=== PATIENT | male | born 1935 | race Caucasian/White ===

== ENCOUNTER 2017-09-21 12:59 | Emergency (ER) | payer MEDICARE, SELFPAY ==
[2017-09-21 12:59] VITALS: BP 142/64; PULSE 63; RESP 20; TEMP 36.6; O2SAT 97; BMI 30.2
--- NOTE | 2017-09-21 13:12 | XR_ITS ---
XR chest portable HISTORY: ITS.REASON: dizziness, weakness ORDERING PHYSICIAN: Jim Araujo MD PATIENT AGE: 81 years COMPARISON: 6 11/27/2016. FINDINGS: Borderline cardiomegaly without failure. The lungs are clear. There is a loop recorder device present. Bilateral humeral prostheses are present. IMPRESSION: No acute finding. Borderline cardiomegaly.
--- NOTE | 2017-09-21 13:16 | CT_ITS ---
CT head/brain wo con HISTORY: ITS.REASON: dizziness ORDERING PHYSICIAN: Jim Araujo MD PATIENT AGE: 81 years TECHNIQUE: Axial images obtained without contrast. Brain and bone windows reviewed. All CT scans at the facility use one or more dose reduction, viz: automated exposure control; ma/kV adjustment per patient size (including targeted exams where dose is matched to indication; i.e. head); or iterative reconstruction technique. FINDINGS: There is generalized atrophy. No midline shift, mass effect, intracranial hemorrhage, or hydrocephalus. No intra or extra-axial hemorrhage. No acute calvarial abnormality, mastoid effusion, or hydrocephalus level. IMPRESSION: Mild utilized atrophy, no change with no acute finding compared to 03/15/2016
--- NOTE | 2017-09-21 13:19 | HMH.EDDIZZ ---
ED Disposition Clinical Impression: Labyrinthitis, Hyperglycemia Disposition: Home, Self-Care Condition on Discharge: Good Instructions: DI for Labyrinthitis, DI for Hyperglycemia -- Adult Additional Instructions: Please take the meclizine as directed, for your labyrinthitis. Please follow-up with Dr. Paulo Alexander within the next 2 days for additional, outpatient, evaluation and management. Prescriptions: Meclizine HCl [Meclizine 25mg Tab] 25 mg PO TID #45 tab Referrals: Jonathan Nichols [Primary Care Provider] - Paulo Alexander MD [Staff Physician] - Time of Disposition: 13:50 - Critical Care Critical Care Time: No Attestation: On , the high probability of a clinically significant, sudden or life threatening deterioration of the following system(s) required my full and direct attention, intervention and personal management. The time I documented below is in addition to time spent performing reported procedures but includes the following listed in this critical care notation. Medical Decision Making - Medical Records Medical records reviewed: Yes: I reviewed the patient's medical records. - Adi Inquiry Pt receiving controlled substance: No Vital Signs: 09/21/17 12:59 09/21/17 14:05 Temperature 97.9 F 97.9 F Temperature Source Oral Oral Pulse Rate 63 Pulse Rate [Right Brachial] 63 Respiratory Rate 20 18 Blood Pressure 124/74 Blood Pressure [Right Arm] 142/64 Blood Pressure Mean [Right Arm] 90 Blood Pressure Source Automatic Cuff Blood Pressure Source [Right Arm] Automatic Cuff Blood Pressure Position Sitting Blood Pressure Position [Right Arm] Sitting 02 Sat by Pulse Oximetry 97 Oxygen Delivery Method Room Air - Lab Data Lab results reviewed: Yes: I reviewed the patient's lab results. Lab Results 09/21/17 13:00: WBC 6.0, RBC 4.48 L, Hgb 12.8 L, Hct 39.6 L, MCV 88.5, MCH 28.5, MCHC 32.2, RDW 13.2, Plt Count 184, MPV 7.7, Neut % (Auto) 70.6, Lymph % (Auto) 17.5, [place] % (Auto) 8.4, Eos % (Auto) 3.1, Baso % (Auto) 0.3, Neut # (Auto) 4.2, Lymph # (Auto) 1.0, [place] # (Auto) 0.5, Eos # (Auto) 0.2, Baso # (Auto) 0.0 09/21/17 13:00: Sodium 136, Potassium 4.8, Chloride 103, Carbon Dioxide 28, Anion Gap 9.8, BUN 18, Creatinine 0.98, Estimated Creat Clear 79, Estimated GFR 74, Est GFR ( Amer) 89, Glucose 312 H, Calcium 9.0, Total Bilirubin 0.3, AST 22, ALT 31, Alkaline Phosphatase 122 H, Total Creatine Kinase 60, CK-MB (CK-2) 1.1, CK-MB (CK-2) Rel Index 1.8, Troponin I < 0.02, Total Protein 6.1 L, Albumin 3.2 L, Globulin 2.9, Albumin/Globulin Ratio 1.1 09/21/17 13:16: POC Glucose 253 Result diagrams: 09/21/17 13:00 09/21/17 13:00 Orders (Tests/Meds): ED MEDICATIONS Discontinued Medications Generic Name Dose Route Start Last Admin Trade Name Freq PRN Reason Stop Dose Admin Meclizine HCl 50 mg 09/21/17 13:44 Antivert 25mg Tablet PO 09/21/17 13:45 ONCE ONE - Radiology Data #1 Image(s): Chest Image Reviewed: Yes I reviewed the patient's radiology results, Yes I reviewed the patient's radiology image, Yes I have reviewed radiologist's interpretation Preliminary Findings: Normal/NAD - CT Data CT Scan: Head (wthout) Time Received: 15:[address] Reviewed: Yes: I have reviewed the patient's CT results, I have viewed the radiologist's interpretation Findings Narrative: [address] [place] [address] [place] Scan Report Signed Patient: Oli Chambers MR#: [id number] : 1935 Acct:[id number] Age/Sex: 81 / M ADM Date: 09/21/17 Loc: ER Attending Dr: Ordering Physician: Jim Araujo MD Date of Service: 09/21/17 Procedure(s): CT head/brain wo con Accession Number(s): [id number] cc: Jimenez Villafana MD; Jonathan Nichols ~ CT head/brain wo con HISTORY: ITS.REASON: dizziness ORDERING PHYSICIAN: Jim Araujo MD PATIENT AGE: 81 years TE
[2017-09-21 13:24] LABS: POC Glucose,Bedside 253 mg/dL (70-110)
[2017-09-21 13:25] LABS: Basophils % 0.3 % (0.1-2.0); Eosinophils # 0.2 K/mm3 (0.0-0.4); Eosinophils % 3.1 % (0.1-12.0); Hematocrit 39.6 % (42.0-52.0); Hemoglobin 12.8 g/dL (14.1-18.0); Lymphocytes % 17.5 K/mm3 (10-50); Mean Corpuscular HGB Conc 32.2 g/dL (31.8-35.4); Mean Corpuscular Hemoglobin 28.5 pg (27.0-31.2); Mean Corpuscular Volume 88.5 fl (80-94); Mean Platelet Volume 7.7 fl (7.4-10.4); Monocytes # 0.5 K/mm3 (0.1-1.0); Monocytes % 8.4 % (1.7-9.3); Neutrophils # 4.2 K/mm3 (1.8-7.8); Neutrophils % 70.6 % (37.0-80.0); Platelet Count 184 K/mm3 (142-424); Red Blood Count 4.48 M/mm3 (4.60-6.20); Red Cell Distribution Width 13.2 % (11.5-17.5)
[2017-09-21 13:46] LABS: Alanine Aminotransferase 31 U/L (12-78); Albumin Level 3.2 gm/dL (3.4-5.0); Albumin/Globulin Ratio 1.1 (1.1-1.8); Alkaline Phosphatase 122 U/L (46-116); Anion Gap 9.8 mEq/L (5-15); Aspartate Amino Transferase 22 U/L (15-37); Bilirubin,Total 0.3 mg/dL (0.2-1.0); Blood Urea Nitrogen 18 mg/dL (7-18); CKMB Relative Index 1.8 U/L (0-4.0); Carbon Dioxide 28 mmol/L (21.0-32.0); Chloride 103 mmol/L (98-107); Creatine Kinase 60 U/L (39-308); Creatine Kinase MB 1.1 ng/ml (0.0-3.6); Creatinine Clearance Estimated 79 mL/min (0-300); Creatinine,Serum 0.98 mg/dL (0.70-1.30); Estimated Glomerular Filt Rate 74 ml/min (>60); GFR (African American) 89 ML/MIN (>60); Globulin 2.9 gm/dl (1.3-3.2); Glucose 312 mg/dL (74-106); Potassium 4.8 mmoL/L (3.5-5.1); Sodium 136 mmol/L (136-145); Total Protein,Serum 6.1 gm/dL (6.4-8.2); Troponin I < 0.02 ng/ml (0.00-0.06)
[2017-09-21 14:05] VITALS: BP 124/74; PULSE 63; RESP 18; TEMP 36.6
== END 2017-09-21 14:06 | disposition home or self-care (01) ==
PROVIDERS: Emergency Provider Emergency Medicine; PCP Pediatrics
DX: H83.09 Labyrinthitis, unspecified ear (principal); E11.65 Type 2 diabetes mellitus with hyperglycemia
CPT/HCPCS: 70450; 71045; 80053; 82550; 82553; 82962; 84484; 85025; 93005; 99283

== ENCOUNTER → 2017-10-11 06:22 | Outpatient (CLI) | payer MEDICARE, SELFPAY ==
--- NOTE | 2017-10-11 06:25 | CA_ITS ---
PROCEDURE: 2-D M-mode and color Doppler study INDICATIONS FOR THE TEST: Chest pain COPD Heart Murmur Tobacco Smoking Palpitations Fatigue Syncope+ Edema Hypertension Diabetes Mellitus Rheumatic Fever SOB ELLISON Obesity Hyperlipidemia Family History HD Additional History AFIB, DIZZINESS,CAD PATIENT INFORMATION HEIGHT: 69 WEIGHT:204 GENDER: Male B/P:144/88 2-D/M-MODE INTERPRETATION: 2-D MEASUREMENTS OBSERVED VALUES IN CMS Right Ventricular Dimension (RVDd) 2.2 Interventricular Septum (Thickness)(IVsd) 2.1 Left Ventricular Internal Dimensions(LVIDd) 3.7 Left Ventricular Posterior Wall (Thickness)(LVPWd) 1.3 Aortic Root 4.0 Aortic Cusp Separation 2.4 Left Atrial Dimensions (LAD) 3.9 2D 1. Technically very difficult study because of the patient's factor and poor acoustic windows, repeat study with Definity contrast is recommended. 2. The left atrium is mildly enlarged, left ventricle is normal size, there is mild concentric left ventricular hypertrophy, visually estimated ejection fraction approximately 40%, there appears to be hypokinesis involving the inferolateral and lateral wall, a repeat study with Definity contrast is recommended. 3. The aortic valve is minimally thickened and fibrosed. 4. The mitral and tricuspid valve leaflets are minimally thickened. 5. The pulmonic valve is poorly was. 6. There is no significant pericardial effusion noted. DOPPLER INTERROGATION: Doppler interrogation of the aortic, mitral and tricuspid valvular presence of mild mitral and tricuspid regurgitation, tricuspid and jet velocity insufficient for calculation of the right ventricular systolic pressure, Doppler evidence of impaired LV relaxation seen. Tissue Doppler is inconclusive CONCLUSION: 1. Limited difficult study because of the patient's factor and poor acoustic windows, repeat study with Definity contrast is recommended. 2. Mildly enlarged left atrium, normal left ventricular size, mild concentric left ventricular hypertrophy, visually estimated ejection fraction approximately 40% with segmental wall motion abnormality described above. Doppler evidence of impaired LV relaxation seen. 3. Mild mitral and tricuspid regurgitation 4. No significant pericardial effusion noted.
--- NOTE | 2017-10-11 06:25 | NM_ITS ---
SPECT MYOCARDIAL PERFUSION SCAN, REST AND STRESS: EXERCISE STRESS: [facility] REVIEW QGS EF AND WALL MOTION EVALUATION: QPS - PERFUSION EVALUATION: HISTORY: SOB, Syncope, HTN, DM, CAD PROCEDURE: Rest imaging performed after administration of10.39 millicuries Tc MIBI. Dose administered at6:40 a.m., with imaging thereafter. Stress imaging was then performed following5 minutes 31 seconds of exercise stress. The patient achieved a heart [id number] with projected heart rate of119 . Resting BP155/94 with stress 154/80. At maximum exercise stress,31.5 millicuries Tc MIBI administered at8:15 a.m. with [id number] minutes thereafter. FINDINGS: Perfusion Evaluation: The single slice spect images as well as the [facility] bull's-eye data summary were reviewed. Wall Motion and Ejection Fraction Evaluation: Gated SPECT review and analysis used to evaluate these features. There is a 41 % left ventricular ejection fraction. With diffuse anterior and inferior severe hypokinesis Stress images reveal decreased activity in a portion of the anterior wall and a large portion of the inferior wall. Rest images reveal significant improvement in the anterior wall with persistent defect in the anterior wall. IMPRESSION: High risk abnormal stress test with anterior ischemia and suggestion of previous inferior ischemia without reversibility. The anterior wall is hypokinetic the inferior wall severely hypokinetic.
--- NOTE | 2017-10-11 07:30 | HMH.ITSHM ---
XARELTO LISINOPRIL PANTOPRAZOLE ATORVASTATIN COD LIVER VITAMIN D3 BUPROPION ISOSORBIDE AMLODIPINE METFORMIN PROGLITAZONE VITAMIN C IRON
== END ==
PROVIDERS: PCP Pediatrics; Visit Provider Internal Medicine
DX: R94.31 Abnormal electrocardiogram [ECG] [EKG] (principal); Z95.5 Presence of coronary angioplasty implant and graft; Z79.01 Long term (current) use of anticoagulants; R42 Dizziness and giddiness; I11.9 Hypertensive heart disease without heart failure; R55 Syncope and collapse; R53.1 Weakness; I48.0 Paroxysmal atrial fibrillation; I25.10 Atherosclerotic heart disease of native coronary artery without angina pectoris; R53.83 Other fatigue; E78.4 Other hyperlipidemia; E11.9 Type 2 diabetes mellitus without complications; Z79.4 Long term (current) use of insulin
CPT/HCPCS: 78452; 93017; 93306; A9502

== ENCOUNTER → 2017-11-30 13:28 | Outpatient (CLI) | payer MEDICARE, SELFPAY | PROVIDERS: PCP Pediatrics; Visit Provider Internal Medicine | DX: G47.33 Obstructive sleep apnea (adult) (pediatric) (principal) | CPT/HCPCS: G0399 ==

== ENCOUNTER → 2017-12-22 14:28 | Outpatient (POV) | payer MEDICARE, SELFPAY | PROVIDERS: PCP Pediatrics | DX: Z00.00 Encounter for general adult medical examination without abnormal findings (principal) ==

== ENCOUNTER → 2017-12-31 09:50 | Outpatient (CLI) | payer MEDICARE, SELFPAY ==
[2017-12-31 11:11] LABS: Prostate Specific Ag Screen < 0.1 ng/mL (0.0-4.0)
== END ==
PROVIDERS: Visit Provider Urology
DX: Z12.5 Encounter for screening for malignant neoplasm of prostate (principal); N40.0 Benign prostatic hyperplasia without lower urinary tract symptoms
CPT/HCPCS: 36415; G0103

== ENCOUNTER → 2018-01-10 08:10 | Outpatient (POV) | payer MEDICARE, SELFPAY | PROVIDERS: Visit Provider Physician Assistant | DX: Z00.00 Encounter for general adult medical examination without abnormal findings (principal) ==

== ENCOUNTER 2018-02-02 14:25 | Outpatient (RCR) | payer MEDICARE, SELFPAY | END 2018-02-02 14:26 | disposition home or self-care (01) | LOC: PT 14:25 | PROVIDERS: PCP Pediatrics; Visit Provider Specialist | DX: R42 Dizziness and giddiness (principal) | CPT/HCPCS: 97110; 97163 ==

== ENCOUNTER → 2018-06-06 13:10 | Outpatient (CLI) | payer MEDICARE, SELFPAY ==
--- NOTE | 2018-06-06 13:28 | XR_ITS ---
XR chest 2V HISTORY: Heart failure, coronary artery disease, atrial fibrillation ITS.REASON: on amidoarone therapy ORDERING PHYSICIAN: MARJORIE Jensen PATIENT AGE: 82 years COMPARISON: 09/21/2018 FINDINGS: Borderline cardiomegaly without failure. Loop recorder device noted. Lungs are clear. There are degenerative changes in the thoracic spine and there are bilateral humeral prosthesis present. Coronary artery calcifications are noted on the lateral view. IMPRESSION: As above, no acute finding with no significant change. No convincing evidence of amiodarone toxicity
[2018-06-06 14:54] LABS: Alanine Aminotransferase 33 U/L (12-78); Albumin Level 3.4 gm/dL (3.4-5.0); Alkaline Phosphatase 141 U/L (46-116); Aspartate Amino Transferase 16 U/L (15-37); Bilirubin,Direct 0.2 mg/dL (0.0-0.2); Bilirubin,Indirect 0.2 mg/dL (0.0-0.9); Bilirubin,Total 0.4 mg/dL (0.2-1.0); T4 (Thyroxine) 10.2 ug/dl (4.7-13.3); Thyroid Stimulating Hormone 1.01 uIU/ml (0.358-3.740); Total Protein,Serum 6.2 gm/dL (6.4-8.2); Triiodothryronine (T3) Uptake 39 % (31-39)
== END ==
PROVIDERS: Visit Provider Physician Assistant
DX: E11.9 Type 2 diabetes mellitus without complications (principal); I11.9 Hypertensive heart disease without heart failure; I25.10 Atherosclerotic heart disease of native coronary artery without angina pectoris; I48.0 Paroxysmal atrial fibrillation; R06.09 Other forms of dyspnea; R42 Dizziness and giddiness; R53.83 Other fatigue; R94.31 Abnormal electrocardiogram [ECG] [EKG]; Z79.01 Long term (current) use of anticoagulants; Z95.5 Presence of coronary angioplasty implant and graft; E78.49 Other hyperlipidemia
CPT/HCPCS: 36415; 71046; 80076; 84436; 84443; 84479

== ENCOUNTER → 2018-07-19 08:24 | Outpatient (POV) | payer MEDICARE, SELFPAY | PROVIDERS: Visit Provider Dermatology | DX: Z00.00 Encounter for general adult medical examination without abnormal findings (principal) ==

== ENCOUNTER 2018-10-17 13:04 | Inpatient (IN) ==
[2018-10-17 13:24] LABS: Basophils % 0.4 % (0.1-2.0); Eosinophils # 0.3 K/mm3 (0.0-0.4); Eosinophils % 3.4 % (0.1-12.0); Hematocrit 24.1 % (42.0-52.0); Lymphocytes % 25.6 % (10-50); Mean Corpuscular HGB Conc 31.3 g/dL (31.8-35.4); Mean Corpuscular Hemoglobin 27.7 pg (27.0-31.2); Mean Corpuscular Volume 88.5 fl (80-94); Mean Platelet Volume 6.9 fl (7.4-10.4); Monocytes # 0.6 K/mm3 (0.1-1.0); Monocytes % 7.4 % (1.7-9.3); Neutrophils # 4.9 K/mm3 (1.8-7.8); Neutrophils % 63.2 % (37.0-80.0); Platelet Count 352 K/mm3 (142-424); Red Blood Count 2.73 M/mm3 (4.60-6.20); Red Cell Distribution Width 16.8 % (11.5-17.5); White Blood Count 7.7 K/mm3 (4.8-10.8)
[2018-10-17 13:28] LABS: Hemoglobin 7.6 g/dL (14.1-18.0)
--- NOTE | 2018-10-17 13:43 | Emergency Department Note ---
ED Disposition Clinical Impression: GI bleed, Anemia Disposition: Admitted as Observation Condition on Discharge: Fair Referrals: Jonathan Nichols [Primary Care Provider] - Time of Disposition: 14:04 - Critical Care Critical Care Time: No Attestation: On 10/17/18, the high probability of a clinically significant, sudden or life threatening deterioration of the following system(s) required my full and direct attention, intervention and personal management. The time I documented below is in addition to time spent performing reported procedures but includes the following listed in this critical care notation. Medical Decision Making - Medical Records Medical records reviewed: Yes: I reviewed the patient's medical records. - Adi Inquiry Pt receiving controlled substance: No Adi was queried for this patient: No Vital Signs: 10/17/18 13:05 Pulse Rate [Right Brachial] 81 Respiratory Rate 18 Blood Pressure [Right Arm] 136/74 Blood Pressure Mean [Right Arm] 94 Blood Pressure Source [Right Arm] Automatic Cuff Blood Pressure Position [Right Arm] Sitting 02 Sat by Pulse Oximetry 100 Oxygen Delivery Method Room Air - Lab Data Lab results reviewed: Yes: I reviewed the patient's lab results. Lab Results 10/17/18 13:10: WBC 7.7, RBC 2.73 L, Hgb 7.6 L*, Hct 24.1 L, MCV 88.5, MCH 27.7, MCHC 31.3 L, RDW 16.8, Plt Count 352, MPV 6.9 L, Neut % (Auto) 63.2, Lymph % (Auto) 25.6, [place] % (Auto) 7.4, Eos % (Auto) 3.4, Baso % (Auto) 0.4, Neut # (Auto) 4.9, Lymph # (Auto) 2.0, [place] # (Auto) 0.6, Eos # (Auto) 0.3, Baso # (Auto) 0.0 10/17/18 13:10: Sodium 141, Potassium 4.3, Chloride 107, Carbon Dioxide 26, Anion Gap 12.3, BUN 34 H, Creatinine 1.12, Estimated Creat Clear 70, Estimated GFR 63, Est GFR ( Amer) 76, Glucose 78, Calcium 8.8, Troponin I < 0.02 Result diagrams: 10/17/18 13:10 10/17/18 13:10 Orders (Tests/Meds): ED MEDICATIONS Generic Name Dose Route Start Last Admin Trade Name Hope PRN Reason Stop Dose Admin Sodium Chloride 250 mls @ 25 mls/hr 10/17/18 13:45 Sod Chlor 0.9% 250ml Bag IV 10/18/18 13:44 .Q10H LIOR Discontinued Medications Generic Name Dose Route Start Last Admin Trade Name Hope PRN Reason Stop Dose Admin Aspirin 324 mg 10/17/18 13:09 10/17/18 13:11 Aspirin 81mg Chewable Tablet PO 10/17/18 13:10 324 mg ONCE ONE Administration ORDERS Category Date Time Status PRBC [Red Blood Cells] Stat BBK 10/17/18 13:41 Ordered Type and Screen Stat BBK 10/17/18 13:[address] abdomen pelvis w con Stat Cat Scan 10/17/18 13:44 Ordered XR chest 2V Stat Exams 10/17/18 13:09 Taken Occult Blood,Stool Stat Lab 10/17/18 14:01 Ordered - Physician Consults Physician Consulted: alonzo Time: 13:46 Reason -: Admission Additional Consult: rashi Reason -: Pt condition, Gastroenterolgy Eval/Care General Adult HPI - General Chief complaint: Chest Pain Stated complaint: chest pain,soa Time Seen by Provider: 10/17/18 13:38 Mode of Arrival: Ambulatory Source of Information: Patient Limitations: No Limitations Description of Symptoms (Recalled from ER Triage Doc. by RN): nausea, weakness, shortness of air and chest pain that came on while riding a lawnmower trying to mow the yard this date - History of Present Illness HPI narrative: admits to black stools x 3-4 days - Related Data Home Medications Medication Instructions Recorded Confirmed aspirin 81 mg tablet,delayed 81 mg PO DAILY tab 09/27/17 09/05/18 release atorvastatin 80 mg tablet 80 mg PO DAILY tab 09/27/17 09/05/18 insulin detemir (U- 100) 100 40 unit SUB-Q QAM ml 09/27/17 09/05/18 unit/mL subcutaneous solution metformin 500 mg tablet 500 mg PO BID 09/27/17 09/05/18 nitroglycerin 0.4 mg sublingual 0.4 mg SUBLINGUAL Q5M PRN 09/27/17 09/05/18 tablet rivaroxaban 20 mg tablet 20 mg PO QPM 09/27/17 09/05/18 pioglitazone 30 mg tablet 30 mg PO ONCE 12/30/17 09/05/18 bupropion HCl SR 100 mg tablet,12 100 mg PO DAILY each 06/06/18 09/05/18 hr sustained-release amiodarone 200 mg tablet 200 mg PO DAILY 09/05/18 09/05/18 Previous Rx's Medication Instructions Recorded isosorbide mononitrate ER 30 mg 30 mg PO QAM #30 tab 08/30/18 tablet,extended release 24 hr pantoprazole 40 mg tablet,delayed 40 mg PO DAILY #30 tab 09/05/18 release lisinopril 20 mg tablet 10 mg PO DAILY #30 tab 10/12/18 Allergies Allergy/AdvReac Type Severity Reaction Status Date / Time No Known Allergies Allergy Verified 09/05/18 10:54 [facility] History - Hepatitis A Screen Drug use history?: No High risk sexual behaviors?: No History of sexually transmitted infection?: No Currently employed?: No Childcare worker?: No Do you have indoor plumbing?: Yes Do you have electricity?: Yes Attestation statement:: This patient has been screened for Hepatitis A risk factors. I have reviewed the patient's past medical history: Yes Medical History: Reports:: Atherosclerotic Heart Disease, Atrial Fibrillation, Coronary Artery Disease, Diabetes Mellitus Type 2, Hyperlipidemia, Hypertension, Myocardial Infarction Denies:: Cancer, Diabetes Mellitus Type 1, Internal Pacemaker, MRSA, Seizures Other Medical History: Reports: Arthritis Comment: TOÑO Laterality Cases: Bilateral: Arthroscopy Knee, Arthroscopy Shoulder, Other Other Surgeries: Yes: Angiogram (10/11/17), Angioplasty, Cardiac Catheterization, Cardiac Surgery, Colonoscopy, Coronary Stent. No: Pacemaker Amputation: No Fractures: No Comment: Ankle, Knees, Shoulders - Social History Smoking Status: Never smoker Alcohol Intake: never Alcohol Intake Frequency:: other Substance Use Type: denies use Occupational Status: retired Housing: house Household Members: none Family Hx:: Hyperlipidemia, Cancer, Hypertension, Diabetes ROS Obtained: Yes All systems reviewed & no additional complaints - Constitutional Constitutional: Denies fever(s), Reports lethargy, Reports weakness - Cardiovascular Cardiovascular: Reports system reviewed and no additional complaints, except as docu, Denies chest pain, Denies chest pain at rest, Reports dyspnea - Respiratory Respiratory: No dyspnea, No dyspnea on exertion - Gastrointestinal Gastrointestingal: Reports: abdominal pain, black, tarry stools - Musculoskeletal Musculoskeletal: Denies joint stiffness, Denies joint swelling - Integumentary/Breasts Skin/Breast: Denies rash - Neurologic Neurologic: Denies sensory deficit - Hematologic/Lymphatic Henatologic/Lymphatic: Denies easy bleeding, Denies easy bruising Physical Exam - General General appearance: alert, in no apparent distress - Eye Eye exam: Present: normal appearance, PERRL, EOMI - ENT ENT exam: Present: normal exam, normal oropharynx, mucous membranes moist, TM's normal bilaterally, normal external ear exam - Neck Neck exam: Present: normal inspection, full ROM, trachea midline. Absent: meningismus, lymphadenopathy - Respiratory Respiratory exam: Present: normal lung sounds bilaterally - Cardiovascular Cardiovascular exam: Present: regular rate, normal rhythm. Absent: JVD - Abdominal Exam Abdominal exam: Present: soft, tenderness, normal bowel sounds, other (guiaic postive black stool). Absent: distention, guarding - Back Exam Back exam: Present: normal inspection. Absent: tenderness - Neurological Exam Neurological exam: Present: alert, oriented X3 - Psychiatric Psychiatric exam: Present: normal affect, normal mood - Skin Skin exam: Present: warm, dry, intact, normal color
[2018-10-17 13:56] LABS: Anion Gap 12.3 mEq/L (5-15); Blood Urea Nitrogen 34 mg/dL (7-18); Calcium 8.8 mg/dL (8.5-10.1); Carbon Dioxide 26 mmol/L (21.0-32.0); Chloride 107 mmol/L (98-107); Glucose 78 mg/dL (74-106); Potassium 4.3 mmoL/L (3.5-5.1); Sodium 141 mmol/L (136-145)
--- NOTE | 2018-10-17 15:00 | Consult Report ---
History of Present Illness Consult date: 10/17/18 Requesting physician: Jin Garvey Consult reason: pre-op evaluation Chief complaint: Preop evaluation, GI bleed Additional Medical History:: 1. CAD A. Aborted STEMI, 02/2015 B. RANJIT to LAD,03/25/2015, on DAPT C. Ischemic Cardiomyopathy, improved with last echo showing, 06/2015, EF 35- 45%. D. Cardiac catheterization, 09/2017, left main normal, LAD with very proximal 20% stenosis followed by a proximal stent which is widely patent and free of in-stent restenosis. Mid LAD is a 40% eccentric stenosis. Area distally there are 80 and 90% stenoses of the small caliber LAD as it wraps the apex. Circumflex artery is nondominant with mild long 20-30% [id number] stenoses. RCA is a large dominant vessel and has proximal and mid vessels 10% stenoses with no significant distal stenosis greater than 10%. LVEF 50%, LVEDP 15 mmHg 2. Diabetes, on insulin 3. HTN A. Echocardiogram, 09/2017, technically difficult with left atrium mildly enlarged, LV size normal with mild concentric LVH. EF estimated 40% with hypokinesis in the inferolateral and lateral wall. Mild mitral regurgitation and tricuspid regurgitation. . 4. Hyperlipidemia, on statin 5. Paroxysmal atrial fibrillation A. Amiodarone and Xarelto therapy B. Loop recorder in place with recent download showing no episodes of atrial fibrillation, 08/2018 6. History of bilateral shoulder replacement and bilateral knee surgeries History of present illness: 83-year-old white male with known history of coronary artery disease, paroxysmal atrial fibrillation for which she is on amiodarone and Xarelto therapy presented to the hospital ER for evaluation of multiple complaints including progressive weakness and aches over the last several weeks. Patient has noticed the last couple of days some dark, tarry stools which coincides with some lower abdominal discomfort. Patient denies any nausea or vomiting. He denies any chest pain, pressure or tightness. 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 In the ER patient was found to have a hemoglobin of 7.6 and was admitted for further evaluation. Cardiology consulted due to history of atrial fibrillation, amiodarone therapy and Xarelto use. Patient's EKG at this time shows unusual P axis but a regular rhythm with no acute EKG changes. Patient has a implantable loop recorder and was downloaded in August with no episodes of atrial fibrillation noted. Patient has been seen by Dr. Can with plans for upper endoscopy tomorrow morning. [facility] History Medical History: Reports:: Atherosclerotic Heart Disease, Atrial Fibrillation, Coronary Artery Disease, Diabetes Mellitus Type 2, Hyperlipidemia, Hypertension, Myocardial Infarction Denies:: Cancer, Diabetes Mellitus Type 1, Internal Pacemaker, MRSA, Seizures *Have you ever received a pneumonia vaccine?: Yes *Have you received a flu vaccine this season?: No Other Medical History: Reports: Arthritis Laterality Cases: Bilateral: Arthroscopy Knee, Arthroscopy Shoulder, Other Other Surgeries: Yes: Angiogram (10/11/17), Angioplasty, Cardiac Catheterization, Cardiac Surgery, Colonoscopy, Coronary Stent. No: Pacemaker Amputation: No Fractures: No - *Social History Smoking Status: Never smoker Alcohol Intake: never Alcohol Intake Frequency:: other Substance Use Type: denies use *Occupational Status:: retired Housing: house Household Members: none Family Hx:: Hyperlipidemia, Cancer, Hypertension, Diabetes Meds Home Medications Medication Instructions Recorded Confirmed Type aspirin 81 mg tablet,delayed 81 mg PO DAILY tab 09/27/17 10/17/18 History release atorvastatin 80 mg tablet 80 mg PO DAILY tab 09/27/17 10/17/18 History insulin detemir (U- 100) 100 40 unit SUB-Q QAM ml 09/27/17 10/17/18 History unit/mL subcutaneous solution metformin 500 mg tablet 500 mg PO BID 09/27/17 10/17/18 History nitroglycerin 0.4 mg sublingual 0.4 mg SUBLINGUAL Q5MINP PRN 09/27/17 10/17/18 History tablet rivaroxaban 20 mg tablet 20 mg PO 1700 09/27/17 10/17/18 History pioglitazone 30 mg tablet 30 mg PO DAILY 12/30/17 10/17/18 History bupropion HCl SR 100 mg tablet,12 100 mg PO BID each 06/06/18 10/17/18 History hr sustained-release isosorbide mononitrate ER 30 mg 30 mg PO QAM #30 tab 08/30/18 10/17/18 Rx tablet,extended release 24 hr amiodarone 200 mg tablet 200 mg PO DAILY 09/05/18 10/17/18 History pantoprazole 40 mg tablet,delayed 40 mg PO DAILY #30 tab 09/05/18 10/17/18 Rx release lisinopril 20 mg tablet 10 mg PO DAILY #30 tab 10/12/18 10/17/18 Rx Allergies Allergy/AdvReac Type Severity Reaction Status Date / Time No Known Allergies Allergy Verified 09/05/18 10:54 Review of Systems - *Cardiovascular Reports shortness of breath with activity, Denies chest pain - *Respiratory Reports shortness of breath with activity, Denies cough - *Gastrointestinal Reports abdominal pain, Reports black, tarry stools, Denies nausea, Denies vomiting - *Genitourinary Denies blood in urine, Denies urinary urgency - *Musculoskeletal Reports joint pain, Denies back pain - *Neurologic Reports weakness, Denies sensory deficit Exam Vital signs and Labs for Last 24 Hours: Temp Pulse Resp BP Pulse Ox 97.8 F 65 17 142/75 H 100 10/17/18 14:41 10/17/18 14:41 10/17/18 14:41 10/17/18 14:41 10/17/18 13:05 Laboratory Results - last 24 hr 10/17/18 13:10: WBC 7.7, RBC 2.73 L, Hgb 7.6 L*, Hct 24.1 L, MCV 88.5, MCH 27.7, MCHC 31.3 L, RDW 16.8, Plt Count 352, MPV 6.9 L, Neut % (Auto) 63.2, Lymph % (Auto) 25.6, [place] % (Auto) 7.4, Eos % (Auto) 3.4, Baso % (Auto) 0.4, Neut # (Auto) 4.9, Lymph # (Auto) 2.0, [place] # (Auto) 0.6, Eos # (Auto) 0.3, Baso # (Auto) 0.0 10/17/18 13:10: Sodium 141, Potassium 4.3, Chloride 107, Carbon Dioxide 26, Anion Gap 12.3, BUN 34 H, Creatinine 1.12, Estimated Creat Clear 70, Estimated GFR 63, Est GFR ( Amer) 76, Glucose 78, Calcium 8.8, Troponin I < 0.02 10/17/18 14:08: Blood Type O Positive, Crossmatch (AHG) See Detail I & O for Last 24 hours: Intake & Output 10/15/18 10/16/18 10/17/18 10/18/18 11:59 11:59 11:59 11:59 Weight 210 lb - *Routine HEENT Exam Head: Present: normocephalic Eye: Present: EOMI, PERRL ENT: Present: mucous membranes moist - *Routine Neck Exam Present: supple. Absent: JVD, carotid bruit - *Routine Respiratory Exam Present: CTA bilaterally. Absent: accessory muscle use, rales, rhonchi, wheezes - *Routine Cardiovascular Exam Present: RRR. Absent: murmur, gallop, rubs - *Routine Abdominal Exam Present: soft. Absent: tenderness, distended, guarding - *Routine Extremities Exam Absent: edema, calf tenderness - *Routine Neurological Exam Present: alert, oriented X3, moving all extremities Assessment and Plan (1) Anemia Current visit: Yes Status: Acute Category: Medical Code(s): D64.9 - Anemia, unspecified (2) GI bleed Current visit: Yes Status: Acute Category: Medical Code(s): K92.2 - Gastrointestinal hemorrhage, unspecified (3) Coronary arteriosclerosis Current visit: No Status: Acute Category: Medical Code(s): I25.10 - Atherosclerotic heart disease of [place] coronary artery without angina pectoris (4) Diabetes mellitus Current visit: No Status: Acute Qualifiers: Diabetes mellitus type: type 2 Diabetes mellitus senior care insulin use: with oil heaterman 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 Diabetes mellitus complication status: without complication Qualified Code(s): E11.9 - Type 2 diabetes mellitus without complications; Z79.4 - half-way (current) use of insulin Category: Medical Code(s): E11.9 - Type 2 diabetes mellitus without complications (5) Hypertensive heart disease without heart failure Current visit: No Status: Acute Category: Medical Code(s): I11.9 - Hypertensive heart disease without heart failure (6) On anticoagulant therapy Current visit: No Status: Acute Category: Medical Code(s): 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 Patient was admitted for anemia with GI bleed with plans for upper endoscopy tomorrow. Patient is a low and acceptable risk from a cardiac standpoint to proceed with endoscopy. 2. Regarding history of paroxysmal atrial fibrillation and Xarelto use, will discontinue Xarelto at this time and continue amiodarone therapy to maintain sinus rhythm. Will check thyroid and liver functions along with chest x-ray due to amiodarone therapy. 3. Regarding the anemia, patient is to be transfused 2 units of blood later today. We would like to see his hemoglobin greater than 9 due to his coronary history.
--- NOTE | 2018-10-17 15:02 | Pharmacy Consult Notes ---
[facility] Pharmacy VTE Monitoring - Patient Demographics Admission date: 10/17/18 Report Date: 10/17/18 Time: 15:02 Allergies/Adverse Reactions: Patient Allergies No Known Allergies Allergy (Verified 09/05/18 10:54) Height: 1.75 m Weight: 95.254 kg Patient Problems: Current Active Problems (Updated 10/17/18 @ 14:04 by Jin Hill MD) GI bleed (Acute) Anemia (Acute) - VTE Risk Labs: VTE Related Lab Results Hgb 7.6 g/dL (14.1-18.0) L* 10/17/18 13:10 Hct 24.1 % (42.0-52.0) L 10/17/18 13:10 Plt Count 352 K/mm3 (142-424) 10/17/18 13:10 BUN 34 mg/dL (7-18) H 10/17/18 13:10 Creatinine 1.12 mg/dL (0.70-1.30) 10/17/18 13:10 Estimated Creat Clear 70 mL/min (50-200) 10/17/18 13:10 Clinical Trial Participant: No - Prophylaxis VTE Prophylaxis Ordered?: Yes Types of VTE Prophylaxis: TEDS Knee High
--- NOTE | 2018-10-17 15:33 | Consult Report ---
*Admission Date: 10/17/18 *Chief complaint: Weakness, dark stool *History of present illness: Patient is a very pleasant 83-year-old white male with a history of coronary artery disease and ischemic cardiomyopathy with prior myocardial infarction with placement of drug-eluting stents in 2014. He also has a history of previous atrial fibrillation and has been on Xarelto. He states that he has had several weeks of weakness. However, today he had presented to the emergency department with more significant nausea, weakness, shortness of air, and chest pain while mowing. Upon evaluation in the emergency department he was found to have a hemoglobin of 7.6 with hematocrit of 24%. BUN is 34 with creatinine of 1.12. Patient gives a history of about 3 days of black melanic stool. He denies any prior history of ulcer disease. He denies abdominal pain but does have some lower pelvic discomfort. Review of Systems - Review of Systems Review of systems:: pertinent systems reviewed and negative unless documented below - *Neurologic Reports weakness, Denies sensory deficit [facility] History Medical History: Reports:: Atherosclerotic Heart Disease, Atrial Fibrillation, Coronary Artery Disease, Diabetes Mellitus Type 2, Hyperlipidemia, Hypertension, Myocardial Infarction Denies:: Cancer, Diabetes Mellitus Type 1, Internal Pacemaker, MRSA, Seizures *Have you ever received a pneumonia vaccine?: Yes *Have you received a flu vaccine this season?: No Other Medical History: Reports: Arthritis Laterality Cases: Bilateral: Arthroscopy Knee, Arthroscopy Shoulder, Other Other Surgeries: Yes: Angiogram (10/11/17), Angioplasty, Cardiac Catheterization, Cardiac Surgery, Colonoscopy, Coronary Stent. No: Pacemaker Amputation: No Fractures: No - *Social History Smoking Status: Never smoker Alcohol Intake: never Alcohol Intake Frequency:: other Substance Use Type: denies use *Occupational Status:: retired Housing: house Household Members: none Family Hx:: Hyperlipidemia, Cancer, Hypertension, Diabetes Meds Home Medications Medication Instructions Recorded Confirmed Type aspirin 81 mg tablet,delayed 81 mg PO DAILY tab 09/27/17 10/17/18 History release atorvastatin 80 mg tablet 80 mg PO DAILY tab 09/27/17 10/17/18 History insulin detemir (U- 100) 100 40 unit SUB-Q QAM ml 09/27/17 10/17/18 History unit/mL subcutaneous solution metformin 500 mg tablet 500 mg PO BID 09/27/17 10/17/18 History nitroglycerin 0.4 mg sublingual 0.4 mg SUBLINGUAL Q5MINP PRN 09/27/17 10/17/18 History tablet rivaroxaban 20 mg tablet 20 mg PO 1700 09/27/17 10/17/18 History pioglitazone 30 mg tablet 30 mg PO DAILY 12/30/17 10/17/18 History bupropion HCl SR 100 mg tablet,12 100 mg PO BID each 06/06/18 10/17/18 History hr sustained-release isosorbide mononitrate ER 30 mg 30 mg PO QAM #30 tab 08/30/18 10/17/18 Rx tablet,extended release 24 hr amiodarone 200 mg tablet 200 mg PO DAILY 09/05/18 10/17/18 History pantoprazole 40 mg tablet,delayed 40 mg PO DAILY #30 tab 09/05/18 10/17/18 Rx release lisinopril 20 mg tablet 10 mg PO DAILY #30 tab 10/12/18 10/17/18 Rx Allergies Allergy/AdvReac Type Severity Reaction Status Date / Time No Known Allergies Allergy Verified 09/05/18 10:54 Exam Vital signs and Labs for Last 24 Hours: Temp Pulse Resp BP Pulse Ox 97.6 F 72 18 128/62 98 10/17/18 15:03 10/17/18 15:03 10/17/18 15:03 10/17/18 15:03 10/17/18 15:03 Laboratory Results - last 24 hr 10/17/18 13:10: WBC 7.7, RBC 2.73 L, Hgb 7.6 L*, Hct 24.1 L, MCV 88.5, MCH 27.7, MCHC 31.3 L, RDW 16.8, Plt Count 352, MPV 6.9 L, Neut % (Auto) 63.2, Lymph % (Auto) 25.6, [place] % (Auto) 7.4, Eos % (Auto) 3.4, Baso % (Auto) 0.4, Neut # (Auto) 4.9, Lymph # (Auto) 2.0, [place] # (Auto) 0.6, Eos # (Auto) 0.3, Baso # (Auto) 0.0 10/17/18 13:10: Sodium 141, Potassium 4.3, Chloride 107, Carbon Dioxide 26, Anion Gap 12.3, BUN 34 H, Creatinine 1.12, Estimated Creat Clear 70, Estimated GFR 63, Est GFR ( Amer) 76, Glucose 78, Calcium 8.8, Troponin I < 0.02 10/17/18 14:08: Blood Type O Positive, Crossmatch (G) See Detail 10/17/18 15:12: Blood Type Confirm O Positive I & O for Last 24 hours: Intake & Output 10/15/18 10/16/18 10/17/18 10/18/18 11:59 11:59 11:59 11:59 Weight 212 lb 4 oz - Constitutional no acute distress - *Routine Respiratory Exam Present: CTA bilaterally - *Routine Cardiovascular Exam Present: RRR Results - Labs 10/17/18 13:10 10/17/18 13:10 Laboratory Results - last 24 hr 10/17/18 13:10: WBC 7.7, RBC 2.73 L, Hgb 7.6 L*, Hct 24.1 L, MCV 88.5, MCH 27.7, MCHC 31.3 L, RDW 16.8, Plt Count 352, MPV 6.9 L, Neut % (Auto) 63.2, Lymph % (Auto) 25.6, [place] % (Auto) 7.4, Eos % (Auto) 3.4, Baso % (Auto) 0.4, Neut # (Auto) 4.9, Lymph # (Auto) 2.0, [place] # (Auto) 0.6, Eos # (Auto) 0.3, Baso # (Auto) 0.0 10/17/18 13:10: Sodium 141, Potassium 4.3, Chloride 107, Carbon Dioxide 26, Anion Gap 12.3, BUN 34 H, Creatinine 1.12, Estimated Creat Clear 70, Estimated GFR 63, Est GFR ( Amer) 76, Glucose 78, Calcium 8.8, Troponin I < 0.02 10/17/18 14:08: Blood Type O Positive, Crossmatch (G) See Detail 10/17/18 15:12: Blood Type Confirm O Positive Assessment and Plan - Assessment and plan all Dx Assessment and Plan for all problems:: Patient clinically has findings consistent with indolent upper GI blood loss with symptomatic anemia. Plan for initiation of intravenous proton pump inhibitors. Plan for tentative transfusion today and upper endoscopy tomorrow for diagnostic purposes.
[2018-10-17 16:21] LABS: Albumin Level 3.1 gm/dL (3.4-5.0); Bilirubin,Direct 0.1 mg/dL (0.0-0.2); Bilirubin,Indirect 0.1 mg/dL (0.0-0.9); Bilirubin,Total 0.2 mg/dL (0.2-1.0); Free Thyroxine Index 2.8 ug/dL (5.93-13.13); Thyroid Stimulating Hormone 1.19 uIU/ml (0.358-3.740); Total Protein,Serum 5.6 gm/dL (6.4-8.2)
[2018-10-17 22:59] LABS: Hematocrit 24.6 % (42.0-52.0)
[2018-10-17 23:22] LABS: Hemoglobin 7.9 g/dL (14.1-18.0)
[2018-10-18 06:27] LABS: Basophils % 0.3 % (0.1-2.0); Eosinophils # 0.2 K/mm3 (0.0-0.4); Eosinophils % 5.1 % (0.1-12.0); Hematocrit 24.5 % (42.0-52.0); Lymphocytes # 1.1 K/mm3 (0.7-4.5); Lymphocytes % 22.4 % (10-50); Mean Corpuscular HGB Conc 31.9 g/dL (31.8-35.4); Mean Corpuscular Hemoglobin 28.7 pg (27.0-31.2); Mean Platelet Volume 7.3 fl (7.4-10.4); Monocytes # 0.4 K/mm3 (0.1-1.0); Monocytes % 7.7 % (1.7-9.3); Neutrophils # 3.1 K/mm3 (1.8-7.8); Neutrophils % 64.6 % (37.0-80.0); Platelet Count 246 K/mm3 (142-424); Red Blood Count 2.72 M/mm3 (4.60-6.20); Red Cell Distribution Width 16.5 % (11.5-17.5); White Blood Count 4.8 K/mm3 (4.8-10.8)
[2018-10-18 06:45] LABS: Hemoglobin 7.8 g/dL (14.1-18.0)
[2018-10-18 06:47] LABS: Anion Gap 10.1 mEq/L (5-15); Potassium 4.1 mmoL/L (3.5-5.1)
[2018-10-18 07:11] LABS: Calcium 7.8 mg/dL (8.5-10.1)
--- NOTE | 2018-10-18 07:52 | Progress Note ---
Subjective Date: 10/18/18 Time: 07:48 Principal diagnosis: Anemia, GI bleed Interval history: 83-year-old white male in bed in no acute distress. Restless night due to blood transfusion. Denies any chest pain but does relate some shortness of breath with no rash, whelps or pruritus. Blood pressure noted to be elevated overnight during the transfusion treated with p.o. clonidine. Exam Vital signs and Labs for Last 24 Hours: Temp Pulse Resp BP Pulse Ox 97.6 F 70 17 102/63 L 100 10/18/18 04:40 10/18/18 04:40 10/18/18 04:40 10/18/18 04:40 10/18/18 04:40 Laboratory Results - last 24 hr 10/17/18 13:10: WBC 7.7, RBC 2.73 L, Hgb 7.6 L*, Hct 24.1 L, MCV 88.5, MCH 27.7, MCHC 31.3 L, RDW 16.8, Plt Count 352, MPV 6.9 L, Neut % (Auto) 63.2, Lymph % (Auto) 25.6, [place] % (Auto) 7.4, Eos % (Auto) 3.4, Baso % (Auto) 0.4, Neut # (Auto) 4.9, Lymph # (Auto) 2.0, [place] # (Auto) 0.6, Eos # (Auto) 0.3, Baso # (Auto) 0.0 10/17/18 13:10: Sodium 141, Potassium 4.3, Chloride 107, Carbon Dioxide 26, Anion Gap 12.3, BUN 34 H, Creatinine 1.12, Estimated Creat Clear 70, Estimated GFR 63, Est GFR ( Amer) 76, Glucose 78, Calcium 8.8, Troponin I < 0.02 10/17/18 13:10: Total Bilirubin 0.2, Direct Bilirubin 0.1, Indirect Bilirubin 0.1, AST 14 L, ALT 25, Alkaline Phosphatase 94, Total Protein 5.6 L, Albumin 3.1 L, TSH 1.19, Free T4 Index 2.8 L, Thyroxine (T4) 7.6, T3 Uptake 37 10/17/18 13:37: Stool Occult Blood Positive A 10/17/18 14:08: Blood Type O Positive, Antibody Screen Negative, Crossmatch (AHG) See Detail 10/17/18 15:12: Blood Type Confirm O Positive 10/17/18 16:18: POC Glucose 192 H 10/17/18 20:49: POC Glucose 282 H 10/17/18 22:52: Hgb 7.9 L*, Hct 24.6 L 10/18/18 05:02: POC Glucose 195 H 10/18/18 05:32: WBC 4.8 D, RBC 2.72 L, Hgb 7.8 L*, Hct 24.5 L, MCV 90.0, MCH 28.7, MCHC 31.9, RDW 16.5, Plt Count 246 D, MPV 7.3 L, Neut % (Auto) 64.6, L ymph % (Auto) 22.4, [place] % (Auto) 7.7, Eos % (Auto) 5.1, Baso % (Auto) 0.3, Neut # (Auto) 3.1, Lymph # (Auto) 1.1, [place] # (Auto) 0.4, Eos # (Auto) 0.2, Baso # (Auto) 0.0 10/18/18 05:32: Sodium 139, Potassium 4.1, Chloride 108 H, Carbon Dioxide 25, Anion Gap 10.1, BUN 31 H, Creatinine 1.06, Estimated Creat Clear 77, Estimated GFR 67, Est GFR ( Amer) 81, Glucose 186 H D, Calcium 7.8 L D I & O for Last 24 hours: Intake & Output 10/15/18 10/16/18 10/17/18 10/18/18 11:59 11:59 11:59 11:59 Intake Total 3152 / 3152 Balance 3152 / 3152 Weight 221 lb - *Routine HEENT Exam Head: Present: normocephalic Eye: Present: EOMI, PERRL ENT: Present: mucous membranes moist - *Routine Respiratory Exam Present: CTA bilaterally. Absent: accessory muscle use, rales, rhonchi, wheezes - *Routine Cardiovascular Exam Present: RRR. Absent: murmur, gallop, rubs - *Routine Neurological Exam Present: alert, oriented X3, moving all extremities Progress Note: A&P (1) Anemia Status: Acute Current Visit: Yes (2) GI bleed Status: Acute Current Visit: Yes (3) Coronary arteriosclerosis Status: Acute Current Visit: No (4) Diabetes mellitus Status: Acute Current Visit: No (5) Hypertensive heart disease without heart failure Status: Acute Current Visit: No (6) On anticoagulant therapy Status: Acute Current Visit: No (7) Paroxysmal atrial fibrillation Status: Acute Current Visit: No (8) Stented coronary artery Status: Acute Current Visit: No (9) Weakness Status: Acute Current Visit: No Assessment and Plan for All Diagnoses:: 1. We will give 1 dose of Lasix today. 2. Despite 2 units of blood transfusion patient's hemoglobin did not change significantly. Recommend proceeding with 2 additional units today. 3. Patient is stable to proceed with upper endoscopy today.
--- NOTE | 2018-10-18 07:53 | Progress Note ---
Subjective Patient reports: no new complaints Narrative: Patient states he did not sleep well. No clinical bleeding. Exam Vital signs and Labs for Last 24 Hours: Temp Pulse Resp BP Pulse Ox 97.6 F 70 17 102/63 L 100 10/18/18 04:40 10/18/18 04:40 10/18/18 04:40 10/18/18 04:40 10/18/18 04:40 Laboratory Results - last 24 hr 10/17/18 13:10: WBC 7.7, RBC 2.73 L, Hgb 7.6 L*, Hct 24.1 L, MCV 88.5, MCH 27.7, MCHC 31.3 L, RDW 16.8, Plt Count 352, MPV 6.9 L, Neut % (Auto) 63.2, Lymph % (Auto) 25.6, [place] % (Auto) 7.4, Eos % (Auto) 3.4, Baso % (Auto) 0.4, Neut # (Auto) 4.9, Lymph # (Auto) 2.0, [place] # (Auto) 0.6, Eos # (Auto) 0.3, Baso # (Auto) 0.0 10/17/18 13:10: Sodium 141, Potassium 4.3, Chloride 107, Carbon Dioxide 26, Anion Gap 12.3, BUN 34 H, Creatinine 1.12, Estimated Creat Clear 70, Estimated GFR 63, Est GFR ( Amer) 76, Glucose 78, Calcium 8.8, Troponin I < 0.02 10/17/18 13:10: Total Bilirubin 0.2, Direct Bilirubin 0.1, Indirect Bilirubin 0.1, AST 14 L, ALT 25, Alkaline Phosphatase 94, Total Protein 5.6 L, Albumin 3.1 L, TSH 1.19, Free T4 Index 2.8 L, Thyroxine (T4) 7.6, T3 Uptake 37 10/17/18 13:37: Stool Occult Blood Positive A 10/17/18 14:08: Blood Type O Positive, Antibody Screen Negative, Crossmatch (AHG) See Detail 10/17/18 15:12: Blood Type Confirm O Positive 10/17/18 16:18: POC Glucose 192 H 10/17/18 20:49: POC Glucose 282 H 10/17/18 22:52: Hgb 7.9 L*, Hct 24.6 L 10/18/18 05:02: POC Glucose 195 H 10/18/18 05:32: WBC 4.8 D, RBC 2.72 L, Hgb 7.8 L*, Hct 24.5 L, MCV 90.0, MCH 28.7, MCHC 31.9, RDW 16.5, Plt Count 246 D, MPV 7.3 L, Neut % (Auto) 64.6, Lymph % (Auto) 22.4, [place] % (Auto) 7.7, Eos % (Auto) 5.1, Baso % (Auto) 0.3, Neut # (Auto) 3.1, Lymph # (Auto) 1.1, [place] # (Auto) 0.4, Eos # (Auto) 0.2, Baso # (Auto) 0.0 10/18/18 05:32: Sodium 139, Potassium 4.1, Chloride 108 H, Carbon Dioxide 25, Anion Gap 10.1, BUN 31 H, Creatinine 1.06, Estimated Creat Clear 77, Estimated GFR 67, Est GFR ( Amer) 81, Glucose 186 H D, Calcium 7.8 L D I & O for Last 24 hours: Intake & Output 10/15/18 10/16/18 10/17/18 10/18/18 11:59 11:59 11:59 11:59 Intake Total 3152 / 3152 Balance 3152 / 3152 Weight 221 lb - *Routine Abdominal Exam Present: soft. Absent: tenderness Progress Note: A&P (1) Anemia Status: Acute Current Visit: Yes (2) GI bleed Status: Acute Current Visit: Yes (3) Coronary arteriosclerosis Status: Acute Current Visit: No (4) Diabetes mellitus Status: Acute Current Visit: No (5) Hypertensive heart disease without heart failure Status: Acute Current Visit: No (6) On anticoagulant therapy Status: Acute Current Visit: No (7) Paroxysmal atrial fibrillation Status: Acute Current Visit: No (8) Stented coronary artery Status: Acute Current Visit: No (9) Weakness Status: Acute Current Visit: No Assessment and Plan for All Diagnoses:: Essentially no response to transfusion. Give two additional units PRBCs today. EGD today.
--- NOTE | 2018-10-18 08:52 | History & Physical Report ---
*Admission Date: 10/17/18 *Chief complaint: GIB *History of present illness: Pt to ED C/O nausea, weakness, SOA, and CP while mowing yard. Also reports black tarry stools X 3-4 days. Pt sitting up in bed, no apparent distress. Reports LLQ pain. [facility] History I have reviewed the patient's past medical history: Yes Medical History: Reports:: Atherosclerotic Heart Disease, Atrial Fibrillation, Coronary Artery Disease, Diabetes Mellitus Type 2, Hyperlipidemia, Hypertension, Myocardial Infarction Denies:: Cancer, Diabetes Mellitus Type 1, Internal Pacemaker, MRSA, Seizures *Have you ever received a pneumonia vaccine?: No *Have you received a flu vaccine this season?: No Other Medical History: Reports: Arthritis Laterality Cases: Bilateral: Arthroscopy Knee, Arthroscopy Shoulder, Other Other Surgeries: Yes: Angiogram (10/11/17), Angioplasty, Cardiac Catheterization, Cardiac Surgery, Colonoscopy, Coronary Stent. No: Pacemaker Amputation: No Fractures: No - *Social History Educational Level: Completed High School Smoking Status: Never smoker Alcohol Intake: never Alcohol Intake Frequency:: other Substance Use Type: denies use *Occupational Status:: retired Housing: house Household Members: none *Travel in the last 8 weeks: None - Psychiatric History Expresses thoughts of harming self/others: None Suicide Plan Description: No Plan Family Hx:: Hyperlipidemia, Cancer, Hypertension, Diabetes Review of Systems - Review of Systems Review of systems:: pertinent systems reviewed and negative unless documented below - Constitutional Reports weakness - Eyes Denies change in vision - *Cardiovascular Reports chest pain, Reports chest pain with activity - *Respiratory Reports shortness of breath - *Gastrointestinal Reports abdominal pain, Reports black, tarry stools - *Genitourinary Denies difficulty urinating - *Musculoskeletal Reports muscle weakness - *Neurologic Reports weakness, Denies sensory deficit Meds Home Medications Medication Instructions Recorded Confirmed Type aspirin 81 mg tablet,delayed 81 mg PO DAILY tab 09/27/17 10/17/18 History release atorvastatin 80 mg tablet 80 mg PO HS tab 09/27/17 10/17/18 History insulin detemir (U- 100) 100 40 unit SUB-Q QAM ml 09/27/17 10/17/18 History unit/mL subcutaneous solution metformin 500 mg tablet 500 mg PO BID 09/27/17 10/17/18 History nitroglycerin 0.4 mg sublingual 0.4 mg SUBLINGUAL Q5MINP PRN 09/27/17 10/17/18 History tablet rivaroxaban 20 mg tablet 20 mg PO 1700 09/27/17 10/17/18 History pioglitazone 30 mg tablet 30 mg PO DAILY 12/30/17 10/17/18 History isosorbide mononitrate ER 30 mg 30 mg PO QAM #30 tab 08/30/18 10/17/18 Rx tablet,extended release 24 hr amiodarone 200 mg tablet 200 mg PO DAILY 09/05/18 10/17/18 History pantoprazole 40 mg tablet,delayed 40 mg PO DAILY #30 tab 09/05/18 10/17/18 Rx release lisinopril 20 mg tablet 10 mg PO DAILY #30 tab 10/12/18 10/17/18 Rx buPROPion HCl [Wellbutrin 100mg 100 mg PO BID 10/17/18 10/17/18 History Tablet] Allergies Allergy/AdvReac Type Severity Reaction Status Date / Time No Known Allergies Allergy Verified 09/05/18 10:54 Exam Vital signs and Labs for Last 24 Hours: Temp Pulse Resp BP Pulse Ox 97.5 F L 69 18 129/70 93 L 10/18/18 08:00 10/18/18 08:00 10/18/18 08:00 10/18/18 08:00 10/18/18 08:00 Laboratory Results - last 24 hr 10/17/18 13:10: WBC 7.7, RBC 2.73 L, Hgb 7.6 L*, Hct 24.1 L, MCV 88.5, MCH 27.7, MCHC 31.3 L, RDW 16.8, Plt Count 352, MPV 6.9 L, Neut % (Auto) 63.2, Lymph % (Auto) 25.6, [place] % (Auto) 7.4, Eos % (Auto) 3.4, Baso % (Auto) 0.4, Neut # (Aut o) 4.9, Lymph # (Auto) 2.0, [place] # (Auto) 0.6, Eos # (Auto) 0.3, Baso # (Auto) 0.0 10/17/18 13:10: Sodium 141, Potassium 4.3, Chloride 107, Carbon Dioxide 26, Anion Gap 12.3, BUN 34 H, Creatinine 1.12, Estimated Creat Clear 70, Estimated GFR 63, Est GFR ( Amer) 76, Glucose 78, Calcium 8.8, Troponin I < 0.02 10/17/18 13:10: Total Bilirubin 0.2, Direct Bilirubin 0.1, Indirect Bilirubin 0.1, AST 14 L, ALT 25, Alkaline Phosphatase 94, Total Protein 5.6 L, Albumin 3.1 L, TSH 1.19, Free T4 Index 2.8 L, Thyroxine (T4) 7.6, T3 Uptake 37 10/17/18 13:37: Stool Occult Blood Positive A 10/17/18 14:08: Blood Type O Positive, Antibody Screen Negative, Crossmatch (AHG) See Detail 10/17/18 15:12: Blood Type Confirm O Positive 10/17/18 16:18: POC Glucose 192 H 10/17/18 20:49: POC Glucose 282 H 10/17/18 22:52: Hgb 7.9 L*, Hct 24.6 L 10/18/18 05:02: POC Glucose 195 H 10/18/18 05:32: WBC 4.8 D, RBC 2.72 L, Hgb 7.8 L*, Hct 24.5 L, MCV 90.0, MCH 28.7, MCHC 31.9, RDW 16.5, Plt Count 246 D, MPV 7.3 L, Neut % (Auto) 64.6, Lymph % (Auto) 22.4, [place] % (Auto) 7.7, Eos % (Auto) 5.1, Baso % (Auto) 0.3, Neut # (Auto) 3.1, Lymph # (Auto) 1.1, [place] # (Auto) 0.4, Eos # (Auto) 0.2, Baso # (Auto) 0.0 10/18/18 05:32: Sodium 139, Potassium 4.1, Chloride 108 H, Carbon Dioxide 25, Anion Gap 10.1, BUN 31 H, Creatinine 1.06, Estimated Creat Clear 77, Estimated GFR 67, Est GFR ( Amer) 81, Glucose 186 H D, Calcium 7.8 L D I & O for Last 24 hours: Intake & Output 10/15/18 10/16/18 10/17/18 10/18/18 23:59 23:59 23:59 23:59 Intake Total 1516 / 1516 1636 / 1636 Balance 151 / 1516 1636 / 1636 Weight 212 lb 4 oz 221 lb - Constitutional no acute distress - *Routine HEENT Exam Head: Present: normocephalic Eye: Present: EOMI, PERRL ENT: Present: mucous membranes moist - *Routine Neck Exam Present: supple. Absent: lymphadenopathy - *Routine Respiratory Exam Present: CTA bilaterally - *Routine Cardiovascular Exam Present: RRR - *Routine Abdominal Exam Present: soft, normoactive bowel sounds, tenderness - *Routine Extremities Exam Absent: cyanosis, clubbing, edema - *Routine Skin Exam Present: warm. Absent: rash - *Routine Neurological Exam Present: alert, oriented X3 - Routine Psychiatric Exam Present: normal affect Assessment and Plan (1) Anemia Current visit: Yes Status: Acute Category: Medical Code(s): D64.9 - Anemia, unspecified (2) GI bleed Current visit: Yes Status: Acute Category: Medical Code(s): K92.2 - Gastrointestinal hemorrhage, unspecified (3) Coronary arteriosclerosis Current visit: No Status: Acute Category: Medical Code(s): I25.10 - Atherosclerotic heart disease of [place] coronary artery without angina pectoris (4) Diabetes mellitus Current visit: No Status: Acute Qualifiers: Diabetes mellitus type: type 2 Diabetes mellitus terminal system operator insulin use: with snf use Diabetes mellitus complication status: without complication Qualified Code(s): E11.9 - Type 2 diabetes mellitus without complications; Z79.4 - technician terminal and repeater (current) use of insulin Category: Medical Code(s): E11.9 - Type 2 diabetes mellitus without complications (5) Hypertensive heart disease without heart failure Current visit: No Status: Acute Category: Medical Code(s): I11.9 - Hypertensive heart disease without heart failure (6) On anticoagulant therapy Current visit: No Status: Acute Category: Medical Code(s): Z79.01 - technician terminal and repeater (current) use of anticoagulants (7) Paroxysmal atrial fibrillation Current visit: No Status: Acute Category: Medical Code(s): I48.0 - Paroxysmal atrial fibrillation (8) Stented coronary artery Current visit: No Status: Acute Category: Surgical Code(s): Z95.5 - Presence of coronary angioplasty implant and graft (9) Weakness Current visit: No Status: Acute Category: Medical Code(s): R53.1 - Weakness - Assessment and plan all Dx Assessment and Plan for all problems:: Rounds w/ DR. Garvey All orders per DR. Garvey To have EGD today DR. Goodman consult Cards consult
--- NOTE | 2018-10-18 09:47 | Procedure Note ---
- Procedure: Date: 10/18/18 Procedure Performed:: Esophagogastroduodenoscopy Indications:: Patient is a very pleasant 83-year-old white male with a history of coronary artery disease and ischemic cardiomyopathy with prior myocardial infarction with placement of drug-eluting stents in 2014. He also has a history of previous atrial fibrillation and has been on Xarelto. He states that he has had several weeks of weakness. However, today he had presented to the emergency department with more significant nausea, weakness, shortness of air, and chest pain while mowing. Upon evaluation in the emergency department he was found to have a hemoglobin of 7.6 with hematocrit of 24%. BUN is 34 with creatinine of 1.12. Patient gives a history of about 3 days of black melanic stool. He denies any prior history of ulcer disease. He denies abdominal pain but does have some lower pelvic discomfort. Performing Provider:: Wesley Can MD Referring Provider:: Branden Garvey MD Sedation:: Propofol Procedure:: Consent was obtained and patient was taken to endoscopy procedure room. He was positioned in a lateral decubitus position and adequate intravenous sedation was achieved with titration of propofol. Olympus endoscope was inserted via the oropharynx. It was advanced through the esophagus which overall appeared grossly normal. There is some minor inflammation, which was quite subtle, at the gastroesophageal junction consistent with mild reflux. Stomach was cannulated and insufflated and retroflexion revealed a very tiny hiatal hernia. Gastric lumen was otherwise unremarkable. Endoscope was advanced through the pylorus and a generous distance down the duodenum into the distal duodenum. Careful surveillance was carried out upon withdrawal of the endoscope and there was no evidence of any etiologic source for bleeding. Stomach was desufflated and the endoscope was withdrawn. Findings:: Tiny hiatal hernia No identifiable etiologic source for blood loss on upper endoscopy Recommendations:: Patient may require colonoscopy for completeness to evaluate for any upper and lower source of GI blood loss. Complications:: None immediately apparent Estimated blood obtained (mL): 0
--- NOTE | 2018-10-18 10:32 | Progress Note ---
[facility] Anesthesia Checklist - Patient Identification Patient Identification: Arm Band - Structural Data Admitted From: Inpatient Planned Operative Procedure/s: egd Consent for Planned Operative Procedure(s) Verified: Yes Verified Documents: Surgical Consent, History and Physical - NPO Status Verified Time NPO: 00:00 - Additional verifications Anesthesia Reactions: No - Airway Assessment C-Spine Mobility Assessed: Yes (mp2) TMJ Mobility Assessed: Yes Dentition: Good Dentition - Neurological Assessment Level of Consciousness: Awake, Alert - Anesthesia Plan Anesthesia Risk discussed: Yes Anesthesia Plan: Verified ASA Class: III Anesthesia Type: MAC [facility] History I have reviewed the patient's past medical history: Yes Medical History: Reports:: Atherosclerotic Heart Disease, Atrial Fibrillation, Coronary Artery Disease, Diabetes Mellitus Type 2, Hyperlipidemia, Hypertension, Myocardial Infarction Denies:: Cancer, Diabetes Mellitus Type 1, Internal Pacemaker, MRSA, Seizures *Have you ever received a pneumonia vaccine?: No *Have you received a flu vaccine this season?: No Other Medical History: Reports: Arthritis Laterality Cases: Bilateral: Arthroscopy Knee, Arthroscopy Shoulder, Other Other Surgeries: Yes: Angiogram (10/11/17), Angioplasty, Cardiac Catheterization, Cardiac Surgery, Colonoscopy, Coronary Stent. No: Pacemaker Amputation: No Fractures: No - *Social History Educational Level: Completed High School Smoking Status: Never smoker Alcohol Intake: never Alcohol Intake Frequency:: other Substance Use Type: denies use *Occupational Status:: retired Housing: house Household Members: none *Travel in the last 8 weeks: None - Psychiatric History Expresses thoughts of harming self/others: None Suicide Plan Description: No Plan Family Hx:: Hyperlipidemia, Cancer, Hypertension, Diabetes
[2018-10-18 16:58] LABS: Hematocrit 29.1 % (42.0-52.0)
[2018-10-18 17:08] LABS: Hemoglobin 9.7 g/dL (14.1-18.0)
[2018-10-19 07:03] LABS: Basophils % 0.3 % (0.1-2.0); Eosinophils # 0.1 K/mm3 (0.0-0.4); Eosinophils % 3.8 % (0.1-12.0); Hematocrit 28.5 % (42.0-52.0); Hemoglobin 9.4 g/dL (14.1-18.0); Lymphocytes # 0.7 K/mm3 (0.7-4.5); Lymphocytes % 19.8 % (10-50); Mean Corpuscular HGB Conc 32.9 g/dL (31.8-35.4); Mean Corpuscular Hemoglobin 29.1 pg (27.0-31.2); Mean Corpuscular Volume 88.6 fl (80-94); Mean Platelet Volume 6.7 fl (7.4-10.4); Monocytes # 0.3 K/mm3 (0.1-1.0); Monocytes % 7.9 % (1.7-9.3); Neutrophils # 2.6 K/mm3 (1.8-7.8); Neutrophils % 68.3 % (37.0-80.0); Platelet Count 220 K/mm3 (142-424); Red Blood Count 3.21 M/mm3 (4.60-6.20); Red Cell Distribution Width 16.2 % (11.5-17.5); White Blood Count 3.7 K/mm3 (4.8-10.8)
[2018-10-19 07:17] LABS: Albumin Level 2.6 gm/dL (3.4-5.0); Albumin/Globulin Ratio 1.1 (1.1-1.8); Anion Gap 10.9 mEq/L (5-15); Bilirubin,Total 0.5 mg/dL (0.2-1.0); Calcium 8.1 mg/dL (8.5-10.1); Globulin 2.3 gm/dl (1.3-3.2); Potassium 3.9 mmoL/L (3.5-5.1); Total Protein,Serum 4.9 gm/dL (6.4-8.2)
--- NOTE | 2018-10-19 11:27 | Progress Note ---
Subjective Date: 10/19/18 Time: 11:15 Principal diagnosis: Anemia, GI bleed Interval history: This is an 83-year-old gentleman who was admitted to the hospital with a GI bleed. He has underwent EGD and this showed a small hiatal hernia with no obvious signs of bleeding. His Xarelto has been stopped. He has been transfused with packed red blood cells. His hemoglobin is 9.4 today which is up from 7.8. He is scheduled to undergo colonoscopy today to see if a source of bleeding can be identified. He denies any chest pain, pressure, shortness of breath or edema. He denies any fever, chills, vomiting, diarrhea, PND or orthopnea. He does complain of some abdominal discomfort but states this is better than it was. Exam Vital signs and Labs for Last 24 Hours: Temp Pulse Resp BP Pulse Ox 98.3 F 73 16 135/83 96 10/19/18 08:00 10/19/18 08:00 10/19/18 08:00 10/19/18 08:00 10/19/18 08:00 Laboratory Results - last 24 hr 10/17/18 14:08: Blood Type O Positive, Antibody Screen Negative, Crossmatch (AHG) See Detail 10/18/18 11:47: POC Glucose 258 H 10/18/18 16:24: POC Glucose 188 H 10/18/18 16:40: Hgb 9.7 L D, Hct 29.1 L 10/18/18 20:12: POC Glucose 170 H 10/19/18 05:58: WBC 3.7 L, RBC 3.21 L, Hgb 9.4 L, Hct 28.5 L, MCV 88.6, MCH 29.1, MCHC 32.9, RDW 16.2, Plt Count 220, MPV 6.7 L, Neut % (Auto) 68.3, Lymph % (Auto) 19.8, [place] % (Auto) 7.9, Eos % (Auto) 3.8, Baso % (Auto) 0.3, Neut # (Auto) 2.6, Lymph # (Auto) 0.7, [place] # (Auto) 0.3, Eos # (Auto) 0.1, Baso # (Auto) 0.0 10/19/18 05:58: Sodium 141, Potassium 3.9, Chloride 109 H, Carbon Dioxide 25, Anion Gap 10.9, BUN 19 H D, Creatinine 0.98, Estimated Creat Clear 81, Estimated GFR 73, Est GFR ( Amer) 89, Glucose 126 H, Calcium 8.1 L, Total Bilirubin 0.5, AST 16, ALT 24, Alkaline Phosphatase 65, Total Protein 4.9 L, Albumin 2.6 L , Globulin 2.3, Albumin/Globulin Ratio 1.1 10/19/18 06:04: POC Glucose 143 H I & O for Last 24 hours: Intake & Output 10/16/18 10/17/18 10/18/18 10/19/18 23:59 23:59 23:59 23:59 Intake Total 1516 / 1516 4588 / 4588 1610 / 1610 Output Total 200 / 200 650 / 650 Balance 1516 / 1516 4388 / 4388 960 / 960 Weight 212 lb 4 oz 221 lb 219 lb 0.003 oz - *Routine HEENT Exam Head: Present: normocephalic, atraumatic Eye: Present: EOMI, PERRL ENT: Present: mucous membranes moist - *Routine Neck Exam Present: supple, full ROM, normal carotid upstroke. Absent: JVD, carotid bruit, lymphadenopathy - *Routine Respiratory Exam Present: CTA bilaterally - *Routine Cardiovascular Exam Present: RRR, Normal S1, Normal S2. Absent: murmur, gallop - *Routine Abdominal Exam Present: soft, normoactive bowel sounds. Absent: tenderness, distended - *Routine Extremities Exam Present: full ROM, pulses intact, normal capillary refill. Absent: cyanosis, clubbing, edema - *Routine Skin Exam Present: intact, warm. Absent: erythema, rash - *Routine Neurological Exam Present: alert, oriented X3, CN II-XII intact. Absent: sensory deficit, motor deficit - Detailed Eye Exam Eyelids: Left normal inspection Progress Note: A&P (1) Anemia Status: Acute Current Visit: Yes (2) GI bleed Status: Acute Current Visit: Yes (3) Coronary arteriosclerosis Status: Acute Current Visit: No (4) Diabetes mellitus Status: Acute Current Visit: No (5) Hypertensive heart disease without heart failure Status: Acute Current Visit: No (6) Paroxysmal atrial fibrillation Status: Acute Current Visit: No (7) Stented coronary artery Status: Acute Current Visit: No (8) Weakness Status: Acute Current Visit: No Assessment and Plan for All Diagnoses:: Plan: 1. The patient was admitted to the hospital with a GI bleed. His Xarelto was stopped. The patient did undergo EGD which showed a small hiatal hernia and no obvious source of bleeding. The patient is scheduled to undergo colonoscopy today to see if the source of bleeding can be identified. 2. The patient does have paroxysmal atrial fibrillation. He remains in sinus rhythm today. We will continue to hold his Xarelto at this time until the source of his GI bleeding has been found. 3. I have discussed with the patient that pending what his source of his GI bleed is and/or if he is unable to tolerate blood thinners in the future, we may consider sending him for left atrial appendage clip/ligation. However at this time we will hold off on this for now. The patient verbalizes understanding. 4. His coronary artery disease is stable. 5. His blood pressure is well controlled. 6. His LDL goal is less than 60. 7. Further recommendations will be made pending the patient's response to treatment and the results of his colonoscopy. Thank you for the opportunity to help participate in the care of this patient.
--- NOTE | 2018-10-19 14:41 | Procedure Note ---
- Procedure: Date: 10/19/18 Procedure Performed:: Total colonoscopy Indications:: Patient is a very pleasant 83-year-old white male with a history of coronary artery disease and ischemic cardiomyopathy with prior myocardial infarction with placement of drug-eluting stents in 2014. He also has a history of previous atrial fibrillation and has been on Xarelto. He states that he has had several weeks of weakness. However, today he had presented to the emergency department with more significant nausea, weakness, shortness of air, and chest pain while mowing. Upon evaluation in the emergency department he was found to have a hemoglobin of 7.6 with hematocrit of 24%. BUN is 34 with creatinine of 1.12. Patient gives a history of about 3 days of black melanic stool. He denies any prior history of ulcer disease. He denies abdominal pain but does have some lower pelvic discomfort. He had clinical scenario consistent with probable upper GI bleeding. Yesterday he underwent upper endoscopy. This was unremarkable revealing no evidence of any recent bleeding and no etiologic source for bleeding. Plan was made for colonoscopy. Patient was given a full bowel prep with 4 L of GoLYTELY and plan is for colonoscopy today. Performing Provider:: Wesley Can MD Referring Provider:: Branden Garvey MD Sedation:: Propofol Procedure:: Consent was obtained patient was taken to endoscopy procedure room. He was positioned in a lateral decubitus position. Adequate intravenous sedation was achieved with anesthesia titration of propofol. Variable stiffness Olympus colonoscope was inserted via the anus. With difficulty it was ultimately advanced to the cecum. However, he had a very floppy atonic colon which required various positioning and multiple providers providing abdominal pressure. He had a very poor preparation with liquid stool throughout the colon. Ultimately the ileocecal valve was clearly identified. Colonoscope was withdrawn to the colon with thorough irrigation and suctioning performed. There was fair visualization. He had some [place] diverticuli in sigmoid colon but nothing suggestive of acute diverticulitis. Retroflexion within the rectum revealed prominent but nonbleeding internal hemorrhoids. Colonoscope was withdrawn. Findings:: Very poor colonic preparation Floppy atonic colon Sigmoid diverticuli Internal hemorrhoids No evidence of bleeding Recommendations:: I would advocate a follow-up colonoscopy ultimately as an outpatient due to the very poor preparation as small polyps or mucosal lesions would be unable to be identified with this preparation. There was no evidence of any bleeding at this time. I would recommend continuing monitoring. Likely will need capsule e ndoscopy. If his hemoglobin remains stable over the next 24 to 48 hours this may be scheduled as an outpatient as it is not available at this institution. Complications:: None Estimated blood obtained (mL): 0
--- NOTE | 2018-10-19 17:25 | Progress Note ---
Internal Medicine - PN: Subj *Date: 10/19/18 *Time: 08:00 Interval history: doing better this am awaiting lower gi procedure Exam Vital signs and Labs for Last 24 Hours: Temp Pulse Resp BP Pulse Ox 97.4 F L 53 L 16 137/67 93 L 10/19/18 15:00 10/19/18 16:00 10/19/18 16:00 10/19/18 16:00 10/19/18 16:00 Laboratory Results - last 24 hr 10/18/18 20:12: POC Glucose 170 H 10/19/18 05:58: WBC 3.7 L, RBC 3.21 L, Hgb 9.4 L, Hct 28.5 L, MCV 88.6, MCH 29.1, MCHC 32.9, RDW 16.2, Plt Count 220, MPV 6.7 L, Neut % (Auto) 68.3, Lymph % (Auto) 19.8, [place] % (Auto) 7.9, Eos % (Auto) 3.8, Baso % (Auto) 0.3, Neut # (Auto) 2.6, Lymph # (Auto) 0.7, [place] # (Auto) 0.3, Eos # (Auto) 0.1, Baso # (Auto) 0.0 10/19/18 05:58: Sodium 141, Potassium 3.9, Chloride 109 H, Carbon Dioxide 25, Anion Gap 10.9, BUN 19 H D, Creatinine 0.98, Estimated Creat Clear 81, Estimated GFR 73, Est GFR ( Amer) 89, Glucose 126 H, Calcium 8.1 L, Total Bilirubin 0.5, AST 16, ALT 24, Alkaline Phosphatase 65, Total Protein 4.9 L, Albumin 2.6 L , Globulin 2.3, Albumin/Globulin Ratio 1.1 10/19/18 06:04: POC Glucose 143 H 10/19/18 16:34: POC Glucose 130 H I & O for Last 24 hours: Intake & Output 10/17/18 10/18/18 10/19/18 10/20/18 11:59 11:59 11:59 11:59 Intake Total 3837 / 3837 3877 / 3877 73 / 73 Output Total 200 / 200 650 / 650 Balance 3637 / 3637 3227 / 3227 73 / 73 Weight 221 lb 219 lb 0.003 oz 219 lb 0.009 oz - Constitutional no acute distress - *Routine HEENT Exam Head: Present: normocephalic Eye: Present: EOMI, PERRL ENT: Present: mucous membranes dry - *Routine Neck Exam Absent: JVD - *Routine Respiratory Exam Present: decreased breath sounds - *Routine Cardiovascular Exam Present: RRR, murmur - *Routine Abdominal Exam Present: soft - *Routine Skin Exam Present: intact - *Routine Neurological Exam Present: alert, oriented X3, CN II-XII intact - Routine Psychiatric Exam Present: normal affect Assessment and Plan (1) Anemia Current visit: Yes Status: Acute Category: Medical Code(s): D64.9 - Anemia, unspecified (2) GI bleed Current visit: Yes Status: Acute Category: Medical Code(s): K92.2 - Gastrointestinal hemorrhage, unspecified (3) Coronary arteriosclerosis Current visit: No Status: Acute Category: Medical Code(s): I25.10 - Atherosclerotic heart disease of [place] coronary artery without angina pectoris (4) Diabetes mellitus Current visit: No Status: Acute Qualifiers: Diabetes mellitus type: type 2 Diabetes mellitus fci insulin use: with fci use Diabetes mellitus complication status: without complication Qualified Code(s): E11.9 - Type 2 diabetes mellitus without complications; Z79.4 - detention (current) use of insulin Category: Medical Code(s): E11.9 - Type 2 diabetes mellitus without complicati ons (5) Hypertensive heart disease without heart failure Current visit: No Status: Acute Category: Medical Code(s): I11.9 - Hypertensive heart disease without heart failure (6) Paroxysmal atrial fibrillation Current visit: No Status: Acute Category: Medical Code(s): I48.0 - Paroxysmal atrial fibrillation (7) Stented coronary artery Current visit: No Status: Acute Category: Surgical Code(s): Z95.5 - Presence of coronary angioplasty implant and graft (8) Weakness Current visit: No Status: Acute Category: Medical Code(s): R53.1 - Weakness
--- NOTE | 2018-10-20 06:36 | Progress Note ---
Subjective Patient reports: no new complaints (feels "fine") Exam Vital signs and Labs for Last 24 Hours: Temp Pulse Resp BP Pulse Ox 97.6 F 72 16 136/66 96 10/20/18 04:00 10/20/18 04:00 10/20/18 04:00 10/20/18 04:00 10/20/18 04:00 Laboratory Results - last 24 hr 10/19/18 05:58: WBC 3.7 L, RBC 3.21 L, Hgb 9.4 L, Hct 28.5 L, MCV 88.6, MCH 29.1, MCHC 32.9, RDW 16.2, Plt Count 220, MPV 6.7 L, Neut % (Auto) 68.3, Lymph % (Auto) 19.8, [place] % (Auto) 7.9, Eos % (Auto) 3.8, Baso % (Auto) 0.3, Neut # (Auto) 2.6, Lymph # (Auto) 0.7, [place] # (Auto) 0.3, Eos # (Auto) 0.1, Baso # (Auto) 0.0 10/19/18 05:58: Sodium 141, Potassium 3.9, Chloride 109 H, Carbon Dioxide 25, Anion Gap 10.9, BUN 19 H D, Creatinine 0.98, Estimated Creat Clear 81, Estimated GFR 73, Est GFR ( Amer) 89, Glucose 126 H, Calcium 8.1 L, Total Bilirubin 0.5, AST 16, ALT 24, Alkaline Phosphatase 65, Total Protein 4.9 L, Albumin 2.6 L , Globulin 2.3, Albumin/Globulin Ratio 1.1 10/19/18 16:34: POC Glucose 130 H 10/19/18 20:35: POC Glucose 203 H 10/20/18 05:53: POC Glucose 151 H I & O for Last 24 hours: Intake & Output 10/17/18 10/18/18 10/19/18 10/20/18 11:59 11:59 11:59 11:59 Intake Total 3837 / 3837 3877 / 3877 3774 / 3774 Output Total 200 / 200 650 / 650 925 / 925 Balance 3637 / 3637 3227 / 3227 2849 / 2849 Weight 221 lb 219 lb 0.003 oz 219 lb 7 oz - Constitutional no acute distress - *Routine Respiratory Exam Absent: respiratory distress - *Routine Abdominal Exam Present: soft Progress Note: A&P (1) Anemia Status: Acute Assessment and plan: Most likely secondary to gastrointestinal bleed; however, no definitive source localized endoscopically. Follow-up morning hemoglobin/hematocrit Likely discharge home soon with close outpatient follow-up if he remains clinically stable over the next 24 hours Likely capsule endoscopy as outpatient Current Visit: Yes (2) GI bleed Status: Acute Current Visit: Yes (3) Coronary arteriosclerosis Status: Acute Current Visit: No (4) Diabetes mellitus Status: Acute Current Visit: No (5) Hypertensive heart disease without heart failure Status: Acute Current Visit: No (6) Paroxysmal atrial fibrillation Status: Acute Current Visit: No (7) Stented coronary artery Status: Acute Current Visit: No (8) Weakness Status: Acute Current Visit: No
[2018-10-20 07:42] LABS: Hematocrit 29.1 % (42.0-52.0); Hemoglobin 9.4 g/dL (14.1-18.0)
--- NOTE | 2018-10-20 09:33 | Progress Note ---
Subjective Date: 10/20/18 Time: 09:32 Principal diagnosis: Anemia, GI bleed Interval history: 83-year-old white male in bedside chair no acute distress. Denies any chest pain, pressure or tightness. Results of upper and lower endoscopy have not been able to identify a source for the GI bleeding. Patient's anemia is stable in the 9-10 range after 4 units of blood transfused. He feels better and is ready to go home. Exam Vital signs and Labs for Last 24 Hours: Temp Pulse Resp BP Pulse Ox 98.4 F 66 18 143/64 H 95 10/20/18 08:00 10/20/18 08:00 10/20/18 08:00 10/20/18 08:00 10/20/18 08:28 Laboratory Results - last 24 hr 10/19/18 16:34: POC Glucose 130 H 10/19/18 20:35: POC Glucose 203 H 10/20/18 05:53: POC Glucose 151 H 10/20/18 07:09: Hgb 9.4 L, Hct 29.1 L I & O for Last 24 hours: Intake & Output 10/17/18 10/18/18 10/19/18 10/20/18 11:59 11:59 11:59 11:59 Intake Total 3837 / 3837 3877 / 3877 4014 / 4014 Output Total 200 / 200 650 / 650 925 / 925 Balance 3637 / 3637 3227 / 3227 3089 / 3089 Weight 221 lb 219 lb 0.003 oz 219 lb 7 oz - *Routine HEENT Exam Head: Present: normocephalic Eye: Present: EOMI, PERRL ENT: Present: mucous membranes moist - *Routine Respiratory Exam Present: CTA bilaterally. Absent: accessory muscle use, rales, rhonchi, wheezes - *Routine Cardiovascular Exam Present: RRR. Absent: murmur, gallop, rubs - *Routine Extremities Exam Absent: edema, calf tenderness - *Routine Neurological Exam Present: alert, oriented X3, moving all extremities Progress Note: A&P (1) Anemia Status: Acute Current Visit: Yes (2) GI bleed Status: Acute Current Visit: Yes (3) Coronary arteriosclerosis Status: Acute Current Visit: No (4) Diabetes mellitus Status: Acute Current Visit: No (5) Hypertensive heart disease without heart failure Status: Acute Current Visit: No (6) Paroxysmal atrial fibrillation Status: Acute Current Visit: No (7) Stented coronary artery Status: Acute Current Visit: No (8) Weakness Status: Acute Current Visit: No Assessment and Plan for All Diagnoses:: Okay for discharge home from cardiology standpoint. Continue home medications of isosorbide 30 mg daily, amiodarone 200 mg daily, atorvastatin 80 mg daily, lisinopril 20 mg daily. ASA and Xarelto have been discontinued due to GI bleed. We will not restart this at this time but consider restarting at follow up. Discussion regarding left atrial appendage clipping has been undertaken and patient will consider this option. We would like to see him back in the office in 1 week. At that time we will check his loop recorder for any episodes of atrial fibrillation.
--- NOTE | 2018-10-20 10:00 | Discharge Summary ---
General - General Admission date:: 10/17/18 Discharge date: 10/20/18 HPI HPI: Pt to ED C/O nausea, weakness, SOA, and CP while mowing yard. Also reports black tarry stools X 3-4 days. Pt sitting up in bed, no apparent distress. Reports LLQ pain. Hospital Course Hospital Course: pt has did well in hospital with no more active bleeding and stabilized h/h after transfusion - pt was seen by surg with egd and colonoscopy- dougie is a very pleasant 83-year-old white male with a history of coronary artery disease and ischemic cardiomyopathy with prior myocardial infarction with placement of drug-eluting stents in 2014. He also has a history of previous atrial fibrillation and has been on Xarelto. He states that he has had several weeks of weakness. However, today he had presented to the emergency department with more significant nausea, weakness, shortness of air, and chest pain while mowing. Upon evaluation in the emergency department he was found to have a hemoglobin of 7.6 with hematocrit of 24%. BUN is 34 with creatinine of 1.12. Patient gives a history of about 3 days of black melanic stool. He denies any prior history of ulcer disease. He denies abdominal pain but does have some low er pelvic discomfort. ent was obtained and patient was taken to endoscopy procedure room. He was positioned in a lateral decubitus position and adequate intravenous sedation was achieved with titration of propofol. Olympus endoscope was inserted via the oropharynx. It was advanced through the esophagus which overall appeared grossly normal. There is some minor inflammation, which was quite subtle, at the gastroesophageal junction consistent with mild reflux. Stomach was cannulated and insufflated and retroflexion revealed a very tiny hiatal hernia. Gastric lumen was otherwise unremarkable. Endoscope was advanced through the pylorus and a generous distance down the duodenum into the distal duodenum. Careful surveillance was carried out upon withdrawal of the endoscope and there was no evidence of any etiologic source for bleeding. Stomach was desufflated and the endoscope was withdrawn. Findings:: Tiny hiatal hernia No identifiable etiologic source for blood loss on upper endoscopy Recommendations:: Patient may require colonoscopy for completeness to evaluate for any upper and lower source of GI blood loss. Complications:: onsent was obtained patient was taken to endoscopy procedure room. He was positioned in a lateral decubitus position. Adequate intravenous sedation was achieved with anesthesia titration of propofol. Variable stiffness Olympus colonoscope was inserted via the anus. With difficulty it was ultimately advanced to the cecum. However, he had a very floppy atonic colon which required various positioning and multiple providers providing abdominal pressure. He had a very poor preparation with liquid stool throughout the colon. Ultimately the ileocecal valve was clearly identified. Colonoscope was withdrawn to the colon with thorough irrigation and suctioning performed. There was fair visualization. He had some [place] diverticuli in sigmoid colon but nothing suggestive of acute diverticulitis. Retroflexion within the rectum revealed prominent but nonbleeding internal hemorrhoids. Colonoscope was withdrawn. Findings:: Very poor colonic preparation Floppy atonic colon Sigmoid diverticuli Internal hemorrhoids No evidence of bleeding Recommendations:: I would advocate a follow-up colonoscopy ultimately as an outpatient due to the very poor preparation as small polyps or mucosal lesions would be unable to be identified with this preparation. There was no evidence of any bleeding at this time. I would recommend continuing monitoring. Likely will need capsule endoscopy. If his hemoglobin remains stable over the next 24 to 48 hours this may be scheduled as an outpatient as it is not available at this institution. Complications:: pt was seen by jemima swenson for discharge home from cardiology standpoint. Continue home medications of isosorbide 30 mg daily, amiodarone 200 mg daily, atorvastatin 80 mg daily, lisinopril 20 mg daily. ASA and Xarelto have been discontinued due to GI bleed. We will not restart this at this time but consider restarting at follow up. Discussion regarding left atrial appendage clipping has been undertaken and patient will consider this option. We would like to see him back in the office in 1 week. At that time we will check his loop recorder for any episodes of atrial fibrillation. Objective Vital signs: Temp Pulse Resp BP Pulse Ox 98.4 F 66 18 143/64 H 95 10/20/18 08:00 10/20/18 08:00 10/20/18 08:00 10/20/18 08:00 10/20/18 08:28 no acute distress, obese - *Routine HEENT Exam Head: Present: normocephalic Eye: Present: EOMI, PERRL ENT: Present: mucous membranes dry - *Routine Neck Exam Present: supple - *Routine Respiratory Exam Present: CTA bilaterally - *Routine Cardiovascular Exam Present: RRR, murmur - *Routine Abdominal Exam Present: soft - *Routine Extremities Exam Present: full ROM - *Routine Skin Exam Present: intact - *Routine Neurological Exam Present: alert, oriented X3, CN II-XII intact - Routine Psychiatric Exam Present: normal affect Results Labs on day of discharge: Labs from last 24 hours 10/20/18 10/20/18 10/19/18 07:09 05:53 20:35 Hgb 9.4 L Hct 29.1 L POC Glucose 151 H 203 H 10/19/18 16:34 Hgb Hct POC Glucose 130 H DS: Diagnosis - Discharge Diagnosis (1) Anemia Status: Acute (2) GI bleed Status: Acute (3) Coronary arteriosclerosis Status: Acute (4) Diabetes mellitus Status: Acute (5) Hypertensive heart disease without heart failure Status: Acute (6) Paroxysmal atrial fibrillation Status: Acute (7) Stented coronary artery Status: Acute (8) Weakness Status: Acute (9) Obesity (BMI 30.0-34.9) Status: Acute (10) Diverticulosis Status: Acute (11) Cholelithiasis Status: Acute Discharge Plan - Patient Discharge Instructions ACTIVITY: Continue current activity DIET: continue same diet Patient Instructions: Anemia, Gastrointestinal Bleeding - Follow up Plan Follow up with: Wesley Can MD [Staff Physician] - 1 week Disposition: Home, Self-Skilled Nursing Medications: Home Medications Medication Instructions Recorded Confirmed Type aspirin 81 mg tablet,delayed 81 mg PO DAILY tab 09/27/17 10/17/18 History release atorvastatin 80 mg tablet 80 mg PO HS tab 09/27/17 10/17/18 History insulin detemir (U- 100) 100 40 unit SUB-Q QAM ml 09/27/17 10/17/18 History unit/mL subcutaneous solution metformin 500 mg tablet 500 mg PO BID 09/27/17 10/17/18 History nitroglycerin 0.4 mg sublingual 0.4 mg SUBLINGUAL Q5MINP PRN 09/27/17 10/17/18 History tablet rivaroxaban 20 mg tablet 20 mg PO 1700 09/27/17 10/17/18 History pioglitazone 30 mg tablet 30 mg PO DAILY 12/30/17 10/17/18 History isosorbide mononitrate ER 30 mg 30 mg PO QAM #30 tab 08/30/18 10/17/18 Rx tablet,extended release 24 hr amiodarone 200 mg tablet 200 mg PO DAILY 09/05/18 10/17/18 History pantoprazole 40 mg tablet,delayed 40 mg PO DAILY #30 tab 09/05/18 10/17/18 Rx release lisinopril 20 mg tablet 10 mg PO DAILY #30 tab 10/12/18 10/17/18 Rx buPROPion HCl [Wellbutrin 100mg 100 mg PO BID 10/17/18 10/17/18 History Tablet] Prescriptions/Medication Reconciliation: New buPROPion HCl [Wellbutrin 100mg Tablet] 100 mg PO BID tablet Pantoprazole Sodium [Protonix 40mg tablet] 40 mg PO BID tablet. Continued insulin detemir (U- 100) 100 unit/mL subcutaneous solution 40 unit SUB-Q QAM ml metformin 500 mg tablet 500 mg PO BID nitroglycerin 0.4 mg sublingual tablet 0.4 mg SUBLINGUAL Q5MINP PRN PRN Reason: Chest Pain pioglitazone 30 mg tablet 30 mg PO DAILY isosorbide mononitrate ER 30 mg tablet,extended release 24 hr 30 mg PO QAM #30 tab amiodarone 200 mg tablet 200 mg PO DAILY lisinopril 20 mg tablet 10 mg PO DAILY #30 tab atorvastatin 80 mg tablet 80 mg PO HS tab pantoprazole 40 mg tablet,delayed release 40 mg PO DAILY #30 tab buPROPion HCl [Wellbutrin 100mg Tablet] 100 mg PO BID Discontinued rivaroxaban 20 mg tablet 20 mg PO 1700 aspirin 81 mg tablet,delayed release 81 mg PO DAILY tab
== END 2018-10-20 11:15 | disposition home or self-care (01) | DRG 379 ==
LOC: ER 13:04 → 2ND 14:18
PROVIDERS: ADMIT Emergency Medicine; ATTEND Emergency Medicine
CPT/HCPCS: 36415; 71020; 71046; 74177; 80048; 80053; 80076; 82272; 82962; 84436; 84443; 84479; 84484; 85014; 85018; 85025; 86850; 93005; 96374; 99284; G0328; J2704; P9016; Q9967

== ENCOUNTER → 2018-10-28 13:07 | Outpatient (CLI) | payer MEDICARE, SELFPAY ==
[2018-10-28 13:39] LABS: Basophils % 0.4 % (0.1-2.0); Eosinophils # 0.2 K/mm3 (0.0-0.4); Eosinophils % 4.2 % (0.1-12.0); Hematocrit 32.8 % (42.0-52.0); Hemoglobin 10.6 g/dL (14.1-18.0); Lymphocytes # 1.1 K/mm3 (0.7-4.5); Mean Corpuscular HGB Conc 32.1 g/dL (31.8-35.4); Mean Corpuscular Hemoglobin 28.3 pg (27.0-31.2); Mean Corpuscular Volume 87.9 fl (80-94); Monocytes # 0.4 K/mm3 (0.1-1.0); Monocytes % 6.5 % (1.7-9.3); Neutrophils # 3.9 K/mm3 (1.8-7.8); Platelet Count 308 K/mm3 (142-424); Red Blood Count 3.73 M/mm3 (4.60-6.20); Red Cell Distribution Width 14.6 % (11.5-17.5); White Blood Count 5.6 K/mm3 (4.8-10.8)
== END ==
PROVIDERS: Visit Provider Surgery
DX: D64.9 Anemia, unspecified (principal)
CPT/HCPCS: 36415; 85025

== ENCOUNTER → 2018-11-08 10:57 | Outpatient (CLI) | payer MEDICARE, SELFPAY ==
[2018-11-08 10:59] LABS: MANUAL DIFFERENTIAL MANUAL DIFFERENTIAL (MANUAL DIFF)
[2018-11-08 11:20] LABS: Basophils % 0.4 % (0.1-2.0); Eosinophils # 0.3 K/mm3 (0.0-0.4); Hematocrit 36.6 % (42.0-52.0); Hemoglobin 11.2 g/dL (14.1-18.0); Lymphocytes % 19.1 % (10-50); Mean Corpuscular HGB Conc 30.6 g/dL (31.8-35.4); Mean Corpuscular Hemoglobin 27.3 pg (27.0-31.2); Mean Corpuscular Volume 89.2 fl (80-94); Monocytes # 0.5 K/mm3 (0.1-1.0); Monocytes % 9.3 % (1.7-9.3); Neutrophils # 3.3 K/mm3 (1.8-7.8); Neutrophils % 66.2 % (37.0-80.0); Platelet Count 243 K/mm3 (142-424); Red Blood Count 4.11 M/mm3 (4.60-6.20); Red Cell Distribution Width 15.3 % (11.5-17.5)
[2018-11-08 12:37] LABS: Alanine Aminotransferase 28 U/L (12-78); Albumin Level 3.5 gm/dL (3.4-5.0); Alkaline Phosphatase 121 U/L (46-116); Anion Gap 12.9 mEq/L (5-15); Aspartate Amino Transferase 15 U/L (15-37); Bilirubin,Direct 0.1 mg/dL (0.0-0.2); Bilirubin,Indirect 0.3 mg/dL (0.0-0.9); Bilirubin,Total 0.4 mg/dL (0.2-1.0); Blood Urea Nitrogen 22 mg/dL (7-18); Calcium 8.5 mg/dL (8.5-10.1); Carbon Dioxide 28 mmol/L (21.0-32.0); Chloride 105 mmol/L (98-107); Creatinine,Serum 1.05 mg/dL (0.70-1.30); Estimated Glomerular Filt Rate 68 ml/min (>60); GFR (African American) 82 ML/MIN (>60); Glucose 273 mg/dL (74-106); Potassium 4.9 mmoL/L (3.5-5.1); Sodium 141 mmol/L (136-145); T4 (Thyroxine) 8.8 ug/dl (4.7-13.3); Thyroid Stimulating Hormone 1.07 uIU/ml (0.358-3.740); Total Protein,Serum 6.2 gm/dL (6.4-8.2); Triiodothryronine (T3) Uptake 34 % (31-39)
[2018-11-08 12:47] LABS: Eosinophils % 7 % (0-3); Lymphocytes % 18 % (10-50); Monocytes % 10 % (2-9); Neutrophils % 61 % (42-76); Platelet Estimate Normal; Total Cells Counted 100
[2018-11-08 12:48] LABS: Hypochromasia 1+
== END ==
PROVIDERS: Visit Provider Physician Assistant
DX: R53.1 Weakness (principal); R53.83 Other fatigue; Z79.899 Other long term (current) drug therapy; I48.0 Paroxysmal atrial fibrillation; R42 Dizziness and giddiness
CPT/HCPCS: 36415; 80048; 80076; 84436; 84443; 84479; 85007; 85014; 85018; 85048; 85049

== ENCOUNTER → 2018-12-09 07:16 | Outpatient (CLI) | payer MEDICARE, SELFPAY ==
[2018-12-09 07:36] LABS: Hematocrit 38.9 % (42.0-52.0); Hemoglobin 11.6 g/dL (14.1-18.0)
== END ==
PROVIDERS: Visit Provider Physician Assistant
DX: Z87.19 Personal history of other diseases of the digestive system (principal)
CPT/HCPCS: 36415; 85014; 85018

== ENCOUNTER → 2018-12-16 07:15 | Outpatient (CLI) | payer MEDICARE, SELFPAY ==
[2018-12-16 07:39] LABS: Basophils % 0.4 % (0.1-2.0); Eosinophils # 0.3 K/mm3 (0.0-0.4); Eosinophils % 5.8 % (0.1-12.0); Hematocrit 36.5 % (42.0-52.0); Hemoglobin 10.8 g/dL (14.1-18.0); Lymphocytes # 1.4 K/mm3 (0.7-4.5); Lymphocytes % 23.2 % (10-50); Mean Corpuscular HGB Conc 29.6 g/dL (31.8-35.4); Mean Corpuscular Hemoglobin 24.9 pg (27.0-31.2); Mean Corpuscular Volume 84.2 fl (80-94); Mean Platelet Volume 7.5 fl (7.4-10.4); Monocytes # 0.6 K/mm3 (0.1-1.0); Neutrophils # 3.6 K/mm3 (1.8-7.8); Neutrophils % 60.6 % (37.0-80.0); Platelet Count 222 K/mm3 (142-424); Red Blood Count 4.33 M/mm3 (4.60-6.20); Red Cell Distribution Width 15.8 % (11.5-17.5); White Blood Count 5.9 K/mm3 (4.8-10.8)
[2018-12-18 21:39] LABS: Folate 13.3 ng/mL (>3.0); Vitamin B12 296 pg/mL (232-1245)
== END ==
PROVIDERS: Visit Provider Physician Assistant
DX: R06.09 Other forms of dyspnea (principal); D50.9 Iron deficiency anemia, unspecified
CPT/HCPCS: 36415; 82607; 82746; 85025

== ENCOUNTER → 2018-12-30 07:28 | Outpatient (CLI) | payer MEDICARE, SELFPAY ==
[2018-12-30 07:45] LABS: Hematocrit 37.3 % (42.0-52.0); Hemoglobin 11.4 g/dL (14.1-18.0)
== END ==
PROVIDERS: Visit Provider Physician Assistant
DX: Z79.01 Long term (current) use of anticoagulants (principal); Z51.81 Encounter for therapeutic drug level monitoring
CPT/HCPCS: 36415; 85014; 85018

== ENCOUNTER → 2019-01-17 08:18 | Outpatient (POV) | payer MEDICARE, SELFPAY | PROVIDERS: Visit Provider Dermatology | DX: Z00.00 Encounter for general adult medical examination without abnormal findings (principal) ==

== ENCOUNTER → 2019-01-23 10:08 | Outpatient (CLI) | payer MEDICARE, SELFPAY ==
[2019-01-23 10:32] LABS: Hematocrit 38.1 % (42.0-52.0); Hemoglobin 11.7 g/dL (14.1-18.0)
== END ==
PROVIDERS: Visit Provider Physician Assistant
DX: D64.9 Anemia, unspecified (principal)
CPT/HCPCS: 36415; 85014; 85018

== ENCOUNTER → 2019-03-03 09:56 | Outpatient (CLI) | payer MEDICARE, SELFPAY ==
[2019-03-03 11:37] LABS: Alanine Aminotransferase 25 U/L (12-78); Albumin Level 3.3 gm/dL (3.4-5.0); Alkaline Phosphatase 121 U/L (46-116); Aspartate Amino Transferase 17 U/L (15-37); Bilirubin,Direct 0.1 mg/dL (0.0-0.2); Bilirubin,Indirect 0.3 mg/dL (0.0-0.9); Bilirubin,Total 0.4 mg/dL (0.2-1.0); Blood Urea Nitrogen 18 mg/dL (7-18); Calcium 8.7 mg/dL (8.5-10.1); Carbon Dioxide 25 mmol/L (21.0-32.0); Chol/HDL Ratio 2.9 (1-3.5); Cholesterol 106 mg/dL (140-200); Creatinine,Serum 1.06 mg/dL (0.70-1.30); Estimated Glomerular Filt Rate 67 ml/min (>60); Free T4 (Free Thyroxine) 1.16 ng/dl (0.76-1.46); GFR (African American) 81 ML/MIN (>60); Glucose 246 mg/dL (74-106); HDL Cholesterol 37 mg/dL (27-67); LDL Cholesterol 48 mg/dL (0-130); Thyroid Stimulating Hormone 1.53 uIU/ml (0.358-3.740); Total Protein,Serum 6.4 gm/dL (6.4-8.2); Triglycerides 103 mg/dL (30-200); VLDL Cholesterol 21 mg/dL (0-40)
[2019-03-03 12:18] LABS: Anion Gap 14.6 mEq/L (5-15); Chloride 105 mmol/L (98-107); Potassium 4.6 mmoL/L (3.5-5.1); Sodium 140 mmol/L (136-145)
== END ==
PROVIDERS: Visit Provider Physician Assistant
DX: I11.9 Hypertensive heart disease without heart failure; I25.10 Atherosclerotic heart disease of native coronary artery without angina pectoris; R06.09 Other forms of dyspnea; Z79.01 Long term (current) use of anticoagulants; I48.0 Paroxysmal atrial fibrillation; E78.49 Other hyperlipidemia
CPT/HCPCS: 36415; 80048; 80061; 80076; 84439; 84443

== ENCOUNTER → 2019-03-06 11:43 | Outpatient (CLI) | payer MEDICARE, SELFPAY ==
--- NOTE | 2019-03-06 11:46 | CA_ITS ---
APPROVED REPORT EXAM: Comprehensive 2D, Doppler, and color-flow Echocardiogram [place] Bailiff: Omaira Brown RDCS Ht: 5 ft 9 in Wt: 200lbs BSA: 2.07 BP: 178/95 mmHg Indications: SOA 2D Dimensions LVOT 2.40 cm (M/F) 1.5-2.5 M-Mode Dimensions RVDd 1.90 cm (0.9-2.6) LA Diam 4.20 cm (1.9-4.0) LVDd 5.80 cm (3.5-5.7) Ao Diam 3.80 cm (2.0-3.7) LVDs 4.60 cm (3.5-5.7) AV Cusp 2.10 cm (1.5-2.6) IVSd 1.10 cm (0.6-1.1) PWd 1.00 cm (0.6-1.1) EF (Teich) 41.70% FS 20.70% EDV (Teich) 167.00 mL ESV (Teich) 97.30 mL LV Diastology MED E' 3.61 (< 7 cm/sec) LAT E' 3.51 (<10 cm/sec) Mitral Valve MV PHT 120.00 ms MVA PHT 1.8 cm2 Left Ventricle Left atrium is mildly enlarged, left ventricle is normal size, mild concentric left ventricular hypertrophy, visually estimated ejection fraction of 50%, there appears to be mild hypokinesis involving the inferior wall. Grade 1 diastolic dysfunction seen with tissue Doppler evidence of raise left atrial pressure. Right Ventricle Right atrium and right ventricular normal size and contractility. Aortic Valve Aortic valve is minimally thickened and calcified leaflet continue to display good mobility. Mitral Valve Mitral valve has mitral calcification, leaflets are minimally thickened. There is mild mitral regurgitation noted. Tricuspid Valve Tricuspid valve is grossly normal, there is mild tricuspid regurgitation. Tricuspid regurgitation jet velocity is inadequate for calculation of the right ventricular systolic pressure Pulmonic Valve Pulmonic valve is poorly visualized. Great Vessels Aortic root is normal size. Pericardium No significant pericardial effusion noted. Conclusion 1. Mildly enlarged left atrium, normal left ventricular size, mild concentric left ventricular hypertrophy, visually estimated ejection fraction 50% with segmental wall motion abnormality described above, grade 1 diastolic dysfunction seen with tissue Doppler evidence of raise left atrial pressure. Endocardial surfaces are poorly visualized. 2. Mild mitral and tricuspid regurgitation 3. No significant pericardial effusion noted. Electronically signed by : Elieser Babcock, 03/07/2019 06:29:33
== END ==
PROVIDERS: PCP Pediatrics; Visit Provider Nurse Practitioner Family
DX: E78.5 Hyperlipidemia, unspecified (principal); I25.10 Atherosclerotic heart disease of native coronary artery without angina pectoris; I48.0 Paroxysmal atrial fibrillation; R06.00 Dyspnea, unspecified; Z95.5 Presence of coronary angioplasty implant and graft
CPT/HCPCS: 93306

== ENCOUNTER 2019-03-10 16:17 | Observation (INO) ==
--- NOTE | 2019-03-10 16:23 | Emergency Department Note ---
ED Disposition Clinical Impression: Chest pain Disposition: Admitted as Observation Condition on Discharge: Good Referrals: Jonathan Nichols [Primary Care Provider] - - Critical Care Critical Care Time: No Attestation: On 03/10/19, the high probability of a clinically significant, sudden or life threatening deterioration of the following system(s) required my full and direct attention, intervention and personal management. The time I documented below is in addition to time spent performing reported procedures but includes the following listed in this critical care notation. Medical Decision Making - Adi Inquiry Pt receiving controlled substance: No Adi was queried for this patient: No Comment: Call his [facility] funds development director he agreed to admit the patient for observation Vital Signs: 03/10/19 16:08 Temperature 98.1 F Temperature Source Oral Pulse Rate [Right Radial] 83 Respiratory Rate 20 Blood Pressure [Right Arm] 127/74 Blood Pressure Mean [Right Arm] 91 Blood Pressure Source [Right Arm] Automatic Cuff Blood Pressure Position [Right Arm] Sitting 02 Sat by Pulse Oximetry 93 L Oxygen Delivery Method Room Air - Lab Data Lab Results 03/10/19 16:38: WBC 6.2, RBC 4.00 L, Hgb 10.2 L, Hct 33.1 L, MCV 82.7, MCH 25.6 L, MCHC 31.0 L, RDW 16.1, Plt Count 273, MPV 8.4, Neut % (Auto) 70.9, Lymph % (Auto) 17.9, [place] % (Auto) 7.5, Eos % (Auto) 3.4, Baso % (Auto) 0.3, Neut # (Auto) 4.4, Lymph # (Auto) 1.1, [place] # (Auto) 0.5, Eos # (Auto) 0.2, Baso # (Auto) 0.0 03/10/19 16:38: Sodium 139, Potassium 4.5, Chloride 105, Carbon Dioxide 23, Anion Gap 15.5 H, BUN 21 H, Creatinine 1.23, Estimated Creat Clear 60, Estimated GFR 56 L, Est GFR ( Amer) 68, Glucose 305 H, Calcium 8.6, Troponin I < 0.02 03/10/19 16:38: PT 14.8 H, INR 1.45 H Result diagrams: 03/10/19 16:38 03/10/19 16:38 Chest Pain HPI - General Chief Complaint: Chest Pain Stated Complaint: CP Time Seen by Provider: 03/10/19 16:20 Mode of Arrival: EMS Limitations: No Limitations Description of Symptoms (Recalled from ER Triage Doc. by RN): PT C/O CP THAT BEGAN WHILE IN THE [facility] TODAY. PT REPORTS A CARDIAC HX OF [place] AND CARDIAC STENTS. EMS STATES THAT THEY ADMINISTERED 3 SL NITRO TABS WHICH PT ADVISES DECREASED HIS PAIN FROM A 7/10 TO A 3/10. PT STATES PAIN HAS BECOME BETTER AT THIS TIME. 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 He complained of chest pain with dyspnea and sweating with no radiation. The chest pain was 7 on scale of 10 after using 3 nitroglycerin he went to. He said he for the past 2 years he did not have such chest pain like this. He had a stent placed about 2 years ago. He has hypertension and insulin-dependent diabetes. He is on Xarelto currently. He sees Dr. Lane as his funds development director. he is comfortable in the emergency room. MD complaint: chest pain Onset (ago): hour(s) Duration: intermittent Activity at onset: during exertion Pain location: substernal Severity: moderate Severity scale (1-10): 7 Quality: heaviness Pain radiation: none Relieving factors: nitroglycerin Exacerbating factors: exertion - Related Data Home Medications Medication Instructions Recorded Confirmed insulin detemir (U-100) 100 40 unit SUB-Q QAM ml 09/27/17 03/06/19 unit/mL subcutaneous solution metformin 500 mg tablet 500 mg PO BID 09/27/17 03/06/19 nitroglycerin 0.4 mg sublingual 0.4 mg SUBLINGUAL Q5MINP PRN 09/27/17 03/06/19 tablet pioglitazone 30 mg tablet 30 mg PO DAILY 12/30/17 03/06/19 Isosorbide Mononitrate [Imdur 30mg 30 mg PO QAM 02/22/19 03/06/19 ER tablet] Pantoprazole Sodium [Protonix 40mg 40 mg PO BID 02/22/19 03/06/19 tablet] bupropion HCl 100 mg tablet 100 mg PO ONCE tab 03/06/19 03/06/19 Previous Rx's Medication Instructions Recorded atorvastatin 80 mg tablet 80 mg PO HS #30 tab 10/25/18 amiodarone 200 mg tablet 200 mg PO DAILY #30 tab 12/07/18 lisinopril 20 mg tablet 20 mg PO DAILY #30 tab 03/06/19 rivaroxaban 20 mg tablet See Rx Instructions .ROUTE 03/07/19 .COMPLEX #90 tablet Allergies Allergy/AdvReac Type Severity Reaction Status Date / Time No Known Allergies Allergy Verified 03/06/19 11:21 [facility] History - Hepatitis A Screen Drug use history?: No High risk sexual behaviors?: No History of sexually transmitted infection?: No Currently employed?: No Childcare worker?: No Do you have indoor plumbing?: Yes Do you have electricity?: Yes Attestation statement:: This patient has been screened for Hepatitis A risk factors. Medical History: Reports:: Atherosclerotic Heart Disease, Atrial Fibrillation, Coronary Artery Disease, Diabetes Mellitus Type 2, Hyperlipidemia, Hypertension, Internal Pacemaker, Myocardial Infarction Denies:: Cancer, Diabetes Mellitus Type 1, MRSA, Seizures Other Medical History: Reports: Arthritis Comment: TOÑO Laterality Cases: Bilateral: Arthroscopy Knee, Arthroscopy Shoulder, Other Other Surgeries: Yes: No Previous Surgery, Angiogram (10/11/17), Angioplasty, Cardiac Catheterization, Cardiac Surgery, Colonoscopy, Coronary Stent, EGD, Pacemaker Amputation: No Fractures: No Comment: Ankle, Knees, Shoulders - Social History Smoking Status: Never smoker Alcohol Intake: never Alcohol Intake Frequency:: other Substance Use Type: denies use Occupational Status: retired Housing: house Household Members: none Family Hx:: Hyperlipidemia, Cancer, Hypertension, Diabetes ROS Obtained: Yes All systems reviewed & no additional complaints - Cardiovascular Cardiovascular: Reports chest pain, Reports dyspnea Physical Exam - General General appearance: alert, in no apparent distress - Head Head exam: atraumatic, normocephalic, normal inspection - Eye Eye exam: Present: normal appearance, PERRL, EOMI - ENT ENT exam: Present: normal exam, normal oropharynx, mucous membranes moist, TM's normal bilaterally, normal external ear exam - Neck Neck exam: Present: normal inspection, full ROM, trachea midline. Absent: meningismus, lymphadenopathy - Chest Chest inspection: Present: normal inspection, symmetric chest wall rise. Absent: tenderness - Respiratory Respiratory exam: Present: normal lung sounds bilaterally. Absent: respiratory distress - Cardiovascular Cardiovascular exam: Present: regular rate, normal rhythm. Absent: JVD - Abdominal Exam Abdominal exam: Present: soft, normal bowel sounds. Absent: distention, tenderness, guarding - Extremities Exam Extremities exam: Present: normal inspection, full ROM, normal capillary refill. Absent: calf tenderness - Back Exam Back exam: Present: normal inspection. Absent: tenderness - Neurological Exam Neurological exam: Present: alert, oriented X3 - Psychiatric Psychiatric exam: Present: normal affect, normal mood - Skin Skin exam: Present: warm, dry, intact, normal color - Lymphatic Lymphatic Findings: no adenopathy
[2019-03-10 16:47] LABS: Basophils % 0.3 % (0.1-2.0); Eosinophils # 0.2 K/mm3 (0.0-0.4); Eosinophils % 3.4 % (0.1-12.0); Hematocrit 33.1 % (42.0-52.0); Hemoglobin 10.2 g/dL (14.1-18.0); Lymphocytes # 1.1 K/mm3 (0.7-4.5); Lymphocytes % 17.9 % (10-50); Mean Corpuscular Volume 82.7 fl (80-94); Mean Platelet Volume 8.4 fl (7.4-10.4); Monocytes # 0.5 K/mm3 (0.1-1.0); Monocytes % 7.5 % (1.7-9.3); Neutrophils # 4.4 K/mm3 (1.8-7.8); Neutrophils % 70.9 % (37.0-80.0); Platelet Count 273 K/mm3 (142-424); Red Cell Distribution Width 16.1 % (11.5-17.5); White Blood Count 6.2 K/mm3 (4.8-10.8)
[2019-03-10 17:01] LABS: Anion Gap 15.5 mEq/L (5-15); Blood Urea Nitrogen 21 mg/dL (7-18); Calcium 8.6 mg/dL (8.5-10.1); Carbon Dioxide 23 mmol/L (21.0-32.0); Chloride 105 mmol/L (98-107); Glucose 305 mg/dL (74-106); Sodium 139 mmol/L (136-145)
[2019-03-10 17:05] LABS: INR 1.45 (0.9-1.1); Prothrombin Time 14.8 seconds (9.4-11.8)
[2019-03-11 07:08] LABS: Basophils % 0.3 % (0.1-2.0); Eosinophils # 0.3 K/mm3 (0.0-0.4); Eosinophils % 6.1 % (0.1-12.0); Lymphocytes % 19.7 % (10-50); Mean Corpuscular HGB Conc 31.1 g/dL (31.8-35.4); Mean Corpuscular Volume 82.8 fl (80-94); Mean Platelet Volume 6.9 fl (7.4-10.4); Monocytes # 0.6 K/mm3 (0.1-1.0); Monocytes % 10.9 % (1.7-9.3); Neutrophils # 3.2 K/mm3 (1.8-7.8); Platelet Count 244 K/mm3 (142-424); Red Blood Count 3.86 M/mm3 (4.60-6.20); Red Cell Distribution Width 15.8 % (11.5-17.5); White Blood Count 5.1 K/mm3 (4.8-10.8)
[2019-03-11 07:16] LABS: Anion Gap 13.4 mEq/L (5-15); Calcium 8.6 mg/dL (8.5-10.1)
--- NOTE | 2019-03-11 08:48 | H&P/Discharge Summary ---
General - General Admission date:: 03/10/19 Discharge date: 03/11/19 *Chief complaint: Chest pain *History of present illness: Mr. Chambers is an 83-year-old white male with a history of coronary artery disease, type 2 diabetes mellitus, hypertension, and paroxysmal atrial fibrillation. He follows with Dr. Anderson for his heart disease. His primary care physician is Dr. Jonathan Nichols. 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 An employee called 911 and he was transported to the ER. In route he was given 3 sublingual nitroglycerin and by the time he arrived to the ER his pain had mostly resolved. He was evaluated in the emergency room. His EKG showed no acute changes. Initial cardiac enzymes were negative. He was subsequent admitted for serial enzymes to rule out acute KS. He has noticed some increased dyspnea with exertion over the past 2 to 3 weeks. No swelling. 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 [facility] History Medical History: Reports:: Atherosclerotic Heart Disease, Atrial Fibrillation, Coronary Artery Disease, Diabetes Mellitus Type 2, Hyperlipidemia, Hypertension, Internal Pacemaker, Myocardial Infarction Denies:: Cancer, Diabetes Mellitus Type 1, MRSA, Seizures *Have you ever received a pneumonia vaccine?: Yes *Have you received a flu vaccine this season?: No Other Medical History: Reports: Arthritis Laterality Cases: Bilateral: Arthroscopy Knee, Arthroscopy Shoulder, Other Other Surgeries: Yes: No Previous Surgery, Angiogram (10/11/17), Angioplasty, Cardiac Catheterization, Cardiac Surgery, Colonoscopy, Coronary Stent, EGD, Pacemaker Amputation: No Fractures: No - *Social History Educational Level: Completed High School Smoking Status: Never smoker Alcohol Intake: never Alcohol Intake Frequency:: other Substance Use Type: denies use *Occupational Status:: retired Housing: house Household Members: none *Travel in the last 8 weeks: None Family Hx:: Hyperlipidemia, Cancer, Hypertension, Diabetes Review of Systems - Constitutional Denies anorexia, Denies fatigue, Denies weakness - Eyes Denies blurry vision, Denies change in vision - ENT Denies abnormal hearing, Denies dizziness - *Cardiovascular Reports chest pain (SEE HPI) - *Respiratory Reports shortness of breath with activity, Denies chest congestion, Denies cough - *Gastrointestinal Denies abdominal pain, Denies change in bowel habits, Denies change in stools, Denies nausea - *Genitourinary Denies difficulty urinating - *Musculoskeletal Denies back pain, Denies joint swelling - Integumentary/Breasts Reports change in skin color, Denies rash, Denies unusual bruising - *Neurologic Denies confusion, Denies dizziness, Denies memory loss - Psychiatric Denies behavioral changes - Endocrine Denies cold intolerance, Denies excessive sweating, Denies rapid, pounding, or irregular heartbeat - Hematologic/Lymphatic Denies easy bleeding, Denies easy bruising - Allergic/Immunologic Denies lip swelling, Denies throat swelling Exam Vital signs and Labs for Last 24 Hours: Temp Pulse Resp BP Pulse Ox 98.7 F 63 18 147/84 H 98 03/11/19 04:00 03/11/19 04:00 03/11/19 04:00 03/11/19 04:00 03/11/19 04:00 Laboratory Results - last 24 hr 03/10/19 16:38: WBC 6.2, RBC 4.00 L, Hgb 10.2 L, Hct 33.1 L, MCV 82.7, MCH 25.6 L, MCHC 31.0 L, RDW 16.1, Plt Count 273, MPV 8.4, Neut % (Auto) 70.9, Lymph % (Auto) 17.9, [place] % (Auto) 7.5, Eos % (Auto) 3.4, Baso % (Auto) 0.3, Neut # (Auto) 4.4, Lymph # (Auto) 1.1, [place] # (Auto) 0.5, Eos # (Auto) 0.2, Baso # (Auto) 0.0 03/10/19 16:38: Sodium 139, Potassium 4.5, Chloride 105, Carbon Dioxide 23, Anion Gap 15.5 H, BUN 21 H, Creatinine 1.23, Estimated Creat Clear 60, Estimated GFR 56 L, Est GFR ( Amer) 68, Glucose 305 H, Calcium 8.6, Troponin I < 0.02 03/10/19 16:38: PT 14.8 H, INR 1.45 H 03/10/19 19:38: Troponin I < 0.02 03/10/19 22:25: Troponin I < 0.02 03/11/19 02:00: Troponin I < 0.02 03/11/19 06:15: WBC 5.1, RBC 3.86 L, Hgb 10.0 L, Hct 32.0 L, MCV 82.8, MCH 25.8 L, MCHC 31.1 L, RDW 15.8, Plt Count 244, MPV 6.9 L, Neut % (Auto) 63.0, Lymph % (Auto) 19.7, [place] % (Auto) 10.9 H, Eos % (Auto) 6.1, Baso % (Auto) 0.3, Neut # (Auto) 3.2, Lymph # (Auto) 1.0, [place] # (Auto) 0.6, Eos # (Auto) 0.3, Baso # (Auto) 0.0 03/11/19 06:15: Sodium 140, Potassium 4.4, Chloride 105, Carbon Dioxide 26, Anion Gap 13.4, BUN 19 H, Creatinine 1.08, Estimated Creat Clear 71, Estimated GFR 66, Est GFR ( Amer) 79, Glucose 261 H, Calcium 8.6 I & O for Last 24 hours: Intake & Output 03/08/19 03/09/19 03/10/19 03/11/19 11:59 11:59 11:59 11:59 Weight 206 lb 7 oz Narrative: At the time of my exam on the morning of 03/11/2019, the patient is sitting up in the chair. He is very alert and oriented. He appears in no distress. He is eager to go home. HEENT shows a cream to be atraumatic and normocephalic. Sclera conjunctive are clear. Nares patent. Oropharynx shows moist mucous membranes. Neck is supple with no thyromegaly, bruits, adenopathy. Lungs are clear to auscultation. Heart is regular with no ectopy. Abdomen is soft and no ndistended with no unusual masses or tenderness. Extremities show no edema. Hospital Course Hospital Course: Because of his history of heart disease, he was admitted to rule out an acute KS. His initial EKG showed no acute changes. Serial enzymes overnight have all been negative. He has had no further chest pain since admission. He has been ambulating in the room without difficulty. He is eager to go home. He has nitroglycerin tablets at home and he is encouraged to keep these with him. If he experiences further chest pain and relieved after 2 nitroglycerin, he is to return to the emergency room. Otherwise he is scheduled for follow-up appointment with Dr. Anderson on 03/14/2019. Results Labs on day of discharge: Labs from last 24 hours 03/11/19 03/11/19 03/11/19 06:15 06:15 02:00 WBC 5.1 RBC 3.86 L Hgb 10.0 L Hct 32.0 L MCV 82.8 MCH 25.8 L MCHC 31.1 L RDW 15.8 Plt Count 244 MPV 6.9 L Neut % (Auto) 63.0 Lymph % (Auto) 19.7 [place] % (Auto) 10.9 H Eos % (Auto) 6.1 Baso % (Auto) 0.3 Neut # (Auto) 3.2 Lymph # (Auto) 1.0 [place] # (Auto) 0.6 Eos # (Auto) 0.3 Baso # (Auto) 0.0 PT INR Sodium 140 Potassium 4.4 Chloride 105 Carbon Dioxide 26 Anion Gap 13.4 BUN 19 H Creatinine 1.08 Estimated Creat Clear 71 Estimated GFR 66 Est GFR ( Amer) 79 Glucose 261 H Calcium 8.6 Troponin I < 0.02 03/10/19 03/10/19 03/10/19 22:25 19:38 16:38 WBC RBC Hgb Hct MCV MCH MCHC RDW Plt Count MPV Neut % (Auto) Lymph % (Auto) [place] % (Auto) Eos % (Auto) Baso % (Auto) Neut # (Auto) Lymph # (Auto) [place] # (Auto) Eos # (Auto) Baso # (Auto) PT 14.8 H INR 1.45 H Sodium Potassium Chloride Carbon Dioxide Anion Gap BUN Creatinine Estimated Creat Clear Estimated GFR Est GFR ( Amer) Glucose Calcium Troponin I < 0.02 < 0.02 03/10/19 03/10/19 16:38 16:38 WBC 6.2 RBC 4.00 L Hgb 10.2 L Hct 33.1 L MCV 82.7 MCH 25.6 L MCHC 31.0 L RDW 16.1 Plt Count 273 MPV 8.4 Neut % (Auto) 70.9 Lymph % (Auto) 17.9 [place] % (Auto) 7.5 Eos % (Auto) 3.4 Baso % (Auto) 0.3 Neut # (Auto) 4.4 Lymph # (Auto) 1.1 [place] # (Auto) 0.5 Eos # (Auto) 0.2 Baso # (Auto) 0.0 PT INR Sodium 139 Potassium 4.5 Chloride 105 Carbon Dioxide 23 Anion Gap 15.5 H BUN 21 H Creatinine 1.23 Estimated Creat Clear 60 Estimated GFR 56 L Est GFR ( Amer) 68 Glucose 305 H Calcium 8.6 Troponin I < 0.02 DS: Diagnosis - Discharge Diagnosis (1) Chest pain Status: Acute (2) Coronary arteriosclerosis Status: Chronic (3) Stented coronary artery Status: Acute (4) Diabetes mellitus Status: Acute (5) Paroxysmal atrial fibrillation Status: Chronic (6) On amiodarone therapy Status: Chronic (7) HBP (high blood pressure) Status: Acute Discharge Plan - Patient Discharge Instructions ACTIVITY: Limited activity DIET: continue same diet Patient Instructions: DI for Chest Pain - Follow up Plan Follow up with: Patricio Anderson MD [Staff Physician] - 03/14/19 Disposition: Home, Self-Custodial Medications: Home Medications Medication Instructions Recorded Confirmed Type insulin detemir (U-100) 100 40 unit SUB-Q QAM ml 09/27/17 03/10/19 History unit/mL subcutaneous solution metformin 500 mg tablet 500 mg PO BID 09/27/17 03/10/19 History nitroglycerin 0.4 mg sublingual 0.4 mg SUBLINGUAL Q5MINP PRN 09/27/17 03/10/19 History tablet pioglitazone 30 mg tablet 30 mg PO DAILY 12/30/17 03/10/19 History atorvastatin 80 mg tablet 80 mg PO HS #30 tab 10/25/18 03/10/19 Rx amiodarone 200 mg tablet 200 mg PO DAILY #30 tab 12/07/18 03/10/19 Rx Isosorbide Mononitrate [Imdur 30mg 30 mg PO QAM 02/22/19 03/10/19 History ER tablet] bupropion HCl 100 mg tablet 100 mg PO ONCE tab 03/06/19 03/10/19 History lisinopril 20 mg tablet 20 mg PO DAILY #30 tab 03/06/19 03/10/19 Rx Prescriptions/Medication Reconciliation: Continued insulin detemir (U-100) 100 unit/mL subcutaneous solution 40 unit SUB-Q QAM ml metformin 500 mg tablet 500 mg PO BID nitroglycerin 0.4 mg sublingual tablet 0.4 mg SUBLINGUAL Q5MINP PRN PRN Reason: Chest Pain pioglitazone 30 mg tablet 30 mg PO DAILY atorvastatin 80 mg tablet 80 mg PO HS #30 tab amiodarone 200 mg tablet 200 mg PO DAILY #30 tab bupropion HCl 100 mg tablet 100 mg PO ONCE tab lisinopril 20 mg tablet 20 mg PO DAILY #30 tab Isosorbide Mononitrate [Imdur 30mg ER tablet] 30 mg PO QAM - Problem Reconciliation Problems Reviewed?: Yes
--- NOTE | 2019-03-12 21:24 | Electrocardiograph Report ---
APPROVED REPORT Exam: Resting ECG HR:81 bpm ECG Measurements Heart Rate 81 AXES NE 192 P 79 QRSd 114 QRS -40 QT 440 T52 QTc 511 <Conclusion> Normal sinus rhythm Left axis deviation,LAHB Prolonged QT Abnormal ECG Electronically signed by : Tapan Kingsley, 03/12/2019 21:23:11
== END 2019-03-11 09:21 | disposition home or self-care (01) ==
LOC: 2ND 16:17 → ER 16:17 → 2ND 19:40
PROVIDERS: ADMIT Family Medicine; ATTEND Family Medicine
CPT/HCPCS: 36415; 71020; 71046; 80048; 84484; 85025; 85610; 93005; 99284; G0378

== ENCOUNTER → 2019-03-22 14:21 | Outpatient (CLI) | payer MEDICARE, SELFPAY ==
[2019-03-22 15:16] LABS: Hematocrit 35.7 % (42.0-52.0); Hemoglobin 10.6 g/dL (14.1-18.0)
== END ==
PROVIDERS: Visit Provider Physician Assistant
DX: D64.9 Anemia, unspecified (principal); Z51.81 Encounter for therapeutic drug level monitoring; Z79.01 Long term (current) use of anticoagulants; Z87.19 Personal history of other diseases of the digestive system
CPT/HCPCS: 36415; 85014; 85018

== ENCOUNTER → 2019-04-27 11:21 | Outpatient (CLI) | payer MEDICARE, SELFPAY ==
[2019-04-27 11:47] LABS: Hematocrit 32.4 % (42.0-52.0); Hemoglobin 9.8 g/dL (14.1-18.0)
== END ==
PROVIDERS: Visit Provider Physician Assistant
DX: D64.9 Anemia, unspecified (principal); Z51.81 Encounter for therapeutic drug level monitoring; Z79.01 Long term (current) use of anticoagulants
CPT/HCPCS: 36415; 85014; 85018

== ENCOUNTER 2019-05-30 16:56 | Inpatient (IN) ==
[2019-05-30 17:34] LABS: Basophils % 0.1 % (0.1-2.0); Eosinophils % 0.1 % (0.1-12.0); Hematocrit 33.7 % (42.0-52.0); Hemoglobin 9.9 g/dL (14.1-18.0); Lymphocytes # 0.7 K/mm3 (0.7-4.5); Lymphocytes % 4.3 % (10-50); Mean Corpuscular HGB Conc 29.4 g/dL (31.8-35.4); Mean Corpuscular Volume 78.7 fl (80-94); Mean Platelet Volume 8.3 fl (7.4-10.4); Monocytes # 1.1 K/mm3 (0.1-1.0); Neutrophils # 13.5 K/mm3 (1.8-7.8); Neutrophils % 88.5 % (37.0-80.0); Platelet Count 396 K/mm3 (142-424); Red Blood Count 4.28 M/mm3 (4.60-6.20); White Blood Count 15.3 K/mm3 (4.8-10.8)
--- NOTE | 2019-05-30 17:39 | Emergency Department Note ---
ED Disposition Clinical Impression: SIRS (systemic inflammatory response syndrome) Left lower lobe pneumonia Qualifiers: Pneumonia type: due to unspecified organism Qualified Code(s): J18.9 - Pneumonia, unspecified organism Fever Qualifiers: Fever type: unspecified Qualified Code(s): R50.9 - Fever, unspecified Disposition: Admitted as Observation Condition on Discharge: [facility] Critical Care Critical Care Time: No Attestation: On 05/30/19, the high probability of a clinically significant, sudden or life threatening deterioration of the following system(s) required my full and direct attention, intervention and personal management. The time I documented below is in addition to time spent performing reported procedures but includes the following listed in this critical care notation. Medical Decision Making - Adi Inquiry Pt receiving controlled substance: No Adi was queried for this patient: No Vital Signs: 05/30/19 17:12 05/30/19 17:59 05/30/19 20:01 Temperature 100.2 F H 98.8 F Temperature Source Oral Oral Pulse Rate [Right] 76 83 73 Respiratory Rate 20 18 Blood Pressure [Right Arm] 162/83 H 152/69 H 133/74 Blood Pressure Mean [Right Arm] 109 96 93 Blood Pressure Source [Right Arm] Automatic Cuff Automatic Cuff Blood Pressure Position [Right Arm] Sitting Right Lateral 02 Sat by Pulse Oximetry 93 L 92 L 94 L Oxygen Delivery Method Room Air Room Air Room Air - Lab Data Lab Results 05/30/19 17:19: WBC 15.3 H, RBC 4.28 L, Hgb 9.9 L, Hct 33.7 L, MCV 78.7 L, MCH 23.1 L, MCHC 29.4 L, RDW 15.0, Plt Count 396, MPV 8.3, Neut % (Auto) 88.5 H, Lymph % (Auto) 4.3 L, [place] % (Auto) 7.0, Eos % (Auto) 0.1, Baso % (Auto) 0.1, Neut # (Auto) 13.5 H, Lymph # (Auto) 0.7, [place] # (Auto) 1.1 H, Eos # (Auto) 0.0, Baso # (Auto) 0.0, Total Counted 100, Neutrophils % (Manual) 83 H, Band Neutrophils % 2.0, Lymphocytes % (Manual) 9 L, Monocytes % (Manual) 6, Platelet Estimate Normal, Hypochromasia 2+, Anisocytosis 1+, Microcytosis 1+ 05/30/19 17:19: Sodium 136, Potassium 3.9, Chloride 100, Carbon Dioxide 24, Anion Gap 15.9 H, BUN 17, Creatinine 1.17, Estimated Creat Clear 64, Estimated GFR 60, Est GFR ( Amer) 72, Glucose 216 H, Calcium 8.5, Total Bilirubin 0.6, AST 14 L, ALT 16, Alkaline Phosphatase 113, Troponin I < 0.02, Total Protein 6.9, Albumin 3.1 L, Globulin 3.8 H, Albumin/Globulin Ratio 0.8 L, Amylase 20 L, Lipase 75 05/30/19 17:19: Lactate 2.1 H 05/30/19 17:19: Influenza Type A Ag Negative, Influenza Type B Ag Negative 05/30/19 18:58: Urine Color Yellow, Urine Appearance Clear, Urine pH 5.5, Ur Specific [place] >= 1.030, Urine Protein Negative, Urine Glucose (UA) 3+, Urine Ketones 1+, Urine Blood Negative, Urine Nitrate Negative, Urine Bilirubin Negative, Urine Urobilinogen 0.2, Ur Leukocyte Esterase Negative, Urine WBC Occasional, Ur Squamous Epith Cells Occasional, Urine Bacteria Trace, Hyaline Casts Occasional Result diagrams: 05/30/19 17:19 05/30/19 17:19 Orders (Tests/Meds): ED MEDICATIONS Generic Name Dose Route Start Last Admin Trade Name Freq PRN Reason Stop Dose Admin Sodium Chloride 1,000 mls @ 999 mls/hr 05/30/19 17:30 05/30/19 17:22 Sod Chlor 0.9% 1000ml Bag IV 05/30/19 18:30 999 mls/hr .Q1H1M LIOR Administration Discontinued Medications Generic Name Dose Route Start Last Admin Trade Name Freq PRN Reason Stop Dose Admin Acetaminophen 1,000 mg 05/30/19 17:22 05/30/19 17:24 Tylenol 500mg Tablet PO 05/30/19 17:23 1,000 mg ONCE ONE Administration Ioversol 75 ml 05/30/19 19:06 05/30/19 19:07 Rad-Optiray 350 100ml Vial IV 05/30/19 19:07 75 ml ONCE ONE Administration Protocol Sodium Chloride 10 ml 05/30/19 19:06 12/03/19 19:07 Rad-Saline Flush 10ml Syringe IV 05/30/19 19:07 10 ml ONCE ONE Administration ORDERS Category Date Time Status CT abdomen pelvis w con Stat Cat Scan 05/30/19 17:18 Taken XR chest 2V Stat Exams 05/30/19 17:18 Taken Troponin I Q3H Lab 05/30/19 20:30 Ordered Troponin I Q3H Lab 05/30/19 23:30 Ordered Blood Culture Stat Micro 05/30/19 17:21 Received ECG Request by /Eduardo Stat Y 05/30/19 17:18 Ordered - Radiology Data #1 Image(s): Abdomen Image Reviewed: Yes I have reviewed radiologist's interpretation X-ray of the abdomen shows large amount of stool in the colon. - CT Data CT Scan: Abdomen Time Received: 19:[address] Reviewed: Yes: I have reviewed the patient's CT results Findings Narrative: No acute intra-abdominal abnormality. Mild tree-in-bud nodularity in the bilateral lung bases likely infectious or inflammatory in etiology. There is small hiatal hernia. Cholelithiasis. There are small nonobstructing renal stones bilaterally. - ECG Data Tracing #1 EKG shows normal sinus rhythm with a heart rate of 83 bpm, Normal P waves, normal NC interval, left axis deviation, normal QRS pattern, normal T waves, nonspecific ST-T changes - Physician Consults Physician Consulted: Dr. Calderon Time: 19:45 Reason -: Admission General Adult HPI - General Chief complaint: Shortness of Breath/Dyspnea Stated complaint: Weakness,CROOKS,Sob Time Seen by Provider: 05/30/19 17:32 Mode of Arrival: Wheelchair Source of Information: Patient Limitations: No Limitations Description of Symptoms (Recalled from ER Triage Doc. by RN): Pt c/o soa, cough, congestion, chills and fever x2 days. Pt states earlier he had a coloscopy and all went well. Pt states he also vomited yesterday and also c/o abd pain. - History of Present Illness HPI narrative: Pt presents with complaint of having fever chills cough congestion. He states he was having some degree of cough and congestion for the last 4 weeks. He started having fever this afternoon. Had a colonoscopy done today. Has been chilling with fever. His temperature was 102 degrees in the emergency department. Is having any nausea or vomiting. Denies having any change in mental status. - Related Data Home Medications Medication Instructions Recorded Confirmed insulin detemir (U-100) 100 40 unit SUB-Q QAM ml 09/27/17 05/30/19 unit/mL subcutaneous solution metformin 500 mg tablet 500 mg PO BID 09/27/17 05/30/19 nitroglycerin 0.4 mg sublingual 0.4 mg SUBLINGUAL Q5MINP PRN 09/27/17 05/30/19 tablet bupropion HCl 100 mg tablet 100 mg PO ONCE tab 03/06/19 05/30/19 rivaroxaban 20 mg tablet 20 mg PO DAILY #30 tab 03/14/19 05/30/19 Amlodipine Besylate [Amlodipine 5 mg PO DAILY 05/29/19 05/30/19 5mg tab] Atorvastatin Calcium [Lipitor 80mg 80 mg PO DAILY 05/29/19 05/30/19 Tablet] Oxybutynin Chloride [Oxybutynin 10 mg PO DAILY 05/29/19 05/30/19 Chloride ER] Pantoprazole Sodium [Protonix 40mg 40 mg PO DAILY 05/29/19 05/30/19 tablet] Previous Rx's Medication Instructions Recorded amiodarone 200 mg tablet 200 mg PO DAILY #30 tab 12/07/18 lisinopril 20 mg tablet 20 mg PO DAILY #30 tab 03/06/19 isosorbide mononitrate ER 30 mg 30 mg PO QAM #90 tab 04/27/19 tablet,extended release 24 hr Allergies Allergy/AdvReac Type Severity Reaction Status Date / Time No Known Allergies Allergy Verified 05/29/19 13:23 [facility] History - Hepatitis A Screen Drug use history?: No High risk sexual behaviors?: No History of sexually transmitted infection?: No Currently employed?: No Childcare worker?: No Do you have indoor plumbing?: Yes Do you have electricity?: Yes Attestation statement:: This patient has been screened for Hepatitis A risk factors. Medical History: Reports:: Atherosclerotic Heart Disease, Atrial Fibrillation, Coronary Artery Disease, Diabetes Mellitus Type 2, Hyperlipidemia, Hypertension, Myocardial Infarction Denies:: Cancer, Diabetes Mellitus Type 1, Internal Pacemaker, MRSA, Seizures Other Medical History: Reports: Arthritis. Denies: Blood Transfusion Reaction Comment: TOÑO Laterality Cases: Bilateral: Arthroscopy Knee, Arthroscopy Shoulder, Other Other Surgeries: Yes: No Previous Surgery, Angiogram (10/11/17), Angioplasty, Cardiac Catheterization, Cardiac Surgery, Colonoscopy, Coronary Stent, EGD. No: Pacemaker Amputation: No Fractures: No Comment: Ankle, Knees, Shoulders - Social History Smoking Status: Never smoker Alcohol Intake: never Alcohol Intake Frequency:: other Substance Use Type: denies use Occupational Status: retired Housing: house Household Members: none Family Hx:: Hyperlipidemia, Cancer, Hypertension, Diabetes ROS Obtained: Yes All systems reviewed & no additional complaints Physical Exam - General General appearance: alert, in no apparent distress, other (Patient is shaking and chills with fever.) - Head Head exam: atraumatic, normocephalic, normal inspection - Eye Eye exam: Present: normal appearance, PERRL, EOMI - ENT ENT exam: Present: normal exam, normal oropharynx, mucous membranes moist, TM's normal bilaterally, normal external ear exam - Neck Neck exam: Present: normal inspection, full ROM, trachea midline. Absent: meningismus, lymphadenopathy - Chest Chest inspection: Present: normal inspection, symmetric chest wall rise. Absent: tenderness, rash - Respiratory Respiratory exam: Present: other (Bilateral coarse breath sounds. No bronchospasm. No wheezing.) - Cardiovascular Cardiovascular exam: Present: regular rate, normal rhythm. Absent: JVD - Abdominal Exam Abdominal exam: Present: soft, tenderness, normal bowel sounds. Absent: distention, guarding, rebound, rigidity Abdominal tenderness: Present: RUQ, epigastrium (Tenderness on the right upper quadrant and epigastric area.) - Back Exam Back exam: Present: normal inspection. Absent: tenderness - Neurological Exam Neurological exam: Present: alert, oriented X3, CN II-XII intact, normal gait - Psychiatric Psychiatric exam: Present: normal affect, normal mood - Skin Skin exam: Present: warm, dry, intact, normal color - Lymphatic Lymphatic Findings: no adenopathy
[2019-05-30 17:47] LABS: Alanine Aminotransferase 16 U/L (12-78); Albumin Level 3.1 gm/dL (3.4-5.0); Albumin/Globulin Ratio 0.8 (1.1-1.8); Alkaline Phosphatase 113 U/L (46-116); Amylase 20 U/L (25-115); Anion Gap 15.9 mEq/L (5-15); Aspartate Amino Transferase 14 U/L (15-37); Bilirubin,Total 0.6 mg/dL (0.2-1.0); Blood Urea Nitrogen 17 mg/dL (7-18); Calcium 8.5 mg/dL (8.5-10.1); Carbon Dioxide 24 mmol/L (21.0-32.0); Chloride 100 mmol/L (98-107); Globulin 3.8 gm/dl (1.3-3.2); Glucose 216 mg/dL (74-106); Sodium 136 mmol/L (136-145); Total Protein,Serum 6.9 gm/dL (6.4-8.2)
[2019-05-30 17:53] LABS: Hypochromasia 2+; Lymphocytes % 9 % (10-50); Monocytes % 6 % (2-9); Neutrophils % 83 % (42-76); Total Cells Counted 100
[2019-05-30 17:54] LABS: Anisocytosis 1+
[2019-05-30 19:06] LABS: Microscopic, Urine URINE MICROSCOPIC (MICROSCOPIC)
[2019-05-30 19:12] LABS: Appearance,Urine CLEAR (Clear); Bilirubin,Urine Negative (Negative); Blood, Urine Negative (Negative); Color,Urine YELLOW (Yellow); Glucose,Urine (UA) 3+ (Negative); Ketones,Urine 1+ (Negative); Leukocyte Esterase,Urine Negative (Negative); PH,Urine 5.5 (5.0-8.5); Protein,Urine Negative (Negative); Specific Gravity, Urine >= 1.030 (1.005-1.030); Urobilinogen,Urine 0.2 EU/dl (0.2)
[2019-05-30 19:38] LABS: Bacteria,Urine Trace /lpf; Hyaline Casts,Urine Occasional #/lpf (0); Squamous Epithelial Cell,Urine Occasional #/hpf (0-5); WBC,Urine Occasional #/hpf (0-3)
--- NOTE | 2019-05-31 07:16 | Pharmacy Consult Notes ---
[facility] Pharmacy VTE Monitoring - Patient Demographics Admission date: 05/30/19 Report Date: 05/31/19 Time: 07:15 Allergies/Adverse Reactions: Patient Allergies No Known Allergies Allergy (Verified 05/29/19 13:23) Height: 1.75 m Weight: 88.592 kg Patient Problems: Current Active Problems Left lower lobe pneumonia (Acute) Fever (Acute) SIRS (systemic inflammatory response syndrome) (Acute) - VTE Risk Labs: VTE Related Lab Results Hgb 9.9 g/dL (14.1-18.0) L 05/30/19 17:19 Hct 33.7 % (42.0-52.0) L 05/30/19 17:19 Plt Count 396 K/mm3 (142-424) 05/30/19 17:19 BUN 17 mg/dL (7-18) 05/30/19 17:19 Creatinine 1.17 mg/dL (0.70-1.30) 05/30/19 17:19 Estimated Creat Clear 64 mL/min (50-200) 05/30/19 17:19 Was VTE Risk Assessment Performed: Yes VTE Score: 4 VTE Risk Level: Low Risk Clinical Trial Participant: No - Prophylaxis VTE Prophylaxis Ordered?: Yes Types of VTE Prophylaxis: TEDS Knee High
--- NOTE | 2019-05-31 08:10 | History & Physical Report ---
*Admission Date: 05/30/19 *Chief complaint: Cough/congestion/fever *History of present illness: 83-year-old white male with history of cardiac disease, status post stenting with ongoing atrial fibrillation currently on blood thinners, who underwent colonoscopy yesterday because of history of anemia with rectal bleeding 6 months ago which was normal except for some benign-appearing polyps which were biopsied. Patient tolerated the procedure well, but after the procedure noted to have cough and fever-on further questioning this turns out he has had a cough and a fever for about the past 2 weeks. Transition to the emergency department where work-up revealed a left lower lobe pneumonia, leukocytosis and he was admitted to hospital for community-acquired pneumonia. [facility] History I have reviewed the patient's past medical history: Yes Medical History: Reports:: Arrhythmia, Atherosclerotic Heart Disease, Atrial Fibrillation, Coronary Artery Disease, Diabetes Mellitus Type 2, Hyperlipidemia, Hypertension, Myocardial Infarction Denies:: Cancer, Diabetes Mellitus Type 1, Internal Pacemaker, MRSA, Seizures *Have you ever received a pneumonia vaccine?: No *Have you received a flu vaccine this season?: No Other Medical History: Reports: Arthritis. Denies: Blood Transfusion Reaction Laterality Cases: Bilateral: Arthroscopy Knee, Arthroscopy Shoulder, Other Other Surgeries: Yes: No Previous Surgery, Angiogram (10/11/17), Angioplasty, Cardiac Catheterization, Cardiac Surgery, Colonoscopy, Coronary Stent, EGD. No: Pacemaker Amputation: No Fractures: No - *Social History Smoking Status: Never smoker Alcohol Intake: never Alcohol Intake Frequency:: other Substance Use Type: denies use *Occupational Status:: retired Housing: house Household Members: none *Travel in the last 8 weeks: None Family Hx:: Hyperlipidemia, Cancer, Hypertension, Diabetes Review of Systems - Review of Systems Review of systems:: pertinent systems reviewed and negative unless documented below - Constitutional Reports fatigue, Reports fever(s), Denies anorexia - Eyes Denies blind spots, Denies blurry vision - ENT Denies abnormal hearing, Denies poor balance - *Cardiovascular Reports shortness of breath, Reports shortness of breath with activity - *Respiratory Reports change in phlegm color, Reports shortness of breath with activity - *Gastrointestinal Denies abdominal pain - *Genitourinary Denies difficulty urinating Meds Home Medications Medication Instructions Recorded Confirmed Type insulin detemir (U-100) 100 40 unit SUB-Q QAM ml 09/27/17 05/30/19 History unit/mL subcutaneous solution metformin 500 mg tablet 500 mg PO BID 09/27/17 05/30/19 History nitroglycerin 0.4 mg sublingual 0.4 mg SUBLINGUAL Q5MINP PRN 09/27/17 05/30/19 History tablet amiodarone 200 mg tablet 200 mg PO DAILY #30 tab 12/07/18 05/30/19 Rx bupropion HCl 100 mg tablet 100 mg PO BID tab 03/06/19 05/31/19 History lisinopril 20 mg tablet 20 mg PO DAILY #30 tab 03/06/19 05/30/19 Rx rivaroxaban 20 mg tablet 20 mg PO DAILY #30 tab 03/14/19 05/30/19 History isosorbide mononitrate ER 30 mg 30 mg PO QAM #90 tab 04/27/19 05/30/19 Rx tablet,extended release 24 hr Amlodipine Besylate [Amlodipine 5 mg PO DAILY 05/29/19 05/30/19 History 5mg tab] Atorvastatin Calcium [Lipitor 80mg 80 mg PO DAILY 05/29/19 05/30/19 History Tablet] Oxybutynin Chloride [Oxybutynin 10 mg PO DAILY 05/29/19 05/30/19 History Chloride ER] Pantoprazole Sodium [Protonix 40mg 40 mg PO DAILY 05/29/19 05/30/19 History tablet] Allergies Allergy/AdvReac Type Severity Reaction Status Date / Time No Known Allergies Allergy Verified 05/29/19 13:23 Exam Vital signs and Labs for Last 24 Hours: Temp Pulse Resp BP Pulse Ox 97.9 F 65 18 99/57 L 95 05/31/19 04:00 05/31/19 04:00 05/31/19 04:00 05/31/19 04:00 05/31/19 04:00 Laboratory Results - last 24 hr 05/30/19 17:19: WBC 15.3 H, RBC 4.28 L, Hgb 9.9 L, Hct 33.7 L, MCV 78.7 L, MCH 23.1 L, MCHC 29.4 L, RDW 15.0, Plt Count 396, MPV 8.3, Neut % (Auto) 88.5 H, Lymph % (Auto) 4.3 L, [place] % (Auto) 7.0, Eos % (Auto) 0.1, Baso % (Auto) 0.1, Neut # (Auto) 13.5 H, Lymph # (Auto) 0.7, [place] # (Auto) 1.1 H, Eos # (Auto) 0.0, Baso # (Auto) 0.0, Total Counted 100, Neutrophils % (Manual) 83 H, Band Neutrophils % 2.0, Lymphocytes % (Manual) 9 L, Monocytes % (Manual) 6, Platelet Estimate Normal, Hypochromasia 2+, Anisocytosis 1+, Microcytosis 1+ 05/30/19 17:19: Sodium 136, Potassium 3.9, Chloride 100, Carbon Dioxide 24, Anion Gap 15.9 H, BUN 17, Creatinine 1.17, Estimated Creat Clear 64, Estimated GFR 60, Est GFR ( Amer) 72, Glucose 216 H, Calcium 8.5, Total Bilirubin 0.6, AST 14 L, ALT 16, Alkaline Phosphatase 113, Troponin I < 0.02, Total Protein 6.9, Albumin 3.1 L, Globulin 3.8 H, Albumin/Globulin Ratio 0.8 L, Amylase 20 L, Lipase 75 05/30/19 17:19: Lactate 2.1 H 05/30/19 17:19: Influenza Type A Ag Negative, Influenza Type B Ag Negative 05/30/19 18:58: Urine Color Yellow, Urine Appearance Clear, Urine pH 5.5, Ur Specific [place] >= 1.030, Urine Protein Negative, Urine Glucose (UA) 3+, Urine Ketones 1+, Urine Blood Negative, Urine Nitrate Negative, Urine Bilirubin Negative, Urine Urobilinogen 0.2, Ur Leukocyte Esterase Negative, Urine WBC Occasional, Ur Squamous Epith Cells Occasional, Urine Bacteria Trace, Hyaline Casts Occasional 05/30/19 20:29: Troponin I < 0.02 05/30/19 21:36: Lactate 2.7 H 05/30/19 23:34: Lactate 2.5 H 05/31/19 06:33: POC Glucose 225 H I & O for Last 24 hours: Intake & Output 05/28/19 05/29/19 05/30/19 05/31/19 11:59 11:59 11:59 11:59 Intake Total 1480 / 1480 Balance 1480 / 1480 Weight 195 lb 5 oz Narrative: Patient is pleasant, talkative, up on the side of the bed. In good spirits. Alert, oriented x3. Lungs have rhonchi in both bases, worse on the left. Right side is clear. Heart rate regular. Abdomen soft and nontender. No edema or clubbing. Neurologically intact. Oropharynx clear. Assessment and Plan (1) Left lower lobe pneumonia Current visit: Yes Status: Acute Qualifiers: Pneumonia type: due to unspecified organism Qualified Code(s): J18.9 - Pneumonia, unspecified organism Category: Medical Code(s): J18.9 - Pneumonia, unspecified organism Agree with admission to hospital for IV antibiotics. Sputum culture if possible follow white counts tomorrow (2) Anemia Current visit: No Status: Acute Qualifiers: Category: Medical Code(s): D64.9 - Anemia, unspecified Secondary to previous blood loss/chronic disease. No evidence of active bleeding. Follow hemoglobin tomorrow (3) Cholelithiasis Current visit: No Status: Acute Category: Medical Code(s): K80.20 - Calculus of gallbladder without cholecystitis without obstruction Visible on CT scan. Does not seem to be clinically significant (4) Diabetes mellitus Current visit: No Status: Acute Qualifiers: Category: Medical Code(s): E11.9 - Type 2 diabetes mellitus without complications We will follow in hospital with sliding scale insulin and fingersticks.
[2019-06-01 07:44] LABS: Basophils % 0.3 % (0.1-2.0); Eosinophils # 0.3 K/mm3 (0.0-0.4); Eosinophils % 3.5 % (0.1-12.0); Lymphocytes # 0.9 K/mm3 (0.7-4.5); Lymphocytes % 11.8 % (10-50); Mean Corpuscular HGB Conc 28.7 g/dL (31.8-35.4); Mean Corpuscular Volume 80.3 fl (80-94); Mean Platelet Volume 7.4 fl (7.4-10.4); Monocytes # 0.6 K/mm3 (0.1-1.0); Monocytes % 8.9 % (1.7-9.3); Neutrophils # 5.5 K/mm3 (1.8-7.8); Neutrophils % 75.7 % (37.0-80.0); Platelet Count 262 K/mm3 (142-424); Red Blood Count 3.24 M/mm3 (4.60-6.20); Red Cell Distribution Width 15.3 % (11.5-17.5); White Blood Count 7.2 K/mm3 (4.8-10.8)
[2019-06-01 08:30] LABS: Anion Gap 11.7 mEq/L (5-15)
[2019-06-01 08:32] LABS: Hemoglobin 7.6 g/dL (14.1-18.0)
[2019-06-01 08:36] LABS: Hematocrit 26.7 % (42.0-52.0)
[2019-06-01 08:37] LABS: Calcium 7.7 mg/dL (8.5-10.1)
[2019-06-01 08:47] LABS: Hemoglobin 7.6 g/dL (14.1-18.0)
--- NOTE | 2019-06-01 11:16 | Consult Report ---
History of Present Illness Consult date: 06/01/19 Requesting physician: Liam Calderon Consult reason: shortness of breath Chief complaint: SOA Additional Medical History:: 1. Coronary artery disease 2. Hypertension 3. Hyperlipidemia 4. Paroxysmal atrial fibrillation 5. Long-term anticoagulation with Xarelto 6. Loop recorder placement 7. Anemia History of present illness: This is an 83-year-old white gentleman who was admitted to the hospital following a colonoscopy secondary to shortness of breath, cough and fever. The patient underwent colonoscopy yesterday due to recurrent anemia and rectal bleeding. He states that some polyps were removed and sent off to pathology. He states he has an appointment in a couple of weeks with the surgeon to go over the results. He did tolerate this procedure well. Following the procedure the patient was short of breath and coughing. He did have an associated fever as well. The patient states that he has had the cough for about 4 weeks and his shortness of breath worsened about 2 weeks ago. He states that he did not know he had a fever until they checked his temperature yesterday. The patient then went to the emergency department for evaluation. He was found to have a right lower lobe pneumonia and the patient was admitted to the hospital for community- acquired pneumonia and treatment. This morning he still has a cough present. This is nonproductive. He states he is a little short of breath from time to time and sometimes if he coughs a whole lot he does get some chest pressure but other than that he has not had any chest pain. He denies any chills, nausea, vomiting, diarrhea, PND or orthopnea. The patient's biggest concern today is his anemia and rectal bleeding that continues to persist. He was evaluated by Dr. Espinoza at for left atrial appendage clip back in October 2018. At that time the patient was not a candidate for the left atrial appendage clip because he was not having episodes of atrial fibrillation often enough or long enough. [facility] History I have reviewed the patient's past medical history: Yes Medical History: Reports:: Arrhythmia, Atherosclerotic Heart Disease, Atrial Fibrillation, Coronary Artery Disease, Diabetes Mellitus Type 2, Hyperlipidemia, Hypertension, Myocardial Infarction Denies:: Cancer, Diabetes Mellitus Type 1, Internal Pacemaker, MRSA, Seizures *Have you ever received a pneumonia vaccine?: No *Have you received a flu vaccine this season?: No Other Medical History: Reports: Arthritis. Denies: Blood Transfusion Reaction Laterality Cases: Bilateral: Arthroscopy Knee, Arthroscopy Shoulder, Other Other Surgeries: Yes: No Previous Surgery, Angiogram (10/11/17), Angioplasty, Cardiac Catheterization, Cardiac Surgery, Colonoscopy, Coronary Stent, EGD. No: Pacemaker Amputation: No Fractures: No - *Social History Smoking Status: Never smoker Alcohol Intake: never Alcohol Intake Frequency:: other Substance Use Type: denies use *Occupational Status:: retired Housing: house Household Members: none *Travel in the last 8 weeks: None Family Hx:: Hyperlipidemia, Cancer, Hypertension, Diabetes Meds Home Medications Medication Instructions Recorded Confirmed Type insulin detemir (U-100) 100 40 unit SQ DAILY ml 09/27/17 05/31/19 History unit/mL subcutaneous solution metformin 500 mg tablet 500 mg PO BID 09/27/17 05/30/19 History nitroglycerin 0.4 mg sublingual 0.4 mg SUBLINGUAL Q5MINP PRN 09/27/17 05/30/19 History tablet amiodarone 200 mg tablet 200 mg PO DAILY #30 tab 12/07/18 05/30/19 Rx bupropion HCl 100 mg tablet 100 mg PO BID tab 03/06/19 05/31/19 History rivaroxaban 20 mg tablet 20 mg PO DAILY #30 tab 03/14/19 05/30/19 History Amlodipine Besylate [Amlodipine 5 mg PO DAILY 05/29/19 05/30/19 History 5mg tab] Atorvastatin Calcium [Lipitor 80mg 80 mg PO DAILY 05/29/19 05/30/19 History Tablet] Oxybutynin Chloride [Oxybutynin 10 mg PO DAILY 05/29/19 05/30/19 History Chloride ER] Pantoprazole Sodium [Protonix 40mg 40 mg PO DAILY 05/29/19 05/30/19 History tablet] Isosorbide Mononitrate [Imdur 30mg 30 mg PO DAILY 05/31/19 05/31/19 History ER tablet] lisinopriL [Lisinopril 20mg Tab] 20 mg PO DAILY 05/31/19 05/31/19 History Allergies Allergy/AdvReac Type Severity Reaction Status Date / Time No Known Allergies Allergy Verified 05/29/19 13:23 Review of Systems - Review of Systems Review of systems:: pertinent systems reviewed and negative unless documented below - Constitutional Reports fatigue, Reports fever(s), Reports lack of energy - *Respiratory Reports cough, Reports shortness of breath, Reports shortness of breath with activity, Reports pain with cough, Denies excessive phlegm production, Denies coughing up blood - *Gastrointestinal Reports black, tarry stools - *Neurologic Denies abnormal hearing, Denies unsteadiness Exam Vital signs and Labs for Last 24 Hours: Temp Pulse Resp BP Pulse Ox 98.5 F 60 19 128/65 95 06/01/19 08:00 06/01/19 08:42 06/01/19 08:00 06/01/19 08:00 06/01/19 08:42 Laboratory Results - last 24 hr 05/31/19 16:37: POC Glucose 155 H 05/31/19 20:20: POC Glucose 218 H 06/01/19 06:10: POC Glucose 186 H 06/01/19 07:09: WBC 7.2 D, RBC 3.24 L, Hgb 7.6 L*, Hct 26.0 L, MCV 80.3, MCH 23.0 L, MCHC 28.7 L, RDW 15.3, Plt Count 262 D, MPV 7.4, Neut % (Auto) 75.7, Lymph % (Auto) 11.8, [place] % (Auto) 8.9, Eos % (Auto) 3.5, Baso % (Auto) 0.3, Neut # (Auto) 5.5, Lymph # (Auto) 0.9, [place] # (Auto) 0.6, Eos # (Auto) 0.3, Baso # (Auto) 0.0 06/01/19 07:09: Sodium 139, Potassium 3.7, Chloride 108 H, Carbon Dioxide 23, Anion Gap 11.7, BUN 14, Creatinine 0.78 D, Estimated Creat Clear 75, Estimated GFR 96, Est GFR ( Amer) 116 D, Glucose 158 H, Calcium 7.7 L 06/01/19 07:09: Magnesium 1.6 06/01/19 08:28: Hgb 7.6 L*, Hct 26.7 L I & O for Last 24 hours: Intake & Output 05/29/19 05/30/19 05/31/19 06/01/19 23:59 23:59 23:59 23:59 Intake Total 1480 / 1480 4725 / 4725 1603 / 1603 Output Total 300 / 300 600 / 600 Balance 1480 / 1480 4425 / 4425 1003 / 1003 Weight 199 lb 195 lb 4.991 oz 202 lb 4.8 oz Microbiology Reports for the Last 24 Hours: Microbiology 05/31/19 11:00 Sputum - Expectorated Sputum Gram Stain - Final 05/31/19 11:00 Sputum - Expectorated Sputum Sputum Culture - Preliminary Narrative: EKG is sinus rhythm with old anterior CO pattern and a rate of 83. - Constitutional no acute distress, obese - *Routine HEENT Exam Head: Present: normocephalic, atraumatic Eye: Present: EOMI, PERRL ENT: Present: mucous membranes moist - *Routine Neck Exam Present: supple, full ROM, normal carotid upstroke. Absent: JVD, carotid bruit, lymphadenopathy - *Routine Respiratory Exam Present: decreased breath sounds, rhonchi (Right lower lobe) - *Routine Cardiovascular Exam Present: RRR, Normal S1, Normal S2. Absent: murmur, gallop - *Routine Abdominal Exam Present: soft, normoactive bowel sounds. Absent: tenderness, distended - *Routine Extremities Exam Present: full ROM, pulses intact, normal capillary refill. Absent: cyanosis, clubbing, edema - *Routine Skin Exam Present: intact, warm. Absent: erythema, rash - *Routine Neurological Exam Present: alert, oriented X3, CN II-XII intact. Absent: sensory deficit, motor deficit - Routine Psychiatric Exam Present: normal affect, normal thought process - Detailed Eye Exam Eyelids: Left normal inspection Assessment and Plan (1) Dyspnea Current visit: No Status: Chronic Qualifiers: Dyspnea type: dyspnea on exertion Qualified Code(s): R06.09 - Other forms of dyspnea Category: Medical Code(s): R06.00 - Dyspnea, unspecified (2) Cough Current visit: Yes Status: Acute Category: Medical Code(s): R05 - Cough (3) Anemia Current visit: No Status: Acute Qualifiers: Category: Medical Code(s): D64.9 - Anemia, unspecified (4) Cholelithiasis Current visit: No Status: Acute Category: Medical Code(s): K80.20 - Calculus of gallbladder without cholecystitis without obstruction (5) Diabetes mellitus Current visit: No Status: Acute Qualifiers: Category: Medical Code(s): E11.9 - Type 2 diabetes mellitus without complications (6) Right lower lobe pneumonia Current visit: Yes Status: Acute Category: Medical Code(s): J18.9 - Pneumonia, unspecified organism (7) Fever Current visit: Yes Status: Acute Qualifiers: Fever type: unspecified Qualified Code(s): R50.9 - Fever, unspecified Category: Medical Code(s): R50.9 - Fever, unspecified (8) Coronary arteriosclerosis Current visit: No Status: Chronic Category: Medical Code(s): I25.10 - Atherosclerotic heart disease of [place] coronary artery without angina pectoris (9) Hyperlipidemia Current visit: No Status: Chronic Qualifiers: Hyperlipidemia type: mixed hyperlipidemia Qualified Code(s): E78.2 - Mixed hyperlipidemia Category: Medical Code(s): E78.5 - Hyperlipidemia, unspecified (10) Hypertensive heart disease without heart failure Current visit: No Status: Chronic Category: Medical Code(s): I11.9 - Hypertensive heart disease without heart failure (11) On amiodarone therapy Current visit: No Status: Chronic Category: Medical Code(s): Z79.899 - Other [facility] (current) drug therapy (12) On anticoagulant therapy Current visit: No Status: Chronic Category: Medical Code(s): 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 The patient was admitted to the hospital with cough, fever and shortness of breath. The patient was found to have a right lower lobe pneumonia. He is being treated with antibiotics per his primary care provider will defer. 2. The patient is on amiodarone. Want to be sure he does not have any underlying pulmonary fibrosis. We will get a high-resolution CT of the chest today to rule this out. We will also get a TSH and free T4 on his next blood draw as well as a liver panel. 3. The patient does have paroxysmal atrial fibrillation. He is in sinus rhythm. 4. The patient is on long-term anticoagulation with Xarelto. He has been having episodes of anemia and rectal bleeding. As mentioned above, the patient is in sinus rhythm. I have went back and looked at the patient's loop recorder downloads and he has not had any episodes of atrial fibrillation since September 2017 and at that time his episodes of atrial fibrillation were less than an hour. Will stop his Xarelto at this time given his anemia and rectal bleeding. 5. On an outpatient basis, we will set the patient up with Dr. Mon at [facility] for consideration of a watchman's device. He was not a candidate for left atrial appendage clip because he was not having atrial fibrillation frequently enough or long enough. 6. The patient has known coronary artery disease. He underwent recent left cardiac catheterization and has patent coronary artery disease. No plans for invasive cardiac testing at this time. 7 his blood pressure is well controlled. 8. His LDL goal is less than 55. LDL is 48. 9. Further recommendations were made pending the patient's response to treatment. Thank you for the opportunity to help to spent in the care of this patient.
--- NOTE | 2019-06-01 13:53 | Progress Note ---
Internal Medicine - PN: Subj *Date: 06/01/19 *Time: 08:30 Interval history: Patient did well overnight but still states he is short of breath. Not requiring any oxygen. Labs this morning however concerning for worsening anemia. Denies chest pain, nausea, vomiting, diarrhea. Of note, had LHC 3 months ago. Exam Vital signs and Labs for Last 24 Hours: Temp Pulse Resp BP Pulse Ox 98.3 F 62 19 146/59 H 93 L 06/01/19 12:00 06/01/19 13:41 06/01/19 12:00 06/01/19 12:00 06/01/19 12:00 Laboratory Results - last 24 hr 05/31/19 16:37: POC Glucose 155 H 05/31/19 20:20: POC Glucose 218 H 06/01/19 06:10: POC Glucose 186 H 06/01/19 07:09: WBC 7.2 D, RBC 3.24 L, Hgb 7.6 L*, Hct 26.0 L, MCV 80.3, MCH 23.0 L, MCHC 28.7 L, RDW 15.3, Plt Count 262 D, MPV 7.4, Neut % (Auto) 75.7, Lymph % (Auto) 11.8, [place] % (Auto) 8.9, Eos % (Auto) 3.5, Baso % (Auto) 0.3, Neut # (Auto) 5.5, Lymph # (Auto) 0.9, [place] # (Auto) 0.6, Eos # (Auto) 0.3, Baso # (Auto) 0.0 06/01/19 07:09: Sodium 139, Potassium 3.7, Chloride 108 H, Carbon Dioxide 23, Anion Gap 11.7, BUN 14, Creatinine 0.78 D, Estimated Creat Clear 75, Estimated GFR 96, Est GFR ( Amer) 116 D, Glucose 158 H, Calcium 7.7 L 06/01/19 07:09: Magnesium 1.6 06/01/19 08:28: Hgb 7.6 L*, Hct 26.7 L I & O for Last 24 hours: Intake & Output 05/29/19 05/30/19 05/31/19 06/01/19 23:59 23:59 23:59 23:59 Intake Total 1480 / 1480 4725 / 4725 1603 / 1603 Output Total 300 / 300 600 / 600 Balance 1480 / 1480 4425 / 4425 1003 / 1003 Weight 90.265 kg 88.592 kg 91.762 kg Microbiology Reports for the Last 24 Hours: Microbiology 05/31/19 11:00 Sputum - Expectorated Sputum Gram Stain - Final 05/31/19 11:00 Sputum - Expectorated Sputum Sputum Culture - Preliminary Narrative: Patient is pleasant, talkative, Sitting up in bed on exam. Alert, oriented x3. Lungs have rhonchi in both bases. diffuse wheeze throughout lung [place], fair air movement Heart rate regular, no murmur Abdomen soft and nontender. No edema or clubbing. Neurologically intact. Oropharynx clear. Assessment and Plan (1) Dyspnea Current visit: No Status: Chronic Qualifiers: Dyspnea type: dyspnea on exertion Qualified Code(s): R06.09 - Other forms of dyspnea Category: Medical Code(s): R06.00 - Dyspnea, unspecified (2) Cough Current visit: Yes Status: Acute Category: Medical Code(s): R05 - Cough (3) Anemia Current visit: No Status: Acute Qualifiers: Category: Medical Code(s): D64.9 - Anemia, unspecified Plan transfuse today for goal hemoglobin of 9 given history of coronary artery disease. Monitor for response with posttransfusion H&H. No clear source as he has a colonscopy recently, though denies any blood in stool. Had decrease in all cell lines. Hemodilution is a differential diagnosis as there is no clinical sign of occult bleeding. (4) Cholelithiasis Current visit: No Status: Acute Category: Medical Code(s): K80.20 - Calculus of gallbladder without cholecystitis without obstruction (5) Diabetes mellitus Current visit: No Status: Acute Qualifiers: Category: Medical Code(s): E11.9 - Type 2 diabetes mellitus without complications (6) Right lower lobe pneumonia Current visit: Yes Status: Acute Category: Medical Code(s): J18.9 - Pneumonia, unspecified organism (7) Fever Current visit: Yes Status: Acute Qualifiers: Fever type: unspecified Qualified Code(s): R50.9 - Fever, unspecified Category: Medical Code(s): R50.9 - Fever, unspecified (8) Coronary arteriosclerosis Current visit: No Status: Chronic Category: Medical Code(s): I25.10 - Atherosclerotic heart disease of [place] coronary artery without angina pectoris (9) Hyperlipidemia Current visit: No Status: Chronic Qualifiers: Hyperlipidemia type: mixed hyperlipidemia Qualified Code(s): E78.2 - Mixed hyperlipidemia Category: Medical Code(s): E78.5 - Hyperlipidemia, unspecified (10) Hypertensive heart disease without heart failure Current visit: No Status: Chronic Category: Medical Code(s): I11.9 - Hypertensive heart disease without heart failure (11) On amiodarone therapy Current visit: No Status: Chronic Category: Medical Code(s): 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 Cardiology consulted given significant cardiac history. Patient on amiodarone currently, will pursue CT to rule out pulmonary fibrosis. Additionally patient has diffuse wheezing, initiate breathing treatments today. Unclear etiology of his acute worsening of anemia. Transfuse 2 units today with post transfusion H&H. Continue to monitor clinically overnight for improvement and respiratory status. Additionally will monitor for any overt signs of bleeding. Continues to require inpatient management. Cardiology consulted, appreciate recommendations.
[2019-06-01 22:28] LABS: Hematocrit 29.4 % (42.0-52.0)
[2019-06-01 22:42] LABS: Hemoglobin 8.9 g/dL (14.1-18.0)
--- NOTE | 2019-06-02 00:25 | Discharge Summary ---
General - General Admission date:: 06/01/19 Discharge date: 06/02/19 HPI HPI: 83-year-old white male with history of cardiac disease, status post stenting with ongoing atrial fibrillation currently on blood thinners, who underwent colonoscopy yesterday because of history of anemia with rectal bleeding 6 months ago which was normal except for some benign-appearing polyps which were biopsied. Patient tolerated the procedure well, but after the procedure noted to have cough and fever-on further questioning this turns out he has had a cough and a fever for about the past 2 weeks. Transition to the emergency department where work-up revealed a left lower lobe pneumonia, leukocytosis and he was admitted to hospital for community-acquired pneumonia. Hospital Course Hospital Course: Patient was admitted for pneumonia and initiated on antibiotics. Tolerated treatment well. CT chest performed to scan for pulmonary fibrosis given history of amiodarone. Patient responded well to antibiotics with improvement in respiratory status. Of note, while admitted developed some worsening anemia. Given cardiac history and recent stenting was transfused 2 units. Clinically improving by day of discharge. Medically stable for discharge home. States he is not 100% however doing significantly better. Plan to complete course of antibiotics for pneumonia and follow-up with his primary care in [facility] next week. Held patient's blood thinners for the time being given anemia. Chest pain, nausea, vomiting. Mild shortness of breath but not requiring any oxygen Objective Vital signs: Temp Pulse Resp BP Pulse Ox 98.0 F 69 18 138/54 L 93 L 06/01/19 22:10 06/01/19 22:10 06/01/19 22:10 06/01/19 22:10 06/01/19 22:10 Narrative: Patient is pleasant, talkative, Sitting up in bed on exam. Alert, oriented x3. Lungs have rhonchi in both bases. diffuse wheeze throughout lung [place], fair air movement Heart rate regular, no murmur Abdomen soft and nontender. No edema or clubbing. Neurologically intact. Oropharynx clear. Results Labs on day of discharge: Labs from last 24 hours 06/01/19 06/01/19 06/01/19 22:21 16:54 14:10 WBC RBC Hgb 8.9 L D Hct 29.4 L MCV MCH MCHC RDW Plt Count MPV Neut % (Auto) Lymph % (Auto) [place] % (Auto) Eos % (Auto) Baso % (Auto) Neut # (Auto) Lymph # (Auto) [place] # (Auto) Eos # (Auto) Baso # (Auto) Sodium Potassium Chloride Carbon Dioxide Anion Gap BUN Creatinine Estimated Creat Clear Estimated GFR Est GFR ( Amer) Glucose POC Glucose 189 H Calcium Magnesium Blood Type O Positive Antibody Screen Negative Crossmatch ([facility]) See Detail 06/01/19 06/01/19 06/01/19 11:33 08:28 07:09 WBC RBC Hgb 7.6 L* Hct 26.7 L MCV MCH MCHC RDW Plt Count MPV Neut % (Auto) Lymph % (Auto) [place] % (Auto) Eos % (Auto) Baso % (Auto) Neut # (Auto) Lymph # (Auto) [place] # (Auto) Eos # (Auto) Baso # (Auto) Sodium Potassium Chloride Carbon Dioxide Anion Gap BUN Creatinine Estimated Creat Clear Estimated GFR Est GFR ( Amer) Glucose POC Glucose 194 H Calcium Magnesium 1.6 Blood Type Antibody Screen Crossmatch ([facility]) 06/01/19 06/01/19 06/01/19 07:09 07:09 06:10 WBC 7.2 D RBC 3.24 L Hgb 7.6 L* Hct 26.0 L MCV 80.3 MCH 23.0 L MCHC 28.7 L RDW 15.3 Plt Count 262 D MPV 7.4 Neut % (Auto) 75.7 Lymph % (Auto) 11.8 [place] % (Auto) 8.9 Eos % (Auto) 3.5 Baso % (Auto) 0.3 Neut # (Auto) 5.5 Lymph # (Auto) 0.9 [place] # (Auto) 0.6 Eos # (Auto) 0.3 Baso # (Auto) 0.0 Sodium 139 Potassium 3.7 Chloride 108 H Carbon Dioxide 23 Anion Gap 11.7 BUN 14 Creatinine 0.78 D Estimated Creat Clear 75 Estimated GFR 96 Est GFR ( Amer) 116 D Glucose 158 H POC Glucose 186 H Calcium 7.7 L Magnesium Blood Type Antibody Screen Crossmatch ([facility]) Preliminary micro results at discharge 05/30/19 17:21 Blood Culture - Preliminary Blood NO GROWTH AFTER 48 HOURS 05/30/19 17:21 Blood Culture - Preliminary Blood NO GROWTH AFTER 48 HOURS 05/31/19 11:00 Sputum Culture - Preliminary Sputum - Expectorated Sputum DS: Diagnosis - Discharge Diagnosis (1) Dyspnea Status: Chronic (2) Cough Status: Acute (3) Anemia Status: Acute (4) Cholelithiasis Status: Acute (5) Diabetes mellitus Status: Acute (6) Right lower lobe pneumonia Status: Acute (7) Fever Status: Acute (8) Coronary arteriosclerosis Status: Chronic (9) Hyperlipidemia Status: Chronic (10) Hypertensive heart disease without heart failure Status: Chronic (11) On amiodarone therapy Status: Chronic (12) On anticoagulant therapy Status: Chronic (13) Paroxysmal atrial fibrillation Status: Chronic Discharge Plan - Patient Discharge Instructions ACTIVITY: Continue current activity DIET: continue same diet Patient Instructions: Fever of Unknown Origin, DI for Pneumonia -- Adult, DI for Labyrinthitis - Follow up Plan Follow up with: Patricio Anderson MD [Staff Physician] - Unknown provider or service follow up:: 06/02/19 08:07 PCP Disposition: Home, Self-Detention Medications: Home Medications Medication Instructions Recorded Confirmed Type insulin detemir (U-100) 100 40 unit SQ DAILY ml 09/27/17 05/31/19 History unit/mL subcutaneous solution metformin 500 mg tablet 500 mg PO BID 09/27/17 05/30/19 History nitroglycerin 0.4 mg sublingual 0.4 mg SUBLINGUAL Q5MINP PRN 09/27/17 05/30/19 History tablet amiodarone 200 mg tablet 200 mg PO DAILY #30 tab 12/07/18 05/30/19 Rx bupropion HCl 100 mg tablet 100 mg PO BID tab 03/06/19 05/31/19 History Amlodipine Besylate [Amlodipine 5 mg PO DAILY 05/29/19 05/30/19 History 5mg tab] Atorvastatin Calcium [Lipitor 80mg 80 mg PO DAILY 05/29/19 05/30/19 History Tablet] Oxybutynin Chloride [Oxybutynin 10 mg PO DAILY 05/29/19 05/30/19 History Chloride ER] Pantoprazole Sodium [Protonix 40mg 40 mg PO DAILY 05/29/19 05/30/19 History tablet] Isosorbide Mononitrate [Imdur 30mg 30 mg PO DAILY 05/31/19 05/31/19 History ER tablet] lisinopriL [Lisinopril 20mg Tab] 20 mg PO DAILY 05/31/19 05/31/19 History Cefdinir [Omnicef 300mg Capsule] 300 mg PO BID 5 Days #10 cap 06/02/19 Rx Fluticasone/Vilanterol [Breo 1 inh IH DAILY 14 Days #1 device 06/02/19 Rx Ellipta 200-25 Mcg INH] Prescriptions/Medication Reconciliation: New Cefdinir [Omnicef 300mg Capsule] 300 mg PO BID 5 Days #10 cap Fluticasone/Vilanterol [Breo Ellipta 200-25 Mcg INH] 1 inh IH DAILY 14 Days #1 device Continued insulin detemir (U-100) 100 unit/mL subcutaneous solution 40 unit SQ DAILY ml metformin 500 mg tablet 500 mg PO BID nitroglycerin 0.4 mg sublingual tablet 0.4 mg SUBLINGUAL Q5MINP PRN PRN Reason: Chest Pain amiodarone 200 mg tablet 200 mg PO DAILY #30 tab bupropion HCl 100 mg tablet 100 mg PO BID tab Pantoprazole Sodium [Protonix 40mg tablet] 40 mg PO DAILY Atorvastatin Calcium [Lipitor 80mg Tablet] 80 mg PO DAILY Amlodipine Besylate [Amlodipine 5mg tab] 5 mg PO DAILY lisinopriL [Lisinopril 20mg Tab] 20 mg PO DAILY Isosorbide Mononitrate [Imdur 30mg ER tablet] 30 mg PO DAILY Oxybutynin Chloride [Oxybutynin Chloride ER] 10 mg PO DAILY Discontinued rivaroxaban 20 mg tablet 20 mg PO DAILY #30 tab - Problem Reconciliation Problems Reviewed?: Yes
[2019-06-02 07:22] LABS: Basophils % 0.2 % (0.1-2.0); Eosinophils # 0.1 K/mm3 (0.0-0.4); Eosinophils % 1.6 % (0.1-12.0); Hematocrit 30.7 % (42.0-52.0); Hemoglobin 9.3 g/dL (14.1-18.0); Lymphocytes # 1.3 K/mm3 (0.7-4.5); Lymphocytes % 17.2 % (10-50); Mean Corpuscular HGB Conc 30.4 g/dL (31.8-35.4); Mean Corpuscular Volume 78.9 fl (80-94); Monocytes # 0.6 K/mm3 (0.1-1.0); Monocytes % 7.4 % (1.7-9.3); Neutrophils # 5.7 K/mm3 (1.8-7.8); Neutrophils % 73.6 % (37.0-80.0); Platelet Count 296 K/mm3 (142-424); Red Blood Count 3.89 M/mm3 (4.60-6.20); Red Cell Distribution Width 15.1 % (11.5-17.5); White Blood Count 7.8 K/mm3 (4.8-10.8)
--- NOTE | 2019-06-02 08:17 | Progress Note ---
Subjective Date: 06/02/19 Time: 08:13 Principal diagnosis: Anemia, A. fib Interval history: 83-year-old white male in bed in no acute distress. Denies any chest pain, pressure or tightness. Hemoglobin is now 9.2 after transfusion. Xarelto has been discontinued due to recurrent anemia requiring transfusion. CT of the chest showed no evidence of pulmonary fibrosis. Pneumonia is present. Exam Vital signs and Labs for Last 24 Hours: Temp Pulse Resp BP Pulse Ox 98.5 F 63 18 138/69 92 L 06/02/19 03:42 06/02/19 06:40 06/02/19 03:42 06/02/19 03:42 06/02/19 07:58 Laboratory Results - last 24 hr 06/01/19 07:09: Hgb 7.6 L* 06/01/19 07:09: Sodium 139, Potassium 3.7, Chloride 108 H, Carbon Dioxide 23, Anion Gap 11.7, BUN 14, Creatinine 0.78 D, Estimated Creat Clear 75, Estimated GFR 96, Est GFR ( Amer) 116 D, Glucose 158 H, Calcium 7.7 L 06/01/19 07:09: Magnesium 1.6 06/01/19 08:28: Hgb 7.6 L*, Hct 26.7 L 06/01/19 11:33: POC Glucose 194 H 06/01/19 14:10: Blood Type O Positive, Antibody Screen Negative, Crossmatch ([facility]) See Detail 06/01/19 16:54: POC Glucose 189 H 06/01/19 20:09: POC Glucose 242 H 06/01/19 22:21: Hgb 8.9 L D, Hct 29.4 L 06/02/19 06:47: POC Glucose 172 H 06/02/19 07:04: WBC 7.8, RBC 3.89 L, Hgb 9.3 L, Hct 30.7 L, MCV 78.9 L, MCH 24.0 L, MCHC 30.4 L, RDW 15.1, Plt Count 296, MPV 8.0, Neut % (Auto) 73.6, Lymph % (Auto) 17.2, [place] % (Auto) 7.4, Eos % (Auto) 1.6, Baso % (Auto) 0.2, Neut # (Auto) 5.7, Lymph # (Auto) 1.3, [place] # (Auto) 0.6, Eos # (Auto) 0.1, Baso # (Auto) 0.0 I & O for Last 24 hours: Intake & Output 05/30/19 05/31/19 06/01/19 06/02/19 11:59 11:59 11:59 11:59 Intake Total 4330 / 4330 3478 / 3478 460 / 460 Output Total 900 / 900 300 / 300 Balance 4330 / 4330 2578 / 2578 160 / 160 Weight 195 lb 5 oz 202 lb 4.8 oz 203 lb 1 oz Microbiology Reports for the Last 24 Hours: Microbiology 05/31/19 11:00 Sputum - Expectorated Sputum Gram Stain - Final 05/31/19 11:00 Sputum - Expectorated Sputum Sputum Culture - Preliminary 05/30/19 17:21 Blood Blood Culture - Preliminary NO GROWTH AFTER 48 HOURS 05/30/19 17:21 Blood Blood Culture - Preliminary NO GROWTH AFTER 48 HOURS - *Routine HEENT Exam Head: Present: normocephalic Eye: Present: EOMI, PERRL ENT: Present: mucous membranes moist - *Routine Respiratory Exam Present: CTA bilaterally. Absent: accessory muscle use, rales, rhonchi, wheezes - *Routine Cardiovascular Exam Present: RRR. Absent: murmur, gallop, rubs - *Routine Extremities Exam Absent: edema, calf tenderness - *Routine Neurological Exam Present: alert, oriented X3, moving all extremities Progress Note: A&P (1) Dyspnea Status: Chronic Current Visit: No (2) Cough Status: Acute Current Visit: Yes (3) Anemia Status: Acute Current Visit: No (4) Cholelithiasis Status: Acute Current Visit: No (5) Diabetes mellitus Status: Acute Current Visit: No (6) Right lower lobe pneumonia Status: Acute Current Visit: Yes (7) Fever Status: Acute Current Visit: Yes (8) Coronary arteriosclerosis Status: Chronic Current Visit: No (9) Hyperlipidemia Status: Chronic Current Visit: No (10) Hypertensive heart disease without heart failure Status: Chronic Current Visit: No (11) On amiodarone therapy Status: Chronic Current Visit: No (12) On anticoagulant therapy Status: Chronic Current Visit: No (13) Paroxysmal atrial fibrillation Status: Chronic Current Visit: No Assessment and Plan for All Diagnoses:: 1. Paroxysmal atrial fibrillation with loop recorder showing no recent episodes of atrial fibrillation on amiodarone therapy. We will see the patient in the of fice in 1 to 2 weeks with consideration for referral for watchman device with Dr. Mon 2. Anemia with history of recurrent need for blood transfusion. Patient transfused to hemoglobin greater than 9 during this admission. Will discontinue Xarelto at this time due to maintaining sinus rhythm on amiodarone therapy. 3. Pneumonia with no evidence of pulmonary fibrosis by CT of the chest 4. Coronary artery disease, clinically stable on amlodipine, isosorbide and lisinopril. 5. Hypertension, controlled 6. Hyperlipidemia, on statin therapy 7. Patient okay for discharge from cardiology standpoint. Follow-up in our office in 7 to 10 days.
[2019-06-02 09:06] LABS: Free Thyroxine Index 4.6 ug/dL (5.93-13.13); Thyroid Stimulating Hormone 1.06 uIU/ml (0.358-3.740)
[2019-06-02 14:25] LABS: Albumin Level 2.5 gm/dL (3.4-5.0); Albumin/Globulin Ratio 0.9 (1.1-1.8); Anion Gap 15.7 mEq/L (5-15); Bilirubin,Total 0.4 mg/dL (0.2-1.0); Calcium 7.8 mg/dL (8.5-10.1); Free T4 (Free Thyroxine) 1.49 ng/dl (0.76-1.46); Globulin 2.8 gm/dl (1.3-3.2); Thyroid Stimulating Hormone 0.96 uIU/ml (0.358-3.740); Total Protein,Serum 5.3 gm/dL (6.4-8.2)
--- NOTE | 2019-06-02 16:42 | Electrocardiograph Report ---
APPROVED REPORT Exam: Resting ECG HR:83 bpm ECG Measurements Heart Rate 83 AXES MO 194 P 19 QRSd 100 QRS -51 QT 410 T39 QTc 481 <Conclusion> Sinus rhythm Left axis deviation Late R. wave progression, unchanged from prior Abnormal ECG Electronically signed by : Liam Calderon, 06/02/2019 16:41:21
== END 2019-06-02 10:55 | disposition home or self-care (01) | DRG 195 ==
LOC: 2ND 16:56 → ER 16:56 → 2ND 21:07
PROVIDERS: ADMIT Internal Medicine Adolescent Medicine; ATTEND Internal Medicine Adolescent Medicine
CPT/HCPCS: 36415; 71020; 71046; 71250; 74177; 80048; 80053; 81001; 82150; 82962; 83605; 83690; 83735; 84436; 84439; 84443; 84479; 84484; 85007; 85014; 85018; 85025; 86850; 87040; 87070; 87205; 87275; 87276; 88305; 93005; 94640; 94761; 96365; 96367; 96375; 99285; G0378; J0456; P9016; Q9967

== ENCOUNTER → 2019-06-13 14:56 | Outpatient (CLI) | payer MEDICARE, SELFPAY ==
--- NOTE | 2019-06-13 15:39 | ECG_ITS ---
APPROVED REPORT Exam: Resting ECG HR:63 bpm ECG Measurements Heart Rate 63 AXES ME 208 P 28 QRSd 100 QRS -32 QT 454 T -6 QTc 464 <Conclusion> Normal sinus rhythm Left axis deviation Minimal voltage criteria for LVH Old r wave progression delay Abnormal ECG Electronically signed by : Liam Calderon, 06/15/2019 09:19:15
[2019-06-13 19:37] LABS: Alanine Aminotransferase 31 U/L (12-78); Alkaline Phosphatase 145 U/L (46-116); Aspartate Amino Transferase 22 U/L (15-37); Bilirubin,Direct 0.1 mg/dL (0.0-0.2); Bilirubin,Indirect 0.1 mg/dL (0.0-0.9); Bilirubin,Total 0.2 mg/dL (0.2-1.0); Free T4 (Free Thyroxine) 1.11 ng/dl (0.76-1.46); Thyroid Stimulating Hormone 0.79 uIU/ml (0.358-3.740); Total Protein,Serum 6.2 gm/dL (6.4-8.2)
== END ==
PROVIDERS: Visit Provider Urology
DX: E78.5 Hyperlipidemia, unspecified (principal); I11.9 Hypertensive heart disease without heart failure; I25.10 Atherosclerotic heart disease of native coronary artery without angina pectoris; I48.0 Paroxysmal atrial fibrillation; R06.00 Dyspnea, unspecified; Z79.01 Long term (current) use of anticoagulants; Z79.899 Other long term (current) drug therapy
CPT/HCPCS: 36415; 80076; 84439; 84443; 93005

== ENCOUNTER → 2019-06-30 13:19 | Outpatient (CLI) | payer MEDICARE, SELFPAY ==
[2019-06-30 13:46] LABS: Hematocrit 35.1 % (42.0-52.0); Hemoglobin 10.5 g/dL (14.1-18.0)
== END ==
PROVIDERS: Visit Provider Physician Assistant
DX: D64.9 Anemia, unspecified (principal); Z51.81 Encounter for therapeutic drug level monitoring; Z79.01 Long term (current) use of anticoagulants; Z87.19 Personal history of other diseases of the digestive system
CPT/HCPCS: 36415; 85014; 85018

== ENCOUNTER → 2019-07-06 15:12 | Outpatient (CLI) | payer MEDICARE, SELFPAY ==
[2019-07-06 16:46] LABS: Prostate Specific Ag, Diagnost 1.64 ng/mL (0.0-4.0)
== END ==
PROVIDERS: Visit Provider Urology
DX: N40.2 Nodular prostate without lower urinary tract symptoms (principal); N40.1 Benign prostatic hyperplasia with lower urinary tract symptoms; N39.41 Urge incontinence
CPT/HCPCS: 36415; 84153

== ENCOUNTER → 2019-07-20 13:48 | Outpatient (CLI) | payer MEDICARE, SELFPAY ==
[2019-07-20 14:49] LABS: Basophils % 0.2 % (0.1-2.0); Eosinophils # 0.3 K/mm3 (0.0-0.4); Eosinophils % 5.5 % (0.1-12.0); Hemoglobin 10.6 g/dL (14.1-18.0); Lymphocytes # 1.1 K/mm3 (0.7-4.5); Lymphocytes % 20.6 % (10-50); Mean Corpuscular HGB Conc 29.4 g/dL (31.8-35.4); Mean Corpuscular Volume 78.3 fl (80-94); Mean Platelet Volume 7.8 fl (7.4-10.4); Monocytes # 0.4 K/mm3 (0.1-1.0); Monocytes % 7.6 % (1.7-9.3); Neutrophils # 3.4 K/mm3 (1.8-7.8); Platelet Count 261 K/mm3 (142-424); Red Cell Distribution Width 17.1 % (11.5-17.5); White Blood Count 5.1 K/mm3 (4.8-10.8)
[2019-07-20 15:50] LABS: Alanine Aminotransferase 24 U/L (12-78); Albumin Level 3.4 gm/dL (3.4-5.0); Albumin/Globulin Ratio 1.4 (1.1-1.8); Alkaline Phosphatase 124 U/L (46-116); Anion Gap 11.6 mEq/L (5-15); Aspartate Amino Transferase 22 U/L (15-37); Bilirubin,Total 0.5 mg/dL (0.2-1.0); Blood Urea Nitrogen 17 mg/dL (7-18); Calcium 8.5 mg/dL (8.5-10.1); Carbon Dioxide 28 mmol/L (21.0-32.0); Chloride 104 mmol/L (98-107); Creatinine,Serum 0.97 mg/dL (0.70-1.30); Estimated Glomerular Filt Rate 74 ml/min (>60); Ferritin 24 ng/mL (8-388); GFR (African American) 90 ML/MIN (>60); Globulin 2.5 gm/dl (1.3-3.2); Glucose 274 mg/dL (74-106); Potassium 4.6 mmoL/L (3.5-5.1); Sodium 139 mmol/L (136-145); Total Protein,Serum 5.9 gm/dL (6.4-8.2)
[2019-07-22 08:12] LABS: Iron 33 ug/dL (38-169); Iron Saturation 9 % (15-55); UIBC 327 ug/dL (111-343)
[2019-07-22 09:34] LABS: Haptoglobin 140 mg/dL (38-329); Vitamin B12 358 pg/mL (232-1245)
[2019-07-24 13:27] LABS: Albumin 3.4 g/dL (2.9-4.4); Alpha-1-Globulin 0.2 g/dL (0.0-0.4); Alpha-2-Globulin 0.8 g/dL (0.4-1.0); Gamma Globulin 0.6 g/dL (0.4-1.8); Immunoglobulin A, Qn 359 mg/dL (61-437); Immunoglobulin G, Qn 682 mg/dL (700-1600)
[2019-07-26 10:44] LABS: Immunoglobulin M, Qn 46 mg/dL (15-143)
== END ==
PROVIDERS: Visit Provider Internal Medicine Medical Oncology
DX: D64.9 Anemia, unspecified (principal)
CPT/HCPCS: 36415; 80053; 82607; 82728; 82784; 83010; 83540; 83550; 84155; 84165; 85025; 86334

== ENCOUNTER → 2019-08-28 12:21 | Outpatient (CLI) | payer MEDICARE, SELFPAY ==
[2019-08-28 12:37] LABS: Basophils % 0.2 % (0.1-2.0); Eosinophils # 0.3 K/mm3 (0.0-0.4); Hematocrit 40.3 % (42.0-52.0); Hemoglobin 12.5 g/dL (14.1-18.0); Lymphocytes # 1.2 K/mm3 (0.7-4.5); Mean Corpuscular HGB Conc 30.9 g/dL (31.8-35.4); Mean Corpuscular Hemoglobin 25.2 pg (27.0-31.2); Mean Corpuscular Volume 81.5 fl (80-94); Monocytes # 0.4 K/mm3 (0.1-1.0); Neutrophils # 4.4 K/mm3 (1.8-7.8); Neutrophils % 69.7 % (37.0-80.0); Platelet Count 225 K/mm3 (142-424); Red Blood Count 4.94 M/mm3 (4.60-6.20); Red Cell Distribution Width 19.7 % (11.5-17.5); White Blood Count 6.3 K/mm3 (4.8-10.8)
[2019-08-28 19:32] LABS: Ferritin 39.9 ng/ml (17.9-464)
[2019-08-29 09:03] LABS: Iron 175 ug/dL (38-169); UIBC 175 ug/dL (111-343)
[2019-08-29 13:08] LABS: Iron Saturation 50 % (15-55)
== END ==
PROVIDERS: Visit Provider Internal Medicine Medical Oncology
DX: D64.9 Anemia, unspecified (principal); Z51.81 Encounter for therapeutic drug level monitoring; Z79.01 Long term (current) use of anticoagulants
CPT/HCPCS: 36415; 82728; 83540; 83550; 85014; 85018; 85025

== ENCOUNTER 2019-10-19 08:42 | Day surgery (SDC) | payer MEDICARE, SELFPAY ==
[2019-10-19 08:48] VITALS: BMI 31.9
[2019-10-19 09:05] VITALS: BP 170/83; PULSE 60; RESP 18; TEMP 37.2; O2SAT 91
[2019-10-19 09:15] VITALS: PULSE 59
[2019-10-19 09:51] VITALS: BP 167/69; PULSE 60; RESP 16; TEMP 36.6; O2SAT 95
[2019-10-19 10:02] VITALS: BP 171/78; PULSE 56; RESP 16; O2SAT 96
--- NOTE | 2019-10-19 11:18 | P.PCN_ITS ---
[facility] Loop Recorder Date: 10/19/19 Time: 09:45 Procedure Performed:: Removal of existing loop recorder due to end-of-life parameters and replacement of implantable loop recorder with new [employer]tronic device. Indication:: Paroxysmal atrial fibrillation Amiodarone therapy Technique:: Patient was brought to the cardiac Linux Devops Engineer. After informed consent obtained, 1% lidocaine with epinephrine was used to anesthetize the site along the left anterior aspect of the chest near the sternal border at the site of the previous loop recorder insertion. A #10 scalpel was used to dissect down to the existing loop recorder and forceps were used to secure and remove the existing loop recorder. Using the supplied preloaded apparatus, the new loop recorder was placed subcutaneously without difficulty. Following the deployment of the loop recorder interrogation of the device was performed to ensure appropriate voltage was being detected (0.7 mV). Once this was verified, Steri-Strips were placed over the incision and the patient was prepped to discharge home. Patient tolerated the procedure well with minimal discomfort. Impression:: Successful removal of existing loop recorder due to end-of-life Successful implantation of new loop recorder Serial Number:: [id number] Plan:: Routine postop care
== END 2019-10-19 10:15 | disposition home or self-care (01) ==
LOC: CATHLAB 08:44
PROVIDERS: PCP Pediatrics; Visit Provider Internal Medicine
DX: I48.0 Paroxysmal atrial fibrillation (principal); Z45.09 Encounter for adjustment and management of other cardiac device
CPT/HCPCS: 33285

== ENCOUNTER → 2019-11-29 09:02 | Outpatient (CLI) | payer MEDICARE, SELFPAY ==
--- NOTE | 2019-11-29 09:13 | XR_ITS ---
PROCEDURE: XR CHEST 2V CLINICAL HISTORY: On amiodarone therapy Heart disease COMPARISON: XR CHEST 2V from 03/11/2019 XR CHEST 2V from 05/30/2019 CT CHEST WO CON from 06/01/2019 XR CHEST 2V from 06/13/2019 FINDINGS: Borderline cardiomegaly without failure. Loop recorder device is present. There are chronic changes in the left lung base. No lobar consolidation or collapse. No evidence of pulmonary fibrosis. Coronary artery stent is present. Degenerative changes thoracic spine. Bilateral shoulder replacement noted. IMPRESSION: No change with no acute finding. No convincing evidence of amiodarone lung toxicity Dictated by: Jimenez Villafana MD 11/29/2019 12:35 Electronically signed by Jimenez Villafana MD in [place] 11/29/2019 12:35
[2019-11-29 10:25] LABS: Alanine Aminotransferase 28 U/L (12-78); Albumin Level 3.9 g/dl (3.5-5.0); Alkaline Phosphatase 136 U/L (38-126); Aspartate Amino Transferase 31 U/L (17-59); Bilirubin,Direct 0.1 mg/dl (0.0-0.4); Bilirubin,Indirect 0.5 mg/dL (0.0-0.9); Bilirubin,Total 0.6 mg/dl (0.2-1.3); Bilirubin,Unconjugated 0.5 mg/dL (0.0-1.1); Total Protein,Serum 6.3 g/dl (6.3-8.2)
[2019-11-29 10:42] LABS: Free Thyroxine Index 3.3 ug/dL (5.93-13.13); T4 (Thyroxine) 8.5 ug/dl (5.53-11.0); Triiodothryronine (T3) Uptake 39 % (23.5-40.5)
[2019-11-29 10:56] LABS: Thyroid Stimulating Hormone 1.39 uIU/mL (0.465-4.68)
== END ==
PROVIDERS: Visit Provider Urology
DX: Z79.899 Other long term (current) drug therapy (principal); E66.9 Obesity, unspecified; I11.9 Hypertensive heart disease without heart failure; I25.10 Atherosclerotic heart disease of native coronary artery without angina pectoris; I48.0 Paroxysmal atrial fibrillation; R06.09 Other forms of dyspnea; Z79.01 Long term (current) use of anticoagulants
CPT/HCPCS: 36415; 71046; 80076; 84436; 84443; 84479

== ENCOUNTER → 2020-01-26 11:42 | Outpatient (CLI) | payer MEDICARE, SELFPAY ==
[2020-01-26 12:06] LABS: Basophils % 0.3 % (0.1-2.0); Eosinophils # 0.2 K/mm3 (0.0-0.4); Eosinophils % 2.5 % (0.1-12.0); Hematocrit 42.6 % (42.0-52.0); Hemoglobin 14.2 g/dL (14.1-18.0); Lymphocytes # 1.1 K/mm3 (0.7-4.5); Lymphocytes % 13.4 % (10-50); Mean Corpuscular HGB Conc 33.4 g/dL (31.8-35.4); Mean Corpuscular Hemoglobin 30.2 pg (27.0-31.2); Mean Corpuscular Volume 90.4 fl (80-94); Monocytes # 0.6 K/mm3 (0.1-1.0); Monocytes % 7.1 % (1.7-9.3); Neutrophils # 6.2 K/mm3 (1.8-7.8); Neutrophils % 76.8 % (37.0-80.0); Platelet Count 221 K/mm3 (142-424); Red Blood Count 4.71 M/mm3 (4.60-6.20); Red Cell Distribution Width 14.4 % (11.5-17.5); White Blood Count 8.1 K/mm3 (4.8-10.8)
[2020-01-26 13:38] LABS: Iron 71 ug/dL (49-181)
[2020-01-26 14:47] LABS: Total Iron Binding Capacity 373 ug/dL (261-462)
[2020-01-26 15:15] LABS: Ferritin 29.6 ng/ml (17.9-464)
== END ==
PROVIDERS: Visit Provider Internal Medicine Medical Oncology
DX: C44.90 Unspecified malignant neoplasm of skin, unspecified (principal)
CPT/HCPCS: 36415; 82728; 83540; 83550; 85025

== ENCOUNTER → 2020-03-05 09:36 | Outpatient (POV) | payer MEDICARE, SELFPAY | PROVIDERS: Visit Provider Dermatology | DX: Z00.00 Encounter for general adult medical examination without abnormal findings (principal) ==

== ENCOUNTER 2020-03-13 01:29 | Emergency (ER) | payer MEDICARE, SELFPAY ==
[2020-03-13 01:35] VITALS: BP 134/85; PULSE 69; RESP 16; TEMP 37; O2SAT 97; BMI 28.7
--- NOTE | 2020-03-13 01:41 | XR_ITS ---
PROCEDURE: XR KNEE LT 3V CLINICAL INDICATION: PAIN COMPARISON: CR [id number] KNEE-LIMITED 2 VIEWS-LT from 10/11/2015 FINDINGS: Status post total knee replacement. Good alignment. No hardware malfunction. No acute fracture or dislocation. There is generalized vascular calcification. Other findings:None. IMPRESSION: Status post total knee replacement with good alignment. No acute finding Dictated by: Jimenez Villafana MD 03/13/2020 06:17 Jimenez Villafana MD in [place] 03/13/2020 06:17
--- NOTE | 2020-03-13 02:04 | PC.NURSE ---
BLOOD DRAWN USING STRAIGHT STICK. SENT TO LAB
[2020-03-13 02:09] LABS: Basophils % 0.7 % (0.1-2.0); Eosinophils # 0.3 K/mm3 (0.0-0.4); Eosinophils % 4.8 % (0.1-12.0); Hematocrit 42.9 % (42.0-52.0); Hemoglobin 14.8 g/dL (14.1-18.0); Lymphocytes # 1.1 K/mm3 (0.7-4.5); Lymphocytes % 17.8 % (10-50); Mean Corpuscular HGB Conc 34.5 g/dL (31.8-35.4); Mean Corpuscular Hemoglobin 30.6 pg (27.0-31.2); Mean Corpuscular Volume 88.9 fl (80-94); Mean Platelet Volume 7.7 fl (7.4-10.4); Monocytes # 0.7 K/mm3 (0.1-1.0); Monocytes % 10.8 % (1.7-9.3); Neutrophils % 65.9 % (37.0-80.0); Platelet Count 209 K/mm3 (142-424); Red Blood Count 4.82 M/mm3 (4.60-6.20); Red Cell Distribution Width 13.9 % (11.5-17.5)
[2020-03-13 02:16] LABS: Alanine Aminotransferase 28 U/L (12-78); Albumin Level 3.8 g/dl (3.5-5.0); Albumin/Globulin Ratio 1.4 (1.1-1.8); Alkaline Phosphatase 194 U/L (38-126); Anion Gap 13.2 mEq/L (5-15); Aspartate Amino Transferase 36 U/L (17-59); Bilirubin,Total 0.9 mg/dl (0.2-1.3); Blood Urea Nitrogen 14 mg/dl (9-20); Calcium 9.1 mg/dl (8.4-10.2); Carbon Dioxide 28 mmol/L (22.0-30.0); Chloride 98 mmol/L (98-107); Creatinine Clearance Estimated 73 mL/min (50-200); Estimated Glomerular Filt Rate 108 ml/min (>60); GFR (African American) 131 ML/MIN (>60); Globulin 2.7 g/dL (1.3-3.2); Glucose 335 mg/dl (74-100); Potassium 4.2 mmoL/L (3.5-5.1); Sodium 135 mmol/L (136-145); Total Protein,Serum 6.5 g/dl (6.3-8.2)
[2020-03-13 02:21] LABS: C-Reactive Protein 1.3 mg/L (0-4)
--- NOTE | 2020-03-13 02:45 | HMH.EDGENADL ---
ED Disposition Clinical Impression: Knee pain, left Qualifiers: Chronicity: acute Qualified Code(s): M25.562 - Pain in left knee Disposition: Home, Self-Care Condition on Discharge: Good Instructions: DI for Knee Pain Additional Instructions: see pcp for follow up Referrals: Jonathan Nichols [Primary Care Provider] - - Critical Care Critical Care Time: No Attestation: On 03/13/20, the high probability of a clinically significant, sudden or life threatening deterioration of the following system(s) required my full and direct attention, intervention and personal management. The time I documented below is in addition to time spent performing reported procedures but includes the following listed in this critical care notation. Medical Decision Making - Medical Records Medical records reviewed: Yes: I reviewed the patient's medical records. - Adi Inquiry Pt receiving controlled substance: No Vital Signs: 03/13/20 01:35 Temperature 98.6 F Temperature Source Oral Pulse Rate [Left] 69 Respiratory Rate 16 Blood Pressure [Right Arm] 134/85 Blood Pressure Mean [Right Arm] 101 Blood Pressure Source [Right Arm] Automatic Cuff Blood Pressure Position [Right Arm] Sitting 02 Sat by Pulse Oximetry 97 Oxygen Delivery Method Room Air - Lab Data Lab results reviewed: Yes: I reviewed the patient's lab results. Lab Results 03/13/20 02:02: WBC 6.0, RBC 4.82, Hgb 14.8, Hct 42.9, MCV 88.9, MCH 30.6, MCHC 34.5, RDW 13.9, Plt Count 209, MPV 7.7, Neut % (Auto) 65.9, Lymph % (Auto) 17.8, [place] % (Auto) 10.8 H, Eos % (Auto) 4.8, Baso % (Auto) 0.7, Neut # (Auto) 4.0, Lymph # (Auto) 1.1, [place] # (Auto) 0.7, Eos # (Auto) 0.3, Baso # (Auto) 0.0, ESR 14 03/13/20 02:02: Sodium 135 L, Potassium 4.2, Chloride 98, Carbon Dioxide 28, Anion Gap 13.2, BUN 14, Creatinine 0.70, Estimated Creat Clear 73, Estimated GFR 108, Est GFR ( Amer) 131, Glucose 335 H, Calcium 9.1, Total Bilirubin 0.9, AST 36, ALT 28, Alkaline Phosphatase 194 H, C-Reactive Protein 1.3, Total Protein 6.5, Albumin 3.8, Globulin 2.7, Albumin/Globulin Ratio 1.4 Result diagrams: 03/13/20 02:02 03/13/20 02:02 Orders (Tests/Meds): ORDERS Category Date Time Status XR knee LT 3V Stat Exams 03/13/20 01:41 Taken Procalcitonin Routine Lab 03/13/20 02:02 Received - Radiology Data #1 Image(s): Knee Image Reviewed: Yes I reviewed the patient's radiology image Preliminary Findings: No Fracture Seen General Adult HPI - General Chief complaint: PAIN Stated complaint: possible bleeding in L knee Time Seen by Provider: 03/13/20 02:00 Mode of Arrival: Ambulatory Source of Information: Patient, Medical Record Limitations: No Limitations Description of Symptoms (Recalled from ER Triage Doc. by RN): PATIENT REPORTS LEFT KNEE PAIN X2 WEEKS. REPORTS HAVING BILATERAL KNEE REPLACEMENTS 4 YEARS AGO WITH NO COMPLICATIONS. SINCE 2 WEEKS AGO HE NOTES THE PAIN, AND NOTICED AN ABRASION ON TOP OF THE KNEE CAP. DENIES NOT BEING ABLE TO BARE WEIGHT, DECREASED ROM OR SENSATION. NAD - History of Present Illness HPI narrative: atraumatic lt knee pain with hx of replacement Onset (ago): day(s) Location: lower extremity Severity: moderate Associated symptoms: denies other symptoms Treatments prior to arrival: none - Related Data Home Medications Medication Instructions Recorded Confirmed insulin detemir U-100 100 unit/mL 40 unit SQ DAILY ml 09/27/17 02/21/20 subcutaneous solution Oxybutynin Chloride [Oxybutynin 10 mg PO DAILY 05/29/19 02/21/20 Chloride ER] Pantoprazole Sodium [Protonix 40mg 40 mg PO DAILY 05/29/19 02/21/20 tablet] metformin 500 mg tablet 500 mg PO DAILY tab 10/18/19 02/21/20 Previous Rx's Medication Instructions Recorded Fluticasone/Vilanterol [Breo 1 inh IH DAILY 14 Days #1 device 06/02/19 Ellipta 200-25 Mcg INH] amiodarone 200 mg tablet 200 mg PO DAILY #90 tab 12/05/19 amlodipine 5 mg tablet 5 mg PO DAILY #90 tab
[2020-03-13 02:47] LABS: Erythrocyte Sedimentation Rate 14 mm/hr (0-20)
[2020-03-13 02:55] VITALS: BP 129/79; PULSE 71; RESP 18; TEMP 37; O2SAT 95
[2020-03-16 18:14] LABS: Procalcitonin 0.05 ng/mL (0.00-0.08)
== END 2020-03-13 02:55 | disposition home or self-care (01) ==
PROVIDERS: Emergency Provider Emergency Medicine; PCP Pediatrics
DX: M25.562 Pain in left knee (principal); Z96.651 Presence of right artificial knee joint; Z96.652 Presence of left artificial knee joint; E11.9 Type 2 diabetes mellitus without complications; I10 Essential (primary) hypertension; I48.0 Paroxysmal atrial fibrillation; Z95.0 Presence of cardiac pacemaker; I25.2 Old myocardial infarction; E78.5 Hyperlipidemia, unspecified; Z79.899 Other long term (current) drug therapy
CPT/HCPCS: 73562; 80053; 84145; 85025; 85651; 86140; 99282

== ENCOUNTER 2020-04-14 14:03 | Emergency (ER) | payer MEDICARE, SELFPAY ==
[2020-04-14 14:03] VITALS: BP 155/78; PULSE 74; RESP 17; TEMP 36.5; O2SAT 95; BMI 29.5
--- NOTE | 2020-04-14 14:07 | ECG_ITS ---
APPROVED REPORT Exam: Resting ECG HR:76 bpm ECG Measurements Heart Rate 76 AXES OR 176 P 16 QRSd 102 QRS -33 QT 426 T 17 QTc 479 Conclusion Sinus rhythm with occasional premature ventricular complexes Left axis deviation Voltage criteria for left ventricular hypertrophy Nonspecific ST abnormality Abnormal ECG Electronically signed by : Liam Calderon, 04/15/2020 15:10:36
--- NOTE | 2020-04-14 14:07 | XR_ITS ---
PROCEDURE: XR RIBS LT MIN 3V W CXR1V CLINICAL INDICATION: PAIN Left-sided rib pain, coughing COMPARISON: CR XR CHEST 2V from 05/30/[address] CHEST WO CON from 06/01/2019 CR XR CHEST 2V from 06/13/2019 CR XR CHEST 2V from 11/29/2019 FINDINGS: There is mild cardiomegaly without failure. Loop recorder device is present. Atelectatic changes are present in the right midlung and right lower lobe. There are bilateral shoulder prosthesis. There appears to be old fractures of the left 7th, 8th, and 9th ribs. CT may confirm this finding. No definite acute fracture identified. IMPRESSION: No definite acute fracture. Old left 7th 8th and 9th rib fractures. CT may provide further evaluation if pain persists. Dictated by: Jimenez Villafana MD 04/15/2020 06:02 Jimenez Villafana MD in [place] 04/15/2020 06:02
--- NOTE | 2020-04-14 14:20 | HMH.EDGENADL ---
ED Disposition Clinical Impression: Rib pain on left side Disposition: Home, Self-Care Condition on Discharge: Fair Instructions: DI for Acute Pain -- Adult Additional Instructions: Use of Tylenol 3's for breakthrough pain only. Do not operate heavy machinery or drink alcohol while taking this medicine. Use ice on affected area as well. Use incentive spirometer several times throughout the day to try to prevent any complications associated with rib injuries, such as pneumonia. Immediate return if any fever/chills, productive cough, worsening pain, shortness of breath, chest pain, nausea/vomiting, generalized malaise, or other new concerning symptoms. Referrals: PCP,No [Primary Care Provider] - - Critical Care Critical Care Time: No Attestation: On 04/14/20, the high probability of a clinically significant, sudden or life threatening deterioration of the following system(s) required my full and direct attention, intervention and personal management. The time I documented below is in addition to time spent performing reported procedures but includes the following listed in this critical care notation. Medical Decision Making - Medical Records Medical records reviewed: Yes: I reviewed the patient's medical records. - Adi Inquiry Pt receiving controlled substance: No Adi was queried for this patient: Yes Reference #:: Unable to acquire Reason not queried -: Adi login issues Vital Signs: 04/14/20 14:03 04/14/20 15:03 04/14/20 16:00 Temperature 97.7 F Temperature Source Temporal Artery Scan Pulse Rate [Right] 74 72 81 Respiratory Rate 17 18 17 Blood Pressure [Right Arm] 155/78 H 154/87 H 153/85 H Blood Pressure Mean [Right Arm] 103 109 107 Blood Pressure Source [Right Arm] Blood Pressure Position [Right Arm] 02 Sat by Pulse Oximetry 95 95 95 Oxygen Delivery Method 04/14/20 16:30 04/14/20 17:33 Temperature Temperature Source Pulse Rate [Right] 72 68 Respiratory Rate 17 Blood Pressure [Right Arm] 142/87 H 152/81 H Blood Pressure Mean [Right Arm] 105 104 Blood Pressure Source [Right Arm] Automatic Cuff Blood Pressure Position [Right Arm] Sitting 02 Sat by Pulse Oximetry 94 L Oxygen Delivery Method Room Air - Lab Data Lab Results 04/14/20 14:15: WBC 6.6, RBC 4.97, Hgb 15.1, Hct 43.7, MCV 87.9, MCH 30.3, MCHC 34.5, RDW 14.2, Plt Count 257, MPV 7.6, Neut % (Auto) 70.4, Lymph % (Auto) 17.4, [place] % (Auto) 8.9, Eos % (Auto) 3.0, Baso % (Auto) 0.4, Neut # (Auto) 4.6, Lymph # (Auto) 1.1, [place] # (Auto) 0.6, Eos # (Auto) 0.2, Baso # (Auto) 0.0 04/14/20 14:15: Sodium 136, Potassium 4.5, Chloride 102, Carbon Dioxide 24, Anion Gap 14.5, BUN 17, Creatinine 0.90, Estimated Creat Clear 73, Estimated GFR 81, Est GFR ( Amer) 98, Glucose 291 H, Calcium 9.7, Total Bilirubin 0.9, AST 30, ALT 31, Alkaline Phosphatase 121, Troponin I < 0.01, Total Protein 6.5, Albumin 3.7, Globulin 2.8, Albumin/Globulin Ratio 1.3 Result diagrams: 04/14/20 14:15 04/14/20 14:15 Orders (Tests/Meds): ORDERS Category Date Time Status XR ribs LT min 3V w CXR1V Stat Exams 04/14/20 14:07 Taken Troponin I Q3H Lab 04/14/20 17:20 Received Troponin I Q3H Lab 04/14/20 20:15 Ordered - ECG Data Tracing #1 I reviewed this ECG and interpreted as documented below: EKG demonstrates sinus rhythm at a rate of 75 bpm; no acute ST elevation/depression; QRS 114 ms; PVC noted Medical Decision Narrative: Patient presents with left sided rib pain. This began right after he went to a session with his chiropractor last week. EKG obtained immediately upon arrival demonstrates no acute ST elevation/depression. Although my suspicion is rather low. Patient does have risk factors so troponin will be obtained to ensure no subendocardial ischemia. Other basic lab will be obtained to ensure no anemia. Suspicion for pulmonary embolus below clinical threshold for testing. Patient is exquisitely tender on palp
[2020-04-14 14:26] LABS: Basophils % 0.4 % (0.1-2.0); Eosinophils # 0.2 K/mm3 (0.0-0.4); Hematocrit 43.7 % (42.0-52.0); Hemoglobin 15.1 g/dL (14.1-18.0); Lymphocytes # 1.1 K/mm3 (0.7-4.5); Lymphocytes % 17.4 % (10-50); Mean Corpuscular HGB Conc 34.5 g/dL (31.8-35.4); Mean Corpuscular Hemoglobin 30.3 pg (27.0-31.2); Mean Corpuscular Volume 87.9 fl (80-94); Mean Platelet Volume 7.6 fl (7.4-10.4); Monocytes # 0.6 K/mm3 (0.1-1.0); Monocytes % 8.9 % (1.7-9.3); Neutrophils # 4.6 K/mm3 (1.8-7.8); Neutrophils % 70.4 % (37.0-80.0); Platelet Count 257 K/mm3 (142-424); Red Blood Count 4.97 M/mm3 (4.60-6.20); Red Cell Distribution Width 14.2 % (11.5-17.5); White Blood Count 6.6 K/mm3 (4.8-10.8)
[2020-04-14 14:36] LABS: Chloride 102 mmol/L (98-107); Sodium 136 mmol/L (136-145)
[2020-04-14 14:37] LABS: Potassium 4.5 mmoL/L (3.5-5.1)
[2020-04-14 14:39] LABS: Alanine Aminotransferase 31 U/L (12-78); Albumin Level 3.7 g/dl (3.5-5.0); Albumin/Globulin Ratio 1.3 (1.1-1.8); Alkaline Phosphatase 121 U/L (38-126); Anion Gap 14.5 mEq/L (5-15); Aspartate Amino Transferase 30 U/L (17-59); Bilirubin,Total 0.9 mg/dl (0.2-1.3); Blood Urea Nitrogen 17 mg/dl (9-20); Carbon Dioxide 24 mmol/L (22.0-30.0); Creatinine Clearance Estimated 73 mL/min (50-200); Estimated Glomerular Filt Rate 81 ml/min (>60); GFR (African American) 98 ML/MIN (>60); Globulin 2.8 g/dL (1.3-3.2); Total Protein,Serum 6.5 g/dl (6.3-8.2)
[2020-04-14 14:40] LABS: Calcium 9.7 mg/dl (8.4-10.2); Glucose 291 mg/dl (74-100)
[2020-04-14 14:51] LABS: Troponin I < 0.01 ng/ml (0.00-0.034)
[2020-04-14 15:03] VITALS: BP 154/87; PULSE 72; RESP 18; O2SAT 95
[2020-04-14 16:00] VITALS: BP 153/85; PULSE 81; RESP 17; O2SAT 95
[2020-04-14 16:30] VITALS: BP 142/87; PULSE 72; RESP 17
--- NOTE | 2020-04-14 16:37 | PC.NURSE ---
Updated pt on POC
[2020-04-14 17:33] VITALS: BP 152/81; PULSE 68; O2SAT 94
[2020-04-14 17:58] LABS: Troponin I < 0.01 ng/ml (0.00-0.034)
[2020-04-14 18:19] VITALS: BP 152/81; PULSE 68; RESP 17; TEMP 36.5; O2SAT 95
== END 2020-04-14 18:21 | disposition home or self-care (01) ==
PROVIDERS: Emergency Provider Emergency Medicine
DX: R07.81 Pleurodynia (principal); I25.10 Atherosclerotic heart disease of native coronary artery without angina pectoris; I10 Essential (primary) hypertension; E11.65 Type 2 diabetes mellitus with hyperglycemia; I48.20 Chronic atrial fibrillation, unspecified; I25.2 Old myocardial infarction; E78.5 Hyperlipidemia, unspecified; Z79.899 Other long term (current) drug therapy
CPT/HCPCS: 71101; 80053; 84484; 85025; 93005; 99283

== ENCOUNTER → 2020-05-07 15:17 | Outpatient (CLI) | payer MEDICARE, SELFPAY ==
[2020-05-07 16:35] LABS: Prostate Specific Ag Screen 1.2 ng/ml (0.0-4.0)
== END ==
PROVIDERS: Visit Provider Urology
DX: Z12.5 Encounter for screening for malignant neoplasm of prostate (principal)
CPT/HCPCS: 36415; G0103

== ENCOUNTER → 2020-05-22 09:54 | Outpatient (CLI) | payer MEDICARE, SELFPAY ==
--- NOTE | 2020-05-22 10:18 | XR_ITS ---
PROCEDURE: XR CHEST 2V CLINICAL HISTORY: amiodarone therapy Heart disease COMPARISON: CT CT CHEST WO CON from 06/01/2019 CR XR CHEST 2V from 06/13/2019 CR XR CHEST 2V from 11/29/2019 CR XR RIBS LT MIN 3V W CXR1V from 04/14/2020 FINDINGS: Mild cardiomegaly without failure. Loop recorder device is present in the precordial region. Coronary artery calcifications and/or stents are noted. The right hemidiaphragm is elevated with minimal atelectatic change in the right lung base. No interstitial changes evident that would indicate amiodarone lung toxicity. Bilateral shoulder prosthesis. Degenerative changes thoracic spine IMPRESSION: No acute findings. Dictated by: Jimenez Villafana MD 05/22/2020 10:42 Jimenez Villafana MD in [place] 05/22/2020 10:42
[2020-05-22 11:13] LABS: Alanine Aminotransferase 26 U/L (12-78); Albumin Level 3.5 g/dl (3.5-5.0); Alkaline Phosphatase 129 U/L (38-126); Aspartate Amino Transferase 31 U/L (17-59); Bilirubin,Direct 0.2 mg/dl (0.0-0.4); Bilirubin,Indirect 0.4 mg/dL (0.0-0.9); Bilirubin,Total 0.6 mg/dl (0.2-1.3); Bilirubin,Unconjugated 0.4 mg/dL (0.0-1.1)
[2020-05-22 11:39] LABS: Thyroid Stimulating Hormone 1.49 uIU/mL (0.465-4.68)
[2020-05-22 21:15] LABS: Free T4 (Free Thyroxine) 1.57 ng/dl (0.78-2.19)
== END ==
PROVIDERS: Visit Provider Urology
DX: E11.9 Type 2 diabetes mellitus without complications (principal); E66.9 Obesity, unspecified; E78.5 Hyperlipidemia, unspecified; I11.9 Hypertensive heart disease without heart failure; I25.10 Atherosclerotic heart disease of native coronary artery without angina pectoris; I48.0 Paroxysmal atrial fibrillation; N52.9 Male erectile dysfunction, unspecified; R06.00 Dyspnea, unspecified; Z95.5 Presence of coronary angioplasty implant and graft; Z79.4 Long term (current) use of insulin
CPT/HCPCS: 36415; 71046; 80076; 84439; 84443

== ENCOUNTER → 2020-05-30 06:14 | Outpatient (CLI) | payer MEDICARE, SELFPAY ==
--- NOTE | 2020-05-30 06:15 | NM_ITS ---
APPROVED REPORT Exam: Nuclear Stress Test Indication: short of breath..fatigue Patient Location: Outpatient Stress Tech: Sherrell Mejiankson NM Tech:EUNICE Cruz RT(R)(N) Ht: 5 ft 9 in Wt: 200 lbs HR: 59 bpm BP: 154/77 mmHg BSA: 2.07 m2 BMI: 29.5 History: short of breath..fatigue Procedure: Patient received a 0.4 mg of intravenous Lexiscan, resting heart rate 59 bpm, resting blood pressure 154/77 mmHg, with Lexiscan maximum heart rate achived was 67 bpm which is Less than 85 % of the maximum predicted heart rate and blood pressure was 129/68 mmHg. With Lexiscan, patient denied any complaint of chest pain. Electrocardiogram Resting electrocardiogram showed sinus rhythm, with Lexiscan there is less than 1.[address] segment depression noted from the baseline EKG. The EKG portion of the Lexiscan is nondiagnostic. Cardiac Stress and Resting SPECT Images: Cardiac Stress and Resting SPECT images were obtained using technetium 99m Myoview 31.5 mCi stress and 10.10 mCi at rest. Gated SPECT for analysis of segmental wall motion and calculation of the ejection fraction also done. Cardiac stress and resting SPECT images show moderate size area of decreased tracer activity in the anterior and anterior apical wall which partially improves on the resting images suggestive of mixed ischemia and scar in that area. Computer derived ejection fraction 42% with moderate anterior and anterior apical wall hypokinesis. Right ventricle is mildly enlarged with normal contractility. Conclusion: 1. The EKG portion of the Lexiscan is nondiagnostic. 2. Scintigraphic evidence of mixed ischemia and scar involving the anterior and anterior apical wall, computer ejection fraction is 42% with segmental wall motion abnormality described above, right ventricle is mildly enlarged with normal contractility. 3. Abnormal Lexiscan Myoview study. Electronically signed by : Elieser Babcock, 05/30/2020 12:41:21
--- NOTE | 2020-05-30 06:15 | CA_ITS ---
APPROVED REPORT Exam: Pharmacologic Technologist: Amber Orlando, Ht: 5 ft 7 in Wt: 200 lbs BSA: 2.02 m2 HR: 59 bpm BP: 154/77 mmHg Medical History Medications: Amlodipine,,,,, Lisinopril,,,,, Amiodarone,,,,, Metformin,,,,, Pantoprazole,,,,, TAdalafil,,,,, INSULIN Detemir,,,,, Oxybutynin Chloride ER,,,,, Isosorbide Monoitrate ER,,,,, Stress Test Details Test: LEXISCAN HR Resting HR: 60 bpm Max Heart Rate (APMHR): 138 bpm Max HR Achieved: 69 bpm Target HR (85% APMHR): 117 bpm % of APMHR: 50 Recovery HR: 62 bpm BP Resting BP: 154/77 mmHg Max BP: 157/70 mmHg Recovery BP: 146.0/73.0 mmHg ECG Resting ECG: Sinus chikis, Slow R wave progression, 1*AVB Recovery ST Deviation: 0.5 mm Clinical Exercise duration: 04:00 min Highest Stage Achieved: Exercise capacity: 1.0 METs Stress ECG Conclusion Symptoms: Mild SOA, mild malaise, headache, No CP Arrhythmias/Ectopy: One ventricular couplet ST-T Changes: No significant changes Conclusion: Unremarkable Lexiscan stress, Myoview images reported separately Test Summary REST . . . . . . . Resting REST 08:07 . . 60 . 154/ 77 . . Stage 1 . . . . . . . Cardiolite injected Myoview Injected Stage 1 01:00 . . 62 . . . . Stage 2 01:00 . . 67 . 129/ 68 . . Stage 3 01:00 . . 67 . 142/ 70 . . Stage 4 01:00 . . 64 . 142/ 70 . Stop exercise at 04:00 RECOVERY 01:00 . . 64 . 157/ 70 . . RECOVERY 02:00 . . 64 . 157/ 70 . . RECOVERY 03:00 . . 64 . 146/ 73 . . RECOVERY 03:34 . . 63 . 146/ 73 . . Electronically signed by : Elieser Babcock, 05/30/2020 12:36:37
--- NOTE | 2020-05-30 06:15 | CA_ITS ---
APPROVED REPORT EXAM: Comprehensive 2D, Doppler, and color-flow Echocardiogram Wind Turbine Machinist: Sujey Martinez RVT Ht: 5 ft 7 in Wt: 200lbs BSA: 2.02 BP: 130/76 mmHg Indications: SOA,A-FIB,FATIGUE,HTN,HLD 2D Dimensions LVOT 2.48 cm (M/F) 1.5-2.5 M-Mode Dimensions RVDd 1.98 cm (0.9-2.6) LA Diam 5.20 cm (1.9-4.0) LVDd 6.19 cm (3.5-5.7) Ao Diam 3.72 cm (2.0-3.7) LVDs 4.12 cm (3.5-5.7) IVSd 0.98 cm (0.6-1.1) PWd 0.98 cm (0.6-1.1) EF (Teich) 61.10% FS 33.40% EDV (Teich) 193.30 mL ESV (Teich) 75.10 mL LV Diastology E Decel Time 240.00 (160-240 msec) E/A Ratio 0.4 MED E' 2.70 (< 7 cm/sec) E'/MED E' Ratio 16.15 (>14) LAT E' 4.50 (<10 cm/sec) E/LAT E' Ratio 9.69 (>14) Aortic Valve AI PHT 312.00 ms Mitral Valve MV E Max Isra. 44.00 (40-130 cm/s) MV A Velocity 98.00 (40-130 cm/s) E/A Ratio 0.44 MV Decel. Time 240.00 (160-240 ms) MV PHT 70.00 ms Pulmonary Valve PV Peak Velocity 85.00 (50-150 cm/s) Tricuspid Valve TR P. Velocity 192.00 cm/s Left Ventricle Left atrium is mildly enlarged, left ventricle is normal size, mild concentric left ventricular hypertrophy, visually estimated ejection fraction 45% with no regional wall motion abnormality, grade 1 diastolic dysfunction seen with tissue Doppler evidence of raise left atrial pressure. Right Ventricle Right atrium and right ventricle are mildly enlarged with normal contractility. Aortic Valve Aortic valve is thickened and calcified without aortic stenosis, there is mild aortic insufficiency. Mitral Valve Mitral valve leaflets are minimally thickened, there is mild mitral regurgitation. Tricuspid Valve Tricuspid valve is grossly normal, there is mild tricuspid regurgitation, tricuspid regurgitation jet velocity is inadequate for calculation of the right ventricular systolic pressure. Pulmonic Valve Pulmonic valve is poorly visualized. Great Vessels Aortic root is normal size. Pericardium No significant pericardial effusion noted. Conclusion 1. Mild biatrial enlargement, normal left ventricular size, mild concentric left ventricular hypertrophy, visually estimated ejection fraction 45% with no regional wall motion abnormality, grade 1 diastolic dysfunction seen with tissue Doppler evidence of raise left atrial pressure. 2. Mildly enlarged right ventricle with normal contractility. 3. Mild mitral and tricuspid regurgitation. 4. No significant pericardial effusion noted. Electronically signed by : Elieser Babcock, 05/30/2020 14:27:17
--- NOTE | 2020-05-30 08:41 | HMH.ITSHM ---
Current Home Medications as stated by this patient Oli Chambers or denial management representative. [] lisinopril pantoprazole atorvastatin [place] isosorbide amlodipine metformin
== END ==
PROVIDERS: PCP Pediatrics; Visit Provider Urology
DX: E11.9 Type 2 diabetes mellitus without complications (principal); E66.9 Obesity, unspecified; E78.5 Hyperlipidemia, unspecified; I10 Essential (primary) hypertension; I11.9 Hypertensive heart disease without heart failure; I25.10 Atherosclerotic heart disease of native coronary artery without angina pectoris; I48.0 Paroxysmal atrial fibrillation; N52.9 Male erectile dysfunction, unspecified; R06.00 Dyspnea, unspecified; Z79.899 Other long term (current) drug therapy; Z95.5 Presence of coronary angioplasty implant and graft; Z79.4 Long term (current) use of insulin
CPT/HCPCS: 78452; 93017; 93306; A9502; J2785

== ENCOUNTER 2020-06-04 08:41 | Day surgery (SDC) | payer MEDICARE, SELFPAY ==
[2020-06-04] VITALS (12 sets, daily range): BP systolic 126–180; BP diastolic 70–97; PULSE 50–69; RESP 16–22; TEMP 36.6; O2SAT 90–99; BMI 31.3
--- NOTE | 2020-06-04 07:04 | IR_ITS ---
APPROVED REPORT Patient Location: Outpatient PROCEDURES Left heart catheterization Left ventriculogram Selective coronary angiogram INDICATION Known coronary artery disease, High risk abnormal Myoview, Recurrent angina pectoris Informed consent was obtained prior to the procedure. COMPLICATIONS NONE Estimated Blood Loss: LESS THAN 10 ML TECHNIQUE One percent lidocaine used to anesthetize the right anterior aspect of the wrist. The right radial artery was accessed via the Seldinger technique. A 6 Iranian sheath was placed in the right radial artery. 2.5 mg of verapamil, 800 mcg of nitroglycerin, 1mg Lidocaine and 5000 U Heparin were given through the arterial sheath. The trap catheter was also used to perform left heart catheterization, left ventriculogram and selective coronary angiogram. At the end of the procedure the sheath was removed good hemostasis was achieved using Traclet band, patient was transferred to the postop holding area in stable condition. ANGIOGRAPHIC RESULTS The left main artery Normal The left anterior descending artery Has a stent in the proximal segment which has 30% concentric in-stent restenosis. Distally the stent transitions nicely. There are no jailed diagonal arteries the remaining LAD has mild mid vessel 30% stenosis The circumflex artery Is nondominant gives rise to a large first obtuse marginal artery which has a proximal 20% stenosis The right coronary artery Is a large dominant vessel and has mild luminal irregularities The CONWAY ventriculogram reveals Dilated ventricle with ejection fraction of 40 to 45% The left ventricular end-diastolic pressure 10 mmHg IMPRESSION Coronary disease as described above Reduced ejection fraction as described above Normal left ventricular end-diastolic pressure PLAN 1. Medical management 2. Consideration should be given to treat patient for his severe insomnia which is likely exacerbating his situational and now endogenous depression 3. Treat underlying depression Electronically signed by : Patricio Anderson, 06/04/2020 13:09:38
[2020-06-04 09:22] LABS: Chloride 103 mmol/L (98-107); Potassium 4.3 mmoL/L (3.5-5.1); Sodium 136 mmol/L (136-145)
[2020-06-04 09:25] LABS: Anion Gap 9.3 mEq/L (5-15); Blood Urea Nitrogen 18 mg/dl (9-20); Carbon Dioxide 28 mmol/L (22.0-30.0); Creatinine Clearance Estimated 73 mL/min (50-200); Estimated Glomerular Filt Rate 93 ml/min (>60); GFR (African American) 112 ML/MIN (>60); Glucose 270 mg/dl (74-100)
[2020-06-04 09:28] LABS: Basophils % 0.5 % (0.1-2.0); Eosinophils # 0.4 K/mm3 (0.0-0.4); Eosinophils % 5.7 % (0.1-12.0); Hematocrit 44.4 % (42.0-52.0); Hemoglobin 14.5 g/dL (14.1-18.0); Lymphocytes # 1.3 K/mm3 (0.7-4.5); Lymphocytes % 19.9 % (10-50); Mean Corpuscular HGB Conc 32.7 g/dL (31.8-35.4); Mean Corpuscular Hemoglobin 29.5 pg (27.0-31.2); Mean Corpuscular Volume 90.3 fl (80-94); Mean Platelet Volume 7.6 fl (7.4-10.4); Monocytes # 0.6 K/mm3 (0.1-1.0); Monocytes % 9.3 % (1.7-9.3); Neutrophils # 4.1 K/mm3 (1.8-7.8); Neutrophils % 64.6 % (37.0-80.0); Platelet Count 250 K/mm3 (142-424); Red Blood Count 4.91 M/mm3 (4.60-6.20); Red Cell Distribution Width 14.4 % (11.5-17.5); White Blood Count 6.4 K/mm3 (4.8-10.8)
[2020-06-04 10:23] LABS: Coronavirus 19 IgG Antibody Negative (Negative); Coronavirus 19 IgM Antibody Negative (Negative)
== END 2020-06-04 15:21 | disposition home or self-care (01) ==
LOC: CATHLAB 08:42
PROVIDERS: PCP Pediatrics; Visit Provider Internal Medicine
DX: E78.5 Hyperlipidemia, unspecified (principal); I11.9 Hypertensive heart disease without heart failure; I25.10 Atherosclerotic heart disease of native coronary artery without angina pectoris; I48.0 Paroxysmal atrial fibrillation; Z79.899 Other long term (current) drug therapy; E11.9 Type 2 diabetes mellitus without complications; Z79.4 Long term (current) use of insulin
CPT/HCPCS: 80048; 85025; 86328; 93458; 99152; C1725; C1769; J1644; Q9967

== ENCOUNTER 2020-06-23 13:13 | Emergency (ER) | payer MEDICARE, SELFPAY ==
[2020-06-23] VITALS (8 sets, daily range): BP systolic 118–220; BP diastolic 69–102; PULSE 51–75; RESP 18–20; TEMP 36.7; O2SAT 95–99; BMI 29.5
--- NOTE | 2020-06-23 13:14 | HMH.EDGENADL ---
ED Disposition Clinical Impression: Chest wall pain Extravasation accident Qualifiers: Encounter type: initial encounter Qualified Code(s): T80.818A - Extravasation of other vesicant agent, initial encounter Accident due to mechanical fall without injury Qualifiers: Encounter type: initial encounter Qualified Code(s): W19.XXXA - Unspecified fall, initial encounter Lower back pain Qualifiers: Chronicity: acute Back pain laterality: midline Sciatica presence: unspecified whether sciatica present Qualified Code(s): M54.5 - Low back pain Disposition: Home, Self-Care Condition on Discharge: Good Instructions: How to Prevent Falls Additional Instructions: Please monitor extravasation site in Left arm to ensure no increased pain on passive stretch flexion/extension, skin blistering, altered tissue perfusion, change in sensation distal to site of extravasation. If any of these changes do occur please immediately report back to our emergency department. Please otherwise follow-up within 48 to 72 hours with your primary care doctor for recheck of your left arm. If any other concerns please report back to our emergency department as well. Referrals: Jonathan Nichols [Primary Care Provider] - - Critical Care Critical Care Time: No Attestation: On , the high probability of a clinically significant, sudden or life threatening deterioration of the following system(s) required my full and direct attention, intervention and personal management. The time I documented below is in addition to time spent performing reported procedures but includes the following listed in this critical care notation. Medical Decision Making - Medical Records Medical records reviewed: Yes: I reviewed the patient's medical records. - Adi Inquiry Pt receiving controlled substance: Yes Adi was queried for this patient: No Reason not queried -: Emergent pt cond-no time Risks and benefits of using a controlled substance: were discussed with pt by me Vital Signs: 06/23/20 13:13 06/23/20 13:40 06/23/20 14:50 Temperature 98.0 F Temperature Source Oral Pulse Rate [Right Radial] 51 L 53 L 57 L Respiratory Rate 20 18 Blood Pressure [Right Arm] 202/102 H 187/97 H 220/78 H Blood Pressure Mean [Right Arm] 135 127 125 Blood Pressure Source [Right Arm] Automatic Cuff Manual Cuff/ Palpation Blood Pressure Position [Right Arm] Supine Sitting 02 Sat by Pulse Oximetry 97 98 97 Oxygen Delivery Method Room Air Room Air Room Air 06/23/20 14:59 06/23/20 15:49 06/23/20 16:33 Temperature Temperature Source Pulse Rate [Right Radial] 58 L 69 67 Respiratory Rate Blood Pressure [Right Arm] 173/79 H 156/69 H 166/79 H Blood Pressure Mean [Right Arm] 110 98 108 Blood Pressure Source [Right Arm] Automatic Cuff Automatic Cuff Automatic Cuff Blood Pressure Position [Right Arm] Sitting Sitting Sitting 02 Sat by Pulse Oximetry 97 95 95 Oxygen Delivery Method Room Air Room Air Room Air 06/23/20 17:16 Temperature Temperature Source Pulse Rate [Right Radial] 74 Respiratory Rate Blood Pressure [Right Arm] 132/72 Blood Pressure Mean [Right Arm] 92 Blood Pressure Source [Right Arm] Automatic Cuff Blood Pressure Position [Right Arm] Sitting 02 Sat by Pulse Oximetry 96 Oxygen Delivery Method Room Air - Lab Data Lab Results 06/23/20 13:20: WBC 8.4, RBC 5.10, Hgb 15.0, Hct 46.2, MCV 90.6, MCH 29.5, MCHC 32.6, RDW 14.3, Plt Count 258, MPV 7.4, Neut % (Auto) 80.7 H, Lymph % (Auto) 9.9 L, Pitt % (Auto) 8.0, Eos % (Auto) 1.1, Baso % (Auto) 0.3, Neut # (Auto) 6.8, Lymph # (Auto) 0.8, Pitt # (Auto) 0.7, Eos # (Auto) 0.1, Baso # (Auto) 0.0 06/23/20 13:20: Sodium 134 L, Potassium 4.7, Chloride 101, Carbon Dioxide 26, Anion Gap 11.7, BUN 20, Creatinine 0.80, Estimated Creat Clear 73, Estimated GFR 93, Est GFR ( Amer) 112, Glucose 213 H, Calcium 9.6, Total Bilirubin 0.6, AST 57, ALT 55, Alkaline Phosphatase 144 H, Troponin I < 0.01, Total Protein 7.1,
--- NOTE | 2020-06-23 13:16 | CT_ITS ---
Procedure: CT ABDOMEN PELVIS W CON Referring Doctor: Randy Simmons Patient Age:84Y CLINICAL INDICATION: Fall from 4 ft +LOC, Lumbar pain, L rib cage pain COMPARISON: CT CT ABDOMEN PELVIS W CON from 05/30/2019 TECHNIQUE: 75 cc Isovue [address] of the chest followed by the imaging abdomen Axial images obtained with sagittal and coronal reformats. Common duct appears mean all CT scans at the facility use one or more dose reduction, viz: automated exposure control, ma/kV adjustment per patient size (including targeted exams where dose is matched to indication, i.e. head), or iterative reconstruction technique. FINDINGS: Lower thorax: Again see the basilar atelectasis and mild chronic changes in bra bronchitic changes towards the lower lobe but these appear to reflect mainly chronic features some borderline pleural thickening posteriorly. Heart, mildly enlarged with a diffuse coronary artery calcification multivessel but Small sliding hiatal hernia noted. . There is streak artifact in the upper abdomen and lower chest from the patient's arms down by his side. ABDOMEN:.. Liver: No masses or biliary dilatation. Gallbladder: Nondistended but layering radial plate sludge and stones/gravel again seen similar to previous studies but but no wall thickening of no acute inflammatory changes at gallbladder. The common duct is normal caliber but no stones evident along its course. Pancreas: Unremarkable no masses or peripancreatic fluid collections. Spleen: unremarkable Adrenals: unremarkable tract Kidneys/ureters: The scattered small punctate calculi both right and left kidney are partially obscured by the enhancing calices but there is noted to be at least 2 small nonobstructive calculi at the lower pole of left kidney each measuring 3 mm size but. Tiny less than 1 cm cyst at the anterior right kidney is similar to previous studies.. No dilatation or calculi along the course of either ureter. . Urinary bladder, moderately distended. Question some minimal low-density debris possibly at the posterior aspect the urinary bladder which would benefit from urinalysis a correlation. May merely be inhomogeneous area of urine.., axial image one hundred five, sagittal 43) Moderate enlarged prostate: 5.5 cm transverse . No free fluid pelvis. Slight laxity of inguinal ring bilaterally with generous fat along inguinal canal bilaterally. Stable Also likely postsurgical changes towards right groin-stable . GI tract Sliding hiatal hernia. Minimal air-fluid level distal esophagus likely reflect GE reflux Stomach unremarkable. Small bowel. Unremarkable but large bowel. Moderate stool throughout the right colon with [id number] stool throughout the remainder of the colon. No acute findings involving bowel there are is of scattered diverticuli throughout the sigmoid colon but no evidence of diverticulitis thickening. Appendix is not discretely visualized but I see no evidence of appendicitis. If should this is a concern clinically and patient develops RLQ pain would suggest follow-up study with oral and a repeat IV contrast Peritoneum: No abnormal fluid collections. No obvious inflammatory changes. No free air. Lymph nodes: No enlarged lymph nodes apparent. Vasculature: Atherosclerotic calcification aorta and iliacs but no aneurysmal dilatation. Calcification origin of the renal arteries and SMA. No retroperitoneal findings otherwise. Bones: Moderately pronounced multilevel degenerative disc changes and spondylosis throughout lumbar spine-. No acute fracture or findings. IMPRESSION: 1. No acute traumatic findings at the abdomen. . Although streak o
--- NOTE | 2020-06-23 13:16 | CT_ITS ---
PROCEDURE: CT CERVICAL SPINE WO CON Referring Doctor: Randy Simmons Patient Age:84Y CLINICAL INDICATION: Fall from 4 ft +LOC, Lumbar pain, L rib cage pain Hit head with LOC. Neck pain. Headache COMPARISON: CT CTAN CTA-NECK from 04/13/2016 TECHNIQUE: No IV contrast Helical axial images obtained with sagittal and coronal reformats. All CT scans at the facility use one or more dose reduction, viz: automated exposure control, ma/kV adjustment per patient size (including targeted exams where dose is matched to indication, i.e. head), or iterative reconstruction technique. FINDINGS: Cervical spine with degenerative changes similar to 2016 but with no acute fracture nor subluxation evident.. C1-C2 Normal C1/C2 relationships but with degenerative changes here, most evident involving the lateral masses to the left. C3/4. Mild central disc bulge with bilateral uncovertebral joint hypertrophy most evident to the left. Minimal recess and foraminal encroachment bilateral C4/5. Minor a less than 2 mm the degenerative anterior listhesis of C4 on 5 is similar to previous 2016 the study Bilateral facet hypertrophy of most evident on the left at this level contributes to the mild listhesis C5/6 most pronounced degenerative disc space narrowing and cervical spondylosis at this level. posterior osteophytic ridging and uncovertebral joint hypertrophy period, right more so than left and appears similar to previous 2016 exam C6/7 the: Disc space narrowing cervical spondylosis posterior osteophytic ridging but there is a near 3 mm anterior listhesis of C6 on 7 here to the right but this is slightly more evident than on previous studies but appears to be a chronic feature and related to degenerative disc and facet changes but no fracture evident. C7/T1. Mild disc space narrowing. A streak artifact from shoulders begins to limit the images through this level thyroid gland appears enlarged right right lobe more so than left. The right lobe is slightly larger than 2016 measuring up to 3.8 cm AP x 5 cm height with possible 1 cm nodule its anterior aspect-consider thyroid ultrasound follow-up and clinical correlation required. A scattered small nodes otherwise throughout the neck. Streak artifact from dental work A moderately pronounced multilevel degenerative facet changes again evident of perhaps very slight progression since 2016 at some levels. Particularly noting the degenerative facet changes to the right at C6/7 level to the right . Prevertebral soft tissues appear satisfactory.. The the the the apices of lungs are clear with no acute findings. IMPRESSION: 1..No acute findings of the cervical spine. No fracture.. No acute subluxation. 2..Again see multilevel degenerative changes C-spine: -. Cervical spondylosis, degenerative disc and facet changes. These are similar to 2016 with only slight progression at in the interval. 3... Thyroid is enlarged with. Right lobe is larger than left. Probable 1 cm nodule anterior right lobe. . Consider thyroid ultrasound follow-up Dictated by: Bg Boone MD 06/23/2020 15:08 Bg Boone MD in [facility] 06/23/2020 15:08
--- NOTE | 2020-06-23 13:16 | CT_ITS ---
PROCEDURE: CT HEAD/BRAIN WO CON Referring Doctor: Randy Simmons Patient Age:84Y CLINICAL INDICATION: Fall from 4 ft +LOC, Lumbar pain, L rib cage pain low back pain. Head injury. Headache COMPARISON: CT HEADWO CT head/brain wo con from 09/21/2017 TECHNIQUE: No IV contrast. Standard axial images were obtained. All CT scans at the facility use one or more dose reduction, viz: automated exposure control, ma/kV adjustment per patient size (including targeted exams where dose is matched to indication, i.e. head), or iterative reconstruction technique. . FINDINGS: No acute intracranial findings.-no significant change compared to August 2017 CT head No intracranial hemorrhage. No hydrocephalus.The ventricles and basal cisterns appear clear and satisfactory. No mass or midline shift nor mass effect. No subdural or extra-axial fluid collection is evident.. Trace physiologic calcification basal ganglia bilaterally-stable and unremarkable. . Mild cerebral atrophy corresponds with this mild prominence of the lateral ventricles but posterior fossa unremarkable. Minimal density along tentorium is again noted and unchanged since 2018 . Skull intact- calvarium unremarkable appearance. Nomastoid effusions. Mastoid air cells are well developed and clear. Middle ear clear. IAC's symmetric. Nosinus air-fluid level. Visualized portions of the paranasal sinuses and orbits unremarkable. IMPRESSION: No acute intracranial findings . Stable CT brain-the no change since August 2017 Dictated by: Bg Boone MD 06/23/2020 14:47 Bg Boone MD in [facility] 06/23/2020 14:47
--- NOTE | 2020-06-23 13:16 | CT_ITS ---
PROCEDURE: CT ANGIO CHEST Referring Doctor: Randy Simmons the Patient Age:84Y CLINCIAL INDICATION: Fall from 4 ft +LOC, Lumbar pain, L rib cage pain Fell out of truck hit head LOC chest and left rib pain. Abdominal pain. COMPARISON: CT CT ABDOMEN PELVIS W CON from 05/30/[address] CHEST WO CON from 06/01/2019 CR XR RIBS LT MIN 3V W CXR1V from 04/14/[address] ABDOMEN PELVIS W CON from 06/23/[address] CERVICAL SPINE WO CON from 06/23/2020 TECHNIQUE: IV Contrast: 70ML Isovue 370 Axial images obtained with sagittal and coronal reformats. All CT scans at the facility use one or more dose reduction, viz: automated exposure control, ma/kV adjustment per patient size (including targeted exams where dose is matched to indication, i.e. head), or iter the ative reconstruction technique. FINDINGS: Bilateral shoulder prosthetic metal components yield streak artifact throughout the upper chest which degrades images through this region, but they are overall diagnostic. PULMONARY ARTERIES: No pulmonary embolus evident. AORTA: No acute finding. No thoracic aortic aneurysm or dissection evident . Tortuous mildly ectatic innominate artery LUNGS: Dependent atelectasis and scarring towards lung bases. Emphysematous changes of and mild bronchiectatic changes suggested towards lung bases. PLEURAL SPACES: No significant effusion. No evidence of pneumothorax. HEART: Prominent fairly diffuse multivessel coronary artery calcification. Mild cardiomegaly... No significant pericardial effusion.. Loop recorder in Sigma tendinous tissues overlying chest to the left of midline MEDIASTINAL AND HILAR STRUCTURES: No mediastinal or hilar mass evident. No dominant adenopathy Calcified nodes right hilar reflect old granulomatous disease Right lobe of thyroid appears enlarged measuring 5 cm in length and 4 cm AP BONY STRUCTURES: There is a healing left anterior 6th rib fracture.. Very subtle undulation of cortex anterior lateral 4th, 5th, 6 and 7th ribs noted today and not seen on previous 2019 chest film. However I see there have been interval rib studies and I favor these are subtle old fractures as I do not do not see a and acute fracture line/definitive acute acute break in these left ribs currently.. If there is a area point tenderness please relate such to me and I will review the the area of pain specifically T-spine with no acute findings: No compression fractures but marginal osteophytes throughout similar to previous studies but mild disc space narrowing at some levels towards the lower T-spine similar to previous studies-stable. LYMPH NODES: No enlarged lymph nodes evident. UPPER ABDOMEN:. Small hiatal herniaB.. A renal calculi on right IMPRESSION: 1..No evidence of pulmonary embolism. Aorta appears intact with no dissection but 2..No acute findings lungs or mediastinum. Lungs, chronic changes with basilar atelectasis and scarring. No pneumothorax or pleural effusion. 3.. T-spine stable with degenerative changes . What appear to be most likely old healed or healing fracture left ribs with no definitive acute left rib fracture identified at this point the. Note comments in text. (The if there is a specific area pain please indicates such and I will review that area greater detail) Dictated by: Bg Boone MD 06/23/2020 15:33 Bg Boone MD in [place] 06/23/2020 15:33
--- NOTE | 2020-06-23 13:22 | ECG_ITS ---
APPROVED REPORT Exam: Resting ECG HR:52 bpm ECG Measurements Heart Rate 52 AXES QRSd 106 QRS -44 QT 506 T 34 QTc 470 Conclusion Junctional rhythm with occasional premature ventricular complexes Left axis deviation Minimal voltage criteria for LVH, may be normal variant Nonspecific ST and T wave abnormality Prolonged QT Abnormal ECG Electronically signed by : Liam Calderon, 06/25/2020 19:58:05
--- NOTE | 2020-06-23 13:29 | PC.NURSE ---
rad notified of CT orders
[2020-06-23 13:30] LABS: Basophils % 0.3 % (0.1-2.0); Eosinophils # 0.1 K/mm3 (0.0-0.4); Eosinophils % 1.1 % (0.1-12.0); Hematocrit 46.2 % (42.0-52.0); Lymphocytes # 0.8 K/mm3 (0.7-4.5); Lymphocytes % 9.9 % (10-50); Mean Corpuscular HGB Conc 32.6 g/dL (31.8-35.4); Mean Corpuscular Hemoglobin 29.5 pg (27.0-31.2); Mean Corpuscular Volume 90.6 fl (80-94); Mean Platelet Volume 7.4 fl (7.4-10.4); Monocytes # 0.7 K/mm3 (0.1-1.0); Neutrophils # 6.8 K/mm3 (1.8-7.8); Neutrophils % 80.7 % (37.0-80.0); Platelet Count 258 K/mm3 (142-424); Red Cell Distribution Width 14.3 % (11.5-17.5); White Blood Count 8.4 K/mm3 (4.8-10.8)
--- NOTE | 2020-06-23 13:30 | PC.NURSE ---
at bedside doing US
[2020-06-23 13:37] LABS: Chloride 101 mmol/L (98-107); Potassium 4.7 mmoL/L (3.5-5.1); Sodium 134 mmol/L (136-145)
[2020-06-23 13:39] LABS: Blood Urea Nitrogen 20 mg/dl (9-20); Creatinine Clearance Estimated 73 mL/min (50-200); Estimated Glomerular Filt Rate 93 ml/min (>60); GFR (African American) 112 ML/MIN (>60)
[2020-06-23 13:40] LABS: Alanine Aminotransferase 55 U/L (12-78); Albumin Level 4.2 g/dl (3.5-5.0); Albumin/Globulin Ratio 1.4 (1.1-1.8); Alkaline Phosphatase 144 U/L (38-126); Anion Gap 11.7 mEq/L (5-15); Aspartate Amino Transferase 57 U/L (17-59); Bilirubin,Total 0.6 mg/dl (0.2-1.3); Calcium 9.6 mg/dl (8.4-10.2); Carbon Dioxide 26 mmol/L (22.0-30.0); Globulin 2.9 g/dL (1.3-3.2); Glucose 213 mg/dl (74-100); Total Protein,Serum 7.1 g/dl (6.3-8.2)
--- NOTE | 2020-06-23 13:46 | PC.NURSE ---
pt to ct
--- NOTE | 2020-06-23 13:47 | PC.NURSE ---
Pt to rad
[2020-06-23 13:58] LABS: Troponin I < 0.01 ng/ml (0.00-0.034)
--- NOTE | 2020-06-23 14:16 | PC.NURSE ---
IV INFILTRATED DURING CT , ANOTHER IV STARTED 20G R AC
--- NOTE | 2020-06-23 16:31 | PC.NURSE ---
soft ball size area noted to area just above L AC from previous IV infiltration during CT contrast administration. Area has gotten larger than when it first happened. Pt denies presence of pain, area is cool to the touch, pt denies numbness, tingling or decreased sensation. Pt able to move LUE fully including bending elbow and all fingers. pharmacy paged at this time per ER MD request r/t extravasation of IV contrast during CT
--- NOTE | 2020-06-23 16:35 | PC.NURSE ---
ER MD spoke with Edgardo who is pharmacist installation superintendent ER MD gave verbal order for pressure dressing of L bicep to below elbow and to elevated area. Will continue to monitor area
--- NOTE | 2020-06-23 16:44 | PC.NURSE ---
Dennis wrap placed around left upper arm for pressure dressing from IV contrast infiltration. L arm elevated with ice pack placed on area. Pt tolerated well. Will continue to monitor
== END 2020-06-23 18:12 | disposition home or self-care (01) ==
PROVIDERS: Emergency Provider Emergency Medicine; PCP Pediatrics
DX: R07.89 Other chest pain (principal); T80.818A Extravasation of other vesicant agent, initial encounter; V58.4XXA Person boarding or alighting a pick-up truck or van injured in noncollision transport accident, initial encounter; Y92.9 Unspecified place or not applicable; I48.91 Unspecified atrial fibrillation; I25.10 Atherosclerotic heart disease of native coronary artery without angina pectoris; I10 Essential (primary) hypertension; E11.9 Type 2 diabetes mellitus without complications; E78.5 Hyperlipidemia, unspecified
CPT/HCPCS: 70450; 71275; 72125; 74177; 80053; 84484; 85025; 93005; 96365; 96375; 99283; J2405; Q9967

== ENCOUNTER → 2020-07-04 08:20 | Outpatient (CLI) | payer MEDICARE, SELFPAY ==
[2020-07-04 09:04] LABS: Basophils % 0.4 % (0.1-2.0); Eosinophils # 0.3 K/mm3 (0.0-0.4); Eosinophils % 4.2 % (0.1-12.0); Hematocrit 41.8 % (42.0-52.0); Hemoglobin 13.1 g/dL (14.1-18.0); Lymphocytes % 16.6 % (10-50); Mean Corpuscular HGB Conc 31.3 g/dL (31.8-35.4); Mean Corpuscular Hemoglobin 28.5 pg (27.0-31.2); Mean Corpuscular Volume 91.1 fl (80-94); Mean Platelet Volume 6.9 fl (7.4-10.4); Monocytes # 0.5 K/mm3 (0.1-1.0); Monocytes % 7.7 % (1.7-9.3); Neutrophils # 4.4 K/mm3 (1.8-7.8); Neutrophils % 71.1 % (37.0-80.0); Platelet Count 237 K/mm3 (142-424); Red Blood Count 4.59 M/mm3 (4.60-6.20); Red Cell Distribution Width 13.7 % (11.5-17.5); White Blood Count 6.2 K/mm3 (4.8-10.8)
[2020-07-04 10:03] LABS: Iron 69 ug/dL (49-181)
[2020-07-04 10:14] LABS: Total Iron Binding Capacity 334 ug/dL (261-462)
[2020-07-04 10:40] LABS: Ferritin 48.3 ng/ml (17.9-464)
== END ==
PROVIDERS: Visit Provider Internal Medicine Medical Oncology
DX: D50.9 Iron deficiency anemia, unspecified (principal)
CPT/HCPCS: 36415; 82728; 83540; 83550; 85025

== ENCOUNTER 2020-08-18 10:31 | Emergency (ER) | payer MEDICARE, SELFPAY ==
[2020-08-18 10:33] VITALS: BP 153/80; PULSE 70; RESP 18; TEMP 36.6; O2SAT 97; BMI 29.5
--- NOTE | 2020-08-18 10:38 | ECG_ITS ---
APPROVED REPORT Exam: Resting ECG HR:66 bpm ECG Measurements Heart Rate 66 AXES [place] 204 P 25 QRSd 116 QRS -41 QT 482 T 50 QTc 505 Conclusion Normal sinus rhythm Left axis deviation Left ventricular hypertrophy with QRS widening Prolonged QT Abnormal ECG Electronically signed by : Liam Calderon, 08/18/2020 14:02:42
--- NOTE | 2020-08-18 10:43 | HMH.EDGENADL ---
ED Disposition Clinical Impression: Vertigo Left shoulder strain Qualifiers: Encounter type: initial encounter Qualified Code(s): S46.912A - Strain of unspecified muscle, fascia and tendon at shoulder and upper arm level, left arm, initial encounter Rib fractures Qualifiers: Encounter type: initial encounter Fracture type: closed Laterality: left Qualified Code(s): S22.42XA - Multiple fractures of ribs, left side, initial encounter for closed fracture Disposition: Home, Self-Care Condition on Discharge: Good Instructions: DI for Vertigo, DI for Shoulder Sprain Additional Instructions: Meclizine as prescribed for dizziness. Follow-up with your primary care provider or Dr. Alexander for dizziness. Follow-up with your primary care provider for shoulder pain. Take Tylenol for shoulder pain. Referrals: Jonathan Nichols [Primary Care Provider] - - Critical Care Critical Care Time: No Attestation: On 08/18/20, the high probability of a clinically significant, sudden or life threatening deterioration of the following system(s) required my full and direct attention, intervention and personal management. The time I documented below is in addition to time spent performing reported procedures but includes the following listed in this critical care notation. Medical Decision Making - Medical Records Medical records reviewed: Yes: I reviewed the patient's medical records. MR Comment: Reviewed the patient's recent prescription shows that he was prescribed 45 meclizine on 07/01/2020. It appears that he has been having problems with vertigo longer than he recalls at this time. He was prescribed amoxicillin on 07/16/2020, again this is over a month ago and patient had told me that symptoms started 10 days ago and he was started on amoxicillin since symptoms started. - Adi Inquiry Pt receiving controlled substance: No Vital Signs: 08/18/20 10:33 08/18/20 11:33 Temperature 97.8 F Temperature Source Oral Pulse Rate [Right Radial] 70 63 Respiratory Rate 18 18 Blood Pressure [Right Arm] 153/80 H 155/76 H Blood Pressure Mean [Right Arm] 104 102 Blood Pressure Source [Right Arm] Automatic Cuff Automatic Cuff Blood Pressure Position [Right Arm] Sitting Sitting 02 Sat by Pulse Oximetry 97 99 Oxygen Delivery Method Room Air Room Air - Lab Data Lab Results 08/18/20 10:50: WBC 6.9, RBC 4.83, Hgb 13.7 L, Hct 42.8, MCV 88.7, MCH 28.4, MCHC 32.0, RDW 13.9, Plt Count 225, MPV 7.3 L, Neut % (Auto) 76.4, Lymph % (Auto) 13.4, Sebastian % (Auto) 6.6, Eos % (Auto) 3.2, Baso % (Auto) 0.3, Neut # (Auto) 5.3, Lymph # (Auto) 0.9, Sebastian # (Auto) 0.5, Eos # (Auto) 0.2, Baso # (Auto) 0.0 08/18/20 10:50: Sodium 135 L, Potassium 4.5, Chloride 102, Carbon Dioxide 27, Anion Gap 10.5, BUN 19, Creatinine 0.80, Estimated Creat Clear 73, Estimated GFR 93, Est GFR ( Amer) 112, Glucose 352 H, Calcium 9.2, Total Bilirubin 0.6, AST 36, ALT 36, Alkaline Phosphatase 187 H, Total Protein 6.7, Albumin 3.9, Globulin 2.8, Albumin/Globulin Ratio 1.4 Result diagrams: 08/18/20 10:50 08/18/20 10:50 - Radiology Data #1 Image(s): Shoulder Image Reviewed: Yes I reviewed the patient's radiology image, Yes I have reviewed radiologist's interpretation PROCEDURE: XR SHOULDER LT MIN 2V CLINICAL INDICATION: fall, pain COMPARISON: CR XR CHEST 2V from 05/22/2020 FINDINGS: The left clavicle is intact, there is mild degenerate change of the AC joint with spurring superiorly. The shoulder prosthesis appears intact with no evidence of loosening. No soft tissue calcifications. There is a nondisplaced fracture of the left 7th rib posteriorly and a slightly displaced fracture of the 8th rib same posterior location. There is no pneumothorax. IMPRESSION: Stable shoulder prosthesis, acute fractures of the left 7th and 8th ribs Dictated by: Dr. Jim Modi MD 08/18/2020 11:45 Dr. Jim Modi MD in [place] 08/18/2020 11:45 - CT Data C
[2020-08-18 10:44] VITALS: BMI 29.5
--- NOTE | 2020-08-18 10:45 | CT_ITS ---
PROCEDURE: CT HEAD/BRAIN WO CON CLINICAL INDICATION: blurry vision COMPARISON: CT CT HEAD/BRAIN WO CON from 06/23/2020 TECHNIQUE: Axial images obtained. All CT scans at the facility use one or more dose reduction, viz: automated exposure control, ma/kV adjustment per patient size (including targeted exams where dose is matched to indication, i.e. head), or iterative reconstruction technique. FINDINGS: No midline shift, mass effect, intracranial hemorrhage, hydrocephalus, or extra-axial fluid collection is evident. The basilar cisterns and sylvian fissures are somewhat prominent. There is mild diffuse ventriculomegaly. The cortical sulci are prominent. The convolutions of the cerebellar hemispheres are mildly prominent. There are mild periventricular hypodensities consistent with chronic ischemic white matter changes. Both orbits in both optic nerves appear normal. The calvarium has an unremarkable appearance. No mastoid effusion, both internal auditory canals appear normal.. No sinus air-fluid level. IMPRESSION: Stable findings of moderate cortical and cerebellar atrophy centrally unchanged from the previous exam, no acute intracranial pathology noted Dictated by: Dr. Jim Modi MD 08/18/2020 11:31 Dr. Jim Modi MD in [facility] 08/18/2020 11:31
--- NOTE | 2020-08-18 10:45 | CT_ITS ---
PROCEDURE: CT CERVICAL SPINE WO CON CLINICAL INDICATION: fall, pain COMPARISON: CT CT CERVICAL SPINE WO CON from 06/23/2020 TECHNIQUE: Axial images obtained with sagittal and coronal reformats. All CT scans at the facility use one or more dose reduction, viz: automated exposure control, ma/kV adjustment per patient size (including targeted exams where dose is matched to indication, i.e. head), or iterative reconstruction technique. Axial spiral CT scanning performed of the cervical spine beginning at the base of the skull and continuing to the upper T-spine. 3-D multiplanar reconstruction with 3-D manipulation of volumetric data set in image rendering was completed by the radiologist and/or technologist with the supervision of the radiologist on independent workstation. FINDINGS: No fracture nor subluxation is evident. Normal prevertebral soft tissues. There is mild generalized osteopenia. There is prominent disc space narrowing and anterior and posterior osteophytic spurring at the C5-6 and C6-7 levels. There is bilateral facet hypertrophy at the C5-6 and C6-7 levels. There is mild neural foraminal narrowing on the right at the C5-6 level secondary to facet hypertrophy. There is no abnormal disc protrusion. There is mild arthritic change of the atlanto axial joint. IMPRESSION: Generalized osteopenia and stable moderate degenerate changes C5-6 and C6-7, no acute osseous pathology noted. Dictated by: Dr. Jim Modi MD 08/18/2020 11:38 Dr. Jim Modi MD in [facility] 08/18/2020 11:38
--- NOTE | 2020-08-18 10:55 | PC.NURSE ---
notified rad of orders on pt.
[2020-08-18 10:58] LABS: Basophils % 0.3 % (0.1-2.0); Eosinophils # 0.2 K/mm3 (0.0-0.4); Eosinophils % 3.2 % (0.1-12.0); Hematocrit 42.8 % (42.0-52.0); Hemoglobin 13.7 g/dL (14.1-18.0); Lymphocytes # 0.9 K/mm3 (0.7-4.5); Lymphocytes % 13.4 % (10-50); Mean Corpuscular Hemoglobin 28.4 pg (27.0-31.2); Mean Corpuscular Volume 88.7 fl (80-94); Mean Platelet Volume 7.3 fl (7.4-10.4); Monocytes # 0.5 K/mm3 (0.1-1.0); Monocytes % 6.6 % (1.7-9.3); Neutrophils # 5.3 K/mm3 (1.8-7.8); Neutrophils % 76.4 % (37.0-80.0); Platelet Count 225 K/mm3 (142-424); Red Blood Count 4.83 M/mm3 (4.60-6.20); Red Cell Distribution Width 13.9 % (11.5-17.5); White Blood Count 6.9 K/mm3 (4.8-10.8)
[2020-08-18 10:59] LABS: Chloride 102 mmol/L (98-107); Sodium 135 mmol/L (136-145)
[2020-08-18 11:00] LABS: Potassium 4.5 mmoL/L (3.5-5.1)
[2020-08-18 11:02] LABS: Alanine Aminotransferase 36 U/L (12-78); Albumin Level 3.9 g/dl (3.5-5.0); Albumin/Globulin Ratio 1.4 (1.1-1.8); Alkaline Phosphatase 187 U/L (38-126); Anion Gap 10.5 mEq/L (5-15); Aspartate Amino Transferase 36 U/L (17-59); Bilirubin,Total 0.6 mg/dl (0.2-1.3); Blood Urea Nitrogen 19 mg/dl (9-20); Carbon Dioxide 27 mmol/L (22.0-30.0); Creatinine Clearance Estimated 73 mL/min (50-200); Estimated Glomerular Filt Rate 93 ml/min (>60); GFR (African American) 112 ML/MIN (>60); Globulin 2.8 g/dL (1.3-3.2); Total Protein,Serum 6.7 g/dl (6.3-8.2)
--- NOTE | 2020-08-18 11:02 | PC.NURSE ---
Pt to rad
[2020-08-18 11:03] LABS: Calcium 9.2 mg/dl (8.4-10.2); Glucose 352 mg/dl (74-100)
--- NOTE | 2020-08-18 11:29 | PC.NURSE ---
Pt returned from rad.
[2020-08-18 11:33] VITALS: BP 155/76; PULSE 63; RESP 18; O2SAT 99
[2020-08-18 12:00] VITALS: BP 142/78; PULSE 80; RESP 18; O2SAT 98
[2020-08-18 12:17] VITALS: BP 128/76; PULSE 81; RESP 18; TEMP 36.7; O2SAT 97
== END 2020-08-18 12:19 | disposition home or self-care (01) ==
PROVIDERS: Emergency Provider Emergency Medicine; PCP Pediatrics
DX: S46.912A Strain of unspecified muscle, fascia and tendon at shoulder and upper arm level, left arm, initial encounter (principal); S22.42XA Multiple fractures of ribs, left side, initial encounter for closed fracture; W01.0XXA Fall on same level from slipping, tripping and stumbling without subsequent striking against object, initial encounter; Y92.019 Unspecified place in single-family (private) house as the place of occurrence of the external cause; I25.10 Atherosclerotic heart disease of native coronary artery without angina pectoris; E78.5 Hyperlipidemia, unspecified; I25.2 Old myocardial infarction; I10 Essential (primary) hypertension; I48.91 Unspecified atrial fibrillation; Z95.0 Presence of cardiac pacemaker
CPT/HCPCS: 70450; 72125; 73030; 80053; 85025; 93005; 99283

== ENCOUNTER → 2020-09-16 14:30 | Outpatient (CLI) | payer MEDICARE, SELFPAY ==
--- NOTE | 2020-09-16 14:31 | MR_ITS ---
PROCEDURE: MR HEAD/BRAIN WO CON CLINICAL INDICATION: eval for [employer]ANCE abnormality Dizzy and lightheadedness with near syncope x2yrs, but is getting worse. Falls [id number] a week. Constant headache. Blurred vision. COMPARISON: CT CT HEAD/BRAIN WO CON from 08/18/2020 TECHNIQUE: Routine multiplanar multi echo sequences are performed without gadolinium enhancement. FINDINGS: No midline shift, mass effect, intracranial hemorrhage, or hydrocephalus is evident. The cerebellopontine angles have an unremarkable appearance. There is generalized atrophy with nonspecific periventricular T2 white matter hyperintensities. No acute infarction. There is mild prominence of the ventricles however, this is felt to be due to ex vacuo dilatation from brain volume loss. No mastoid effusion or sinus air-fluid level. The pituitary, optic chiasm, corpus callosum, and craniocervical junction have an unremarkable appearance. IMPRESSION: 1. No acute intracranial findings. 2. Atrophy with mild periventricular ischemic gliotic change. Dictated by: Jimenez Villafana MD 09/17/2020 12:10 Jimenez Villafana MD in [facility] 09/17/2020 12:10
--- NOTE | 2020-09-16 14:31 | MR_ITS ---
PROCEDURE: MR ANGIO HEAD WO CON CLINICAL INDICATION: eval posterior circulation Dizzy and lightheadedness with near syncope x2yrs, but is getting worse. Falls [id number] a week. Constant headache. Blurred vision. COMPARISON: No exams were available for comparison TECHNIQUE: 3D [id number] images are performed without contrast. FINDINGS: No aneurysm, AVM, or major branch occlusive change evident. IMPRESSION: Negative MRA of the brain Dictated by: Jimenez Villafana MD 09/17/2020 11:53 Jimenez Villafana MD in [facility] 09/17/2020 11:53
== END ==
PROVIDERS: PCP Pediatrics; Visit Provider Specialist
DX: R26.89 Other abnormalities of gait and mobility (principal); R42 Dizziness and giddiness; R51.9 Headache, unspecified
CPT/HCPCS: 70544; 70551

== ENCOUNTER 2020-10-07 20:36 | Emergency (ER) | payer MEDICARE, SELFPAY ==
[2020-10-07 20:36] VITALS: BP 178/97; PULSE 58; RESP 14; TEMP 36.6; O2SAT 97; BMI 29.5
--- NOTE | 2020-10-07 20:42 | XR_ITS ---
PROCEDURE: XR KNEE LT 3V CLINICAL INDICATION: fall Pain COMPARISON: CR [id number] KNEE-LIMITED 2 VIEWS-LT from 10/11/2015 CR XR KNEE LT 3V from 03/13/2020 FINDINGS: Status post total knee replacement. There is good alignment. No fracture or dislocation. There are vascular calcifications. Nonspecific soft tissue calcification noted in the suprapatellar region. IMPRESSION: Status post total knee replacement as described above. No acute finding Dictated by: Jimenez Villafana MD 10/08/2020 05:17 Jimenez Villafana MD in [facility] 10/08/2020 05:17
--- NOTE | 2020-10-07 20:42 | CT_ITS ---
PROCEDURE: CT CERVICAL SPINE WO CON CLINICAL INDICATION: fall Neck injury with pain, contusion/abrasion or hematoma, cervical sprain/strain the COMPARISON: CT CT CERVICAL SPINE WO CON from 08/18/2020 TECHNIQUE: Axial images obtained with sagittal and coronal reformats. All CT scans at the facility use one or more dose reduction, viz: automated exposure control, ma/kV adjustment per patient size (including targeted exams where dose is matched to indication, i.e. head), or iterative reconstruction technique. Axial spiral CT scanning performed of the cervical spine beginning at the base of the skull and continuing to the upper T-spine. 3-D multiplanar reconstruction with 3-D manipulation of volumetric data set in image rendering was completed by the radiologist and/or technologist with the supervision of the radiologist on independent workstation. FINDINGS: Normal alignment. No acute fracture or dislocation. C2-C3: Mild degenerative disc disease. C3-C4: Uncovertebral hypertrophy with mild bilateral lateral recess and foraminal narrowing greater on the left. C4-C5: Mild anterolisthesis of C4 4 mm with degenerative disc disease and left-sided foraminal narrowing from uncovertebral and facet hypertrophy. C5-C6: Degenerative disc disease with endplate osteophytes and uncovertebral hypertrophy with canal stenosis, bilateral lateral recess narrowing and bilateral foraminal narrowing. C6-C7: Degenerative disc disease with 3 mm anterolisthesis of C6. C7-T1: Unremarkable. Lung apices are clear. Scattered small nodes are present in the neck. Thyroid gland is somewhat enlarged at the isthmus and on the right. IMPRESSION: 1. No acute fracture. 2. Cervical spondylosis 3. Thyromegaly Dictated by: Jimenez Villafana MD 10/08/2020 05:58 Jimenez Villafana MD in [place] 10/08/2020 05:58
--- NOTE | 2020-10-07 20:43 | HMH.EDGENADL ---
ED Disposition Clinical Impression: Head injury Qualifiers: Encounter type: initial encounter Qualified Code(s): S09.90XA - Unspecified injury of head, initial encounter Knee contusion Qualifiers: Encounter type: initial encounter Laterality: left Qualified Code(s): S80.02XA - Contusion of left knee, initial encounter Neck strain Qualifiers: Encounter type: initial encounter Qualified Code(s): S16.1XXA - Strain of muscle, fascia and tendon at neck level, initial encounter Disposition: Home, Self-Care Condition on Discharge: Good Instructions: How to Prevent Falls Additional Instructions: Take Tylenol for mild pain at home. Use walker frequently to avoid falls. Return immediately if any new or worsening symptoms prior to following up with your primary care doctor. Referrals: Jonathan Nichols [Primary Care Provider] - - Critical Care Critical Care Time: No Attestation: On , the high probability of a clinically significant, sudden or life threatening deterioration of the following system(s) required my full and direct attention, intervention and personal management. The time I documented below is in addition to time spent performing reported procedures but includes the following listed in this critical care notation. Medical Decision Making - Medical Records Medical records reviewed: Yes: I reviewed the patient's medical records. - Adi Inquiry Pt receiving controlled substance: No Vital Signs: 10/07/20 20:36 10/07/20 21:24 10/07/20 21:31 Temperature 97.8 F Temperature Source Oral Pulse Rate 58 L 52 L Pulse Rate [Right] 58 L Respiratory Rate 14 Blood Pressure 177/84 H 167/90 H Blood Pressure [Right Arm] 178/97 H Blood Pressure Mean [Right Arm] 124 02 Sat by Pulse Oximetry 97 99 98 10/07/20 22:15 Temperature Temperature Source Pulse Rate 59 L Pulse Rate [Right] Respiratory Rate Blood Pressure 171/93 H Blood Pressure [Right Arm] Blood Pressure Mean [Right Arm] 02 Sat by Pulse Oximetry 98 Orders (Tests/Meds): ORDERS Category Date Time Status CT cervical spine wo con Stat Cat Scan 10/07/20 20:[address] head/brain wo con Stat Cat Scan 10/07/20 20:53 Taken XR knee LT 3V Stat Exams 10/07/20 20:42 Taken Medical Decision Narrative: Patient presents the emergency department after mechanical fall. Patient assessed in typical ATLS fashion. Airway intact. Bilateral breath sounds appreciated. No circulatory compromise. He moves all extremities and follows commands with a GCS of 15. On secondary survey he does have some mild tenderness to palpation in the paraspinal muscle distribution in his cervical spine. C-collar applied. Mild tenderness to palpation of the patella without obvious joint effusion or any neurovascular compromise distal to injury. Knee x-ray will be obtained. Also due to patient's head injury with unknown loss of consciousness CT head scan will be obtained with CT C-spine. CT C-spine and CT head demonstrate no acute intracranial abnormality or cervical spine fracture or subluxation. X-ray demonstrates no malaligned hardware or any other acute abnormalities. At this time, c-collar removed and patient able to range his neck without difficulty or pain. C-spine cleared. At this time, concussion cannot be ruled out so I went over concussion guidelines with patient and family at bedside. All parties are in agreement. Patient discharged in stable condition with instructions to use his walker more frequently to avoid falls. He agrees. Patient will be brought back if any recurrent falls, increased pain, altered mental status, other new concerning symptoms. Assessment: Mechanical fall Neck pain Head injury without loss of consciousness left sided knee contusion Disposition: Home with follow-up General Adult HPI - General Chief complaint: Fall Stated complaint: fall Time Seen by Provider: 10/07/20 20:43 Mode of Arrival: EMS Limitations: No Ferro
--- NOTE | 2020-10-07 20:43 | PC.NURSE ---
Pt's daughter has called to check on him and would like an update as it becomes available. [facility] [place] [phone]
--- NOTE | 2020-10-07 20:53 | CT_ITS ---
PROCEDURE: CT HEAD/BRAIN WO CON CLINICAL INDICATION: fall Head injury with headache/pain, contusion, abrasion or hematoma COMPARISON: CT CT HEAD/BRAIN WO CON from 08/18/2020 TECHNIQUE: Axial images obtained. All CT scans at the facility use one or more dose reduction, viz: automated exposure control, ma/kV adjustment per patient size (including targeted exams where dose is matched to indication, i.e. head), or iterative reconstruction technique. FINDINGS: No midline shift, mass effect, intracranial hemorrhage, hydrocephalus, or extra-axial fluid collection is evident. There is generalized atrophy with hypoattenuation of the periventricular white matter consistent with microangiopathic changes. The calvarium has an unremarkable appearance. No mastoid effusion. No sinus air-fluid level. IMPRESSION: No acute intracranial finding Dictated by: Jimenez Villafana MD 10/08/2020 05:54 Jimenez Villafana MD in [place] 10/08/2020 05:54
[2020-10-07 21:24] VITALS: BP 177/84; PULSE 58; O2SAT 99
[2020-10-07 21:31] VITALS: BP 167/90; PULSE 52; O2SAT 98
--- NOTE | 2020-10-07 21:40 | PC.NURSE ---
Knee xray to be sent to [facility] per Dr Simmons request.
[2020-10-07 22:15] VITALS: BP 171/93; PULSE 59; O2SAT 98
[2020-10-07 22:49] VITALS: BP 167/84; PULSE 60; RESP 16; TEMP 36.6; O2SAT 98
== END 2020-10-07 22:52 | disposition home or self-care (01) ==
PROVIDERS: Emergency Provider Emergency Medicine; PCP Pediatrics
DX: S16.1XXA Strain of muscle, fascia and tendon at neck level, initial encounter (principal); S80.02XA Contusion of left knee, initial encounter; W01.0XXA Fall on same level from slipping, tripping and stumbling without subsequent striking against object, initial encounter; Y92.89 Other specified places as the place of occurrence of the external cause; I10 Essential (primary) hypertension; I25.10 Atherosclerotic heart disease of native coronary artery without angina pectoris; E11.9 Type 2 diabetes mellitus without complications; I48.91 Unspecified atrial fibrillation; I25.2 Old myocardial infarction; E78.5 Hyperlipidemia, unspecified; Z95.0 Presence of cardiac pacemaker; Z79.899 Other long term (current) drug therapy
CPT/HCPCS: 70450; 72125; 73562; 99282

== ENCOUNTER 2020-10-28 22:20 | Emergency (ER) | payer MEDICARE, SELFPAY ==
[2020-10-28 22:21] VITALS: BP 135/68; PULSE 58; RESP 18; TEMP 36.7; O2SAT 96; BMI 29.5
[2020-10-28 23:00] VITALS: BP 134/62; PULSE 58; O2SAT 98
[2020-10-28 23:17] LABS: Basophils % 0.3 % (0.1-2.0); Eosinophils # 0.3 K/mm3 (0.0-0.4); Eosinophils % 4.1 % (0.1-12.0); Hematocrit 38.9 % (42.0-52.0); Hemoglobin 12.7 g/dL (14.1-18.0); Lymphocytes # 1.1 K/mm3 (0.7-4.5); Lymphocytes % 17.4 % (10-50); Mean Corpuscular HGB Conc 32.6 g/dL (31.8-35.4); Mean Corpuscular Hemoglobin 28.3 pg (27.0-31.2); Mean Platelet Volume 7.4 fl (7.4-10.4); Monocytes # 0.6 K/mm3 (0.1-1.0); Monocytes % 8.7 % (1.7-9.3); Neutrophils # 4.4 K/mm3 (1.8-7.8); Neutrophils % 69.5 % (37.0-80.0); Platelet Count 172 K/mm3 (142-424); Red Blood Count 4.47 M/mm3 (4.60-6.20); Red Cell Distribution Width 13.6 % (11.5-17.5); White Blood Count 6.4 K/mm3 (4.8-10.8)
[2020-10-28 23:22] LABS: Alanine Aminotransferase 28 U/L (12-78); Albumin Level 3.3 g/dl (3.5-5.0); Albumin/Globulin Ratio 1.3 (1.1-1.8); Alkaline Phosphatase 158 U/L (38-126); Anion Gap 9.9 mEq/L (5-15); Aspartate Amino Transferase 31 U/L (17-59); Bilirubin,Total 0.4 mg/dl (0.2-1.3); Blood Urea Nitrogen 25 mg/dl (9-20); Calcium 8.9 mg/dl (8.4-10.2); Carbon Dioxide 25 mmol/L (22.0-30.0); Chloride 104 mmol/L (98-107); Creatinine Clearance Estimated 72 mL/min (50-200); Estimated Glomerular Filt Rate 92 ml/min (>60); GFR (African American) 112 ML/MIN (>60); Globulin 2.6 g/dL (1.3-3.2); Glucose 294 mg/dl (74-100); Potassium 4.9 mmoL/L (3.5-5.1); Sodium 134 mmol/L (136-145); Total Protein,Serum 5.9 g/dl (6.3-8.2)
[2020-10-28 23:27] LABS: C-Reactive Protein 3.9 mg/L (0-4)
[2020-10-28 23:32] VITALS: BP 161/68; PULSE 54; O2SAT 96
--- NOTE | 2020-10-28 23:39 | CT_ITS ---
PROCEDURE INFORMATION: Exam: CT Head Without Contrast Exam date and time: 10/28/2020 11:39 PM Age: 85 years old Clinical indication: Pain; Headache; Patient HX: Fell 1 week ago, lump on right mid ribs. ; Additional info: Non-traumatic h/a TECHNIQUE: Imaging protocol: Computed tomography of the head without contrast. Radiation optimization: All CT scans at this facility use at least one of these dose optimization techniques: automated exposure control; mA and/or kV adjustment per patient size (includes targeted exams where dose is matched to clinical indication); or iterative reconstruction. COMPARISON: CT HEAD/BRAIN WO CON 10/07/2020 8:58 PM FINDINGS: Brain: No intracranial hemorrhage. No mass effect. Mild basal ganglia mineralization. [id number] enlargement of the cortical sulci, compatible with age-related parenchymal volume loss. Moderate hypoattenuation of the periventricular and subcortical white matter, consistent with chronic microvascular ischemic disease. Cerebral ventricles: Moderate enlargement of the ventricular system secondary to age related parenchymal volume loss. Bones/joints: Unremarkable. No acute fracture. Paranasal sinuses: Visualized sinuses are unremarkable. No fluid levels. Mastoid air cells: Visualized mastoid air cells are well aerated. Orbital cavity: Evidence of right lens replacement Vasculature: Atherosclerotic calcification of the bilateral intracranial internal carotid and vertebral arteries. Soft tissues: Unremarkable. IMPRESSION: 1. No acute intracranial abnormality. 2. Chronic findings.
[2020-10-28 23:41] LABS: Procalcitonin 0.066 ng/mL (0.0-2.0)
[2020-10-29 00:01] LABS: Erythrocyte Sedimentation Rate 18 mm/hr (0-20)
--- NOTE | 2020-10-29 00:15 | PC.NURSE ---
pt back form CT
[2020-10-29 00:30] VITALS: BP 202/106; PULSE 59; O2SAT 97
[2020-10-29 01:01] VITALS: BP 170/90; PULSE 63; RESP 19; O2SAT 96
--- NOTE | 2020-10-29 01:10 | HMH.EDNECK ---
ED Disposition Clinical Impression: Cervical radiculopathy Disposition: Home, Self-Care Condition on Discharge: Good Instructions: DI for Neck Pain Additional Instructions: see pcp for follow up Referrals: Jonathan Nichols [Primary Care Provider] - Adonay Presley MD [Staff Physician] - - Critical Care Critical Care Time: No Attestation: On 10/28/20, the high probability of a clinically significant, sudden or life threatening deterioration of the following system(s) required my full and direct attention, intervention and personal management. The time I documented below is in addition to time spent performing reported procedures but includes the following listed in this critical care notation. Medical Decision Making - Medical Records Medical records reviewed: Yes: I reviewed the patient's medical records. - Adi Inquiry Pt receiving controlled substance: No Vital Signs: 10/28/20 22:21 10/28/20 23:00 10/28/20 23:32 Temperature 98.0 F Temperature Source Oral Pulse Rate 58 L 54 L Pulse Rate [Right] 58 L Respiratory Rate 18 Blood Pressure 134/62 161/68 H Blood Pressure [Right Arm] 135/68 Blood Pressure Mean 86 78 Blood Pressure Mean [Right Arm] 90 Blood Pressure Source [Right Arm] Automatic Cuff 02 Sat by Pulse Oximetry 96 98 96 Oxygen Delivery Method Room Air Room Air Room Air - Lab Data Lab results reviewed: Yes: I reviewed the patient's lab results. Lab Results 10/28/20 23:05: WBC 6.4, RBC 4.47 L, Hgb 12.7 L, Hct 38.9 L, MCV 87.0, MCH 28.3, MCHC 32.6, RDW 13.6, Plt Count 172, MPV 7.4, Neut % (Auto) 69.5, Lymph % (Auto) 17.4, [place] % (Auto) 8.7, Eos % (Auto) 4.1, Baso % (Auto) 0.3, Neut # (Auto) 4.4, Lymph # (Auto) 1.1, [place] # (Auto) 0.6, Eos # (Auto) 0.3, Baso # (Auto) 0.0, ESR 18 10/28/20 23:05: Sodium 134 L, Potassium 4.9, Chloride 104, Carbon Dioxide 25, Anion Gap 9.9, BUN 25 H, Creatinine 0.80, Estimated Creat Clear 72, Estimated GFR 92, Est GFR ( Amer) 112, Glucose 294 H, Calcium 8.9, Total Bilirubin 0.4, AST 31, ALT 28, Alkaline Phosphatase 158 H, C-Reactive Protein 3.9, Total Protein 5.9 L, Albumin 3.3 L, Globulin 2.6, Albumin/Globulin Ratio 1.3, Procalcitonin 0.066 Result diagrams: 10/28/20 23:05 10/28/20 23:05 Orders (Tests/Meds): ED MEDICATIONS Generic Name Dose Route Start Last Admin Trade Name Freq PRN Reason Stop Dose Admin Sodium Chloride 1,000 mls @ 999 mls/hr 10/28/20 23:00 10/28/20 22:59 Sod Chlor 0.9% 1000ml Bag IV 10/29/20 00:00 999 mls/hr .[id number] LIOR Administration Discontinued Medications Generic Name Dose Route Start Last Admin Trade Name Freq PRN Reason Stop Dose Admin Iopamidol 75 ml 10/29/20 00:07 10/29/20 00:11 Iopamidol-370 (76%);100ml Bottle IV 10/29/20 00:08 75 ml ONCE ONE Administration Ketorolac Tromethamine 30 mg 10/28/20 22:54 10/28/20 22:59 Ketorolac 30mg/Ml Vial IV 10/28/20 22:55 30 mg ONCE ONE Administration Methylprednisolone Sodium Succinate 125 mg 10/28/20 22:54 10/28/20 22:59 Methylprednisolone Sod Succ 125mg Vial IV 10/28/20 22:55 125 mg ONCE ONE Administration Sodium Chloride 10 ml 10/29/20 00:07 10/29/20 00:11 Sodium Chloride 0.9% 10ml Syr (Rad Only) IV 10/29/20 00:08 10 ml ONCE ONE Administration - CT Data CT Scan: Head, C-Spine Time Received: 01:[address] Reviewed: Yes: I have viewed the radiologist's interpretation Preliminary Findings: Abnormal (see reports ) Medical Decision Narrative: no evid of fx or discitis with stable infl markers needs to see pcp and consider mri and dr presley Neck Pain/Injury HPI - General Chief Complaint: Neck Pain/Injury Stated Complaint: neck pain Time Seen by Provider: 10/28/20 23:00 Mode of Arrival: EMS Source of Information: Patient, EMS, Medical Record Limitations: Physical Limitations Description of Symptoms (Recalled from ER Triage Doc. by RN): Pt c/o neck pain that starts below his left ear and goes around th
[2020-10-29 01:30] VITALS: BP 170/87; PULSE 59; RESP 18; TEMP 36.7; O2SAT 96
--- NOTE | 2020-10-29 23:39 | CT_ITS ---
PROCEDURE INFORMATION: Exam: CT Cervical Spine With Contrast Exam date and time: 10/29/2020 11:39 PM Age: 85 years old Clinical indication: Pain; Other: Headache; Patient HX: Fell 1 week ago, lump on right mid ribs. ; Additional info: Non-traumatic h/a TECHNIQUE: Imaging protocol: Computed tomography images of the cervical spine with intravenous contrast. Radiation optimization: All CT scans at this facility use at least one of these dose optimization techniques: automated exposure control; mA and/or kV adjustment per patient size (includes targeted exams where dose is matched to clinical indication); or iterative reconstruction. Contrast material: ISOVUE; Contrast volume: 75 ml; Contrast route: IV; COMPARISON: CT CERVICAL SPINE WO CON 10/07/2020 9:01 PM FINDINGS: Bones/joints: Craniocervical junction is intact. 5 mm anterolisthesis of C4 upon C5. 4 mm anterolisthesis of C6 upon C7. The usual cervical lordosis is otherwise preserved. Generalized osteopenia, which limits sensitivity of detection for acute fracture. In particular, there is focal osteopenia at the base of the dens (series 601, image 37), unchanged as compared to prior CT dated 10/07/2020, limiting evaluation. No visualized acute fracture or dislocation. Osseous degenerative changes. Anterior bridging osteophytes. Discs/Spinal canal/Neural foramina: Multilevel degenerative changes of the spine, overall moderate to severe. Loss of disc height with endplate sclerosis. Subchondral cysts. Multilevel uncinate process facet hypertrophy, greatest at C5-C6, resulting in moderate to severe right and mild left neural foraminal narrowing. Thyroid: Mild asymmetric enlargement of the right lobe of the thyroid gland relative to the left. Subcentimeter hypoattenuating lesion in the right lobe of the thyroid gland, too small to necessitate further imaging follow-up. Lungs: Scattered subsegmental atelectasis. Vasculature: Atherosclerotic calcification. Soft tissues: Unremarkable. IMPRESSION: 1. Generalized osteopenia, which limits sensitivity of detection for acute fracture. In particular, there is focal osteopenia at the base of the dens (series 601, image 37), unchanged as compared to prior CT dated 10/07/2020, limiting evaluation. No visualized acute fracture or dislocation. 2. Degenerative changes, as above.
== END 2020-10-29 01:33 | disposition home or self-care (01) ==
PROVIDERS: Emergency Provider Emergency Medicine; PCP Pediatrics
DX: M54.12 Radiculopathy, cervical region (principal); E78.5 Hyperlipidemia, unspecified; I10 Essential (primary) hypertension; I25.2 Old myocardial infarction; I25.10 Atherosclerotic heart disease of native coronary artery without angina pectoris; I48.91 Unspecified atrial fibrillation; Z79.899 Other long term (current) drug therapy
CPT/HCPCS: 70450; 72126; 80053; 84145; 85025; 85651; 86140; 96365; 96375; 99283; Q9967

== ENCOUNTER → 2020-11-05 14:33 | Outpatient (CLI) | payer MEDICARE, SELFPAY ==
--- NOTE | 2020-11-05 14:33 | MR_ITS ---
PROCEDURE: MR LUMBAR SPINE WO CON CLINICAL INDICATION: back pain, left leg pain COMPARISON: MR MR HEAD/BRAIN WO CON from 09/16/2020 TECHNIQUE: Standard multiplanar multiecho sequences are performed without contrast. 3-D MIP and myelographic images are also rendered and reviewed FINDINGS: There is normal lumbar lordosis. Vertebral body heights and alignment are maintained. Multilevel disc desiccation with disc bulges are noted. Bone marrow signal intensity is within normal limits without evidence of marrow infiltrative process. Modic type 1 changes are noted at L2-3 level. Partial fusion of the L4-5 vertebral bodies. The conus terminates at L1 vertebral body. Focal T2 hyperintense lesion is noted in the right kidney measuring up to 2.5 x 1.7 centimeters. Further details as described below T12-L1: Small broad-based disc bulge causes mild canal narrowing. No significant foraminal narrowing. L1-2: Right paracentral disc bulge causes effacement of the right lateral recess. Bilateral facet joint hypertrophy. Bilateral moderate to severe foraminal narrowing is noted. L2-3: Broad-based disc bulge, bilateral facet joint and ligamentum flavum moderate canal narrowing with crowding of the nerve roots within the thecal sac. There is moderate bilateral foraminal narrowing. L3-4: Broad-based disc bulge, bilateral facet joint and ligamentum flavum hypertrophy causes moderate to severe canal narrowing with crowding of the nerve roots within the thecal sac. There is moderate to severe left and moderate right foraminal narrowing. L4-5: Disc osteophyte complex, worse on the right and facet joint hypertrophy causes moderate to severe right and moderate left foraminal narrowing. Mild to moderate canal narrowing is noted. L5-S1: Broad-based disc bulge and bilateral facet joint hypertrophy causes severe right and moderate left foraminal narrowing. IMPRESSION: Multilevel degenerative changes with moderate to severe canal and bilateral foraminal narrowing as described above. Dictated by: Rabia Chen 11/05/2020 17:09 Rabia Chen in [facility] 11/05/2020 17:09
--- NOTE | 2020-11-05 14:33 | MR_ITS ---
PROCEDURE: MR CERVICAL SPINE WO CON CLINICAL INDICATION: severe neck pain COMPARISON: No exams were available for comparison TECHNIQUE: Standard multiplanar multiecho sequences are performed without contrast. 3-D MIP and myelographic images are also rendered and reviewed FINDINGS: There is normal cervical spine curvature. Vertebral body heights and alignment are maintained. Multilevel disc desiccation with disc osteophyte complexes are noted. Bone marrow signal intensity is within normal limits without evidence of marrow edema. The visualized posterior fossa is unremarkable. The cervical spinal cord demonstrates indentation without evidence of cord signal abnormality. Further details as described below C2-3: Small disc osteophyte complex without significant canal or foraminal narrowing C3-4: Broad-based disc osteophyte complex, bilateral uncovertebral hypertrophic changes, worse on the left causes moderate to severe left and mild right foraminal narrowing. There is mild canal narrowing. C4-5: Broad-based disc osteophyte complex, worse on the left with uncovertebral hypertrophic changes on the left. Facet joint arthropathy is noted. There is moderate to severe left foraminal narrowing. Mild to moderate right foraminal narrowing is noted. Mild to moderate canal narrowing. C5-6: Disc osteophyte complex, worse on the right with bilateral uncovertebral hypertrophic changes causes mild to moderate canal narrowing with thecal sac and spinal cord indentation. There is moderate to severe bilateral foraminal narrowing. C6-7: Broad-based disc osteophyte complex and uncovertebral hypertrophic changes causes moderate to severe bilateral foraminal narrowing. Mild to moderate canal narrowing is noted. C7-T1: Bilateral minor facet joint arthropathy is noted causes mild to moderate bilateral foraminal narrowing. No significant canal narrowing is noted. IMPRESSION: Multilevel degenerative changes of the cervical spine with the mild to moderate canal and foraminal narrowing. Moderate to severe foraminal narrowing at C5-6 level. Dictated by: Rabia Chen 11/05/2020 17:03 Rabia Chen in [facility] 11/05/2020 17:03
== END ==
PROVIDERS: PCP Pediatrics; Visit Provider Specialist
DX: M54.5 Low back pain (principal); R29.898 Other symptoms and signs involving the musculoskeletal system; M47.22 Other spondylosis with radiculopathy, cervical region
CPT/HCPCS: 72141; 72148; 76376

== ENCOUNTER 2020-11-28 09:04 | Observation (INO) | payer MEDICARE, SELFPAY ==
[2020-11-28] VITALS (11 sets, daily range): BP systolic 136–166; BP diastolic 72–94; PULSE 51–77; RESP 16–20; TEMP 35.8–36.6; O2SAT 82–99; BMI 29.5; BMI 29.2
--- NOTE | 2020-11-28 08:56 | ECG_ITS ---
APPROVED REPORT Exam: Resting ECG HR:65 bpm ECG Measurements Heart Rate 65 AXES FL 194 P 18 QRSd 112 QRS -50 QT 470 T 25 QTc 488 Conclusion Sinus rhythm with occasional premature ventricular complexes Left axis deviation Minimal voltage criteria for LVH, may be normal variant Possible Anterior infarct, age undetermined Abnormal ECG Electronically signed by : Liam Calderon, 11/29/2020 10:23:44
--- NOTE | 2020-11-28 09:11 | XR_ITS ---
PROCEDURE: XR CHEST 2V CLINICAL HISTORY: pain Chest pain, cough COMPARISON: CR XR CHEST 2V from 11/29/2019 CR XR RIBS LT MIN 3V W CXR1V from 04/14/2020 CR XR CHEST 2V from 05/22/[address] ANGIO CHEST from 06/23/2020 FINDINGS: There is a loop recorder device present overlying the left aspect of the heart within the subcutaneous soft tissues.. Normal heart size. No evidence of CHF. There are scattered somewhat ill-defined parenchymal opacities overlying the left upper and left lower lobe. These have developed since 05/22/2020 and may represent healing rib fractures. There does appear to be some offset of the left 7th rib posteriorly. Coronary artery stent is noted. No lobar consolidation or collapse is evident. 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 Degenerative changes noted in the thoracic spine. IMPRESSION: Interval development of multiple ill-defined parenchymal opacities overlying the left upper and left lower lobe consistent with multiple healing rib fractures.. This may be confirmed with chest CT or follow-up radiograph. Dictated by: Jimenez Villafana MD 11/28/2020 10:04 Jimenez Villafana MD in [place] 11/28/2020 10:04
--- NOTE | 2020-11-28 09:33 | CT_ITS ---
PROCEDURE: CT ABDOMEN PELVIS W CON CLINICAL INDICATION: abdominal pain right upper quadrant COMPARISON: CT CT ABDOMEN PELVIS W CON from 06/23/2020 TECHNIQUE: IV Contrast: 75ML Isovue 370 Oral Contrast None Axial images obtained with sagittal and coronal reformats. All CT scans at the facility use one or more dose reduction, viz: automated exposure control, ma/kV adjustment per patient size (including targeted exams where dose is matched to indication, i.e. head), or iterative reconstruction technique. FINDINGS: Numerous gallstones are noted. The liver, spleen, and adrenal glands show no acute finding. There is pancreatic atrophy. No obvious pancreatic mass or peripancreatic fluid collection. There are nonobstructing bilateral renal calculi measuring to 5 mm in the upper pole on the right and 4 mm in the lower pole on the left. No ureteral calculi are evident. There is a 2.3 cm right renal cyst. No intestinal obstruction or free air. No evidence of appendicitis. There is a small umbilical hernia containing fat. There is colonic diverticulosis but no evidence of diverticulitis. Prostate is slightly prominent at 5.3 cm. There is a small right inguinal hernia containing fat. Prominent increased subcutaneous soft tissue density noted in the right inguinal region anteriorly slightly increased in prominence possibly due to an area of scarring. Please correlate with clinical findings. A cutaneous/subcutaneous lesion is an additional consideration. There are small bilateral inguinal lymph nodes. There are degenerative changes in the lumbar spine IMPRESSION: 1. Cholelithiasis. 2. Bilateral nonobstructing renal calculi. 3. Colonic diverticulosis without diverticulitis. 4. Focal thickening of the cutaneous/subcutaneous tissues in the right inguinal area. This could be due to a developing cutaneous/subcutaneous lesion versus an area of scarring. Please correlate with physical exam. 5. Small right inguinal hernia containing fat Dictated by: Jimenez Villafana MD 11/28/2020 10:37 Jimenez Villafana MD in [facility] 11/28/2020 10:37
--- NOTE | 2020-11-28 09:33 | CT_ITS ---
PROCEDURE: CT CHEST W CON CLINCAL INDICATION: abdominal pain right upper quadrant COMPARISON: CT CT ANGIO CHEST from 06/23/2020 CR XR CHEST 2V from 11/28/2020 TECHNIQUE: IV Contrast: 75ml Isovue 370 Axial images obtained with sagittal and coronal reformats. All CT scans at the facility use one or more dose reduction, viz: automated exposure control, ma/kV adjustment per patient size (including targeted exams where dose is matched to indication, i.e. head), or iterative reconstruction technique. FINDINGS: HEART AND MEDIASTINAL STRUCTURES: Thyroid gland is somewhat prominent. No nodules are however demonstrated. No evidence of aortic aneurysm or dissection. No evidence of pulmonary embolus. There are coronary artery stents present. Coronary artery calcification also noted. No mediastinal or hilar mass. LUNGS AND PLEURAL SPACES: No lobar consolidation or collapse is evident. There are some mild fibrotic changes with minimal traction bronchiectasis in the lung bases posteriorly the multiple nodular opacities that were seen on the radiograph of the left lung indeed represents healing rib fractures. No suspicious nodules apparent. BONY STRUCTURES: Artifact is present from right shoulder prosthesis. There are healing fractures involving the left 3rd, 4th, 5th, 6, 7th, 8th ribs. UPPER ABDOMEN: Please see abdomen report ADDITIONAL FINDINGS: No other significant abnormalities. IMPRESSION: No acute finding. No evidence of pulmonary embolus. There are some mild fibrotic changes in the lung bases posteriorly with some minimal traction bronchiectasis Dictated by: Jimenez Villafana MD 11/28/2020 10:29 Jimenez Villafana MD in [facility] 11/28/2020 10:29
[2020-11-28 09:37] LABS: Basophils % 0.5 % (0.1-2.0); Eosinophils # 0.3 K/mm3 (0.0-0.4); Eosinophils % 5.4 % (0.1-12.0); Hematocrit 40.7 % (42.0-52.0); Hemoglobin 13.6 g/dL (14.1-18.0); Lymphocytes # 0.9 K/mm3 (0.7-4.5); Lymphocytes % 15.6 % (10-50); Mean Corpuscular HGB Conc 33.4 g/dL (31.8-35.4); Mean Corpuscular Hemoglobin 29.4 pg (27.0-31.2); Mean Corpuscular Volume 87.9 fl (80-94); Mean Platelet Volume 7.6 fl (7.4-10.4); Monocytes # 0.6 K/mm3 (0.1-1.0); Monocytes % 9.5 % (1.7-9.3); Neutrophils # 4.1 K/mm3 (1.8-7.8); Platelet Count 242 K/mm3 (142-424); Red Blood Count 4.63 M/mm3 (4.60-6.20); Red Cell Distribution Width 13.6 % (11.5-17.5); White Blood Count 5.9 K/mm3 (4.8-10.8)
[2020-11-28 09:46] LABS: Amylase 46 U/L (30-110); Blood Urea Nitrogen 24 mg/dl (9-20); Calcium 8.8 mg/dl (8.4-10.2); Carbon Dioxide 28 mmol/L (22.0-30.0); Chloride 104 mmol/L (98-107); Creatinine Clearance Estimated 72 mL/min (50-200); Estimated Glomerular Filt Rate 71 ml/min (>60); GFR (African American) 86 ML/MIN (>60); Glucose 277 mg/dl (74-100); Lipase 91 U/L (23-300); Sodium 135 mmol/L (136-145)
--- NOTE | 2020-11-28 09:51 | HMH.EDGENADL ---
ED Disposition Clinical Impression: Cholelithiasis and cholecystitis without obstruction, Right upper quadrant pain Disposition: Admitted as Observation Condition on Discharge: Fair Referrals: Jonathan Nichols [Primary Care Provider] - - Critical Care Critical Care Time: No Attestation: On 11/28/20, the high probability of a clinically significant, sudden or life threatening deterioration of the following system(s) required my full and direct attention, intervention and personal management. The time I documented below is in addition to time spent performing reported procedures but includes the following listed in this critical care notation. Medical Decision Making - Medical Records Medical records reviewed: Yes: I reviewed the patient's medical records. - Adi Inquiry Pt receiving controlled substance: No Vital Signs: 11/28/20 09:04 11/28/20 10:41 11/28/20 11:02 Temperature 97.5 F L Temperature Source Oral Pulse Rate 54 L 61 Pulse Rate [Left Radial] 66 Respiratory Rate 20 Blood Pressure 153/76 H 166/87 H Blood Pressure [Right Arm] 138/74 Blood Pressure Mean 128 Blood Pressure Mean [Right Arm] 95 Blood Pressure Source [Right Arm] Automatic Cuff Blood Pressure Position [Right Arm] Sitting 02 Sat by Pulse Oximetry 92 L 94 L 96 Oxygen Delivery Method Room Air 11/28/20 11:31 Temperature Temperature Source Pulse Rate 56 L Pulse Rate [Left Radial] Respiratory Rate Blood Pressure 158/77 H Blood Pressure [Right Arm] Blood Pressure Mean Blood Pressure Mean [Right Arm] Blood Pressure Source [Right Arm] Blood Pressure Position [Right Arm] 02 Sat by Pulse Oximetry 94 L Oxygen Delivery Method - Lab Data Lab results reviewed: Yes: I reviewed the patient's lab results. Lab Results 11/28/20 09:23: WBC 5.9, RBC 4.63, Hgb 13.6 L, Hct 40.7 L, MCV 87.9, MCH 29.4, MCHC 33.4, RDW 13.6, Plt Count 242, MPV 7.6, Neut % (Auto) 69.0, Lymph % (Auto) 15.6, [place] % (Auto) 9.5 H, Eos % (Auto) 5.4, Baso % (Auto) 0.5, Neut # (Auto) 4.1, Lymph # (Auto) 0.9, [place] # (Auto) 0.6, Eos # (Auto) 0.3, Baso # (Auto) 0.0 11/28/20 09:23: Sodium 135 L, Potassium 5.0, Chloride 104, Carbon Dioxide 28, Anion Gap 8.0, BUN 24 H, Creatinine 1.00, Estimated Creat Clear 72, Estimated GFR 71, Est GFR ( Amer) 86, Glucose 277 H, Calcium 8.8, Troponin I < 0.01, Amylase 46, Lipase 91 11/28/20 09:23: Total Bilirubin 0.5, Direct Bilirubin 0.4, Conjugated Bilirubin 0.0, Indirect Bilirubin 0.1, Unconjugated Bilirubin 0.2, AST 37, ALT 28, Alkaline Phosphatase 127 H, Total Protein 6.3, Albumin 3.7 Result diagrams: 11/28/20 09:23 11/28/20 09:23 Orders (Tests/Meds): ED MEDICATIONS Discontinued Medications Generic Name Dose Route Start Last Admin Trade Name Freq PRN Reason Stop Dose Admin Insulin Human Regular 7 unit 11/28/20 10:02 11/28/20 10:41 Insulin Human Regular 100 Units/Ml 10ml Vial SQ 11/28/20 10:03 7 unit ONCE ONE Administration Iopamidol 75 ml 11/28/20 10:01 11/28/20 10:01 Iopamidol-370 (76%);100ml Bottle IV 11/28/20 10:02 75 ml ONCE ONE Administration Ketorolac Tromethamine 15 mg 11/28/20 09:39 11/28/20 09:41 Ketorolac 30mg/Ml Vial IV 11/28/20 09:40 15 mg ONCE ONE Administration Sodium Chloride 10 ml 11/28/20 10:01 11/28/20 10:01 Sodium Chloride 0.9% 10ml Syr (Rad Only) IV 11/28/20 10:02 10 ml ONCE ONE Administration ORDERS Category Date Time Status Troponin I Q3H Lab 11/28/20 12:15 Ordered Troponin I Q3H Lab 11/28/20 15:15 Ordered - CT Data CT Scan: Abdomen, Chest Time Received: 09:[address] Reviewed: Yes: I have reviewed the patient's CT results, I have viewed the radiologist's interpretation Preliminary Findings: Abnormal Findings Narrative: Numerous gallstones are noted. The liver, spleen, and adrenal glands show no acute finding. There is pancreatic atrophy. No obvious pancreatic mass or peripancreatic fluid collection.
[2020-11-28 09:57] LABS: Troponin I < 0.01 ng/ml (0.00-0.034)
[2020-11-28 11:11] LABS: Bilirubin,Unconjugated 0.2 mg/dL (0.0-1.1)
[2020-11-28 11:12] LABS: Alanine Aminotransferase 28 U/L (12-78); Albumin Level 3.7 g/dl (3.5-5.0); Alkaline Phosphatase 127 U/L (38-126); Aspartate Amino Transferase 37 U/L (17-59); Bilirubin,Direct 0.4 mg/dl (0.0-0.4); Bilirubin,Indirect 0.1 mg/dL (0.0-0.9); Bilirubin,Total 0.5 mg/dl (0.2-1.3); Total Protein,Serum 6.3 g/dl (6.3-8.2)
--- NOTE | 2020-11-28 12:14 | PC.NURSE ---
Dr Emerson consulted with Dr Jimenez about pt.
[2020-11-28 13:00] LABS: Troponin I < 0.01 ng/ml (0.00-0.034)
--- NOTE | 2020-11-28 13:00 | PC.NURSE ---
PATIENT ASKED ROSSY SARABIA TO GO AND GET PATIENT'S KEYS OUT OF PATIENT VEHICLE AND RETURN TO PATIENT. PATIENT ASKED ROSSY SARABIA TO LOCK HIS VEHICLE ONCE KEYS WERE REMOVED
[2020-11-28 13:32] LABS: Adenovirus,PCR Not Detected (NotDetected); Bordetella Pertussis Not Detected (NotDetected); Chlamydophila Pneumoniae, PCR Not Detected (NotDetected); Coronavirus 19, PCR Not Detected (NotDetected); Coronavirus 229E Not Detected (NotDetected); Coronavirus NL63 Not Detected (NotDetected); Coronavirus OC43 Not Detected (NotDetected); Coronovirus HKU1,PCR Not Detected (NotDetected); Human Metapneumovirus Not Detected (NotDetected); Influenza A, PCR Not Detected (NotDetected); Influenza AH1, 2009 Not Detected (NotDetected); Influenza AH1, PCR Not Detected (NotDetected); Influenza AH3,PCR Not Detected (NotDetected); Influenza B, PCR Not Detected (NotDetected); Mycoplasma Pneumoniae, PCR Not Detected (NotDetected); Parainfluenza 1, PCR Not Detected (NotDetected); Parainfluenza 2, PCR Not Detected (NotDetected); Parainfluenza 3, PCR Not Detected (NotDetected); Parainfluenza 4, PCR Not Detected (NotDetected); Respiratory Syncytial Virus Not Detected (NotDetected)
--- NOTE | 2020-11-28 14:09 | US_ITS ---
PROCEDURE INFORMATION: Exam: US Abdomen, Limited; Right Upper Quadrant Exam date and time: 11/28/2020 2:09 PM Age: 85 years old Clinical indication: Abdominal pain TECHNIQUE: Imaging protocol: US abdomen. Real time ultrasound with image documentation. Limited exam focused on the right upper quadrant. COMPARISON: CT ABDOMEN PELVIS W CON 11/28/2020 9:59 AM FINDINGS: Liver: Normal. No masses. Gallbladder: Cholelithiasis. There is no gallbladder wall thickening. Common bile duct: Normal. No stones. No dilation. Pancreas: Obscured by bowel gas. Right kidney: 2.4 cm cyst. Stones seen on CT are not visualized with confidence. No hydronephrosis. IMPRESSION: 1. Cholelithiasis. 2. 2.4 cm right renal cyst.
--- NOTE | 2020-11-28 14:20 | PC.NURSE ---
Radiology aware of gallbladder us.
[2020-11-28 14:38] LABS: Rhinovirus/Enterovirus Detected (NotDetected)
--- NOTE | 2020-11-28 15:30 | PC.NURSE ---
Contacted cardiology office and notified them about consult for this pt.
[2020-11-28 17:21] LABS: POC Glucose,Bedside 187 (70-110)
--- NOTE | 2020-11-28 17:30 | HMH.HP ---
*Admission Date: 11/28/20 *Chief complaint: RUQ abd pain *History of present illness: 85 year old male patient of Dr. Nichols in [place], [place], with a history of CAD, paroxysmal A fib, CAD and DM type 2, presented to [facility] ER today complaining of a 2 or 3 day history of RUQ abdominal pain. Movement makes pain worse. Food intake does not seem to affect the pain. Pain is not constant but comes and goes. He h as had no previous episodes. Over the past few months he has had diarrhea a few times. He denies nausea and vomiting. [facility] History Medical History: Reports:: Anxiety, Atherosclerotic Heart Disease, Atrial Fibrillation (stopped anticoags due to GI bleeding a few years ago), Congestive Heart Failure (EF 45% on ECHO 2019, EF 42% on stress test), Diabetes Mellitus Type 2, Gastrointestinal Bleed, Hyperlipidemia, Hypertension, Internal Pacemaker, Myocardial Infarction, Seizures Denies:: Cancer, Diabetes Mellitus Type 1, MRSA *Have you ever received a pneumonia vaccine?: No *Have you received a flu vaccine this season?: No Other Medical History: Reports: Arthritis, Blood Transfusion Reaction Laterality Cases: Bilateral: Arthroscopy Knee, Arthroscopy Shoulder, Other Other Surgeries: Yes: Angiogram (10/11/17), Cardiac Catheterization, Cardiac Surgery, Colonoscopy, Coronary Stent, EGD, Pacemaker, Other Amputation: No Fractures: No - *Social History Smoking Status: Never smoker Alcohol Intake: never Alcohol Intake Frequency:: other Substance Use Type: denies use *Occupational Status:: employed Housing: house Household Members: none *Travel in the last 8 weeks: None - Psychiatric History Pschychiatric History:: Reports:: Anxiety Family Hx:: Hyperlipidemia, Cancer, Hypertension, Diabetes Review of Systems - Constitutional Denies chills, Denies fever(s) - Eyes Denies blurry vision - ENT Denies bleeding gums - *Cardiovascular Denies chest pain - *Respiratory Denies cough - *Gastrointestinal Denies black, tarry stools - *Genitourinary Denies difficulty urinating - *Musculoskeletal Denies joint swelling - Integumentary/Breasts Denies rash - *Neurologic Denies dizziness - Endocrine Denies rapid, pounding, or irregular heartbeat Meds Home Medications Medication Instructions Recorded Confirmed Type insulin detemir U-100 100 unit/mL 40 unit SQ HS ml 09/27/17 11/28/20 History subcutaneous solution metformin 500 mg tablet 500 mg PO HS tab 10/18/19 11/28/20 History lisinopril 20 mg tablet 20 mg PO HS tab 09/19/20 11/28/20 History metoprolol succinate 25 mg 25 mg PO HS tab 11/19/20 11/28/20 History tablet,extended release 24 hr Allergies Allergy/AdvReac Type Severity Reaction Status Date / Time No Known Allergies Allergy Verified 11/19/20 09:19 Exam Vital signs and Labs for Last 24 Hours: Temp Pulse Resp BP Pulse Ox 96.4 F L 77 17 136/89 98 11/28/20 15:57 11/28/20 15:57 11/28/20 15:57 11/28/20 15:57 11/28/20 15:57 Laboratory Results - last 24 hr 11/28/20 09:23: WBC 5.9, RBC 4.63, Hgb 13.6 L, Hct 40.7 L, MCV 87.9, MCH 29.4, MCHC 33.4, RDW 13.6, Plt Count 242, MPV 7.6, Neut % (Auto) 69.0, Lymph % (Auto) 15.6, Oliver % (Auto) 9.5 H, Eos % (Auto) 5.4, Baso % (Auto) 0.5, Neut # (Auto) 4.1, Lymph # (Auto) 0.9, Oliver # (Auto) 0.6, Eos # (Auto) 0.3, Baso # (Auto) 0.0 11/28/20 09:23: Sodium 135 L, Potassium 5.0, Chloride 104, Carbon Dioxide 28, Anion Gap 8.0, BUN 24 H, Creatinine 1.00, Estimated Creat Clear 72, Estimated GFR 71, Est GFR ( Amer) 86, Glucose 277 H, Calcium 8.8, Troponin I < 0.01, Amylase 46, Lipase 91 11/28/20 09:23: Total Bilirubin 0.5, Direct Bilirubin 0.4, Conjugated Bilirubin 0.0, Indirect Bilirubin 0.1, Unconjugated Bilirubin 0.2, AST 37, ALT 28, Alkaline Phosphatase 127 H, Total Protein 6.3, Albumin 3.7 11/28/20 12:16: Troponin I < 0.01 11/28/20 12:55: Chlamy pneumoniae PCR Not detected, Adenovirus (PCR) Not detected, B. pertussis DNA (PCR) Not detected, Coronav
--- NOTE | 2020-11-28 19:45 | PC.NURSE ---
THIS RN UNABLE TO COMPLETE MED REC. PATIENT DOES NOT KNOW WHAT MG OF OTC MEDICATIONS. THIS RN REQUIRED PATIENT'S DAUGHTER TO BRING IN MEDICATIONS TO COMPLETE MED REC AND DUE TO PATIENT IS OBSERVATION. PATIENT IS A&O X4, PULSES EQUAL. NO NEW CONCERNS AT THIS TIME.
[2020-11-28 21:23] LABS: POC Glucose,Bedside 259 (70-110)
[2020-11-29] VITALS (23 sets, daily range): BP systolic 94–122; BP diastolic 42–71; PULSE 54–74; RESP 12–18; TEMP 36.2–43; O2SAT 93–99; BMI 28.9; BMI 29.0
--- NOTE | 2020-11-29 06:01 | PC.NURSE ---
Patient c/o pain in right flank area scoring 4/10; administered Tylenol #3 per MAR with desired effect achieved. Patient shows no s/s of acute distress, call light within reach, bed at lowest level for safety; will continue to monitor.
--- NOTE | 2020-11-29 06:33 | HMH.GSCON ---
*Admission Date: 11/28/20 *Reason for consult:: Symptomatic cholelithiasis *History of present illness: This is an 85-year-old gentleman seen in consultation from the service of Dr. Sanchez for evaluation regarding possible gallbladder disease. He presented to the emergency department with increasing right upper quadrant abdominal pain. No fevers. No jaundice. A CT scan revealed gallstones but no evidence of definitive cholecystitis. HPI from admission H&P is forwarded below. Forwarded from admission H&P: 85 year old male patient of Dr. Nichols in [place], [place], with a history of CAD, paroxysmal A fib, CAD and DM type 2, presented to [facility] ER today complaining of a 2 or 3 day history of RUQ abdominal pain. Movement makes pain worse. Food intake does not seem to affect the pain. Pain is not constant but comes and goes. He h as had no previous episodes. Over the past few months he has had diarrhea a few times. He denies nausea and vomiting. Review of Systems - Constitutional Denies chills - Eyes Denies change in vision - *Cardiovascular Denies chest pain - *Respiratory Denies cough - *Gastrointestinal Reports abdominal pain - *Neurologic Reports abnormal walking, Reports abnormal hearing, Denies dizziness - Allergic/Immunologic Denies GI upset with certain foods [facility] History Medical History: Reports:: Anxiety, Arrhythmia, Atherosclerotic Heart Disease, Atrial Fibrillation (stopped anticoags due to GI bleeding a few years ago), Congestive Heart Failure (EF 45% on ECHO 2019, EF 42% on stress test), Coronary Artery Disease, Diabetes Mellitus Type 2, Gastrointestinal Bleed, Hyperlipidemia, Hypertension, Internal Pacemaker, Myocardial Infarction, Seizures Denies:: Cancer, Diabetes Mellitus Type 1, MRSA *Have you ever received a pneumonia vaccine?: No *Have you received a flu vaccine this season?: No Other Medical History: Reports: Arthritis, Blood Transfusion Reaction Laterality Cases: Bilateral: Arthroscopy Knee, Arthroscopy Shoulder, Other Other Surgeries: Yes: No Previous Surgery, Angiogram (10/11/17), Angioplasty, Cardiac Catheterization, Cardiac Surgery, Colonoscopy, Coronary Stent, EGD, Pacemaker, Other Amputation: No Fractures: No - *Social History Smoking Status: Never smoker Alcohol Intake: never Alcohol Intake Frequency:: other Substance Use Type: denies use *Occupational Status:: employed Housing: house Household Members: none *Travel in the last 8 weeks: None - Psychiatric History Pschychiatric History:: Reports:: Anxiety Family Hx:: Hyperlipidemia, Cancer, Hypertension, Diabetes Meds Home Medications Medication Instructions Recorded Confirmed Type insulin detemir U-100 100 unit/mL 40 unit SQ HS ml 09/27/17 11/28/20 History subcutaneous solution metformin 500 mg tablet 500 mg PO HS tab 10/18/19 11/28/20 History lisinopril 20 mg tablet 20 mg PO HS tab 09/19/20 11/28/20 History metoprolol succinate 25 mg 25 mg PO HS tab 11/19/20 11/28/20 History tablet,extended release 24 hr Allergies Allergy/AdvReac Type Severity Reaction Status Date / Time No Known Allergies Allergy Verified 11/19/20 09:19 Exam Vital signs and Labs for Last 24 Hours: Temp Pulse Resp BP Pulse Ox 97.6 F 59 L 16 116/50 L 96 11/29/20 04:00 11/29/20 04:00 11/29/20 04:00 11/29/20 04:00 11/29/20 04:00 Laboratory Results - last 24 hr 11/28/20 09:23: WBC 5.9, RBC 4.63, Hgb 13.6 L, Hct 40.7 L, MCV 87.9, MCH 29.4, MCHC 33.4, RDW 13.6, Plt Count 242, MPV 7.6, Neut % (Auto) 69.0, Lymph % (Auto) 15.6, Mccracken % (Auto) 9.5 H, Eos % (Auto) 5.4, Baso % (Auto) 0.5, Neut # (Auto) 4.1, Lymph # (Auto) 0.9, Mccracken # (Auto) 0.6, Eos # (Auto) 0.3, Baso # (Auto) 0.0 11/28/20 09:23: Sodium 135 L, Potassium 5.0, Chloride 104, Carbon Dioxide 28, Anion Gap 8.0, BUN 24 H, Creatinine 1.00, Estimated Creat Clear 72, Estimated GFR 71, Est GFR ( Amer) 86, Glucose 277 H, Calcium 8.8, Troponin I < 0.01, Amylase 46, Li
[2020-11-29 07:42] LABS: POC Glucose,Bedside 256 (70-110)
[2020-11-29 07:42] LABS: Chloride 102 mmol/L (98-107); Potassium 4.8 mmoL/L (3.5-5.1); Sodium 131 mmol/L (136-145)
[2020-11-29 07:44] LABS: Blood Urea Nitrogen 26 mg/dl (9-20); Creatinine Clearance Estimated 70 mL/min (50-200); Estimated Glomerular Filt Rate 92 ml/min (>60); GFR (African American) 112 ML/MIN (>60)
[2020-11-29 07:45] LABS: Alanine Aminotransferase 26 U/L (12-78); Albumin Level 3.5 g/dl (3.5-5.0); Albumin/Globulin Ratio 1.3 (1.1-1.8); Alkaline Phosphatase 113 U/L (38-126); Anion Gap 10.8 mEq/L (5-15); Aspartate Amino Transferase 27 U/L (17-59); Bilirubin,Total 0.6 mg/dl (0.2-1.3); Calcium 8.5 mg/dl (8.4-10.2); Carbon Dioxide 23 mmol/L (22.0-30.0); Globulin 2.6 g/dL (1.3-3.2); Glucose 244 mg/dl (74-100); Total Protein,Serum 6.1 g/dl (6.3-8.2)
--- NOTE | 2020-11-29 07:50 | HMH.CNCARD ---
History of Present Illness Consult date: 11/29/20 Requesting physician: Jonathan Sanchez Consult reason: shortness of breath, pre-op evaluation Chief complaint: Abdominal pain, CAD, CHF History of present illness: 85-year-old male admitted to [facility] with upper right quadrant pain. Patient states he has been having this right upper quadrant pain for the past 3 to 4 days. Patient states pain is consistent. Patient denies nausea, vomiting or diarrhea. Patient denies fever. Patient states he was told that he has gallstones and therefore needs to have his gallbladder removed. Cardiology was consulted for cardiac clearance (Gallbaldder)due to patient having history of CAD, Parsyomal Atrial fibrillation and congestive heart failure. Patient denies chest pain, tightness or pressure. Patient does complain of increased shortness of breath with exertion especially accompanied with right upper quadrant pain. No swelling noted of the lower extremities. Patient denies palpitations or dizziness. Last heart catheterization (06/16)revealed mild CAD with EF 40 to 45%. Medical management was noted. Patient does have history of coronary stenting. History of hypertension which has been controlled. History of PAF in which he has been in sinus rhythm with an occasional PVC. Patient is on no anticoagulants. Patient does have a loop recorder in. Last download was October which revealed no events. Patient does have history of diabetes which is controlled. This is managed through PCP. Patient states history of seizures. Managed by PCP. Last echocardiogram was in May 2020, which revealed EF 45% with no regional wall abnormality. Grade 1 diastolic dysfunction. Mild MR and TR noted. Vital signs are stable. Echocardiogram was obtained to assess LV function and valve status. Echocardiogram revealed EF 50% with no regional wall abnormality diastolic dysfunction undetermined. Mild MR and TR noted. Vital signs stable. Echo:Conclusion 1. Mildly enlarged left atrium, normal left ventricular size, mild concentric left ventricular hypertrophy, visually estimated ejection fraction 50% with no regional wall motion abnormality, diastolic parameters are inconclusive. 2. Mild mitral and tricuspid regurgitation. 3. No significant pericardial effusion noted. Thank you for allowing cardiology to participate in the care of this patient. Discussed plan of care with Dr. Anderson. Patient is at a low and acceptable risk from a cardiac standpoint to proceed with his elective jury. Please notify cardiology of any changes in patient status. Thank you for allowing cardiology to participate in the care of this patient. [facility] History I have reviewed the patient's past medical history: Yes Medical History: Reports:: Anxiety, Arrhythmia, Atherosclerotic Heart Disease, Atrial Fibrillation (stopped anticoags due to GI bleeding a few years ago), Congestive Heart Failure (EF 45% on ECHO 2019, EF 42% on stress test), Coronary Artery Disease, Diabetes Mellitus Type 2, Gastrointestinal Bleed, Hyperlipidemia, Hypertension, Internal Pacemaker, Myocardial Infarction, Seizures Denies:: Cancer, Diabetes Mellitus Type 1, MRSA *Have you ever received a pneumonia vaccine?: No *Have you received a flu vaccine this season?: No Other Medical History: Reports: Arthritis, Blood Transfusion Reaction Laterality Cases: Bilateral: Arthroscopy Knee, Arthroscopy Shoulder, Other Other Surgeries: Yes: No Previous Surgery, Angiogram (10/11/17), Angioplasty, Cardiac Catheterization, Cardiac Surgery, Colonoscopy, Coronary Stent, EGD, Pacemaker, Other Amputation: No Fractures: No - *Social History Smoking Status: Never smoker Alcohol Intake: never Alcohol Intake Frequency:: other Substance Use Type: denies use *Occupational Status:: employed Housing: house Household Members: none *Travel in the last 8 weeks: None - Psychiatric History Pschychiatric History:: Reports:: Anxie
--- NOTE | 2020-11-29 07:53 | HMH.PHAVTE ---
[facility] Pharmacy VTE Monitoring - Patient Demographics Admission date: 11/29/20 Report Date: 11/29/20 Time: 07:53 Allergies/Adverse Reactions: Patient Allergies No Known Allergies Allergy (Verified 11/19/20 09:19) Height: 1.75 m Weight: 88.677 kg Patient Problems: Current Active Problems Cholelithiasis and cholecystitis without obstruction (Acute) Right upper quadrant pain (Acute) CHF (congestive heart failure) (Acute) Diastolic dysfunction (Acute) HBP (high blood pressure) (Chronic) Cholelithiasis (Acute) Stented coronary artery (Chronic) Hyperlipidemia (Chronic) Diabetes mellitus (Chronic) Paroxysmal atrial fibrillation (Chronic) - VTE Risk Labs: VTE Related Lab Results Hgb 13.6 g/dL (14.1-18.0) L 11/28/20 09:23 Hct 40.7 % (42.0-52.0) L 11/28/20 09:23 Plt Count 242 K/mm3 (142-424) 11/28/20 09:23 BUN 26 mg/dl (9-20) H 11/29/20 07:06 Creatinine 0.80 mg/dl (0.66-1.25) 11/29/20 07:06 Estimated Creat Clear 70 mL/min (50-200) 11/29/20 07:06 Was VTE Risk Assessment Performed: Yes VTE Score: 5 VTE Risk Level: Low Risk Clinical Trial Participant: No - Prophylaxis VTE Prophylaxis Ordered?: Yes Types of VTE Prophylaxis: TEDS Knee High
--- NOTE | 2020-11-29 08:00 | CA_ITS ---
APPROVED REPORT EXAM: Comprehensive 2D, Doppler, and color-flow Echocardiogram Bib[employer] Languages Professor: Kathy Lucia RT(R) Ht: 5 ft 9 in Wt: 200lbs BSA: 2.07 BP: 136/89 mmHg Indications: HTN, hyperlipidemia, DM, CAD, AFIB, CHF, 45% on echo 05/2020, hx [place], preop clearance for gallbladder surgery today. 2D Dimensions LVOT 2.21 cm (M/F) 1.5-2.5 LA Volume 44.80 mL LA Volume Index 21.74 mL/m2 (M/F) 16-34 M-Mode Dimensions RVDd 2.90 cm (0.9-2.6) LA Diam 3.20 cm (1.9-4.0) LVDd 5.00 cm (3.5-5.7) Ao Diam 3.39 cm (2.0-3.7) LVDs 4.07 cm (3.5-5.7) IVSd 1.26 cm (0.6-1.1) PWd 0.84 cm (0.6-1.1) EF (Teich) 38.30% FS 18.60% EDV (Teich) 118.20 mL ESV (Teich) 72.90 mL LV Diastology E Decel Time 167.00 (160-240 msec) E/A Ratio 0.4 Aortic Valve AoV Peak Isra. 160.00 (50-130 cm/s) AO Peak GR. 10.20 mmHg AO Mean GR. 5.00 (<5 mmHg) AO VTI 35.06 (18-25 cm) Mitral Valve MV E Max Isra. 46.00 (40-130 cm/s) MV A Velocity 121.00 (40-130 cm/s) E/A Ratio 0.38 MV Decel. Time 167.00 (160-240 ms) MV PHT 49.00 ms Left Ventricle Left atrium is mildly enlarged, left ventricle is normal size, mild concentric left ventricular hypertrophy, visually estimated ejection fraction 50% with no regional wall motion abnormality. Diastolic parameters are inconclusive. Right Ventricle Right atrium and right ventricle are normal size and contractility. Aortic Valve Aortic valve is minimally thickened and fibrosed, there is no aortic stenosis or aortic insufficiency. Mitral Valve Mitral valve has mild mitral annular calcification, there is no mitral stenosis, there is mild mitral regurgitation. Tricuspid Valve Tricuspid grossly normal, there is mild tricuspid regurgitation, tricuspid regurgitation jet velocity is inadequate for calculation of the right ventricular systolic pressure. Pulmonic Valve Pulmonic valve is poorly visualized. Great Vessels Aortic root is normal size. Pericardium No significant pericardial effusion noted. Conclusion 1. Mildly enlarged left atrium, normal left ventricular size, mild concentric left ventricular hypertrophy, visually estimated ejection fraction 50% with no regional wall motion abnormality, diastolic parameters are inconclusive. 2. Mild mitral and tricuspid regurgitation. 3. No significant pericardial effusion noted. Electronically signed by : Elieser Babcock, 11/29/2020 10:22:05
--- NOTE | 2020-11-29 08:03 | HMH.PHAINT ---
CLARIFIED HOME MEDICATION LIST USING LIST FROM OUTPATIENT PHARMACY
[2020-11-29 08:06] LABS: Eosinophils % 0.1 % (0.1-12.0); Hematocrit 37.8 % (42.0-52.0); Hemoglobin 12.8 g/dL (14.1-18.0); Lymphocytes # 0.8 K/mm3 (0.7-4.5); Lymphocytes % 8.5 % (10-50); Mean Corpuscular Hemoglobin 29.2 pg (27.0-31.2); Monocytes # 0.3 K/mm3 (0.1-1.0); Monocytes % 3.8 % (1.7-9.3); Neutrophils # 7.7 K/mm3 (1.8-7.8); Neutrophils % 87.5 % (37.0-80.0); Platelet Count 217 K/mm3 (142-424); Red Blood Count 4.39 M/mm3 (4.60-6.20); Red Cell Distribution Width 13.6 % (11.5-17.5); White Blood Count 8.8 K/mm3 (4.8-10.8)
--- NOTE | 2020-11-29 08:07 | HMH.ACPN2 ---
<Sylwia Hill - Last Filed: 11/29/20 08:12> Internal Medicine - PN: Subj *Date: 11/29/20 *Time: 08:12 Interval history: Pt is resting quietly in bed. He denies any complaint other than continued RUQ discomfort. He is voiding qshift. He is NPO for surgery pending cardiology clearance. Exam Vital signs and Labs for Last 24 Hours: Temp Pulse Resp BP Pulse Ox 98.2 F 62 16 122/58 L 95 11/29/20 07:57 11/29/20 07:57 11/29/20 07:57 11/29/20 07:57 11/29/20 07:57 Laboratory Results - last 24 hr 11/28/20 09:23: WBC 5.9, RBC 4.63, Hgb 13.6 L, Hct 40.7 L, MCV 87.9, MCH 29.4, MCHC 33.4, RDW 13.6, Plt Count 242, MPV 7.6, Neut % (Auto) 69.0, Lymph % (Auto) 15.6, Young % (Auto) 9.5 H, Eos % (Auto) 5.4, Baso % (Auto) 0.5, Neut # (Auto) 4.1, Lymph # (Auto) 0.9, Young # (Auto) 0.6, Eos # (Auto) 0.3, Baso # (Auto) 0.0 11/28/20 09:23: Sodium 135 L, Potassium 5.0, Chloride 104, Carbon Dioxide 28, Anion Gap 8.0, BUN 24 H, Creatinine 1.00, Estimated Creat Clear 72, Estimated GFR 71, Est GFR ( Amer) 86, Glucose 277 H, Calcium 8.8, Troponin I < 0.01, Amylase 46, Lipase 91 11/28/20 09:23: Total Bilirubin 0.5, Direct Bilirubin 0.4, Conjugated Bilirubin 0.0, Indirect Bilirubin 0.1, Unconjugated Bilirubin 0.2, AST 37, ALT 28, Alkaline Phosphatase 127 H, Total Protein 6.3, Albumin 3.7 11/28/20 12:16: Troponin I < 0.01 11/28/20 12:55: Chlamy pneumoniae PCR Not detected, Adenovirus (PCR) Not detected, B. pertussis DNA (PCR) Not detected, Coronavirus OC43 (PCR) Not detected, Coronavirus HKU1 (PCR) Not detected, Coronavirus 229E (PCR) Not detected, SARS-CoV-2 (PCR) Not detected, Coronavirus NL63 (PCR) Not detected, Human Metapneumovir PCR Not detected, Influenza A (H1) PCR Not detected, Influ A (H1N1/09) PCR Not detected, Influenza A (H3) PCR Not detected, Influenza Type A (PCR) Not detected, Influenza Type B (PCR) Not detected, M. pneumoniae (PCR) Not detected, Parainfluenza 1 (PCR) Not detected, Parainfluenza 2 (PCR) Not detected, Parainfluenza 3 (PCR) Not detected, Parainfluenza 4 (PCR) Not detected, RSV (PCR) Not detected, Entero/Rhino (PCR) Detected A 11/28/20 17:03: POC Glucose 187 H 11/28/20 20:48: POC Glucose 259 H 11/29/20 05:50: POC Glucose 256 H 11/29/20 07:06: Sodium 131 L, Potassium 4.8, Chloride 102, Carbon Dioxide 23, Anion Gap 10.8, BUN 26 H, Creatinine 0.80, Estimated Creat Clear 70, Estimated GFR 92, Est GFR ( Amer) 112 D, Glucose 244 H, Calcium 8.5, Total Bilirubin 0.6, AST 27 D, ALT 26, Alkaline Phosphatase 113, Total Protein 6.1 L, Albumin 3.5, Globulin 2.6, Albumin/Globulin Ratio 1.3 I & O for Last 24 hours: Intake & Output 11/26/20 11/27/20 11/28/20 11/29/20 11:59 11:59 11:59 11:59 Intake Total 360 / 360 Balance 360 / 360 Weight 200 lb 195 lb 8 oz - Constitutional no acute distress - *Routine HEENT Exam Head: Present: normocephalic ENT: Present: mucous membranes moist - *Routine Respiratory Exam Present: CTA bilaterally. Absent: rhonchi, wheezes - *Routine Cardiovascular Exam Present: RRR - *Routine Abdominal Exam Present: soft, normoactive bowel sounds, obese. Absent: distended, rebound, guarding, firm, rigid Comments: RUQ ttp - *Routine Extremities Exam Present: full ROM, pulses intact, normal capillary refill. Absent: edema, calf tenderness, extremity cold to touch - *Routine Neurological Exam Present: alert, oriented X3, moving all extremities. Absent: facial asymmetry Assessment and Plan (1) Right upper quadrant pain Status: Acute Category: Medical Code(s): R10.11 - Right upper quadrant pain (2) Cholelithiasis Status: Acute Category: Medical Code(s): K80.20 - Calculus of gallbladder without cholecystitis without obstruction (3) Diabetes mellitus Status: Chronic Qualifiers: Diabetes mellitus type: type 2 Diabetes mellitus drum puller insulin use: with residential use Diabetes mellitus complication status: without complication Qualified Code(s): E11.
[2020-11-29 08:08] LABS: MANUAL DIFFERENTIAL MANUAL DIFFERENTIAL (MANUAL DIFF)
[2020-11-29 09:25] LABS: Lymphocytes % 11 % (10-50); Monocytes % 2 % (2-9); Neutrophils % 87 % (42-76); Platelet Estimate Normal; RBC Morphology Normal; Total Cells Counted 100
--- NOTE | 2020-11-29 11:08 | PC.NURSE ---
OR STAFF AT BEDSIDE AT THIS TIME, PT TO PREOP W/ STAFF AT 1110
--- NOTE | 2020-11-29 12:37 | HMH.ANESCL ---
[facility] Anesthesia Checklist - Structural Data Admitted From: Home Planned Operative Procedure/s: catrachito ferrarae Consent for Planned Operative Procedure(s) Verified: Yes - Additional verifications Anesthesia Reactions: No Hx Blood Transfusions: No Blood Transfusion Reaction: Yes - Airway Assessment C-Spine Mobility Assessed: Yes TMJ Mobility Assessed: Yes Dentition: Good Dentition - Neurological Assessment Level of Consciousness: Awake, Alert, Appropriate - Anesthesia Plan Anesthesia Risk discussed: Yes Anesthesia Plan: Verified ASA Class: III Anesthesia Type: General [facility] History I have reviewed the patient's past medical history: Yes Medical History: Reports:: Anxiety, Arrhythmia, Atherosclerotic Heart Disease, Atrial Fibrillation (stopped anticoags due to GI bleeding a few years ago), Congestive Heart Failure (EF 45% on ECHO 2019, EF 42% on stress test), Coronary Artery Disease, Diabetes Mellitus Type 2, Gastrointestinal Bleed, Hyperlipidemia, Hypertension, Internal Pacemaker, Myocardial Infarction, Seizures Denies:: Cancer, Diabetes Mellitus Type 1, MRSA *Have you ever received a pneumonia vaccine?: No *Have you received a flu vaccine this season?: No Other Medical History: Reports: Arthritis, Blood Transfusion Reaction Anesthesia experience/problems:: none Laterality Cases: Bilateral: Arthroscopy Knee, Arthroscopy Shoulder, Other Other Surgeries: Yes: No Previous Surgery, Angiogram (10/11/17), Angioplasty, Cardiac Catheterization, Cardiac Surgery, Colonoscopy, Coronary Stent, EGD, Pacemaker, Other Amputation: No Fractures: No - *Social History Smoking Status: Never smoker Alcohol Intake: never Alcohol Intake Frequency:: other Substance Use Type: denies use *Occupational Status:: employed Housing: house Household Members: none *Travel in the last 8 weeks: None - Psychiatric History Pschychiatric History:: Reports:: Anxiety Family Hx:: Hyperlipidemia, Cancer, Hypertension, Diabetes
--- NOTE | 2020-11-29 13:24 | P.OP_ITS ---
Date of procedure: 11/29/20 Pre-op Diagnosis:: Symptomatic cholelithiasis with possible calculus cholecystitis Post-op Diagnosis:: Acute calculus cholecystitis Procedure performed:: Laparoscopic cholecystectomy Surgeon:: Jeffery Edmond MD [employer] HCM CONSULTANT:: Javi Lal Anesthesia: GETA Estimated blood loss (mL): 25 Operative findings:: Distended gallbladder Serosal weeping Multiple tiny stones Operative note:: After informed consent was obtained, the patient was taken to the operating room and placed in the supine position. General anesthesia was induced and the abdomen was prepped and draped in a sterile fashion. After infiltration with local anesthetic an infraumbilical incision was made. A Veress needle was placed in position. The abdomen was insufflated. A 5 mm optical trocar was placed in position. Under direct visualization, a 12 mm trocar was placed in the subxiphoid position and 2 additional 5 mm trocars were placed in the right upper quadrant. The gallbladder was elevated up and over the liver margin. The gallbladder was quite distended. Serosal weeping was noted. The tissue around the cystic duct was carefully dissected. 3 clips were placed proximally and the duct was transected with harmonic azeem. Harmonic azeem were then utilized to dissect the gallbladder away from the liver margin with careful attention to the control of the cystic artery. Some spillage of luminal contents noted. Multiple tiny stones throughout the gallbladder were confirmed. The gallbladder was placed in a retrieval bag and removed through the subxiphoid trocar site. The right upper quadrant was thoroughly irrigated. No active bleeding or bile leak was noted. Fascia at the subxiphoid trocar site was reapproximated utilizing the NeoClose device. The remaining trocars were removed. All wounds were irrigated and skin was closed with 4-0 Monocryl in a subcuticular fashion. Steri-Strips were applied. The patient's anesthetic agents were reversed and extubation was completed prior to transfer to recovery in stable condition. Condition: stable Disposition: PACU Specimens:: Gallbladder Complications:: No immediate
--- NOTE | 2020-11-29 13:25 | P.PN_ITS ---
[facility] Anesthesia Record Part I Intake, IV Amount: 900 Estimated blood loss (mL): 0 Urine output (mL): 0 Blood Pressure: 118/70 SaO2: 93 Pulse Rate: 72 Respiratory Rate: 12 Temperature: 97.4 F Patient is:: Awake, Stable Stable to PACU at:: 13:25
--- NOTE | 2020-11-29 14:15 | PC.NURSE ---
[id number]-detailed report called to Lillie Sierra RN [id number] transported to post op via hospital bed w/svetlana rails up and left in care of NO Marte with bed locked in lowest position, vss, family at bedside, pt stable
--- NOTE | 2020-11-29 14:35 | P.PN_ITS ---
[facility] Anesthesia Record Part II Discharge Time: 13:55 Destination: Medical Surgical Department PACU nurse assessment reviewed?: Yes Patient Condition:: Good Anesthesia Complications:: None Swallowing reflex intact?: Yes Cyanosis?: No Blood Pressure: 101/53 Pulse Rate: 58 Temperature: 98.9 F Mental Status: Alert & Oriented Pain level:: 6 Nausea and/or vomitting:: None Intake, IV Amount: 0
--- NOTE | 2020-11-29 18:57 | PC.NURSE ---
HE IS AOX4 BUT DROWSY, ANSWERS QUESTIONS APPROPRIATELY, MAKES NEEDS KNOWN TO STAFF, VS HAVE REMAINED STABLE, TOLERATED MODERATE PO INTAKE WELL, HAS C/O PAIN AND WAS TREATED WITH PRN DILAUDID PER MAR WITH GOOD EFFECTIVENESS, HE DENIES N/V/D, SURGICAL INCISIONS COVERED WITH TELFA AND TEGADERM, NO DRAINAGE NOTED, O2 SATS HAVE REMINED STABLE WITH NO NEED FOR O2 SUPPORT, PT RESTING COMFORTABLY, NO NEEDS AT THIS TIME.
[2020-11-29 21:26] LABS: POC Glucose,Bedside 286 (70-110)
[2020-11-30] VITALS: BP 95/48; PULSE 64; RESP 16; TEMP 36.7; O2SAT 92
--- NOTE | 2020-11-30 03:14 | PC.NURSE ---
patient post op day 1; 4 dressings on abdomen c/d/i; has rested most of shift showing no s/s acute distress; VS WNL; has eaten 1 chocolate ice cream and tolerated it well. Has not voided and no flatulence noted at this time. Call light within reach, bed at lowest level for safety; will continue to monitor.
--- NOTE | 2020-11-30 03:36 | PC.NURSE ---
patient woke up with report of pain at incision sites scoring 8/10 and itching real bad all over. Pain medication administered per MAR with Benadryl. VS WNL, shows no s/s of acute distress at this time; will continue to monitor.
[2020-11-30 03:43] VITALS: BP 120/68; PULSE 64; RESP 18; TEMP 36.4; O2SAT 94
[2020-11-30 04:59] VITALS: BMI 29.4
[2020-11-30 05:26] LABS: POC Glucose,Bedside 306 (70-110)
--- NOTE | 2020-11-30 06:10 | HMH.ACPN2 ---
Internal Medicine - PN: Subj *Date: 11/30/20 *Time: 06:10 Interval history: Pt reports having pain through the night at an incision site, has not voided overnight, no vomiting. Exam Vital signs and Labs for Last 24 Hours: Temp Pulse Resp BP Pulse Ox 97.6 F 64 18 120/68 94 L 11/30/20 03:43 11/30/20 03:43 11/30/20 03:43 11/30/20 03:43 11/30/20 03:43 Laboratory Results - last 24 hr 11/29/20 05:50: POC Glucose 256 H 11/29/20 07:06: WBC 8.8 D, RBC 4.39 L, Hgb 12.8 L, Hct 37.8 L, MCV 86.0, MCH 29.2, MCHC 34.0, RDW 13.6, Plt Count 217, MPV 8.0, Neut % (Auto) 87.5 H, Lymph % (Auto) 8.5 L, [place] % (Auto) 3.8, Eos % (Auto) 0.1, Baso % (Auto) 0.0 L, Neut # (Auto) 7.7, Lymph # (Auto) 0.8, [place] # (Auto) 0.3, Eos # (Auto) 0.0, Baso # (Auto) 0.0, Total Counted 100, Neutrophils % (Manual) 87 H, Lymphocytes % (Manual) 11, Monocytes % (Manual) 2, Platelet Estimate Normal, RBC Morphology Normal 11/29/20 07:06: Sodium 131 L, Potassium 4.8, Chloride 102, Carbon Dioxide 23, Anion Gap 10.8, BUN 26 H, Creatinine 0.80, Estimated Creat Clear 70, Estimated GFR 92, Est GFR ( Amer) 112 D, Glucose 244 H, Calcium 8.5, Total Bilirubin 0.6, AST 27 D, ALT 26, Alkaline Phosphatase 113, Total Protein 6.1 L, Albumin 3.5, Globulin 2.6, Albumin/Globulin Ratio 1.3 11/29/20 21:06: POC Glucose 286 H 11/30/20 05:13: POC Glucose 306 H* Vital Signs - 24 hr 11/29/20 07:57 11/29/20 08:00 11/29/20 13:25 Temperature 98.2 F Pulse Rate Pulse Rate [Apical] 74 Pulse Rate [Left Radial] 62 Respiratory Rate 16 12 Blood Pressure Blood Pressure [Right Arm] 122/58 L 118/70 02 Sat by Pulse Oximetry 95 99 94 L 11/29/20 13:26 11/29/20 13:35 11/29/20 13:45 Temperature 97.4 F L Pulse Rate 72 Pulse Rate [Apical] 61 62 Pulse Rate [Left Radial] Respiratory Rate 12 16 18 Blood Pressure 118/70 Blood Pressure [Right Arm] 108/52 L 106/54 L 02 Sat by Pulse Oximetry 95 95 11/29/20 13:52 11/29/20 13:55 11/29/20 14:10 Temperature 98.9 F 98.9 F Pulse Rate Pulse Rate [Apical] 58 L 57 L Pulse Rate [Left Radial] Respiratory Rate 16 16 18 Blood Pressure Blood Pressure [Right Arm] 101/53 L 98/42 L 02 Sat by Pulse Oximetry 96 95 11/29/20 14:25 11/29/20 14:36 11/29/20 14:40 Temperature 98.8 F 98.9 F 98.7 F Pulse Rate 58 L Pulse Rate [Apical] 62 67 Pulse Rate [Left Radial] Respiratory Rate 18 18 Blood Pressure 101/53 L Blood Pressure [Right Arm] 102/54 L 94/50 L 02 Sat by Pulse Oximetry 96 97 11/29/20 14:55 11/29/20 15:25 11/29/20 16:12 Temperature 98.7 F 98.6 F 98.6 F Pulse Rate Pulse Rate [Apical] 65 63 58 L Pulse Rate [Left Radial] Respiratory Rate 18 18 18 Blood Pressure Blood Pressure [Right Arm] 96/54 L 120/71 104/56 L 02 Sat by Pulse Oximetry 97 97 97 11/29/20 16:42 11/29/20 17:55 11/29/20 18:55 Temperature 98.6 F 98.6 F 98.6 F Pulse Rate Pulse Rate [Apical] 60 60 63 Pulse Rate [Left Radial] Respiratory Rate 18 18 18 Blood Pressure Blood Pressure [Right Arm] 102/54 L 113/63 103/58 L 02 Sat by Pulse Oximetry 97 98 98 11/29/20 19:55 11/29/20 20:00 11/29/20 20:55 Temperature 97.2 F L 97.1 F L Pulse Rate Pulse Rate [Apical] 54 L 54 L 54 L Pulse Rate [Left Radial] Respiratory Rate 18 18 18 Blood Pressure Blood Pressure [Right Arm] 100/51 L 94/52 L 02 Sat by Pulse Oximetry 94 L 97 97 11/30/20 00:00 11/30/20 03:43 Temperature 98.1 F 97.6 F Pulse Rate Pulse Rate [Apical] 64 64 Pulse Rate [Left Radial] Respiratory Rate 16 18 Blood Pressure Blood Pressure [Right Arm] 95/48 L 120/68 02 Sat by Pulse Oximetry 92 L 94 L I & O for Last 24 hours: Intake & Output 11/27/20 11/28/20 11/29/20 11/30/20 23:59 23:59 23:59 23:59 Intake Total 360 / 360 960 / 1078 118 / 118 Balance 360 / 360 960 / 1078 118 / 118 Weight 198 lb 6 oz 196 lb 3.382 oz 198 lb 9 oz - Constitutional no acute distress - *Routine HEENT Exam Head: Present: n
[2020-11-30 06:45] LABS: Hematocrit 38.3 % (42.0-52.0); Hemoglobin 12.5 g/dL (14.1-18.0); Lymphocytes # 0.6 K/mm3 (0.7-4.5); Lymphocytes % 5.1 % (10-50); Mean Corpuscular HGB Conc 32.8 g/dL (31.8-35.4); Mean Corpuscular Hemoglobin 29.1 pg (27.0-31.2); Mean Corpuscular Volume 88.6 fl (80-94); Mean Platelet Volume 8.4 fl (7.4-10.4); Monocytes # 0.6 K/mm3 (0.1-1.0); Monocytes % 4.7 % (1.7-9.3); Neutrophils # 11.2 K/mm3 (1.8-7.8); Neutrophils % 90.1 % (37.0-80.0); Platelet Count 237 K/mm3 (142-424); Red Blood Count 4.32 M/mm3 (4.60-6.20); Red Cell Distribution Width 13.8 % (11.5-17.5); White Blood Count 12.4 K/mm3 (4.8-10.8)
[2020-11-30 07:02] LABS: Chloride 102 mmol/L (98-107); Potassium 5.8 mmoL/L (3.5-5.1); Sodium 132 mmol/L (136-145)
[2020-11-30 07:05] LABS: Alanine Aminotransferase 49 U/L (12-78); Albumin Level 3.3 g/dl (3.5-5.0); Albumin/Globulin Ratio 1.4 (1.1-1.8); Alkaline Phosphatase 94 U/L (38-126); Anion Gap 13.8 mEq/L (5-15); Aspartate Amino Transferase 61 U/L (17-59); Bilirubin,Total 0.5 mg/dl (0.2-1.3); Blood Urea Nitrogen 44 mg/dl (9-20); Carbon Dioxide 22 mmol/L (22.0-30.0); Creatinine Clearance Estimated 48 mL/min (50-200); Estimated Glomerular Filt Rate 45 ml/min (>60); GFR (African American) 54 ML/MIN (>60); Globulin 2.4 g/dL (1.3-3.2); Total Protein,Serum 5.7 g/dl (6.3-8.2)
[2020-11-30 07:06] LABS: Calcium 8.1 mg/dl (8.4-10.2); Glucose 288 mg/dl (74-100)
[2020-11-30 07:10] LABS: POC Glucose,Bedside 303 (70-110)
[2020-11-30 07:26] LABS: MANUAL DIFFERENTIAL MANUAL DIFFERENTIAL (MANUAL DIFF)
[2020-11-30 07:40] VITALS: BP 102/44; PULSE 51; RESP 19; TEMP 36.6; O2SAT 95
[2020-11-30 08:58] LABS: Lymphocytes % 6 % (10-50); Monocytes % 6 % (2-9); Neutrophils % 88 % (42-76); Platelet Estimate Normal; RBC Morphology Normal; Total Cells Counted 100
--- NOTE | 2020-11-30 09:30 | HMH.GSPN ---
Subjective Narrative: Patient states that he had a rough night characterized by mainly right-sided abdominal pain. He states that he does feel somewhat better at this point. Progress Note: A&P (1) Right upper quadrant pain Status: Acute (2) Cholelithiasis Status: Acute (3) Diabetes mellitus Status: Chronic (4) HBP (high blood pressure) Status: Chronic (5) Hyperlipidemia Status: Chronic (6) Paroxysmal atrial fibrillation Status: Chronic (7) Stented coronary artery Status: Chronic (8) CHF (congestive heart failure) Status: Acute (9) Diastolic dysfunction Status: Acute Assessment and Plan for All Diagnoses:: Due to patient's symptomatology and laboratory findings likely continued inpatient stay today. Exam Vital signs and Labs for Last 24 Hours: Temp Pulse Resp BP Pulse Ox 97.8 F 51 L 19 102/44 L 95 11/30/20 07:40 11/30/20 07:40 11/30/20 07:40 11/30/20 07:40 11/30/20 07:40 Laboratory Results - last 24 hr 11/29/20 21:06: POC Glucose 286 H 11/30/20 05:13: POC Glucose 306 H* 11/30/20 06:10: WBC 12.4 H D, RBC 4.32 L, Hgb 12.5 L, Hct 38.3 L, MCV 88.6, MCH 29.1, MCHC 32.8, RDW 13.8, Plt Count 237, MPV 8.4, Neut % (Auto) 90.1 H, Lymph % (Auto) 5.1 L, [place] % (Auto) 4.7, Eos % (Auto) 0.0 L, Baso % (Auto) 0.0 L, Neut # (Auto) 11.2 H, Lymph # (Auto) 0.6 L, [place] # (Auto) 0.6, Eos # (Auto) 0.0, Baso # (Auto) 0.0, Total Counted 100, Neutrophils % (Manual) 88 H, Lymphocytes % (Manual) 6 L, Monocytes % (Manual) 6, Platelet Estimate Normal, RBC Morphology Normal 11/30/20 06:10: Sodium 132 L, Potassium 5.8 H D, Chloride 102, Carbon Dioxide 22, Anion Gap 13.8, BUN 44 H D, Creatinine 1.50 H D, Estimated Creat Clear 48, Estimated GFR 45 L, Est GFR ( Amer) 54 L D, Glucose 288 H, Calcium 8.1 L, Total Bilirubin 0.5, AST 61 H D, ALT 49 D, Alkaline Phosphatase 94, Total Protein 5.7 L, Albumin 3.3 L, Globulin 2.4, Albumin/Globulin Ratio 1.4 11/30/20 07:02: POC Glucose 303 H* I & O for Last 24 hours: Intake & Output 11/27/20 11/28/20 11/29/20 11/30/20 11:59 11:59 11:59 11:59 Intake Total 360 / 360 1318 / 1318 Balance 360 / 360 1318 / 1318 Weight 200 lb 195 lb 8 oz 198 lb 9 oz - *Routine Abdominal Exam Present: soft
[2020-11-30 11:12] VITALS: BP 109/41; PULSE 51; RESP 18; TEMP 36.6; O2SAT 90
--- NOTE | 2020-11-30 15:17 | PC.NURSE ---
HE IS AOX4, WAS UP TO CHAIR FOR MOST OF SHIFT, HAS NOT C/O PAIN EXCEPT WITH AMBULATION, SHOWERED TODAY, 300 ML URINARY OUTPUT NOTED EARLIER IN SHIFT, VITAL SIGNS HAVE BEEN STABLE, TOLERATING PO INTAKE, PT HAS BEEN BELCHING AND STATES THAT HE DID PASS GAS, NO BM NOTED, DENIES N/V/D, NO NEEDS AT THIS TIME.
[2020-11-30 15:19] VITALS: BP 124/45; PULSE 54; RESP 18; TEMP 36.7; O2SAT 92
[2020-11-30 16:36] LABS: POC Glucose,Bedside 232 (70-110)
[2020-11-30 17:09] LABS: POC Glucose,Bedside 238 (70-110)
[2020-11-30 20:00] VITALS: BP 119/63; PULSE 49; RESP 17; TEMP 36.4; O2SAT 97
[2020-12-01 00:41] LABS: POC Glucose,Bedside 156 (70-110)
[2020-12-01 03:43] VITALS: BP 102/51; PULSE 57; RESP 18; TEMP 36.4; O2SAT 98
--- NOTE | 2020-12-01 04:32 | PC.NURSE ---
patient able to urinate and have BM this shift; incisions x 4 dressings c/d/i on each. Patient has been A&O x 4 this shift showing no s/s of acute distress, call light within reach, bed at lowest level for safety; will continue to monitor.
[2020-12-01 05:00] VITALS: BMI 29.9
[2020-12-01 07:10] LABS: Basophils % 0.1 % (0.1-2.0); Eosinophils # 0.1 K/mm3 (0.0-0.4); Eosinophils % 0.6 % (0.1-12.0); Hematocrit 36.4 % (42.0-52.0); Lymphocytes # 1.2 K/mm3 (0.7-4.5); Lymphocytes % 13.3 % (10-50); Mean Corpuscular Hemoglobin 29.3 pg (27.0-31.2); Mean Corpuscular Volume 88.7 fl (80-94); Mean Platelet Volume 7.8 fl (7.4-10.4); Monocytes # 0.8 K/mm3 (0.1-1.0); Monocytes % 8.4 % (1.7-9.3); Neutrophils # 6.9 K/mm3 (1.8-7.8); Neutrophils % 77.6 % (37.0-80.0); Platelet Count 207 K/mm3 (142-424); Red Blood Count 4.11 M/mm3 (4.60-6.20); Red Cell Distribution Width 13.8 % (11.5-17.5); White Blood Count 8.9 K/mm3 (4.8-10.8)
[2020-12-01 07:13] LABS: Chloride 105 mmol/L (98-107); Potassium 4.4 mmoL/L (3.5-5.1); Sodium 136 mmol/L (136-145)
[2020-12-01 07:16] LABS: Alanine Aminotransferase 33 U/L (12-78); Albumin/Globulin Ratio 1.3 (1.1-1.8); Alkaline Phosphatase 89 U/L (38-126); Anion Gap 10.4 mEq/L (5-15); Aspartate Amino Transferase 41 U/L (17-59); Bilirubin,Total 0.3 mg/dl (0.2-1.3); Blood Urea Nitrogen 50 mg/dl (9-20); Calcium 7.9 mg/dl (8.4-10.2); Carbon Dioxide 25 mmol/L (22.0-30.0); Creatinine Clearance Estimated 56 mL/min (50-200); Estimated Glomerular Filt Rate 53 ml/min (>60); GFR (African American) 64 ML/MIN (>60); Globulin 2.3 g/dL (1.3-3.2); Glucose 72 mg/dl (74-100); Total Protein,Serum 5.3 g/dl (6.3-8.2)
--- NOTE | 2020-12-01 07:49 | HMH.GSPN ---
Subjective Narrative: Patient's only complaint today is a headache. He states that his right-sided pain has resolved. Progress Note: A&P (1) Right upper quadrant pain Status: Acute (2) Cholelithiasis Status: Acute (3) Diabetes mellitus Status: Chronic (4) HBP (high blood pressure) Status: Chronic (5) Hyperlipidemia Status: Chronic (6) Paroxysmal atrial fibrillation Status: Chronic (7) Stented coronary artery Status: Chronic (8) CHF (congestive heart failure) Status: Acute (9) Diastolic dysfunction Status: Acute Assessment and Plan for All Diagnoses:: Laboratory studies show improvement in white blood cell count, BUN/creatinine, potassium. If okay with medical service should be able to discharge home from surgical standpoint regarding gallbladder. Exam Vital signs and Labs for Last 24 Hours: Temp Pulse Resp BP Pulse Ox 97.6 F 57 L 18 102/51 L 98 12/01/20 03:43 12/01/20 03:43 12/01/20 03:43 12/01/20 03:43 12/01/20 03:43 Laboratory Results - last 24 hr 11/30/20 06:10: Total Counted 100, Neutrophils % (Manual) 88 H, Lymphocytes % (Manual) 6 L, Monocytes % (Manual) 6, Platelet Estimate Normal, RBC Morphology Normal 11/30/20 11:39: POC Glucose 232 H 11/30/20 16:37: POC Glucose 238 H 11/30/20 22:01: POC Glucose 156 H 12/01/20 06:19: WBC 8.9 D, RBC 4.11 L, Hgb 12.0 L, Hct 36.4 L, MCV 88.7, MCH 29.3, MCHC 33.0, RDW 13.8, Plt Count 207, MPV 7.8, Neut % (Auto) 77.6, Lymph % (Auto) 13.3, [place] % (Auto) 8.4, Eos % (Auto) 0.6, Baso % (Auto) 0.1, Neut # (Auto) 6.9, Lymph # (Auto) 1.2, [place] # (Auto) 0.8, Eos # (Auto) 0.1, Baso # (Auto) 0.0 12/01/20 06:19: Sodium 136, Potassium 4.4 D, Chloride 105, Carbon Dioxide 25, Anion Gap 10.4, BUN 50 H, Creatinine 1.30 H, Estimated Creat Clear 56, Estimated GFR 53 L, Est GFR ( Amer) 64, Glucose 72 L, Calcium 7.9 L, Total Bilirubin 0.3, AST 41 D, ALT 33 D, Alkaline Phosphatase 89, Total Protein 5.3 L, Albumin 3.0 L, Globulin 2.3, Albumin/Globulin Ratio 1.3 I & O for Last 24 hours: Intake & Output 11/28/20 11/29/20 11/30/20 12/01/20 11:59 11:59 11:59 11:59 Intake Total 360 / 360 1318 / 1318 220 / 220 Output Total 1200 / 1200 Balance 360 / 360 1318 / 1318 -980 / -980 Weight 200 lb 195 lb 8 oz 198 lb 9 oz 202 lb 4 oz - *Routine Abdominal Exam Present: soft. Absent: tenderness
[2020-12-01 08:00] VITALS: BP 104/54; PULSE 58; RESP 18; TEMP 36.7; O2SAT 98
--- NOTE | 2020-12-01 08:08 | HMH.ACPN2 ---
Internal Medicine - PN: Subj *Date: 12/01/20 *Time: 08:08 Interval history: Patient feels better today, tolerating a regular diet, does have a headache this morning. Exam Vital signs and Labs for Last 24 Hours: Temp Pulse Resp BP Pulse Ox 97.6 F 57 L 18 102/51 L 98 12/01/20 03:43 12/01/20 03:43 12/01/20 03:43 12/01/20 03:43 12/01/20 03:43 Laboratory Results - last 24 hr 11/30/20 06:10: Total Counted 100, Neutrophils % (Manual) 88 H, Lymphocytes % (Manual) 6 L, Monocytes % (Manual) 6, Platelet Estimate Normal, RBC Morphology Normal 11/30/20 11:39: POC Glucose 232 H 11/30/20 16:37: POC Glucose 238 H 11/30/20 22:01: POC Glucose 156 H 12/01/20 06:19: WBC 8.9 D, RBC 4.11 L, Hgb 12.0 L, Hct 36.4 L, MCV 88.7, MCH 29.3, MCHC 33.0, RDW 13.8, Plt Count 207, MPV 7.8, Neut % (Auto) 77.6, Lymph % (Auto) 13.3, [place] % (Auto) 8.4, Eos % (Auto) 0.6, Baso % (Auto) 0.1, Neut # (Auto) 6.9, Lymph # (Auto) 1.2, [place] # (Auto) 0.8, Eos # (Auto) 0.1, Baso # (Auto) 0.0 12/01/20 06:19: Sodium 136, Potassium 4.4 D, Chloride 105, Carbon Dioxide 25, Anion Gap 10.4, BUN 50 H, Creatinine 1.30 H, Estimated Creat Clear 56, Estimated GFR 53 L, Est GFR ( Amer) 64, Glucose 72 L, Calcium 7.9 L, Total Bilirubin 0.3, AST 41 D, ALT 33 D, Alkaline Phosphatase 89, Total Protein 5.3 L, Albumin 3.0 L, Globulin 2.3, Albumin/Globulin Ratio 1.3 I & O for Last 24 hours: Intake & Output 06/03/21 06/04/21 06/05/21 06/06/21 23:59 23:59 23:59 23:59 Intake Total 360 / 360 960 / 1078 578 / 578 Output Total 550 / 550 650 / 650 Balance 360 / 360 960 / 1078 28 / 28 -650 / -650 Weight 198 lb 6 oz 196 lb 3.382 oz 198 lb 9 oz 202 lb 4 oz - Constitutional no acute distress - *Routine HEENT Exam Head: Present: normocephalic Eye: Present: EOMI ENT: Present: mucous membranes moist - *Routine Neck Exam Present: supple. Absent: lymphadenopathy - *Routine Respiratory Exam Present: CTA bilaterally - *Routine Cardiovascular Exam Present: RRR - *Routine Extremities Exam Absent: cyanosis, clubbing, edema - *Routine Skin Exam Present: warm. Absent: rash - *Routine Neurological Exam Present: alert, oriented X3 Assessment and Plan (1) Right upper quadrant pain Status: Acute Category: Medical Code(s): R10.11 - Right upper quadrant pain (2) Cholelithiasis Status: Acute Category: Medical Code(s): K80.20 - Calculus of gallbladder without cholecystitis without obstruction (3) Diabetes mellitus Status: Chronic Qualifiers: Diabetes mellitus type: type 2 Diabetes mellitus chcf insulin use: with oil heaterman use Diabetes mellitus complication status: without complication Qualified Code(s): E11.9 - Type 2 diabetes mellitus without complications; Z79.4 - longterm (current) use of insulin Category: Medical Code(s): E11.9 - Type 2 diabetes mellitus without complications (4) HBP (high blood pressure) Status: Chronic Qualifiers: Hypertension type: essential hypertension Qualified Code(s): I10 - Essential (primary) hypertension Category: Medical Code(s): I10 - Essential (primary) hypertension (5) Hyperlipidemia Status: Chronic Qualifiers: Hyperlipidemia type: mixed hyperlipidemia Qualified Code(s): E78.2 - Mixed hyperlipidemia Category: Medical Code(s): E78.5 - Hyperlipidemia, unspecified (6) Paroxysmal atrial fibrillation Status: Chronic Category: Medical Code(s): I48.0 - Paroxysmal atrial fibrillation (7) Stented coronary artery Status: Chronic Category: Surgical Code(s): Z95.5 - Presence of coronary angioplasty implant and graft (8) CHF (congestive heart failure) Status: Acute Category: Medical Code(s): I50.9 - Heart failure, unspecified (9) Diastolic dysfunction Status: Acute Category: Medical Code(s): I51.89 - Other ill-defined heart diseases (10) Cholelithiasis and cholecystitis without obstruction Status: Acute Category: Medical Code
--- NOTE | 2020-12-01 14:51 | HMH.DCSUM ---
General - General Admission date:: 11/28/20 Discharge date: 12/01/20 HPI HPI: 85 year old male patient of Dr. Nichols in [place], [place], with a history of CAD, paroxysmal A fib, CAD and DM type 2, presented to [facility] ER today complaining of a 2 or 3 day history of RUQ abdominal pain. Movement made the pain worse. Food intake did not seem to affect the pain. Pain was intermittent. He noted no previous episodes. Over the past few months he had diarrhea a few times. He denied nausea and vomiting. Hospital Course Hospital Course: On admission patient had a right upper quadrant ultrasound which noted cholelithiasis. He then required cardiac clearance due to his history of congestive heart failure and diastolic dysfunction. Cardiology noted an acceptable risk from a cardiac standpoint to proceed with elective surgery. He was also seen by surgeon, Dr. Edmond, and noted cholelithiasis. On 11/29/2020 he had a laparoscopic cholecystectomy by Dr. Edmond. Postoperatively patient had some right-sided abdominal pain which gradually improved. See data for specific laboratory results. 11/29 his right-sided pain have resolved. Laboratory studies showed improvement of white blood cell count, BUN/creatinine and potassium. He was afebrile. Blood sugars were being managed by Levemir and sliding scale insulin. He was tolerating a regular diet. On postop day #2 he was stable to be discharged home. Disposition: discharged home in stable and satisfactory condition. He was to have limited activity and to continue with the same diet. Follow-up was to be with his primary care provider, Dr. Nichols, and Dr. Edmond, surgeon. Condition at discharge was stable and satisfactory. Medications as per medication sheet. See specific tests results under Data. Objective Vital signs: Temp Pulse Resp BP Pulse Ox 98.1 F 58 L 18 104/54 L 98 12/01/20 08:00 12/01/20 08:00 12/01/20 08:00 12/01/20 08:00 12/01/20 08:00 Narrative: Exam Vital signs and Labs for Last 24 Hours: Temp Pulse Resp BP Pulse Ox 97.6 F 57 L 18 102/51 L 98 12/01/20 03:43 12/01/20 03:43 12/01/20 03:43 12/01/20 03:43 12/01/20 03:43 Laboratory Results - last 24 hr 11/30/20 06:10: Total Counted 100, Neutrophils % (Manual) 88 H, Lymphocytes % (Manual) 6 L, Monocytes % (Manual) 6, Platelet Estimate Normal, RBC Morphology Normal 11/30/20 11:39: POC Glucose 232 H 11/30/20 16:37: POC Glucose 238 H 11/30/20 22:01: POC Glucose 156 H 12/01/20 06:19: WBC 8.9 D, RBC 4.11 L, Hgb 12.0 L, Hct 36.4 L, MCV 88.7, MCH 29.3, MCHC 33.0, RDW 13.8, Plt Count 207, MPV 7.8, Neut % (Auto) 77.6, Lymph % (Auto) 13.3, [place] % (Auto) 8.4, Eos % (Auto) 0.6, Baso % (Auto) 0.1, Neut # (Auto) 6.9, Lymph # (Auto) 1.2, [place] # (Auto) 0.8, Eos # (Auto) 0.1, Baso # (Auto) 0.0 12/01/20 06:19: Sodium 136, Potassium 4.4 D, Chloride 105, Carbon Dioxide 25, Anion Gap 10.4, BUN 50 H, Creatinine 1.30 H, Estimated Creat Clear 56, Estimated GFR 53 L, Est GFR ( Amer) 64, Glucose 72 L, Calcium 7.9 L, Total Bilirubin 0.3, AST 41 D, ALT 33 D, Alkaline Phosphatase 89, Total Protein 5.3 L, Albumin 3.0 L, Globulin 2.3, Albumin/Globulin Ratio 1.3 I & O for Last 24 hours: Intake & Output 11/28/20 11/29/20 11/30/20 12/01/20 23:59 23:59 23:59 23:59 Intake Total 360 / 360 960 / 1078 578 / 578 Output Total 550 / 550 650 / 650 Balance 360 / 360 960 / 1078 -650 / -650 Weight 198 lb 6 oz 196 lb 3.382 oz 198 lb 9 oz 202 lb 4 oz - Constitutional no acute distress - *Routine HEENT Exam Head: Present: normocephalic Eye: Present: EOMI ENT: Present: mucous membranes moist - *Routine Neck Exam Present: supple. Absent: lymphadenopathy - *Routine Respiratory Exam Present: CTA bilaterally - *Routine Cardiovascular Exam Present: RRR - *Routine Extremities Exam Absent: cyanosis, clubbing, edema - *Routine Skin Exam Present: warm. Absent: rash - *Routine Neurological Exam Presen
[2020-12-01 21:14] LABS: POC Glucose,Bedside 98 (70-110)
== END 2020-12-01 10:57 | disposition home or self-care (01) ==
LOC: ER 12:35 → 2ND 12:50
PROVIDERS: Surgery; Admitting Provider Family Medicine; Emergency Provider Emergency Medicine; PCP Pediatrics; Visit Provider Family Medicine
PROC: 0FT44ZZ Resection of Gallbladder, Percutaneous Endoscopic Approach (ICD-10-PCS; CPT 47562; principal; 2020-11-29 12:30)
DX: K80.00 Calculus of gallbladder with acute cholecystitis without obstruction (principal); E11.9 Type 2 diabetes mellitus without complications; I10 Essential (primary) hypertension; I48.0 Paroxysmal atrial fibrillation; Z79.4 Long term (current) use of insulin
CPT/HCPCS: 47562; 36415; 71046; 71260; 74177; 76705; 80048; 80053; 80076; 82150; 82962; 83690; 84484; 85007; 85025; 87581; 87633; 87798; 88304; 93005; 93306; 99283; G0378; J2405; J2543; J2710; Q9967

== ENCOUNTER 2020-12-11 08:00 | Outpatient (RCR) | payer MEDICARE, SELFPAY ==
--- NOTE | 2020-10-08 09:51 | HMH.PTOPEV ---
PT Outpatient Evaluation Rehab PT Outpatient Evaluation Start: 10/08/20 08:00 Freq: Status: Active Protocol: Document 10/08/20 09:27 PHORNE (Rec: 10/08/20 09:51 PHORNE [id number]) Electronically Signed By Ariel Willson, PT 10/08/20 09:27 Outpatient Therapy Subjective History Subjective History Pt is 84 yowm who presents with c/o intermittent dizziness, poor balance, and frequent falls at home x ~ 1 yr. He states, I fall about once a week, and was just in the ED yesterday (10/07) due to a fall whil trying to get in his truck. He has had multiple tests ( head CT, Brain MRI, head MRA) which show no discernible problems other than acceptable age related changes. He reports no real vertigo symptoms, but does have intermittent worsening of blurry vision lasting several minutes at a time and often when he is driving. He reports significant PMH including: HTN, HL, CAD, TN, cardiac stents, implanted cardiac device ( Its not a pacemaker ) , anxiety, a-fib, seizures, multiple B knee replacements, B shld replacement, chronic neck and LB pain. Chief Complaint Gives out/Unstable,Weakness, Decreased Coordination Symptoms Relieved By Rest/Positioning Symptoms Aggravated By Walking Prior Functional Limitations None Current Functional Limitations Driving,Recreation Activity, Walking Symptom Description Intermittent,Activity Dependent Balance Eval Hx of Falls Hx Falls Yes Number in last 6 months 20 Gait/Posture Asssessment General Gait Observation Antalgic Gait,Wide Based Gait, Decrease Stride Lngth (L) Assistive Devices Straight Cane Body Alignment Posture Leaning Nystagmus Nystagmus Presence None Oculomotor Gaze Oculomotor Gaze Nml: Smooth Pursuit VOR Cancellation Cover/Uncover Abn: [facility]erg[facility]
--- NOTE | 2020-11-08 09:36 | HMH.RHREAS ---
Rehab Reassessment Rehab OP Re-assessment Start: 11/08/20 09:31 Freq: Status: Active Protocol: Document 11/08/20 09:31 [email or web address] (Rec: 11/08/20 09:36 COLTON [id number]) Electronically Signed By Ariel Willson, PT 11/08/20 09:31 Rehab Re-assessment Subjective Subjective Pt reports no falls for ~ 1 wk this date. Continues to c/o difficulty using the L LE for activity. Objective Objective Notes Dynamic Gait Index (DGI): MMT: R LE grossly 4+/5 throughout. L LE hip flex, hip abd, hip ext, knee flex, knee ext all 3/5. Assessment Progress Assessment Slower Than Expected Assessment Notes Pt continues to have severe weakness throughout the L LE which continues to effect his gait with R lateral lean in stadning and L LE circumduction. He continues to be at severe risk of injury due to falls and refuses to alter his daily routine to mitigate this risk, [place] do [place] the [place]. Gait has improved slightly with addition of heel lift to correct leg length discrepancy. Patient goals met none Goals Not Met ST,2,3,4,5 LT,2,3,4 ,5,6 Revised Goals none Plan Plan Continue per initial POC. Frequency of Therapy 2 x/wk Duration of therapy 8 wks Time and Billing Re-Eval Time 15 Re-Eval Billing Units 0 PHYSICIAN CERTIFICATION: I certify the specified therapy services for Oli Chambers are required, authorized, and reviewed every 30 days.
--- NOTE | 2020-12-09 09:16 | HMH.RHREAS ---
Rehab Reassessment Rehab OP Re-assessment Start: 11/08/20 09:31 Freq: Status: Active Protocol: Document 12/09/20 09:10 COLTON (Rec: 12/09/20 09:12 COLTON [id number]) Electronically Signed By Ariel Willson, PT 12/09/20 09:10 Rehab Re-assessment Subjective Subjective Pt reports, I fell 2 times on , luckily I had my phone close by and it only took them 45 mins to get to me . Objective Objective Notes Dynamic Gait Index (DGI): MMT: R LE grossly 4+/5 throughout. L LE hip flex, hip abd, hip ext, knee flex, knee ext all 3/5. Assessment Progress Assessment Slower Than Expected Assessment Notes Pt DGI has not improved since last reassessment, [place] to have severe weakness of the L LE and L LE enurance to activity remains low. Obviously at very high risk for falls. Patient goals met none Goals Not Met ST,2,3,4,5 LT,2,3,4 ,5,6 Revised Goals none Plan Plan Continue per initial POC. Frequency of Therapy 2 x/wk Duration of therapy 8 wks Time and Billing Re-Eval Time 15 Re-Eval Billing Units 0 PHYSICIAN CERTIFICATION: I certify the specified therapy services for Oli Chambers are required, authorized, and reviewed every 30 days.
== END 2020-12-11 08:05 | disposition home or self-care (01) ==
LOC: PT 08:00
PROVIDERS: PCP Pediatrics; Visit Provider Specialist
DX: R42 Dizziness and giddiness (principal); R26.89 Other abnormalities of gait and mobility
CPT/HCPCS: 97110; 97163; 97164; 97530; 97760

== ENCOUNTER 2020-12-17 09:06 | Day surgery (SDC) | payer MEDICARE, SELFPAY ==
[2020-12-12 11:20] VITALS: BMI 29.5
[2020-12-17 09:37] VITALS: BP 151/84; PULSE 65; RESP 18; TEMP 36.3; O2SAT 98
[2020-12-17 09:49] LABS: POC Glucose,Bedside 176 (70-110)
[2020-12-17 13:00] VITALS: BP 186/85; PULSE 54; RESP 18; O2SAT 98
== END 2020-12-17 13:05 | disposition home or self-care (01) ==
LOC: OUTP 09:07
PROVIDERS: PCP Pediatrics; Visit Provider Ophthalmology
PROC: (CPT 66821; principal; 2020-12-17 10:00)
DX: H26.491 Other secondary cataract, right eye (principal); H25.812 Combined forms of age-related cataract, left eye; I48.91 Unspecified atrial fibrillation; I10 Essential (primary) hypertension; I25.2 Old myocardial infarction; Z95.818 Presence of other cardiac implants and grafts; E78.5 Hyperlipidemia, unspecified; Z79.84 Long term (current) use of oral hypoglycemic drugs; Z79.4 Long term (current) use of insulin; Z79.899 Other long term (current) drug therapy
CPT/HCPCS: 66821; 82962; U0003

== ENCOUNTER 2020-12-17 14:12 | Emergency (ER) | payer MEDICARE, SELFPAY ==
[2020-12-17 14:13] VITALS: BP 176/76; PULSE 55; RESP 18; O2SAT 99; BMI 29.5
[2020-12-17 14:16] VITALS: PULSE 52; O2SAT 100
[2020-12-17 14:31] VITALS: BP 141/68; PULSE 51; O2SAT 99
[2020-12-17 14:38] LABS: Chloride 102 mmol/L (98-107)
[2020-12-17 14:39] LABS: Sodium 136 mmol/L (136-145)
[2020-12-17 14:41] LABS: Blood Urea Nitrogen 19 mg/dl (9-20); Creatinine Clearance Estimated 72 mL/min (50-200); Estimated Glomerular Filt Rate 92 ml/min (>60); GFR (African American) 112 ML/MIN (>60)
[2020-12-17 14:42] LABS: Carbon Dioxide 26 mmol/L (22.0-30.0); Glucose 241 mg/dl (74-100)
[2020-12-17 14:44] LABS: Basophils % 0.6 % (0.1-2.0); Eosinophils # 0.4 K/mm3 (0.0-0.4); Eosinophils % 6.1 % (0.1-12.0); Hematocrit 39.5 % (42.0-52.0); Hemoglobin 13.7 g/dL (14.1-18.0); Lymphocytes # 1.3 K/mm3 (0.7-4.5); Lymphocytes % 21.6 % (10-50); Mean Corpuscular HGB Conc 34.6 g/dL (31.8-35.4); Mean Corpuscular Hemoglobin 30.1 pg (27.0-31.2); Mean Corpuscular Volume 87.2 fl (80-94); Mean Platelet Volume 7.2 fl (7.4-10.4); Monocytes # 0.5 K/mm3 (0.1-1.0); Monocytes % 8.3 % (1.7-9.3); Neutrophils # 3.7 K/mm3 (1.8-7.8); Neutrophils % 63.4 % (37.0-80.0); Platelet Count 211 K/mm3 (142-424); Red Blood Count 4.53 M/mm3 (4.60-6.20); Red Cell Distribution Width 13.8 % (11.5-17.5); White Blood Count 5.8 K/mm3 (4.8-10.8)
--- NOTE | 2020-12-17 15:55 | HMH.EDGENADL ---
ED Disposition Clinical Impression: Shakiness, Elevated blood pressure reading Disposition: Home, Self-Care Condition on Discharge: Good Additional Instructions: Return to the emergency department if symptoms recur or any new symptoms of concern. Referrals: Jonathan Nichols [Primary Care Provider] - - Critical Care Critical Care Time: No Attestation: On 12/17/20, the high probability of a clinically significant, sudden or life threatening deterioration of the following system(s) required my full and direct attention, intervention and personal management. The time I documented below is in addition to time spent performing reported procedures but includes the following listed in this critical care notation. Medical Decision Making - Medical Records Medical records reviewed: Yes: I reviewed the patient's medical records. MR Comment: I reviewed his records from his recent stay for cholecystectomy. I reviewed nurses notes and all physicians progress notes and cannot find documentation of his shaking episode. - Adi Inquiry Pt receiving controlled substance: No Vital Signs: 12/17/20 14:13 12/17/20 14:16 12/17/20 14:31 Pulse Rate 52 L 51 L Pulse Rate [Left Radial] 55 L Respiratory Rate 18 Blood Pressure 141/68 H Blood Pressure [Right Arm] 176/76 H Blood Pressure Mean 107 Blood Pressure Mean [Right Arm] 109 Blood Pressure Source [Right Arm] Automatic Cuff Blood Pressure Position [Right Arm] Sitting 02 Sat by Pulse Oximetry 99 100 99 Oxygen Delivery Method Room Air - Lab Data Lab Results 12/17/20 14:15: WBC 5.8, RBC 4.53 L, Hgb 13.7 L, Hct 39.5 L, MCV 87.2, MCH 30.1, MCHC 34.6, RDW 13.8, Plt Count 211, MPV 7.2 L, Neut % (Auto) 63.4, Lymph % (Auto) 21.6, [place] % (Auto) 8.3, Eos % (Auto) 6.1, Baso % (Auto) 0.6, Neut # (Auto) 3.7, Lymph # (Auto) 1.3, [place] # (Auto) 0.5, Eos # (Auto) 0.4, Baso # (Auto) 0.0 12/17/20 14:15: Sodium 136, Potassium 5.0, Chloride 102, Carbon Dioxide 26, Anion Gap 13.0, BUN 19, Creatinine 0.80, Estimated Creat Clear 72, Estimated GFR 92, Est GFR ( Amer) 112, Glucose 241 H, Calcium 9.0 Result diagrams: 12/17/20 14:15 12/17/20 14:15 - Reevaluation(s) Time: 16:12 Reevaluation #1: Patient symptoms have completely resolved and he feels ready to go home. Blood pressure is good at this time. General Adult HPI - General Chief complaint: Anxiety Stated complaint: anxiety Time Seen by Provider: 12/17/20 15:55 Mode of Arrival: EMS Limitations: No Limitations Description of Symptoms (Recalled from ER Triage Doc. by RN): c/o shaking and high blood pressure. States that he had eye surgery this morning and he was eating afterward when he started having uncontrolled shaking and his bp went high. - History of Present Illness HPI narrative: The patient had an ophthalmological procedure today at this hospital, YAG laser, as he was leaving blood pressure was taken and was elevated greater than 180 systolic. He went to a restaurant to eat and had 2 episodes of shaking lasting 2 to 5 minutes. He did not check his blood pressure after discharge from the hospital. He did not have any chest pain or shortness of breath. No headache. Now he feels back to normal and blood pressure has returned to normal. He is diabetic. Blood sugar was in the 200s this morning. No documented hypoglycemia. He also states that he had a similar episode when in the hospital a few weeks ago for gallbladder surgery. 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 - Related Data Home Medications Medication Instructions Recorded Confirmed insulin detemir U-100 100 unit/mL 40 unit SQ HS ml 09/27/17 12/12/20 subcutaneous solution metformin 500 mg tablet 500 mg PO BID tab 10/18/19 12/12/20 lisinopril 20 mg tablet 20 mg PO HS tab 09/19/20 12/12/20 metoprolol succinate 25 mg 25 mg PO HS tab 11/19/20 12/12/20 tabl
[2020-12-17 16:20] VITALS: BP 153/76; PULSE 55; RESP 17; TEMP 37; O2SAT 95
== END 2020-12-17 16:22 | disposition home or self-care (01) ==
PROVIDERS: Emergency Provider Emergency Medicine; PCP Pediatrics
DX: R25.1 Tremor, unspecified (principal); I10 Essential (primary) hypertension; F41.9 Anxiety disorder, unspecified; E11.9 Type 2 diabetes mellitus without complications; I48.91 Unspecified atrial fibrillation; I50.9 Heart failure, unspecified; E78.5 Hyperlipidemia, unspecified; I25.10 Atherosclerotic heart disease of native coronary artery without angina pectoris; I25.2 Old myocardial infarction; Z79.899 Other long term (current) drug therapy; Z11.52 Encounter for screening for COVID-19
CPT/HCPCS: 80048; 82962; 85025; 99282; U0003

== ENCOUNTER → 2020-12-19 08:46 | Outpatient (POV) | payer MEDICARE, SELFPAY ==
[2020-12-19 09:21] VITALS: BP 127/69; PULSE 59; RESP 18; O2SAT 97; BMI 29.5
--- NOTE | 2020-12-19 09:56 | HMH.PMCON ---
Assessment and Plan (1) Degenerative joint disease of cervical spine Status: Chronic Category: Medical Code(s): M47.812 - Spondylosis without myelopathy or radiculopathy, cervical region (2) Cervical radiculopathy Status: Chronic Category: Medical Code(s): M54.12 - Radiculopathy, cervical region (3) Degenerative joint disease (DJD) of lumbar spine Status: Chronic Category: Medical Code(s): M47.816 - Spondylosis without myelopathy or radiculopathy, lumbar region (4) Lumbar radiculopathy Status: Chronic Category: Medical Code(s): M54.16 - Radiculopathy, lumbar region - Assessment and plan all Dx Assessment and Plan for all problems:: Patient's pain is worse in his neck at this time. We will schedule him for cervical epidural steroid injection at C5-C6 area. His MRI of cervical and lumbar spine was reviewed we will treat the cervical spine initially and then proceed with the lumbar spine. He is in agreement. Risks and benefits of the procedure have been explained to the patient. Patient would like to proceed with the procedure. Possible side effects of corticosteroids have been discussed with the patient. Patient has been instructed to contact the clinic with any concerns before the next appointment. Dr. Presley has reviewed this note and agrees with this plan of care. This note was dictated using voice recognition software and make contain errors or omissions. HPI - Data of Consult Patient: new to practice Consult date: 12/19/20 Requesting Physician: Emily Benitez APRN Primary Care Provider: Jonathan Nichols - Consult Narrative Reason for consult: Neck pain, low back pain History of present illness: Mr. Chambers is a 85 year old male who presents today for consultation for chronic neck and low back pain. Patient reports that his pain has been ongoing for more than a year. Patient says that he has his neck pain is on the left side with radiation into his left shoulder area. He also says that the pain radiates up behind his left ear and is causing him to have headaches. He says the pain is a dull ache in nature and does not improve with movement or worsen with movement. He is also having low back pain with radiation into his bilateral lower extremities. He says that he is having heaviness and weakness and falls daily due to his legs giving out on him. He says that the pain in his low back is intermittent and is also dull in nature. He has MRI of both the cervical and lumbar spine. His pain is a 5 out of 10 today. The patient has tried and failed conservative therapies of home stretching. He has undergone physical therapy for greater than 6 weeks but says that he has not gotten any relief. Patient was seen in the emergency room previously and reported his pain to be painful with movement. He also reported his pain to be going into his left ear around the back of his neck. Today, the patient says movement does not intensify the pain. Patient does have diabetes and says that he does have peripheral neuropathy. He contributes his paresthesia to his bilateral hands and bilateral feet due to diabetes. He has also tried anti-inflammatories with no relief. CC: Emily Benitez APRN [facility] History I have reviewed the patient's past medical history: Yes Medical History: Reports:: Anxiety, Arrhythmia, Atherosclerotic Heart Disease, Atrial Fibrillation, Congestive Heart Failure, Coronary Artery Disease, Diabetes Mellitus Type 2, Gastrointestinal Bleed, Hyperlipidemia, Hypertension, Myocardial Infarction Denies:: Cancer, Diabetes Mellitus Type 1, Internal Pacemaker, MRSA, Seizures *Have you ever received a pneumonia vaccine?: Yes *Have you received a flu vaccine this season?: Yes Other Medical History: Reports: Arthritis, Blood Transfusion Reaction, Cataracts Laterality Cases: Bilateral: Arthroscopy Knee, Arthroscopy Shoulder, Total Knee Replacement, Partial Knee Replacement, Other Other Surgeries: Yes: No Pr
== END ==
PROVIDERS: PCP Pediatrics; Visit Provider Clinical Nurse Specialist Family Health
DX: M47.892 Other spondylosis, cervical region (principal); M54.12 Radiculopathy, cervical region; M47.896 Other spondylosis, lumbar region; M54.16 Radiculopathy, lumbar region
CPT/HCPCS: 99202; G0463

== ENCOUNTER 2020-12-27 14:05 | Day surgery (SDC) | payer MEDICARE, SELFPAY ==
[2020-12-27 14:07] VITALS: BP 168/70; PULSE 59; RESP 20; TEMP 36.7; O2SAT 97; BMI 29.5
[2020-12-27 14:22] VITALS: BP 127/85; PULSE 63; RESP 18; O2SAT 99
[2020-12-27 14:27] LABS: POC Glucose,Bedside 199 (70-110)
[2020-12-27 14:30] VITALS: BP 144/95; PULSE 58; RESP 18; O2SAT 99
--- NOTE | 2020-12-27 14:46 | HMH.PMPROC ---
- Procedure Date: 12/27/20 Time: 14:46 Anesthesiologist:: Leah Correa MD Complications:: None Pre-procedure Diagnosis:: Degenerative disc disease of the lumbar spine, lumbar radiculopathy Post-procedure Diagnosis:: Same Indications for Procedure:: Patient is a very pleasant 85-year-old white male who presents today with chronic neck pain with radiation of pain primarily to his left upper extremity he has tried and failed conservative treatment including oral pain medications and therapy for greater than 6 weeks. Note, he also has chronic low back pain with radiation of pain into bilateral lower extremities for greater than 1 year and notes heaviness and weakness in his legs. Plan for today is for the patient to undergo cervical epidural steroid injection #1 at C7-T1. Procedure Details:: Cervical epidural steroid injection under fluoroscopy Informed consent was obtained and the risks and benefits of the procedure was explained to the patient. The patient was taken to the procedure room placed prone on the procedure table. The neck was prepped using ChloraPrep. The skin and subcutaneous tissues were anesthetized using lidocaine. I placed a 18-gauge epidural needle into the C7-T1 interspace and advanced using [id number] to air and fluoroscopic guidance. After confirmation of needle placement in the epidural space with dye, I injected 3 mL's lidocaine 1.0% and Depo-Medrol 80 mg. The patient tolerated the procedure well with no complications. Plan and Disposition:: We will follow-up in 2 weeks. Will reevaluate pain symptoms at that time. We will follow-up on his chronic low back pain and review MRI of his low back next visit.
[2020-12-27 14:50] VITALS: BP 135/75; PULSE 59; RESP 20; O2SAT 98
== END 2020-12-27 14:50 | disposition home or self-care (01) ==
LOC: SC.PAINP 14:06
PROVIDERS: PCP Pediatrics; Visit Provider Anesthesiology Pain Medicine
DX: M51.16 Intervertebral disc disorders with radiculopathy, lumbar region (principal); I25.2 Old myocardial infarction; I11.0 Hypertensive heart disease with heart failure; I50.9 Heart failure, unspecified; E78.5 Hyperlipidemia, unspecified; I48.91 Unspecified atrial fibrillation; M19.90 Unspecified osteoarthritis, unspecified site; E11.9 Type 2 diabetes mellitus without complications; F41.9 Anxiety disorder, unspecified
CPT/HCPCS: 62321; 82962; Q9966

== ENCOUNTER → 2021-01-02 09:00 | Outpatient (CLI) | payer MEDICARE, SELFPAY ==
[2021-01-02 09:33] LABS: Basophils % 0.4 % (0.1-2.0); Eosinophils # 0.2 K/mm3 (0.0-0.4); Eosinophils % 2.8 % (0.1-12.0); Hematocrit 39.7 % (42.0-52.0); Hemoglobin 13.3 g/dL (14.1-18.0); Lymphocytes # 1.6 K/mm3 (0.7-4.5); Lymphocytes % 20.4 % (10-50); Mean Corpuscular HGB Conc 33.5 g/dL (31.8-35.4); Mean Corpuscular Hemoglobin 28.9 pg (27.0-31.2); Mean Corpuscular Volume 86.2 fl (80-94); Mean Platelet Volume 7.7 fl (7.4-10.4); Monocytes # 0.6 K/mm3 (0.1-1.0); Neutrophils # 5.3 K/mm3 (1.8-7.8); Neutrophils % 68.4 % (37.0-80.0); Platelet Count 212 K/mm3 (142-424); Red Blood Count 4.61 M/mm3 (4.60-6.20); Red Cell Distribution Width 14.1 % (11.5-17.5); White Blood Count 7.7 K/mm3 (4.8-10.8)
[2021-01-02 10:10] LABS: Iron 66 ug/dL (49-181)
[2021-01-02 10:21] LABS: Total Iron Binding Capacity 331 ug/dL (261-462)
[2021-01-02 10:47] LABS: Ferritin 40.9 ng/ml (17.9-464)
== END ==
PROVIDERS: Visit Provider Internal Medicine Medical Oncology
DX: D64.9 Anemia, unspecified (principal)
CPT/HCPCS: 36415; 82728; 83540; 83550; 85025

== ENCOUNTER 2021-01-08 14:59 | Emergency (ER) | payer MEDICARE, SELFPAY ==
[2021-01-08 15:10] VITALS: BP 105/84; PULSE 60; RESP 20; TEMP 36.9; O2SAT 96; BMI 29.5
--- NOTE | 2021-01-08 15:11 | ECG_ITS ---
APPROVED REPORT Exam: Resting ECG HR:71 bpm ECG Measurements Heart Rate 71 AXES VA 184 P 100 QRSd 102 QRS -47 QT 420 T 2 QTc 456 Conclusion Sinus rhythm with frequent premature ventricular complexes Left axis deviation Pulmonary disease pattern Nonspecific ST abnormality Abnormal ECG Electronically signed by : Liam Calderon, 01/08/2021 21:33:52
--- NOTE | 2021-01-08 15:15 | XR_ITS ---
PROCEDURE: XR CHEST 2V CLINICAL HISTORY: dizziness COMPARISON: CR XR RIBS LT MIN 3V W CXR1V from 04/14/2020 CR XR CHEST 2V from 05/22/2020 CR XR CHEST 2V from 11/28/[address] CHEST W CON from 11/28/2020 FINDINGS: There is a loop recorder device present. Coronary artery stents are noted. The lungs are clear without infiltrates, suspicious nodules, or pleural effusions. There are old left-sided rib fractures and there are bilateral shoulder replacements. IMPRESSION: No acute findings. Dictated by: Jimenez Villafana MD 01/08/2021 16:23 Jimenez Villafana MD in [place] 01/08/2021 16:23
[2021-01-08 15:36] LABS: Basophils % 0.3 % (0.1-2.0); Eosinophils # 0.2 K/mm3 (0.0-0.4); Eosinophils % 2.6 % (0.1-12.0); Hemoglobin 13.7 g/dL (14.1-18.0); Lymphocytes # 1.3 K/mm3 (0.7-4.5); Lymphocytes % 15.6 % (10-50); Mean Corpuscular Hemoglobin 29.6 pg (27.0-31.2); Mean Corpuscular Volume 84.4 fl (80-94); Mean Platelet Volume 7.8 fl (7.4-10.4); Monocytes # 0.6 K/mm3 (0.1-1.0); Monocytes % 6.6 % (1.7-9.3); Neutrophils # 6.4 K/mm3 (1.8-7.8); Neutrophils % 74.8 % (37.0-80.0); Platelet Count 197 K/mm3 (142-424); Red Blood Count 4.62 M/mm3 (4.60-6.20); White Blood Count 8.5 K/mm3 (4.8-10.8)
--- NOTE | 2021-01-08 15:50 | CT_ITS ---
Procedure: CT ANGIO NECK CT ANGIO HEAD CLINICAL HISTORY: vertigo, recent neck injection Hello COMPARISON: CT CT ANGIO HEAD from 01/08/2021 TECHNIQUE: IV Contrast: 100ml Isovue 370 Axial images obtained with sagittal and coronal reformats. All CT scans at the facility use one or more dose reduction, viz: automated exposure control, ma/kV adjustment per patient size (including targeted exams where dose is matched to indication, i.e. head), or iterative reconstruction technique. FINDINGS: CT angio neck: There is some calcific plaque in the aortic arch. Right brachiocephalic artery has an unremarkable appearance. Right common carotid: Tortuosity noted of the common carotid. Minimal amount calcific plaque at the bifurcation. No significant stenosis of the common or internal carotid. No dissection Left carotid: Left common and internal carotid artery have an unremarkable appearance. There is some minimal plaque at the bifurcation but no significant stenosis. No dissection Right vertebral/cervical portion: Unremarkable. No stenosis or dissection Left vertebral/cervical portion: Calcific plaque at the ostium with less than 50 percent stenosis. Left subclavian: There is a web-like area of narrowing involving the proximal subclavian just proximal to the vertebral origin. This is causing approximately 50 percent stenosis. CTA head: Calcific plaque is present within the cavernous portion of both internal carotid arteries with no significant stenosis. No aneurysm or AVM apparent. Calcific plaque is also present involving the vertebral arteries intracranial segment. There is minimal dilatation of the distal left vertebral artery proximal to the basilar origin. No aneurysm or dissection. No AVM apparent. No enhancing lesions midline shift or mass effect. No sinus thrombosis. IMPRESSION: Negative CTA of the neck and brain. No aneurysm, AVM, significant occlusive change, or dissection apparent. There is web-like area of narrowing involving the left brachiocephalic artery of approximately 50 percent Dictated by: Jimenez Villafana MD 01/08/2021 17:40 Jimenez Villafana MD in [facility] 01/08/2021 17:40
--- NOTE | 2021-01-08 15:50 | CT_ITS ---
PROCEDURE: CT HEAD/BRAIN WO CON CLINICAL INDICATION: vertigo, recent neck injection COMPARISON: CT CT HEAD/BRAIN WO CON from 10/28/2020 TECHNIQUE: Axial images obtained. All CT scans at the facility use one or more dose reduction, viz: automated exposure control, ma/kV adjustment per patient size (including targeted exams where dose is matched to indication, i.e. head), or iterative reconstruction technique. FINDINGS: No midline shift, mass effect, intracranial hemorrhage, hydrocephalus, or extra-axial fluid collection is evident. There is generalized atrophy with hypoattenuation of the periventricular white matter consistent with microangiopathic changes. The calvarium has an unremarkable appearance. No mastoid effusion. No sinus air-fluid level. IMPRESSION: No acute intracranial finding Dictated by: Jimenez Villafana MD 01/08/2021 16:41 Jimenez Villafana MD in [facility] 01/08/2021 16:41
[2021-01-08 15:51] LABS: Chloride 103 mmol/L (98-107); Potassium 4.4 mmoL/L (3.5-5.1); Sodium 134 mmol/L (136-145)
[2021-01-08 15:54] LABS: Blood Urea Nitrogen 18 mg/dl (9-20); Creatinine Clearance Estimated 72 mL/min (50-200); Estimated Glomerular Filt Rate 108 ml/min (>60); GFR (African American) 130 ML/MIN (>60)
[2021-01-08 15:55] LABS: Anion Gap 12.4 mEq/L (5-15); Calcium 9.1 mg/dl (8.4-10.2); Carbon Dioxide 23 mmol/L (22.0-30.0); Glucose 324 mg/dl (74-100)
[2021-01-08 16:19] LABS: Troponin I < 0.01 ng/ml (0.00-0.034)
[2021-01-08 16:40] VITALS: BP 129/72
[2021-01-08 17:30] VITALS: BP 176/86; PULSE 56; O2SAT 98
--- NOTE | 2021-01-08 17:48 | HMH.EDGENADL ---
ED Disposition Clinical Impression: Benign paroxysmal positional vertigo Qualifiers: Laterality: unspecified laterality Qualified Code(s): H81.10 - Benign paroxysmal vertigo, unspecified ear Disposition: Home, Self-Care Condition on Discharge: Good Instructions: Vertigo Additional Instructions: Follow up with your PCP. Take the oxycodone as needed. Return with worsening symptoms. Neurology: [phone]. Referral will be sent but call to make an appointment. Prescriptions: Oxycodone HCl [Oxycodone 5mg tab (IR)] 5 mg PO Q4-6H 3 Days #12 tab Prescription Printed Referrals: Jonathan Nichols [Primary Care Provider] - - Critical Care Critical Care Time: No Attestation: On 01/08/21, the high probability of a clinically significant, sudden or life threatening deterioration of the following system(s) required my full and direct attention, intervention and personal management. The time I documented below is in addition to time spent performing reported procedures but includes the following listed in this critical care notation. Medical Decision Making - Medical Records Medical records reviewed: Yes: I reviewed the patient's medical records. - Adi Inquiry Pt receiving controlled substance: No Vital Signs: 01/08/21 15:10 01/08/21 16:40 01/08/21 17:30 Temperature 98.4 F Temperature Source Oral Pulse Rate 56 L Pulse Rate [Left Radial] 60 Respiratory Rate 20 Blood Pressure 129/72 176/86 H Blood Pressure [Right Arm] 105/84 L Blood Pressure Mean 116 Blood Pressure Mean [Right Arm] 91 Blood Pressure Source Blood Pressure Position 02 Sat by Pulse Oximetry 96 98 Oxygen Delivery Method Room Air 01/08/21 18:01 01/08/21 18:15 Temperature 98.4 F Temperature Source Oral Pulse Rate 60 Pulse Rate [Left Radial] Respiratory Rate 20 Blood Pressure 186/84 H 186/84 H Blood Pressure [Right Arm] Blood Pressure Mean 118 Blood Pressure Mean [Right Arm] Blood Pressure Source Automatic Cuff Blood Pressure Position Sitting 02 Sat by Pulse Oximetry Oxygen Delivery Method Room Air - Lab Data Lab Results 01/08/21 15:25: WBC 8.5, RBC 4.62, Hgb 13.7 L, Hct 39.0 L, MCV 84.4, MCH 29.6, MCHC 35.0, RDW 14.0, Plt Count 197, MPV 7.8, Neut % (Auto) 74.8, Lymph % (Auto) 15.6, [place] % (Auto) 6.6, Eos % (Auto) 2.6, Baso % (Auto) 0.3, Neut # (Auto) 6.4, Lymph # (Auto) 1.3, [place] # (Auto) 0.6, Eos # (Auto) 0.2, Baso # (Auto) 0.0 01/08/21 15:25: Sodium 134 L, Potassium 4.4, Chloride 103, Carbon Dioxide 23, Anion Gap 12.4, BUN 18, Creatinine 0.70, Estimated Creat Clear 72, Estimated GFR 108, Est GFR ( Amer) 130, Glucose 324 H, Calcium 9.1, Troponin I < 0.01 Result diagrams: 01/08/21 15:25 01/08/21 15:25 Orders (Tests/Meds): ED MEDICATIONS Discontinued Medications Generic Name Dose Route Start Last Admin Trade Name Freq PRN Reason Stop Dose Admin Sodium Chloride 1,000 mls @ 999 mls/hr 01/08/21 15:30 01/08/21 16:39 Sod Chlor 0.9% 1000ml Bag IV 01/08/21 16:30 999 mls/hr .Q1H1M LIOR Administration Iopamidol 100 ml 01/08/21 16:30 01/08/21 16:31 Iopamidol-370 (76%);100ml Bottle IV 01/08/21 16:31 100 ml ONCE ONE Administration Oxycodone HCl 5 mg 01/08/21 16:26 Oxycodone 5mg Immediate Release Tablet PO 02/07/21 16:25 Q4HP PRN Severe Pain Oxycodone/Acetaminophen 1 each 01/08/21 16:41 01/08/21 16:43 Oxycodone 5mg W/Apap 325mg Tablet PO 01/08/21 16:42 1 each ONCE ONE Administration Sodium Chloride 10 ml 01/08/21 16:30 01/08/21 16:31 Sodium Chloride 0.9% 10ml Syr (Rad Only) IV 01/08/21 16:31 10 ml ONCE ONE Administration Sodium Chloride 50 ml 01/08/21 16:30 01/08/21 16:31 0.9 % Sodium Chloride 50 Ml Vial IV 01/08/21 16:31 50 ml ONCE ONE Administration Medical Decision Narrative: The patient is an 85 year old female who presents to the ED with vertigo and weakness. On arrival he is awake, alert, stable. He is n
[2021-01-08 18:01] VITALS: BP 186/84
[2021-01-08 18:15] VITALS: BP 186/84; PULSE 60; RESP 20; TEMP 36.9; O2SAT 97
== END 2021-01-08 18:17 | disposition home or self-care (01) ==
PROVIDERS: Emergency Provider Emergency Medicine; PCP Pediatrics
DX: H57.11 Ocular pain, right eye (principal)
CPT/HCPCS: 70450; 70496; 70498; 71046; 80048; 84484; 85025; 93005; 96365; 99283; Q9967

== ENCOUNTER 2021-01-10 07:42 | Emergency (ER) | payer MEDICARE, SELFPAY ==
[2021-01-10 07:43] VITALS: BP 150/78; PULSE 54; RESP 18; O2SAT 100; BMI 29.5
--- NOTE | 2021-01-10 08:04 | ECG_ITS ---
APPROVED REPORT Exam: Resting ECG HR:50 bpm ECG Measurements Heart Rate 50 AXES [place] 210 P 3 QRSd 108 QRS -42 QT 508 T -13 QTc 463 Conclusion Sinus bradycardia with 1st degree AV block Left axis deviation Moderate voltage criteria for LVH, may be normal variant Nonspecific ST abnormality Abnormal ECG Electronically signed by : Liam Calderon, 01/10/2021 21:34:44
[2021-01-10 08:25] LABS: Basophils % 0.4 % (0.1-2.0); Eosinophils # 0.1 K/mm3 (0.0-0.4); Eosinophils % 1.5 % (0.1-12.0); Hematocrit 37.9 % (42.0-52.0); Hemoglobin 13.1 g/dL (14.1-18.0); Lymphocytes # 0.9 K/mm3 (0.7-4.5); Lymphocytes % 9.8 % (10-50); Mean Corpuscular HGB Conc 34.5 g/dL (31.8-35.4); Mean Corpuscular Hemoglobin 29.5 pg (27.0-31.2); Mean Corpuscular Volume 85.6 fl (80-94); Mean Platelet Volume 7.4 fl (7.4-10.4); Monocytes # 0.6 K/mm3 (0.1-1.0); Monocytes % 6.1 % (1.7-9.3); Neutrophils # 7.5 K/mm3 (1.8-7.8); Neutrophils % 82.2 % (37.0-80.0); Platelet Count 168 K/mm3 (142-424); Red Blood Count 4.43 M/mm3 (4.60-6.20); Red Cell Distribution Width 14.3 % (11.5-17.5); White Blood Count 9.2 K/mm3 (4.8-10.8)
--- NOTE | 2021-01-10 08:25 | HMH.EDGENADL ---
ED Disposition Clinical Impression: Diaphoresis, Hypoglycemia Disposition: Home, Self-Care Condition on Discharge: Good Instructions: DI for Hypoglycemia Additional Instructions: Return if symptoms recur. Check your blood sugar before each meal and before bed. Call your primary care provider today for follow-up and further instructions and care. Referrals: Provider,Referral, [Referring] - - Critical Care Critical Care Time: No Attestation: On 01/10/21, the high probability of a clinically significant, sudden or life threatening deterioration of the following system(s) required my full and direct attention, intervention and personal management. The time I documented below is in addition to time spent performing reported procedures but includes the following listed in this critical care notation. Medical Decision Making - Adi Inquiry Pt receiving controlled substance: No Vital Signs: 01/10/21 07:43 01/10/21 08:30 01/10/21 09:00 Temperature 95.3 F L Temperature Source Rectal Pulse Rate 46 L Pulse Rate [Left Radial] 54 L Respiratory Rate 18 Blood Pressure 156/72 H Blood Pressure [Right Arm] 150/78 H Blood Pressure Mean 132 Blood Pressure Mean [Right Arm] 102 Blood Pressure Source [Right Arm] Automatic Cuff Blood Pressure Position [Right Arm] Sitting 02 Sat by Pulse Oximetry 100 96 Oxygen Delivery Method Room Air 01/10/21 09:56 Temperature 97.4 F L Temperature Source Oral Pulse Rate Pulse Rate [Left Radial] Respiratory Rate Blood Pressure Blood Pressure [Right Arm] Blood Pressure Mean Blood Pressure Mean [Right Arm] Blood Pressure Source [Right Arm] Blood Pressure Position [Right Arm] 02 Sat by Pulse Oximetry Oxygen Delivery Method - Lab Data Lab Results 01/10/21 08:15: WBC 9.2, RBC 4.43 L, Hgb 13.1 L, Hct 37.9 L, MCV 85.6, MCH 29.5, MCHC 34.5, RDW 14.3, Plt Count 168, MPV 7.4, Neut % (Auto) 82.2 H, Lymph % (Auto) 9.8 L, [place] % (Auto) 6.1, Eos % (Auto) 1.5, Baso % (Auto) 0.4, Neut # (Auto) 7.5, Lymph # (Auto) 0.9, [place] # (Auto) 0.6, Eos # (Auto) 0.1, Baso # (Auto) 0.0 01/10/21 08:15: Sodium 139, Potassium 3.8, Chloride 108 H, Carbon Dioxide 26, Anion Gap 8.8, BUN 19, Creatinine 0.80, Estimated Creat Clear 72, Estimated GFR 92, Est GFR ( Amer) 112, Glucose 91, Calcium 9.0, Troponin I < 0.01 01/10/21 09:44: SARS-CoV-2 (PCR) Not detected, Influenza A Untype (PCR) Not detected, Influenza Type B (PCR) Not detected 01/10/21 10:33: POC Glucose 162 H 01/10/21 10:57: Troponin I < 0.01 Result diagrams: 01/10/21 08:15 01/10/21 08:15 Orders (Tests/Meds): ED MEDICATIONS Discontinued Medications Generic Name Dose Route Start Last Admin Trade Name Freq PRN Reason Stop Dose Admin Acetaminophen 1,000 mg 01/10/21 12:22 01/10/21 12:23 Acetaminophen 500mg Tab PO 01/10/21 12:23 1,000 mg ONCE ONE Administration ORDERS Category Date Time Status Troponin I Q3H Lab 01/10/21 14:00 Ordered - ECG Data Tracing #1 EKG interpreted by Arcadio Meyers MD: Rhythm: sinus bradycardia Rate: 50 [place]: Left Ectopy: none Conduction: First-degree AV block ST Segment Changes: none T Wave Changes: none Q Waves: none No evidence of acute ischemia or injury LVH - Physician Consults Physician Consulted: MARJORIE Wiley, for Dr. Anderson Time: 11:58 Reason -: Cardiology Eval/Care Comment/Response: Noted heart rates are okay per cardiology. No change in medications. Medical Decision Narrative: Patient's blood sugar was borderline on his initial fingerstick by EMS, but he responded to sugar administration and I feel his diaphoresis was likely related to hypoglycemia. Supported by his hypothermia, which is likely from being hypoglycemic while sleeping. General Adult HPI - General Chief complaint: Dizziness Stated complaint: weakness Time Seen by Provider: 01/10/21 08:26 Mode of Arrival: EMS Limitations: No Limitations Descri
[2021-01-10 08:30] VITALS: BP 156/72; PULSE 46; O2SAT 96
[2021-01-10 08:34] LABS: Anion Gap 8.8 mEq/L (5-15); Blood Urea Nitrogen 19 mg/dl (9-20); Carbon Dioxide 26 mmol/L (22.0-30.0); Chloride 108 mmol/L (98-107); Creatinine Clearance Estimated 72 mL/min (50-200); Estimated Glomerular Filt Rate 92 ml/min (>60); GFR (African American) 112 ML/MIN (>60); Glucose 91 mg/dl (74-100); Potassium 3.8 mmoL/L (3.5-5.1); Sodium 139 mmol/L (136-145)
[2021-01-10 08:46] LABS: Troponin I < 0.01 ng/ml (0.00-0.034)
[2021-01-10 09:00] VITALS: TEMP 35.2
[2021-01-10 09:56] VITALS: TEMP 36.3
[2021-01-10 10:10] LABS: Coronavirus 19, PCR Not Detected (NotDetected); Influenza A, PCR Not Detected (NotDetected); Influenza B, PCR Not Detected (NotDetected)
[2021-01-10 10:41] LABS: POC Glucose,Bedside 162 (70-110)
[2021-01-10 12:08] LABS: Troponin I < 0.01 ng/ml (0.00-0.034)
[2021-01-10 12:45] VITALS: BP 163/89; PULSE 56; RESP 18; TEMP 36.4; O2SAT 99
== END 2021-01-10 12:33 | disposition home or self-care (01) ==
PROVIDERS: Emergency Provider Emergency Medicine; PCP Pediatrics
DX: R61 Generalized hyperhidrosis (principal); E11.649 Type 2 diabetes mellitus with hypoglycemia without coma; I48.0 Paroxysmal atrial fibrillation; I25.10 Atherosclerotic heart disease of native coronary artery without angina pectoris; F41.9 Anxiety disorder, unspecified; I25.2 Old myocardial infarction; I50.9 Heart failure, unspecified; I10 Essential (primary) hypertension; E78.5 Hyperlipidemia, unspecified; Z79.899 Other long term (current) drug therapy
CPT/HCPCS: 36415; 80048; 82962; 84484; 85025; 93005; 99283; U0003

== ENCOUNTER → 2021-01-13 08:18 | Outpatient (POV) | payer MEDICARE, SELFPAY ==
[2021-01-13 08:37] VITALS: BP 150/72; PULSE 66; RESP 18; O2SAT 98; BMI 29.5
--- NOTE | 2021-01-13 09:30 | HMH.PAINSOAP ---
[facility] Pain Management SOAP Note Subjective:: Patient is an 85-year-old white male who presents today for follow-up after a C7-T1 injection #1. He is being treated for neck pain with radicular symptoms into his left arm. He is also complaining today of pain behind his left ear and left shoulder area. Patient says that his pain was worse after the injection. His pain is a 7 out of 10. Patient did go to the emergency room following his injection. He was diaphoretic and noted to have lower blood glucose level. Patient is diabetic. Patient's was given oxycodone while there, however, says that his pain has worsened even more since Dr. Presley has reviewed this note and agrees with this plan of care. This note was dictated using voice recognition software and make contain errors or omissions. He is having difficulty turning his head. He is having vertigo as well as vision changes. He is seeing an vice president of news. Patient says he does not want to undergo further injective therapy until this acute episode resolves. We discussed trying tramadol for a month and then resuming injective therapy. Review of Systems General: No recent weight changes, no fever, no sleep disturbances Respiratory: No cough, no shortness of air, no recurring pulmonary infections Cardiovascular/peripheral vascular: No chest pain, no palpitations, no edema, no shortness of breath Gastrointestinal: No new onset incontinence, normal bowel movements reported Genitourinary: No new onset incontinence Musculoskeletal: Left side neck pain, left shoulder pain, pain behind left ear, Psychiatric: Normal mood/affect Neurological: [Denies weakness in extremities], [denies balance issues], vision changes, sensation of head spinning Objective:: Physical exam General: Alert and oriented x3, no acute distress, pleasant and cooperative, [on room air] Lungs: Respirations even and unlabored, symmetrical chest expansion Eyes: PERRL Musculoskeletal: Flexion and extension of [] cervical spine somewhat guarded secondary to pain, deep tendon reflexes normal, strength in upper and lower extremities [5/5], [abnormal gait noted] Neurological: Speech clear, margin clerk equal, no gross sensory deficit Assessment:: Degenerative disc disease cervical spine with cervical radiculopathy symptoms Plan:: We will order the patient tramadol 50 mg 1 tablet p.o. 3 times daily. We will see him back in 2 weeks for reevaluation of symptoms. Patient has been instructed to contact the clinic with any concerns before the next appointment. Dr. Presley has reviewed this note and agrees with this plan of care. This note was dictated using voice recognition software and make contain errors or omissions. Patient has been prescribed a controlled substance after being counseled on the medication, medication safety, and possible side effects. CELE report has been obtained and reviewed prior to prescription and found to be appropriate. Opioid contract was reviewed and signed by the patient, and that they have agreed to all of the terms set forth by our compliance program. [facility] History I have reviewed the patient's past medical history: Yes Medical History: Reports:: Anxiety, Arrhythmia, Atherosclerotic Heart Disease, Atrial Fibrillation, Congestive Heart Failure, Coronary Artery Disease, Diabetes Mellitus Type 2, Gastrointestinal Bleed, Hyperlipidemia, Hypertension, Myocardial Infarction Denies:: Cancer, Diabetes Mellitus Type 1, Internal Pacemaker, MRSA, Seizures *Have you ever received a pneumonia vaccine?: Yes *Have you received a flu vaccine this season?: Yes Other Medical History: Reports: Arthritis, Cataracts. Denies: Blood Transfusion Reaction Laterality Cases: Bilateral: Arthroscopy Knee, Arthroscopy Shoulder, Other Other Surgeries: Yes: No Previous Surgery, Angiogram, Angioplasty, Cardiac Catheterization, Cardiac Surgery, Cholecystectomy, Colonoscopy, Coronary Stent, EGD, Other. No: Pacemaker Amputation: No F
== END ==
PROVIDERS: PCP Pediatrics; Visit Provider Clinical Nurse Specialist Family Health
DX: M50.10 Cervical disc disorder with radiculopathy, unspecified cervical region (principal)
CPT/HCPCS: 99212; G0463

== ENCOUNTER → 2021-03-11 09:25 | Outpatient (CLI) | payer MEDICARE, SELFPAY ==
[2021-03-11 09:55] LABS: Basophils % 0.4 % (0.1-2.0); Eosinophils # 0.2 K/mm3 (0.0-0.4); Eosinophils % 3.2 % (0.1-12.0); Hematocrit 44.5 % (42.0-52.0); Hemoglobin 14.5 g/dL (14.1-18.0); Lymphocytes # 1.3 K/mm3 (0.7-4.5); Mean Corpuscular HGB Conc 32.7 g/dL (31.8-35.4); Mean Corpuscular Hemoglobin 29.7 pg (27.0-31.2); Mean Corpuscular Volume 90.8 fl (80-94); Mean Platelet Volume 7.2 fl (7.4-10.4); Monocytes # 0.6 K/mm3 (0.1-1.0); Monocytes % 9.1 % (1.7-9.3); Neutrophils % 65.4 % (37.0-80.0); Platelet Count 218 K/mm3 (142-424); Red Cell Distribution Width 13.2 % (11.5-17.5); White Blood Count 6.1 K/mm3 (4.8-10.8)
[2021-03-11 10:56] LABS: Chloride 103 mmol/L (98-107); Potassium 4.9 mmoL/L (3.5-5.1); Sodium 137 mmol/L (136-145)
[2021-03-11 10:59] LABS: Anion Gap 12.9 mEq/L (5-15); Blood Urea Nitrogen 18 mg/dl (9-20); Calcium 9.1 mg/dl (8.4-10.2); Carbon Dioxide 26 mmol/L (22.0-30.0); Estimated Glomerular Filt Rate 92 ml/min (>60); GFR (African American) 112 ML/MIN (>60); Glucose 261 mg/dl (74-100)
[2021-03-11 11:08] LABS: NT Pro Brain Natriuretic Pep. 216 pg/mL (0-450)
== END ==
PROVIDERS: Visit Provider Urology
DX: E78.2 Mixed hyperlipidemia (principal); I11.9 Hypertensive heart disease without heart failure; I25.10 Atherosclerotic heart disease of native coronary artery without angina pectoris; I48.0 Paroxysmal atrial fibrillation; R06.09 Other forms of dyspnea; R42 Dizziness and giddiness; R06.02 Shortness of breath
CPT/HCPCS: 36415; 80048; 83880; 85025

== ENCOUNTER 2021-04-01 17:28 | Emergency (ER) | payer MEDICARE, SELFPAY ==
--- NOTE | 2021-04-01 17:29 | ECG_ITS ---
APPROVED REPORT Exam: Resting ECG HR:0 bpm ECG Measurements Heart Rate 0 AXES QRSd QRS 0 QT T 0 Conclusion No QRS complexes found, no ECG analysis possible Electronically signed by : Liam Calderon MD 04/03/2021 17:50:34
[2021-04-01 17:30] VITALS: BP 120/80; PULSE 91; RESP 18; TEMP 37.1; O2SAT 95; BMI 29.5
[2021-04-01 17:47] LABS: Basophils % 0.3 % (0.1-2.0); Eosinophils # 0.2 K/mm3 (0.0-0.4); Eosinophils % 1.9 % (0.1-12.0); Hematocrit 43.8 % (42.0-52.0); Hemoglobin 14.6 g/dL (14.1-18.0); Lymphocytes # 1.1 K/mm3 (0.7-4.5); Mean Corpuscular HGB Conc 33.4 g/dL (31.8-35.4); Mean Corpuscular Hemoglobin 29.9 pg (27.0-31.2); Mean Corpuscular Volume 89.5 fl (80-94); Mean Platelet Volume 8.7 fl (7.4-10.4); Monocytes # 0.6 K/mm3 (0.1-1.0); Monocytes % 7.6 % (1.7-9.3); Neutrophils # 6.3 K/mm3 (1.8-7.8); Neutrophils % 77.2 % (37.0-80.0); Platelet Count 233 K/mm3 (142-424); Red Blood Count 4.89 M/mm3 (4.60-6.20); Red Cell Distribution Width 13.6 % (11.5-17.5); White Blood Count 8.2 K/mm3 (4.8-10.8)
--- NOTE | 2021-04-01 17:47 | HMH.EDGENADL ---
ED Disposition Clinical Impression: Hyperglycemia, Weakness Disposition: Home, Self-Care Condition on Discharge: Good Additional Instructions: home medications as directed. Referrals: Jonathan Nichols [Primary Care Provider] - Time of Disposition: 20:02 - Critical Care Critical Care Time: No Attestation: On , the high probability of a clinically significant, sudden or life threatening deterioration of the following system(s) required my full and direct attention, intervention and personal management. The time I documented below is in addition to time spent performing reported procedures but includes the following listed in this critical care notation. Medical Decision Making - Medical Records Medical records reviewed: Yes: I reviewed the patient's medical records. - Adi Inquiry Pt receiving controlled substance: No Vital Signs: 04/01/21 17:30 Temperature 98.7 F Temperature Source Oral Pulse Rate [Right Radial] 91 H Respiratory Rate 18 Blood Pressure [Right Arm] 120/80 Blood Pressure Mean [Right Arm] 93 Blood Pressure Source [Right Arm] Automatic Cuff Blood Pressure Position [Right Arm] Sitting 02 Sat by Pulse Oximetry 95 Oxygen Delivery Method Room Air - Lab Data Lab results reviewed: Yes: I reviewed the patient's lab results. Lab Results 04/01/21 17:35: WBC 8.2, RBC 4.89, Hgb 14.6, Hct 43.8, MCV 89.5, MCH 29.9, MCHC 33.4, RDW 13.6, Plt Count 233, MPV 8.7, Neut % (Auto) 77.2, Lymph % (Auto) 13.0, [place] % (Auto) 7.6, Eos % (Auto) 1.9, Baso % (Auto) 0.3, Neut # (Auto) 6.3, Lymph # (Auto) 1.1, [place] # (Auto) 0.6, Eos # (Auto) 0.2, Baso # (Auto) 0.0 04/01/21 17:35: Sodium 134 L, Potassium 4.0, Chloride 105, Carbon Dioxide 23, Anion Gap 10.0, BUN 15, Creatinine 1.00, Estimated Creat Clear 72, Estimated GFR 71, Est GFR ( Amer) 86, Glucose 352 H, Calcium 9.1, Troponin I < 0.01 04/01/21 19:50: Urine Color Yellow, Urine Appearance Sl cloudy, Urine pH 6.0, Ur Specific [place] 1.020, Urine Protein Negative, Urine Glucose (UA) 3+, Urine Ketones 1+, Urine Blood Negative, Urine Nitrate Negative, Urine Bilirubin Negative, Urine Urobilinogen 0.2, Ur Leukocyte Esterase Negative Result diagrams: 04/01/21 17:35 04/01/21 17:35 Orders (Tests/Meds): ED MEDICATIONS Discontinued Medications Generic Name Dose Route Start Last Admin Trade Name Hope PRN Reason Stop Dose Admin Lactated Ringer's 1,000 mls @ 999 mls/hr 04/01/21 18:45 04/01/21 19:24 Lactated Ringer's 1000 Ml Bag IV 04/01/21 19:45 999 mls/hr .Q1H1M LIOR Administration Insulin Human Lispro 8 unit 04/01/21 18:51 04/01/21 19:24 Humalog 100 Units/Ml 3ml Vial (Ssi) SQ 04/01/21 18:52 8 unit ONCE ONE Administration ORDERS Category Date Time Status Troponin I Q3H Lab 04/01/21 20:45 Ordered Troponin I Q3H Lab 04/01/21 23:45 Ordered UA [Urinalysis and Microscopic] Stat Lab 04/01/21 19:50 Results - ECG Data Tracing #1 I reviewed this ECG and interpreted as documented below: Normal sinus rhythm, 87 bpm, no ST elevation or depression, normal intervals, no ectopy. ECG initial impression date: 04/01/21 ECG initial impression time: 17:31 Medical Decision Narrative: 85yo M evaluated for weakness. Patient no acute distress on initial evaluation. Patient states his symptoms are resolved and he feels better at this time. Physical exam is unremarkable. Patient laboratory CBC and BMP are resulted at this time and significant only for an elevated glucose. Pending a urinalysis and CT head at this time. Patient receiving insulin for his hyperglycemia. Patient's urinalysis is negative for signs of infection. Suspect his hyperglycemia is secondary to medication noncompliance. He has ambulated to the emergency department. He is appropriate for discharge home. General Adult HPI - General Chief complaint: Weakness Stated complaint: weak, got hot while outside Time Seen by Provider: 04/01/21 18:30 Mode of Arrival: EMS [facility]
[2021-04-01 17:59] LABS: Blood Urea Nitrogen 15 mg/dl (9-20); Calcium 9.1 mg/dl (8.4-10.2); Carbon Dioxide 23 mmol/L (22.0-30.0); Chloride 105 mmol/L (98-107); Creatinine Clearance Estimated 72 mL/min (50-200); Estimated Glomerular Filt Rate 71 ml/min (>60); GFR (African American) 86 ML/MIN (>60); Glucose 352 mg/dl (74-100); Sodium 134 mmol/L (136-145)
[2021-04-01 18:12] LABS: Troponin I < 0.01 ng/ml (0.00-0.034)
--- NOTE | 2021-04-01 18:42 | CT_ITS ---
PROCEDURE INFORMATION: Exam: CT Head Without Contrast Exam date and time: 04/01/2021 6:42 PM Age: 85 years old Clinical indication: Other: Gneralized weakness TECHNIQUE: Imaging protocol: Computed tomography of the head without contrast. 3D rendering (Not supervised by radiologist): MIP and/or 3D reconstructed images were created by the technologist. Total images: 561 Radiation optimization: All CT scans at this facility use at least one of these dose optimization techniques: automated exposure control; mA and/or kV adjustment per patient size (includes targeted exams where dose is matched to clinical indication); or iterative reconstruction. COMPARISON: CT HEAD/BRAIN WO CON 01/08/2021 4:13 PM FINDINGS: Brain: Moderate generalized atrophy. Mild bilateral white matter hypodensities which are nonspecific but most commonly associated with chronic microvascular ischemia in this age group. No extra-axial fluid collections. No evidence of acute intracranial hemorrhage. Fernandez-white differentiation is well maintained. No CT evidence of large territory acute or subacute intracranial ischemia/infarct. No intracranial mass lesions. No midline shift or herniation. Cerebral ventricles: Mild compensatory ventriculomegaly secondary to central atrophy. Paranasal sinuses: Visualized paranasal sinuses are clear. Mastoid air cells: Visualized mastoid air cells are clear. Orbital cavity: Visualized orbital contents demonstrate no evidence of acute abnormality. Vasculature: Moderate-severe calcific atherosclerosis. No asymmetric vascular hyperdensities suggestive of thrombosis are identified. Bones/joints: The calvarium and visualized facial bones are intact. Soft tissues: The scalp and visualized soft tissues demonstrate no acute abnormality. Chronic scarring in the left parietal scalp again noted. Other findings: The IACs are grossly normal. The sella is grossly normal. IMPRESSION: 1. No acute intracranial process. No intracranial hemorrhage or mass effect. 2. Atrophy and mild chronic microvascular changes consistent with age. 3. Moderate-severe calcific atherosclerosis.
--- NOTE | 2021-04-01 18:56 | PC.NURSE ---
pt to CT
[2021-04-01 19:53] LABS: Microscopic, Urine URINE MICROSCOPIC (MICROSCOPIC)
[2021-04-01 19:59] LABS: Appearance,Urine SL CLOUDY (Clear); Bilirubin,Urine Negative (Negative); Blood, Urine Negative (Negative); Color,Urine YELLOW (Yellow); Glucose,Urine (UA) 3+ (Negative); Ketones,Urine 1+ (Negative); Leukocyte Esterase,Urine Negative (Negative); Nitrate,Urine Negative (Negative); Protein,Urine Negative (Negative); Urobilinogen,Urine 0.2 EU/dl (0.2)
[2021-04-01 20:13] VITALS: BP 125/75; PULSE 81; RESP 18; TEMP 37.1; O2SAT 95
[2021-04-01 20:14] LABS: Bacteria,Urine Trace /lpf; Mucus,Urine 1+ /lpf; Squamous Epithelial Cell,Urine Occasional #/hpf (0-5); WBC,Urine Occasional #/hpf (0-3)
== END 2021-04-01 20:14 | disposition home or self-care (01) ==
PROVIDERS: Emergency Provider Family Medicine; PCP Pediatrics
DX: R53.83 Other fatigue (principal); R53.1 Weakness; E11.65 Type 2 diabetes mellitus with hyperglycemia; Z79.84 Long term (current) use of oral hypoglycemic drugs; Z79.4 Long term (current) use of insulin
CPT/HCPCS: 70450; 80048; 81001; 84484; 85025; 93005; 96365; 96375; 99283

== ENCOUNTER → 2021-05-08 14:26 | Outpatient (CLI) | payer MEDICARE, SELFPAY ==
[2021-05-08 16:05] LABS: Prostate Specific Ag, Diagnost 0.646 ng/ml (0.0-4.0)
== END ==
PROVIDERS: Visit Provider Urology
DX: N40.1 Benign prostatic hyperplasia with lower urinary tract symptoms (principal)
CPT/HCPCS: 84153

== ENCOUNTER → 2021-07-08 08:51 | Outpatient (CLI) | payer MEDICARE, SELFPAY ==
[2021-07-08 09:49] LABS: Basophils % 0.3 % (0.1-2.0); Eosinophils # 0.2 K/mm3 (0.0-0.4); Eosinophils % 3.8 % (0.1-12.0); Hematocrit 43.4 % (42.0-52.0); Hemoglobin 14.5 g/dL (14.1-18.0); Lymphocytes % 21.5 % (10-50); Mean Corpuscular HGB Conc 33.5 g/dL (31.8-35.4); Mean Corpuscular Hemoglobin 30.1 pg (27.0-31.2); Mean Corpuscular Volume 89.7 fl (80-94); Mean Platelet Volume 7.7 fl (7.4-10.4); Monocytes # 0.4 K/mm3 (0.1-1.0); Monocytes % 8.4 % (1.7-9.3); Neutrophils # 3.1 K/mm3 (1.8-7.8); Platelet Count 250 K/mm3 (142-424); Red Blood Count 4.83 M/mm3 (4.60-6.20); Red Cell Distribution Width 13.6 % (11.5-17.5); White Blood Count 4.7 K/mm3 (4.8-10.8)
[2021-07-08 10:29] LABS: Chloride 101 mmol/L (98-107); Potassium 4.4 mmoL/L (3.5-5.1); Sodium 135 mmol/L (136-145)
[2021-07-08 10:31] LABS: Blood Urea Nitrogen 19 mg/dl (9-20); Estimated Glomerular Filt Rate 108 ml/min (>60); GFR (African American) 130 ML/MIN (>60)
[2021-07-08 10:32] LABS: Alanine Aminotransferase 19 U/L (12-78); Albumin Level 3.7 g/dl (3.5-5.0); Albumin/Globulin Ratio 1.6 (1.1-1.8); Alkaline Phosphatase 109 U/L (38-126); Anion Gap 10.4 mEq/L (5-15); Aspartate Amino Transferase 25 U/L (17-59); Bilirubin,Total 0.7 mg/dl (0.2-1.3); Calcium 9.4 mg/dl (8.4-10.2); Carbon Dioxide 28 mmol/L (22.0-30.0); Globulin 2.3 g/dL (1.3-3.2); Glucose 277 mg/dl (74-100); Iron 85 ug/dL (49-181)
[2021-07-08 10:41] LABS: Total Iron Binding Capacity 349 ug/dL (261-462)
[2021-07-08 11:07] LABS: Ferritin 56.1 ng/ml (17.9-464)
== END ==
PROVIDERS: PCP Pediatrics; Visit Provider Internal Medicine Medical Oncology
DX: D50.9 Iron deficiency anemia, unspecified (principal)
CPT/HCPCS: 36415; 80053; 82728; 83540; 83550; 85025

== ENCOUNTER → 2021-08-02 10:32 | Outpatient (CLI) | payer MEDICARE, SELFPAY | PROVIDERS: PCP Pediatrics; Visit Provider Ophthalmology | DX: Z01.812 Encounter for preprocedural laboratory examination (principal); U07.1 COVID-19 | CPT/HCPCS: C9803; U0003; U0005 ==

== ENCOUNTER 2021-08-05 13:50 | Emergency (ER) | payer MEDICARE, SELFPAY ==
[2021-08-05 13:51] VITALS: BP 118/46; PULSE 87; RESP 18; TEMP 36.4; O2SAT 99; BMI 29.5
[2021-08-05 14:10] VITALS: BMI 29.5
--- NOTE | 2021-08-05 14:14 | XR_ITS ---
FINAL REPORT CLINICAL HISTORY: FALL on ice FINDINGS: RIGHT KNEE Three views demonstrate no acute fracture or dislocation. The patient is status post knee arthroplasty. The bones are osteopenic. Vascular calcification is noted. IMPRESSION: No acute bony abnormality. Reviewed, Interpreted and Dictated by Wesley Wheeler III, MD Transcribed by Leonela Lamb Authenticated by Wesley Wheeler III, MD on 08/05/2021 03:44:03 PM [facility]
[2021-08-05 15:01] VITALS: BP 102/69; PULSE 73; O2SAT 99
[2021-08-05 15:32] VITALS: BP 138/75; PULSE 68; O2SAT 97
--- NOTE | 2021-08-05 16:07 | HMH.EDGENADL ---
ED Disposition Clinical Impression: Contusion of right knee Qualifiers: Encounter type: initial encounter Qualified Code(s): S80.01XA - Contusion of right knee, initial encounter Disposition: Home, Self-Care Condition on Discharge: Good Additional Instructions: Tylenol for pain. Ice 20 minutes 4-5 times a day and elevate for pain or swelling. Follow-up with primary care provider or with your orthopedic doctor if not improved 4 to 5 days. Referrals: Jonathan Nichols [Primary Care Provider] - - Critical Care Critical Care Time: No Attestation: On 08/05/21, the high probability of a clinically significant, sudden or life threatening deterioration of the following system(s) required my full and direct attention, intervention and personal management. The time I documented below is in addition to time spent performing reported procedures but includes the following listed in this critical care notation. Medical Decision Making - Adi Inquiry Pt receiving controlled substance: No Adi was queried for this patient: Yes Vital Signs: 08/05/21 13:51 Temperature 97.5 F L Temperature Source Oral Pulse Rate [Right Radial] 87 Respiratory Rate 18 Blood Pressure [Right Arm] 118/46 L Blood Pressure Mean [Right Arm] 70 Blood Pressure Source [Right Arm] Automatic Cuff Blood Pressure Position [Right Arm] Sitting 02 Sat by Pulse Oximetry 99 Oxygen Delivery Method Room Air - Radiology Data #1 Image(s): Knee Image Reviewed: Yes I have reviewed radiologist's interpretation Procedure(s): XR knee RT 3V Accession Number(s): [id number] cc: Wesley Wheeler MD; Jonathan Nichols ~ FINAL REPORT CLINICAL HISTORY: FALL on ice FINDINGS: RIGHT KNEE Three views demonstrate no acute fracture or dislocation. The patient is status post knee arthroplasty. The bones are osteopenic. Vascular calcification is noted. IMPRESSION: No acute bony abnormality. Reviewed, Interpreted and Dictated by Wesley Wheeler III, MD Transcribed by Leonela Lamb Authenticated by Wesley Wheeler III, MD on 08/05/2021 03:44:03 PM [facility] Medical Decision Narrative: I advised patient to ice, elevate, and use Tylenol for pain. He wants to know if I will give him something stronger than Tylenol, he says they usually give me OxyContin or -codone . I declined to give him opiates. No significant findings on examination and negative x-ray. General Adult HPI - General Chief complaint: Fall Stated complaint: O/A 08/05 @1300 fall, r knee pain Time Seen by Provider: 08/05/21 16:07 Mode of Arrival: Wheelchair Limitations: No Limitations Description of Symptoms (Recalled from ER Triage Doc. by RN): pt reports he fell on ice approx 1pm today, c/o R knee pain. NO deformity noted - History of Present Illness HPI narrative: States that he fell on the ice at 1 PM landing on his right knee. Complains of anterior knee pain. States that it feels better when he bears weight and walks. No treatment prior to arrival. Prior knee replacement more than 10 years ago at [facility] in [place]. - Related Data Home Medications Medication Instructions Recorded Confirmed insulin detemir U-100 100 unit/mL 40 unit SQ HS ml 09/27/17 07/31/21 subcutaneous solution metformin 500 mg tablet 500 mg PO BID tab 10/18/19 07/31/21 lisinopriL [Lisinopril] 20 mg PO DAILY 07/31/21 07/31/21 Allergies Allergy/AdvReac Type Severity Reaction Status Date / Time No Known Allergies Allergy Verified 06/11/21 08:56 [facility] History - Hepatitis A Screen Drug use history?: No High risk sexual behaviors?: No History of sexually transmitted infection?: No Currently employed?: No Childcare worker?: No Do you have indoor plumbing?: Yes Do you have electricity?: Yes Attestation statement:: This patient has been screened for Hepatitis A risk factors. I have reviewed the patient's past medical history: Yes Medical History: Reports:
[2021-08-05 16:51] VITALS: BP 138/75; PULSE 68; RESP 18; TEMP 36.4; O2SAT 100
== END 2021-08-05 16:53 | disposition home or self-care (01) ==
PROVIDERS: Emergency Provider Emergency Medicine; PCP Pediatrics
DX: S80.01XA Contusion of right knee, initial encounter; W19.XXXA Unspecified fall, initial encounter
CPT/HCPCS: 73562; 99282

== ENCOUNTER 2021-09-16 07:31 | Day surgery (SDC) | payer MEDICARE, SELFPAY ==
[2021-09-10 10:16] VITALS: BMI 29.6
[2021-09-16] VITALS (7 sets, daily range): BP systolic 146–155; BP diastolic 73–89; PULSE 61–67; RESP 16–18; TEMP 36.2–36.3; O2SAT 96–99
[2022-03-26 10:58] LABS: POC Glucose,Bedside 245 (70-110)
== END 2021-09-16 09:29 | disposition home or self-care (01) ==
LOC: OR 07:32
PROVIDERS: PCP Pediatrics; Visit Provider Ophthalmology
DX: H25.812 Combined forms of age-related cataract, left eye (principal); H21.81 Floppy iris syndrome; Z96.1 Presence of intraocular lens; H02.831 Dermatochalasis of right upper eyelid; H02.834 Dermatochalasis of left upper eyelid; F41.9 Anxiety disorder, unspecified; M19.90 Unspecified osteoarthritis, unspecified site; I25.10 Atherosclerotic heart disease of native coronary artery without angina pectoris; F32.A Depression, unspecified; E11.9 Type 2 diabetes mellitus without complications; I10 Essential (primary) hypertension; E78.5 Hyperlipidemia, unspecified; D64.9 Anemia, unspecified
CPT/HCPCS: 66982; 82962; V2632; V2788

== ENCOUNTER 2021-11-14 11:03 | Emergency (ER) | payer MEDICARE, SELFPAY ==
[2021-11-14 10:57] VITALS: BP 133/89; PULSE 79; RESP 16; TEMP 36.4; O2SAT 97; BMI 29.5
--- NOTE | 2021-11-14 11:19 | CT_ITS ---
FINAL REPORT CLINICAL HISTORY: Fall, weakness, denies loc COMPARISON: April 01, 2021 FINDINGS: Axial images of the head were obtained without contrast. Coronal reformatted images were also obtained. This study was performed with techniques to keep radiation doses as low as reasonably achievable (ALARA). Individualized dose reduction techniques using automated exposure control or adjustment of mA and/or kV according to the patient's size were employed. There is generalized age-appropriate atrophy. Periventricular low-attenuation areas are seen consistent with mild chronic ischemic changes. There is mild ventriculomegaly, stable. There is no evidence of intracranial hemorrhage or mass. There is no evidence of acute infarct. There is no evidence of shift of the midline structures. No skull abnormality is seen on the bone window images. IMPRESSION: Atrophy and mild periventricular chronic ischemic changes. No acute intracranial abnormality identified. Reviewed, Interpreted and Dictated by Wesley Wheeler III, MD Transcribed by Izaiah Ayoub Authenticated by Wesley Wheeler III, MD on 11/14/2021 12:24:[address] [facility]
--- NOTE | 2021-11-14 11:19 | CT_ITS ---
FINAL REPORT CLINICAL HISTORY: Fall COMPARISON: January 08, 2021 FINDINGS: Axial CT images of the cervical spine were obtained without contrast. Sagittal and coronal reformatted images were also obtained. This study was performed with techniques to keep radiation doses as low as reasonably achievable (ALARA). Individualized dose reduction techniques using automated exposure control or adjustment of mA and/or kV according to the patient's size were employed. There is no evidence of fracture or dislocation. There are multiple lucencies within the C2 dens that were on the prior exam and could represent degenerative change versus inflammatory arthritis. There is mild anterolisthesis of C4 on C5 and C6 on C7. There is multilevel degenerative change greatest at C5-6 and C6-7. Neural foraminal narrowing is greatest at C5-C6. No paraspinous soft tissue abnormality is seen. Limited images of the upper thorax are unremarkable. IMPRESSION: No fracture or acute bony abnormality identified. Lucencies within the C2 dens could represent degenerative change versus inflammatory arthritis. Multilevel degenerative change with areas of neural foraminal narrowing. Reviewed, Interpreted and Dictated by Wesley Wheeler III, MD Transcribed by Izaiah Ayoub Authenticated by Wesley Wheeler III, MD on 11/14/2021 01:37:27 PM [facility]
--- NOTE | 2021-11-14 11:19 | XR_ITS ---
FINAL REPORT CLINICAL HISTORY: Fall FINDINGS: RIGHT SHOULDER: 3 views of the right shoulder were obtained. There is no acute fracture or dislocation. There is right shoulder arthroplasty. There is mild AC joint degenerative change. There is no soft tissue abnormality. IMPRESSION: No acute fracture. Reviewed, Interpreted and Dictated by Wesley Wheeler III, MD Transcribed by Izaiah Ayoub Authenticated by Wesley Wheeler III, MD on 11/14/2021 12:24:29 PM [facility]
[2021-11-14 11:27] LABS: Chloride 103 mmol/L (98-107); Sodium 136 mmol/L (136-145)
[2021-11-14 11:28] LABS: Potassium 4.6 mmoL/L (3.5-5.1)
[2021-11-14 11:29] LABS: Basophils % 0.3 % (0.1-2.0); Eosinophils # 0.3 K/mm3 (0.0-0.4); Eosinophils % 3.8 % (0.1-12.0); Hematocrit 41.9 % (42.0-52.0); Hemoglobin 14.5 g/dL (14.1-18.0); Lymphocytes # 1.2 K/mm3 (0.7-4.5); Mean Corpuscular HGB Conc 34.5 g/dL (31.8-35.4); Mean Corpuscular Hemoglobin 29.2 pg (27.0-31.2); Mean Corpuscular Volume 84.7 fl (80-94); Mean Platelet Volume 7.2 fl (7.4-10.4); Monocytes # 0.7 K/mm3 (0.1-1.0); Neutrophils # 5.3 K/mm3 (1.8-7.8); Platelet Count 201 K/mm3 (142-424); Red Blood Count 4.95 M/mm3 (4.60-6.20); Red Cell Distribution Width 13.1 % (11.5-17.5); White Blood Count 7.5 K/mm3 (4.8-10.8)
--- NOTE | 2021-11-14 11:29 | HMH.EDGENADL ---
ED Disposition Clinical Impression: Hyperglycemia Fall Qualifiers: Encounter type: initial encounter Qualified Code(s): W19.XXXA - Unspecified fall, initial encounter Head contusion Qualifiers: Encounter type: initial encounter Contusion of head detail: unspecified part of head Qualified Code(s): S00.93XA - Contusion of unspecified part of head, initial encounter Contusion of right shoulder Qualifiers: Encounter type: initial encounter Qualified Code(s): S40.011A - Contusion of right shoulder, initial encounter Disposition: Home, Self-Care Condition on Discharge: Good Instructions: How to Prevent Falls Additional Instructions: Your blood sugar was 301. Follow-up with your primary care doctor for further management of your diabetes. Follow-up with your primary care provider for your chronic weakness. Referrals: Jonathan Nichols [Primary Care Provider] - - Critical Care Critical Care Time: No Attestation: On 11/14/21, the high probability of a clinically significant, sudden or life threatening deterioration of the following system(s) required my full and direct attention, intervention and personal management. The time I documented below is in addition to time spent performing reported procedures but includes the following listed in this critical care notation. Medical Decision Making - Adi Inquiry Pt receiving controlled substance: No Vital Signs: 11/14/21 10:57 11/14/21 11:57 11/14/21 13:53 Temperature 97.5 F L Temperature Source Oral Pulse Rate 79 70 Pulse Rate [Right Radial] 79 Respiratory Rate 16 18 Blood Pressure 133/89 135/92 H Blood Pressure [Right Arm] 133/89 Blood Pressure Mean [Right Arm] 103 Blood Pressure Source [Right Arm] Automatic Cuff Blood Pressure Position [Right Arm] Sitting 02 Sat by Pulse Oximetry 97 96 99 Oxygen Delivery Method Room Air Room Air Room Air - Lab Data Lab Results 11/14/21 10:25: WBC 7.5, RBC 4.95, Hgb 14.5, Hct 41.9 L, MCV 84.7, MCH 29.2, MCHC 34.5, RDW 13.1, Plt Count 201, MPV 7.2 L, Neut % (Auto) 71.0, Lymph % (Auto) 16.0, [place] % (Auto) 9.0, Eos % (Auto) 3.8, Baso % (Auto) 0.3, Neut # (Auto) 5.3, Lymph # (Auto) 1.2, [place] # (Auto) 0.7, Eos # (Auto) 0.3, Baso # (Auto) 0.0 11/14/21 10:25: Sodium 136, Potassium 4.6, Chloride 103, Carbon Dioxide 27, Anion Gap 10.6, BUN 19, Creatinine 0.70, Estimated Creat Clear 71, Estimated GFR 107, Est GFR ( Amer) 130, Glucose 301 H, Calcium 9.3, Total Bilirubin 0.5, AST 24, ALT 24, Alkaline Phosphatase 121, Total Protein 5.8 L, Albumin 3.3 L, Globulin 2.5, Albumin/Globulin Ratio 1.3 11/14/21 10:45: Total Creatine Kinase 52 L 11/14/21 10:45: TSH 1.10, Free T4 Index 3.2 L, Thyroxine (T4) 7.9, T3 Uptake 40 Result diagrams: 11/14/21 10:25 11/14/21 10:25 Orders (Tests/Meds): ED MEDICATIONS Generic Name Dose Route Start Last Admin Trade Name Freq PRN Reason Stop Dose Admin Sodium Chloride 10 ml 11/14/21 11:19 Sodium Chloride 0.9% 10ml Flush Syringe IV 12/14/21 11:18 NEEDED PRN Maintain IV Site - Radiology Data #1 Image(s): Shoulder Image Reviewed: Yes I reviewed the patient's radiology image, Yes I have reviewed radiologist's interpretation Procedure(s): XR shoulder RT min 2V Accession Number(s): [id number] cc: Wesley Wheeler MD; Jonathan Nichols ~ FINAL REPORT CLINICAL HISTORY: Fall FINDINGS: RIGHT SHOULDER: 3 views of the right shoulder were obtained. There is no acute fracture or dislocation. There is right shoulder arthroplasty. There is mild AC joint degenerative change. There is no soft tissue abnormality. IMPRESSION: No acute fracture. Reviewed, Interpreted and Dictated by Wesley Wheeler III, MD Transcribed by Izaiah Ayoub Authenticated by Wesley Wheeler III, MD on 11/14/2021 12:24:29 PM [facility] - CT Data CT Scan: Head, C-Spine Time Received: 13:[address] Reviewed: Yes: I have viewed the radiologist's inte
[2021-11-14 11:30] LABS: Alanine Aminotransferase 24 U/L (12-78); Albumin Level 3.3 g/dl (3.5-5.0); Albumin/Globulin Ratio 1.3 (1.1-1.8); Alkaline Phosphatase 121 U/L (38-126); Anion Gap 10.6 mEq/L (5-15); Aspartate Amino Transferase 24 U/L (17-59); Bilirubin,Total 0.5 mg/dl (0.2-1.3); Blood Urea Nitrogen 19 mg/dl (9-20); Carbon Dioxide 27 mmol/L (22.0-30.0); Creatinine Clearance Estimated 71 mL/min (50-200); Estimated Glomerular Filt Rate 107 ml/min (>60); GFR (African American) 130 ML/MIN (>60); Globulin 2.5 g/dL (1.3-3.2); Total Protein,Serum 5.8 g/dl (6.3-8.2)
[2021-11-14 11:31] LABS: Calcium 9.3 mg/dl (8.4-10.2); Glucose 301 mg/dl (74-100)
--- NOTE | 2021-11-14 11:31 | PC.NURSE ---
pt to radiology via stretcher
--- NOTE | 2021-11-14 11:34 | PC.NURSE ---
Pt in rad at this time
[2021-11-14 11:57] VITALS: BP 133/89; PULSE 79; O2SAT 96
[2021-11-14 12:07] LABS: Creatine Kinase 52 U/L (55-170)
[2021-11-14 12:25] LABS: Triiodothryronine (T3) Uptake 40 % (23.5-40.5)
[2021-11-14 12:26] LABS: Free Thyroxine Index 3.2 ug/dL (5.93-13.13); T4 (Thyroxine) 7.9 ug/dl (5.53-11.0)
[2021-11-14 13:53] VITALS: BP 135/92; PULSE 70; RESP 18; O2SAT 99
--- NOTE | 2021-11-14 13:54 | PC.NURSE ---
YUMI SERRANO at going over test results with pt
[2021-11-14 14:10] VITALS: BP 132/86; PULSE 74; RESP 16; TEMP 36.4; O2SAT 98
== END 2021-11-14 14:12 | disposition home or self-care (01) ==
PROVIDERS: Emergency Provider Emergency Medicine; PCP Pediatrics
DX: S00.93XA Contusion of unspecified part of head, initial encounter (principal); S40.011A Contusion of right shoulder, initial encounter; W01.0XXA Fall on same level from slipping, tripping and stumbling without subsequent striking against object, initial encounter; Y92.019 Unspecified place in single-family (private) house as the place of occurrence of the external cause; E11.65 Type 2 diabetes mellitus with hyperglycemia; I10 Essential (primary) hypertension; E78.5 Hyperlipidemia, unspecified; I48.91 Unspecified atrial fibrillation; F41.9 Anxiety disorder, unspecified; I25.10 Atherosclerotic heart disease of native coronary artery without angina pectoris; I25.2 Old myocardial infarction; Z79.899 Other long term (current) drug therapy
CPT/HCPCS: 70450; 72125; 73030; 80053; 82550; 84436; 84443; 84479; 85025; 99284

== ENCOUNTER 2021-12-01 14:18 | Emergency (ER) | payer MEDICARE, SELFPAY ==
[2021-12-01 14:19] VITALS: BP 161/96; PULSE 70; RESP 16; TEMP 36.4; O2SAT 98; BMI 29.5
--- NOTE | 2021-12-01 14:21 | PC.NURSE ---
YUMI SERRANO at
--- NOTE | 2021-12-01 14:23 | CT_ITS ---
FINAL REPORT CLINICAL HISTORY: fall, head injury COMPARISON: November 14, 2021 FINDINGS: Axial images of the head were obtained without contrast. Coronal reformatted images were also obtained. This study was performed with techniques to keep radiation doses as low as reasonably achievable (ALARA). Individualized dose reduction techniques using automated exposure control or adjustment of mA and/or kV according to the patient's size were employed. There is generalized age-appropriate atrophy. Periventricular low-attenuation areas are seen consistent with mild chronic ischemic changes. There is no evidence of intracranial hemorrhage or mass. There is no evidence of acute infarct. There is no evidence of shift of the midline structures. No skull abnormality is seen on the bone window images. IMPRESSION: Atrophy and mild periventricular chronic ischemic changes. No acute intracranial abnormality identified. Reviewed, Interpreted and Dictated by Wesley Wheeler III, MD Transcribed by Zoë Alcala Authenticated and [facility]
--- NOTE | 2021-12-01 14:23 | CT_ITS ---
FINAL REPORT CLINICAL HISTORY: fall, neck pain COMPARISON: November 14, 2021 FINDINGS: Axial CT images of the cervical spine were obtained without contrast. Sagittal and coronal reformatted images were also obtained. This study was performed with techniques to keep radiation doses as low as reasonably achievable (ALARA). Individualized dose reduction techniques using automated exposure control or adjustment of mA and/or kV according to the patient's size were employed. There is no evidence of fracture or dislocation. There is mild anterolisthesis of C4 on C5 and C6 on C7. There is mild and moderate degenerative change. There is disc osteophyte complex at C5-6 and C6-7. There is multilevel neural foraminal narrowing. There is no evidence of canal stenosis. No paraspinous soft tissue abnormality is seen. Limited images of the upper thorax are unremarkable. IMPRESSION: Degenerative change with no acute abnormality. Reviewed, Interpreted and Dictated by Wesley Wheeler III, MD Transcribed by Zoë Alcala Authenticated and [facility]
--- NOTE | 2021-12-01 14:25 | HMH.EDGENADL ---
ED Disposition Clinical Impression: Unstable gait Fall Qualifiers: Encounter type: initial encounter Qualified Code(s): W19.XXXA - Unspecified fall, initial encounter Closed head injury Qualifiers: Encounter type: initial encounter Qualified Code(s): S09.90XA - Unspecified injury of head, initial encounter Disposition: Home, Self-Care Condition on Discharge: Fair Instructions: How to Prevent Falls Additional Instructions: You have been evaluated for head injury after a fall. Head CT and CT of the cervical spine shows no fracture or other abnormality. It is very important that you use care when standing and walking. Follow-up closely with your primary care doctor. Follow-up with neurology about your gait trouble. Return to the emergency department for any new or worsening symptoms. Referrals: Jonathan Nichols [Primary Care Provider] - Time of Disposition: 16:08 - Critical Care Critical Care Time: No Attestation: On 12/01/21, the high probability of a clinically significant, sudden or life threatening deterioration of the following system(s) required my full and direct attention, intervention and personal management. The time I documented below is in addition to time spent performing reported procedures but includes the following listed in this critical care notation. Medical Decision Making - Medical Records Medical records reviewed: Yes: I reviewed the patient's medical records. - Adi Inquiry Pt receiving controlled substance: No Vital Signs: 12/01/21 14:19 12/01/21 14:31 Temperature 97.6 F Temperature Source Oral Pulse Rate 72 Pulse Rate [Radial] 70 Respiratory Rate 16 Blood Pressure 140/90 Blood Pressure [Right Radial Artery] 161/96 H Blood Pressure Mean 100 Blood Pressure Mean [Right Radial Artery] 117 Blood Pressure Position [Right Radial Artery] Sitting 02 Sat by Pulse Oximetry 98 98 Oxygen Delivery Method Room Air - Lab Data Lab Results 12/01/21 14:30: WBC 7.2, RBC 4.83, Hgb 14.3, Hct 43.2, MCV 89.3, MCH 29.6, MCHC 33.1, RDW 13.8, Plt Count 229, MPV 7.6, Neut % (Auto) 67.2, Lymph % (Auto) 17.7, [place] % (Auto) 8.0, Eos % (Auto) 4.7, Baso % (Auto) 2.4 H, Neut # (Auto) 4.8, Lymph # (Auto) 1.3, [place] # (Auto) 0.6, Eos # (Auto) 0.3, Baso # (Auto) 0.2 12/01/21 14:30: Sodium 136, Potassium 4.5, Chloride 105, Carbon Dioxide 25, Anion Gap 10.5, BUN 18, Creatinine 0.70, Estimated Creat Clear 71, Estimated GFR 107, Est GFR ( Amer) 130, Glucose 217 H, Calcium 9.6, Magnesium 1.6, Total Bilirubin 0.4, AST 34, ALT 26, Alkaline Phosphatase 119, Total Protein 6.3, Albumin 3.7, Globulin 2.6, Albumin/Globulin Ratio 1.4 Result diagrams: 12/01/21 14:30 12/01/21 14:30 Orders (Tests/Meds): ED MEDICATIONS Discontinued Medications Generic Name Dose Route Start Last Admin Trade Name Freq PRN Reason Stop Dose Admin Ibuprofen 600 mg 12/01/21 14:24 12/01/21 14:34 Ibuprofen 600 Mg Tablet PO 12/01/21 14:25 600 mg ONCE ONE Administration ORDERS Category Date Time Status ECG Request by /Eduardo Stat Y 12/01/21 14:23 Ordered Medical Decision Narrative: In summary this is an 86-year-old male with history of atrial fibrillation, neurologic tremor and gait disturbance who presents to the emergency department with head injury and neck pain after a fall. Patient clinically stable on arrival. Vital signs within normal limits. Will obtain screening CBC, CMP, EKG. Will obtain noncontrast head CT and CT C-spine. Laboratory results are reassuring. Glucose 217. No abnormality of electrolytes. Renal function adequate. No anemia. Noncontrast head CT shows no fracture or other acute finding CT cervical spine shows age-related degeneration. No fracture or other acute finding On reassessment, patient says he feels much better. No headache or neck pain at this time. He is able to ambulate with minimal difficulty. Counseled that he should use cane or walker when ambulating.
[2021-12-01 14:31] VITALS: BP 140/90; PULSE 72; O2SAT 98
[2021-12-01 14:42] LABS: Chloride 105 mmol/L (98-107); Sodium 136 mmol/L (136-145)
[2021-12-01 14:43] LABS: Potassium 4.5 mmoL/L (3.5-5.1)
[2021-12-01 14:44] LABS: Basophils # 0.2 K/mm3 (0-0.2); Basophils % 2.4 % (0.1-2.0); Eosinophils # 0.3 K/mm3 (0.0-0.4); Eosinophils % 4.7 % (0.1-12.0); Hematocrit 43.2 % (42.0-52.0); Hemoglobin 14.3 g/dL (14.1-18.0); Lymphocytes # 1.3 K/mm3 (0.7-4.5); Lymphocytes % 17.7 % (10-50); Mean Corpuscular HGB Conc 33.1 g/dL (31.8-35.4); Mean Corpuscular Hemoglobin 29.6 pg (27.0-31.2); Mean Corpuscular Volume 89.3 fl (80-94); Mean Platelet Volume 7.6 fl (7.4-10.4); Monocytes # 0.6 K/mm3 (0.1-1.0); Neutrophils # 4.8 K/mm3 (1.8-7.8); Neutrophils % 67.2 % (37.0-80.0); Platelet Count 229 K/mm3 (142-424); Red Blood Count 4.83 M/mm3 (4.60-6.20); Red Cell Distribution Width 13.8 % (11.5-17.5); White Blood Count 7.2 K/mm3 (4.8-10.8)
[2021-12-01 14:45] LABS: Alanine Aminotransferase 26 U/L (12-78); Albumin Level 3.7 g/dl (3.5-5.0); Albumin/Globulin Ratio 1.4 (1.1-1.8); Alkaline Phosphatase 119 U/L (38-126); Anion Gap 10.5 mEq/L (5-15); Aspartate Amino Transferase 34 U/L (17-59); Bilirubin,Total 0.4 mg/dl (0.2-1.3); Blood Urea Nitrogen 18 mg/dl (9-20); Calcium 9.6 mg/dl (8.4-10.2); Carbon Dioxide 25 mmol/L (22.0-30.0); Creatinine Clearance Estimated 71 mL/min (50-200); Estimated Glomerular Filt Rate 107 ml/min (>60); GFR (African American) 130 ML/MIN (>60); Globulin 2.6 g/dL (1.3-3.2); Glucose 217 mg/dl (74-100); Total Protein,Serum 6.3 g/dl (6.3-8.2)
[2021-12-01 14:46] LABS: Magnesium 1.6 mg/dl (1.6-2.3)
[2021-12-01 16:30] VITALS: BP 123/68; PULSE 72; RESP 16; TEMP 36.6; O2SAT 98
== END 2021-12-01 16:31 | disposition home or self-care (01) ==
PROVIDERS: Emergency Provider Emergency Medicine; PCP Pediatrics
DX: S09.90XA Unspecified injury of head, initial encounter (principal); R26.81 Unsteadiness on feet; W19.XXXA Unspecified fall, initial encounter; Y92.238 Other place in hospital as the place of occurrence of the external cause; Z79.84 Long term (current) use of oral hypoglycemic drugs; Z79.4 Long term (current) use of insulin; Z79.899 Other long term (current) drug therapy; E11.9 Type 2 diabetes mellitus without complications; F41.9 Anxiety disorder, unspecified; I25.10 Atherosclerotic heart disease of native coronary artery without angina pectoris; I48.91 Unspecified atrial fibrillation; I11.0 Hypertensive heart disease with heart failure; I50.9 Heart failure, unspecified; E78.5 Hyperlipidemia, unspecified; I25.2 Old myocardial infarction
CPT/HCPCS: 70450; 72125; 80053; 83735; 85025; 99284

== ENCOUNTER → 2021-12-11 16:14 | Outpatient (CLI) | payer MEDICARE, SELFPAY ==
--- NOTE | 2021-12-11 16:15 | MR_ITS ---
PROCEDURE INFORMATION: Exam: MR Thoracic Spine Without Contrast Exam date and time: 12/11/2021 4:30 PM Age: 86 years old Clinical indication: Pain in thoracic spine; Additional info: Spondylosis with radiculopathy. Back pain. Muscle weakness. Loss of muscle control. Incontinence. Symptoms [id number]. Fell x2days ago. TECHNIQUE: Imaging protocol: Magnetic resonance imaging of the thoracic spine without contrast. COMPARISON: CT CERVICAL SPINE WO CON 12/01/2021 2:51 PM FINDINGS: Bones/joints: Mild exaggeration of the thoracic kyphosis. No acute fracture seen. Spinal cord: Normal signal. No cord compression. Discs/Spinal canal/Neural foramina: Disc desiccation throughout. Disc height loss and spondylosis is moderate to marked at T8-9 and T10-11, [id number] elsewhere. Prominent upper lumbar degenerative disc disease at L1-L2 is partially visualized. No large focal disc protrusion or extrusion seen contributing to significant thoracic central spinal canal stenosis. Disc osteophyte complexes at T8-9 and T10-11 do not contribute to central spinal canal stenoses. There is moderate lower thoracic facet arthropathy. No severe foraminal narrowing. Soft tissues: Unremarkable. Pleural spaces: Trace right pleural effusion. Kidneys and ureters: The right kidney demonstrates cysts. IMPRESSION: 1. No significant thoracic stenoses or cord myelopathy. 2. Thoracic degenerative disc disease, in particular T8-9 and T10-11 levels.
--- NOTE | 2021-12-11 16:15 | MR_ITS ---
PROCEDURE INFORMATION: Exam: MR Cervical Spine Without Contrast Exam date and time: 12/11/2021 4:30 PM Age: 86 years old Clinical indication: Neck pain; Additional info: Spondylosis with radiculopathy TECHNIQUE: Imaging protocol: Magnetic resonance imaging of the cervical spine without contrast. COMPARISON: CT CERVICAL SPINE WO CON 12/01/2021 2:51 PM FINDINGS: Bones/joints: Slight grade 1 degenerative anterolisthesis of C4 on C5, C6 on C7 and C7 on T1. No acute fracture seen. Spinal cord: Normal signal. No cord compression. C1-C2: Severe degenerative changes at C1-C2. Patchy areas of edema in the dens are likely inflammatory/degenerative. Disc desiccation throughout. Disc height loss and spondylosis is severe at C5-C6 and C6-C7. C2-C3: Disc osteophyte complex and ligamentum flavum buckling. The central spinal canal remains patent. Uncovertebral and facet arthropathy probably causing severe left and [id number] right neural foraminal stenoses. Some limitations assessing the neural foramina due to motion artifacts. C3-C4: Disc osteophyte complex and ligamentum flavum buckling causing [id number]-[id number] central spinal canal stenosis. Uncovertebral and facet arthropathy probably causing moderate to severe bilateral neural foraminal stenoses. C4-C5: Slight anterolisthesis. Disc bulge and ligamentum flavum buckling causing mild central spinal canal stenosis. Uncovertebral and facet arthropathy causing severe left and [id number]-[id number] right neural foraminal stenoses. C5-C6: Disc osteophyte complex and ligamentum flavum buckling causing mild central spinal canal stenosis. Uncovertebral and facet arthropathy causing severe right and moderate left neural foraminal stenoses. C6-C7: Disc osteophyte complex and ligamentum flavum buckling. No significant central spinal canal stenosis. Uncovertebral and facet arthropathy probably causing moderate bilateral neural foraminal stenoses. C7-T1: Mild disc bulge and ligamentum flavum buckling. The central spinal canal remains patent. No significant foraminal stenoses. Soft tissues: Unremarkable. Vasculature: Limited assessment due to motion artifacts. IMPRESSION: 1. Images are motion degraded which does limit assessment of the neural foramina. 2. No high-grade central spinal canal stenoses. 3. Multilevel neural foraminal stenoses, detailed above. In particular high-grade on the left at C2-C3, bilaterally at C3-C4, on the left at C4-C5 and on the right at C5-C6.
== END ==
PROVIDERS: PCP Pediatrics; Visit Provider Nurse Practitioner Family
DX: M54.2 Cervicalgia (principal); R15.9 Full incontinence of feces; R20.9 Unspecified disturbances of skin sensation; R29.898 Other symptoms and signs involving the musculoskeletal system; R32 Unspecified urinary incontinence; R93.7 Abnormal findings on diagnostic imaging of other parts of musculoskeletal system; M54.50 Low back pain, unspecified; M54.6 Pain in thoracic spine
CPT/HCPCS: 72141; 72146; 76376

== ENCOUNTER → 2021-12-12 07:14 | Outpatient (CLI) | payer MEDICARE, SELFPAY ==
--- NOTE | 2021-12-12 07:19 | MR_ITS ---
FINAL REPORT CLINICAL HISTORY: spondylosis with radiculopathy LOW BACK PAIN, LOWER EXTREMITY WEAKNESS. FINDINGS: MRI LUMBAR SPINE W/O CONTRAST Multiplanar MR imaging of the lumbar spine was performed without contrast. On the sagittal T2-weighted images, disc degeneration is seen throughout. There are endplate changes at multiple levels. There is partial fusion at L4-5. There is rightward curvature. There is no evidence of fracture. The conus has an unremarkable appearance. T12-L1: An annular bulge is present. Vertebral osteophytes are present. There is moderate bilateral neural foraminal narrowing. L1-2: There is an annular disc bulge with facet arthropathy and vertebral osteophytes. There is severe right and moderate left neural foraminal narrowing. L2-3: There is an annular disc bulge with facet arthropathy and vertebral osteophytes. There is moderate bilateral neural foraminal narrowing. L3-4: There is an annular disc bulge with facet arthropathy and vertebral osteophytes. There is mild right and moderate left neural foraminal narrowing. L4-5: There is an annular disc bulge with facet arthropathy and vertebral osteophytes. There is moderate bilateral neural foraminal narrowing. L5-S1: There is an annular disc bulge with facet arthropathy and vertebral osteophytes. There is moderate right mild left neural foraminal narrowing. There is some spurring of the SI joints. IMPRESSION: Multilevel disc degeneration and spondylosis with areas of neural foraminal narrowing which is worse on the right at L1-2. There is partial fusion of L4-5. Reviewed, Interpreted and Dictated by Wesley Wheeler III, MD Transcribed by Zoë Alcala Authenticated and [facility]
== END ==
PROVIDERS: PCP Pediatrics; Visit Provider Nurse Practitioner Family
DX: M54.2 Cervicalgia (principal); R15.9 Full incontinence of feces; R20.9 Unspecified disturbances of skin sensation; R29.898 Other symptoms and signs involving the musculoskeletal system; R32 Unspecified urinary incontinence; R93.7 Abnormal findings on diagnostic imaging of other parts of musculoskeletal system; M54.50 Low back pain, unspecified
CPT/HCPCS: 72148; 76376

== ENCOUNTER → 2021-12-23 13:06 | Outpatient (CLI) | payer MEDICARE, SELFPAY ==
[2021-12-23 14:30] LABS: Hemoglobin A1C 8.4 % (4.0-6.0)
[2021-12-23 16:15] LABS: Vitamin B12 343 pg/mL (239-931)
[2021-12-23 16:29] LABS: Folate > 20.00 ng/mL
[2021-12-23 17:20] LABS: Ferritin 24.7 ng/ml (17.9-464)
[2021-12-25 15:48] LABS: Albumin 3.2 g/dL (2.9-4.4); Alpha-1-Globulin 0.3 g/dL (0.0-0.4); Alpha-2-Globulin 0.8 g/dL (0.4-1.0); Gamma Globulin 0.6 g/dL (0.4-1.8); Protein, Total 5.9 g/dL (6.0-8.5)
== END ==
PROVIDERS: PCP Pediatrics; Visit Provider Specialist
DX: M25.562 Pain in left knee (principal); E16.2 Hypoglycemia, unspecified
CPT/HCPCS: 36415; 82607; 82728; 82746; 83036; 84155; 84165

== ENCOUNTER 2022-01-07 14:37 | Emergency (ER) | payer MEDICARE, SELFPAY ==
[2022-01-07 14:37] VITALS: BP 137/88; PULSE 67; RESP 18; TEMP 36.7; O2SAT 99; BMI 29.5
--- NOTE | 2022-01-07 14:50 | PC.NURSE ---
pt to radiology via wc with computer repair technician
[2022-01-07 14:55] LABS: Basophils # 0.1 K/mm3 (0-0.2); Basophils % 1.8 % (0.1-2.0); Eosinophils # 0.3 K/mm3 (0.0-0.4); Eosinophils % 4.2 % (0.1-12.0); Hematocrit 45.5 % (42.0-52.0); Hemoglobin 13.9 g/dL (14.1-18.0); Lymphocytes # 1.4 K/mm3 (0.7-4.5); Lymphocytes % 21.3 % (10-50); Mean Corpuscular HGB Conc 30.6 g/dL (31.8-35.4); Mean Corpuscular Hemoglobin 28.3 pg (27.0-31.2); Mean Corpuscular Volume 92.7 fl (80-94); Mean Platelet Volume 8.2 fl (7.4-10.4); Monocytes # 0.5 K/mm3 (0.1-1.0); Monocytes % 8.1 % (1.7-9.3); Neutrophils # 4.3 K/mm3 (1.8-7.8); Neutrophils % 64.6 % (37.0-80.0); Platelet Count 221 K/mm3 (142-424); Red Blood Count 4.91 M/mm3 (4.60-6.20); White Blood Count 6.6 K/mm3 (4.8-10.8)
--- NOTE | 2022-01-07 14:55 | CT_ITS ---
FINAL REPORT TECHNIQUE: Axial CT images of the thoracic spine were obtained without contrast. Sagittal and coronal reformatted images were also obtained. This study was performed with techniques to keep radiation doses as low as reasonably achievable (ALARA). Individualized dose reduction techniques using automated exposure control or adjustment of mA and/or kV according to the patient's size were employed. CLINICAL HISTORY: fall this morning FINDINGS: There is no evidence of fracture. The vertebral alignment is normal. There is moderate disc space narrowing in the mid and lower thoracic spine. There is prominent anterior osteophyte formation in the midthoracic spine. Dependent edema and small bilateral pleural effusions are seen in the lung bases. There are multiple right renal stones measuring up to 6 mm. There are small left renal stones. There is a benign-appearing cyst in the right kidney measuring 2.2 x 2.0 cm. There is no significant central canal stenosis. IMPRESSION: No fracture or acute bony abnormality. No significant central canal stenosis. Reviewed, Interpreted and Dictated by Dillon Fajardo MD Transcribed by Izaiah Ayoub Authenticated and [facility]
--- NOTE | 2022-01-07 14:55 | CT_ITS ---
FINAL REPORT TECHNIQUE: Axial images were performed through the lumbar spine by computed tomography. Sagittal reconstruction images were also performed. This study was performed with techniques to keep radiation doses as low as reasonably achievable, (ALARA). Individualized dose reduction techniques using automated exposure control or adjustment of mA and/or kV according to the patient's size were employed. CLINICAL HISTORY: fall FINDINGS: Sagittal reconstruction images demonstrate no subluxation. There is moderate disc space narrowing from L1-L2 through L4-L5. T12-L1: There is a mild diffuse disc bulge with mild bilateral neural foraminal narrowing. L1-L2: There is moderate endplate hypertrophy eccentric to the right with moderate right neural foraminal narrowing. L2-L3: There are moderate posterior osteophytes and endplate hypertrophy. There is bilateral facet hypertrophy. There is moderate spinal canal stenosis on image 65 of series 6. L3-L4: There is a moderate diffuse disc bulge with bilateral facet hypertrophy. There is moderate spinal canal stenosis. There is mild bilateral neural foraminal narrowing. L4-L5: There is a moderate diffuse disc bulge with facet hypertrophy. There is moderate spinal canal stenosis. L5-S1: There is a mild diffuse disc bulge with mild bilateral neural foraminal narrowing. IMPRESSION: No acute fracture. Advanced degenerative disc disease. Moderate spinal canal stenosis at L2-L3, L3-L4, and L4-L5. Reviewed, Interpreted and Dictated by Dillon Fajardo MD Transcribed by Izaiah Ayoub Authenticated and . [facility]
[2022-01-07 15:03] LABS: Chloride 104 mmol/L (98-107); Potassium 4.3 mmoL/L (3.5-5.1); Sodium 135 mmol/L (136-145)
--- NOTE | 2022-01-07 15:04 | PC.NURSE ---
spoke with misty in radiology and notified her that radiology orders changed per MD request
[2022-01-07 15:05] LABS: Alanine Aminotransferase 25 U/L (12-78); Alkaline Phosphatase 95 U/L (38-126); Aspartate Amino Transferase 34 U/L (17-59); Bilirubin,Total 0.8 mg/dl (0.2-1.3); Blood Urea Nitrogen 17 mg/dl (9-20); Creatinine Clearance Estimated 71 mL/min (50-200); Estimated Glomerular Filt Rate 107 ml/min (>60); GFR (African American) 130 ML/MIN (>60)
[2022-01-07 15:06] LABS: Albumin Level 3.6 g/dl (3.5-5.0); Albumin/Globulin Ratio 1.4 (1.1-1.8); Anion Gap 7.3 mEq/L (5-15); Calcium 9.2 mg/dl (8.4-10.2); Carbon Dioxide 28 mmol/L (22.0-30.0); Globulin 2.6 g/dL (1.3-3.2); Glucose 149 mg/dl (74-100); Total Protein,Serum 6.2 g/dl (6.3-8.2)
--- NOTE | 2022-01-07 15:13 | PC.NURSE ---
pt returned from radiology
[2022-01-07 15:33] VITALS: BP 160/86; PULSE 70; O2SAT 98
--- NOTE | 2022-01-07 15:40 | HMH.EDGENADL ---
ED Disposition Clinical Impression: Lumbar strain Qualifiers: Encounter type: initial encounter Qualified Code(s): S39.012A - Strain of muscle, fascia and tendon of lower back, initial encounter Contusion, buttock Qualifiers: Encounter type: initial encounter Qualified Code(s): S30.0XXA - Contusion of lower back and pelvis, initial encounter Fall from bed Qualifiers: Encounter type: initial encounter Qualified Code(s): W06.XXXA - Fall from bed, initial encounter Disposition: Home, Self-Care Condition on Discharge: Good Additional Instructions: Tylenol as needed for pain. Follow-up with Dr. Bautista and Dr. Nichols for continued evaluation and care. Referrals: Jonathan Nichols [Primary Care Provider] - - Critical Care Critical Care Time: No Attestation: On 01/07/22, the high probability of a clinically significant, sudden or life threatening deterioration of the following system(s) required my full and direct attention, intervention and personal management. The time I documented below is in addition to time spent performing reported procedures but includes the following listed in this critical care notation. Medical Decision Making - Medical Records Medical records reviewed: Yes: I reviewed the patient's medical records. MR Comment: Reviewed neurology clinic note from 12/23/2021, which has a very detailed review of his extensive past work-up for his chronic issues of dizziness, numbness, weakness. He has had MRI of cervical spine and lumbar spine, neurosurgical evaluation. Evaluation is ongoing. - Adi Inquiry Pt receiving controlled substance: No Vital Signs: 01/07/22 14:37 01/07/22 15:33 01/07/22 16:02 Temperature 98.0 F Temperature Source Oral Pulse Rate 70 74 Pulse Rate [Left Radial] 67 Respiratory Rate 18 Blood Pressure 160/86 H 157/68 H Blood Pressure [Right Arm] 137/88 Blood Pressure Mean 110 97 Blood Pressure Mean [Right Arm] 104 Blood Pressure Source [Right Arm] Automatic Cuff Blood Pressure Position [Right Arm] Sitting 02 Sat by Pulse Oximetry 99 98 97 Oxygen Delivery Method Room Air Room Air Room Air 01/07/22 16:31 Temperature Temperature Source Pulse Rate 86 Pulse Rate [Left Radial] Respiratory Rate Blood Pressure 165/96 H Blood Pressure [Right Arm] Blood Pressure Mean 119 Blood Pressure Mean [Right Arm] Blood Pressure Source [Right Arm] Blood Pressure Position [Right Arm] 02 Sat by Pulse Oximetry 95 Oxygen Delivery Method - Lab Data Lab Results 01/07/22 14:49: WBC 6.6, RBC 4.91, Hgb 13.9 L, Hct 45.5, MCV 92.7, MCH 28.3, MCHC 30.6 L, RDW 14.0, Plt Count 221, MPV 8.2, Neut % (Auto) 64.6, Lymph % (Auto) 21.3, [place] % (Auto) 8.1, Eos % (Auto) 4.2, Baso % (Auto) 1.8, Neut # (Auto) 4.3, Lymph # (Auto) 1.4, [place] # (Auto) 0.5, Eos # (Auto) 0.3, Baso # (Auto) 0.1 01/07/22 14:49: Sodium 135 L, Potassium 4.3, Chloride 104, Carbon Dioxide 28, Anion Gap 7.3, BUN 17, Creatinine 0.70, Estimated Creat Clear 71, Estimated GFR 107, Est GFR ( Amer) 130, Glucose 149 H, Calcium 9.2, Total Bilirubin 0.8, AST 34, ALT 25, Alkaline Phosphatase 95, Total Protein 6.2 L, Albumin 3.6, Globulin 2.6, Albumin/Globulin Ratio 1.4 Result diagrams: 01/07/22 14:49 01/07/22 14:49 - Radiology Data #1 Image(s): Hip (Preliminary interpretation by me: No fracture or dislocation seen) Image Reviewed: Yes I reviewed the patient's radiology image - CT Data CT Scan: T-Spine, L-Spine Time Received: 16:[address] Reviewed: Yes: I have viewed the radiologist's interpretation Findings Narrative: Procedure(s): CT thoracic spine wo con Accession Number(s): [id number] cc: Dillon Fajardo MD; Arcadio Meyers MD; Jonathan Nichols ~ FINAL REPORT TECHNIQUE: Axial CT images of the thoracic spine were obtained without contrast. Sagittal and coronal reformatted images were also obtained. This study was performed with techniques to keep radiation doses as low as reasonably achievab
--- NOTE | 2022-01-07 15:50 | XR_ITS ---
FINAL REPORT CLINICAL HISTORY: fall, pain after fall FINDINGS: 2 views of the left hip and an AP pelvis were obtained. There is no acute fracture or dislocation. The joint spaces are intact. There are no soft tissue abnormalities. IMPRESSION: No acute process. Reviewed, Interpreted and Dictated by Dillon Fajardo MD Transcribed by Izaiah Ayoub Authenticated and [facility]
[2022-01-07 16:02] VITALS: BP 157/68; PULSE 74; O2SAT 97
[2022-01-07 16:31] VITALS: BP 165/96; PULSE 86; O2SAT 95
--- NOTE | 2022-01-07 16:33 | PC.NURSE ---
MD at the bedside to discuss radiology findings and POC
--- NOTE | 2022-01-07 16:41 | PC.NURSE ---
Pt ambulated almost to room door and then had some trouble getting back but states he uses a walker at home and he feels that if he had the walker he would be at his baseline to walk. PT was able to walk with the bed and get his self up on the bed with no difficulty. States at any normal day for him, he cant walk to the door even with his walker, he has to sit down, rest and then get back up. States he is going to therapy for this problem at this time but it hasn't improved much. He has had this chronic issues for over a year.
--- NOTE | 2022-01-07 16:49 | PC.NURSE ---
MD speaking with pt and family
[2022-01-07 17:22] VITALS: BP 165/96; PULSE 86; RESP 18; TEMP 36.7; O2SAT 95
== END 2022-01-07 17:23 | disposition home or self-care (01) ==
PROVIDERS: Emergency Provider Emergency Medicine; PCP Pediatrics
DX: S39.012A Strain of muscle, fascia and tendon of lower back, initial encounter (principal); S30.0XXA Contusion of lower back and pelvis, initial encounter; W06.XXXA Fall from bed, initial encounter; Z79.84 Long term (current) use of oral hypoglycemic drugs; Z79.4 Long term (current) use of insulin; Z79.899 Other long term (current) drug therapy; I25.10 Atherosclerotic heart disease of native coronary artery without angina pectoris; I48.91 Unspecified atrial fibrillation; I11.0 Hypertensive heart disease with heart failure; I50.9 Heart failure, unspecified; E11.9 Type 2 diabetes mellitus without complications; I25.2 Old myocardial infarction
CPT/HCPCS: 72128; 72131; 73502; 80053; 85025; 99284

== ENCOUNTER 2022-01-16 14:00 | Outpatient (RCR) | payer MEDICARE, SELFPAY | END 2022-01-16 14:05 | disposition home or self-care (01) | LOC: PT 14:00 | PROVIDERS: PCP Pediatrics; Visit Provider Pediatrics | DX: R29.898 Other symptoms and signs involving the musculoskeletal system (principal); M62.81 Muscle weakness (generalized) | CPT/HCPCS: 97110; 97116; 97163; 97164 ==

== ENCOUNTER 2022-01-21 21:19 | Emergency (ER) | payer MEDICARE, SELFPAY ==
[2022-01-21 21:18] VITALS: BP 142/78; PULSE 104; RESP 17; TEMP 36.8; O2SAT 97; BMI 29.5
[2022-01-21 21:31] VITALS: BP 154/92; PULSE 92; RESP 19; O2SAT 96
--- NOTE | 2022-01-21 22:06 | CT_ITS ---
PROCEDURE INFORMATION: Exam: CT Head Without Contrast Exam date and time: 01/21/2022 10:11 PM Age: 86 years old Clinical indication: Condition or disease; Other: Encephalopathy TECHNIQUE: Imaging protocol: Computed tomography of the head without contrast. Radiation optimization: All CT scans at this facility use at least one of these dose optimization techniques: automated exposure control; mA and/or kV adjustment per patient size (includes targeted exams where dose is matched to clinical indication); or iterative reconstruction. COMPARISON: CT HEAD/BRAIN WO CON 12/01/2021 2:47 PM FINDINGS: Brain: Patchy hypoattenuation in the periventricular deep white matter bilaterally. Cerebral ventricles: Enlargement of ventricles, sulci and cisterns bilaterally. Paranasal sinuses: Mucosal thickening within paranasal sinuses but no fluid levels are evident. Mastoid air cells: Visualized mastoid air cells are well aerated. Bones/joints: Unremarkable. No acute fracture. Soft tissues: Unremarkable. Vasculature: Calcification of carotid siphons and vertebrobasilar arterial systems. IMPRESSION: 1. No evidence for acute intracranial hemorrhage, midline shift or mass effect. 2. Cortical atrophy and chronic periventricular microangiopathy.
--- NOTE | 2022-01-21 22:13 | PC.NURSE ---
Pt gone to RAD for CT
--- NOTE | 2022-01-21 22:16 | HMH.EDGENADL ---
ED Disposition Clinical Impression: Hypoglycemia, Hypoglycemia due to insulin Disposition: Home, Self-Care Condition on Discharge: Good Instructions: How to Check Your Blood Glucose, Hypoglycemia Additional Instructions: At this time it was felt you are safe to be discharged home. If new or worsening symptoms please do not hesitate to return to the emergency department. Please follow-up with your family doctor within 3 to 5 days. Please eat while taking your regular dose of insulin. Referrals: Jonathan Nichols [Primary Care Provider] - - Critical Care Critical Care Time: No Attestation: On 01/21/22, the high probability of a clinically significant, sudden or life threatening deterioration of the following system(s) required my full and direct attention, intervention and personal management. The time I documented below is in addition to time spent performing reported procedures but includes the following listed in this critical care notation. Medical Decision Making - Adi Inquiry Pt receiving controlled substance: No Vital Signs: 01/21/22 21:18 01/21/22 21:31 01/21/22 22:30 Temperature 98.2 F Temperature Source Oral Pulse Rate 92 H 55 L Pulse Rate [Right] 104 H Respiratory Rate 17 19 Blood Pressure 154/92 H 148/87 H Blood Pressure [Right Arm] 142/78 H Blood Pressure Mean [Right Arm] 99 Blood Pressure Source Blood Pressure Source [Right Arm] Automatic Cuff 02 Sat by Pulse Oximetry 97 96 96 Oxygen Delivery Method Room Air Room Air 01/21/22 23:01 01/22/22 00:01 01/22/22 00:30 Temperature Temperature Source Pulse Rate 100 H 58 L 98 H Pulse Rate [Right] Respiratory Rate Blood Pressure 158/77 H 156/90 H 139/87 Blood Pressure [Right Arm] Blood Pressure Mean [Right Arm] Blood Pressure Source Blood Pressure Source [Right Arm] 02 Sat by Pulse Oximetry 97 95 95 Oxygen Delivery Method Room Air Room Air Room Air 01/22/22 01:00 01/22/22 01:30 01/22/22 01:35 Temperature 98.0 F Temperature Source Oral Pulse Rate 99 H 89 80 Pulse Rate [Right] Respiratory Rate 19 Blood Pressure 124/68 130/87 130/67 Blood Pressure [Right Arm] Blood Pressure Mean [Right Arm] Blood Pressure Source Automatic Cuff Blood Pressure Source [Right Arm] 02 Sat by Pulse Oximetry 97 97 Oxygen Delivery Method Room Air Room Air Room Air - Lab Data Lab Results 01/21/22 00:19: Urine Color Yellow, Urine Appearance Clear, Urine pH 6.0, Ur Specific Whitmore 1.025, Urine Protein Negative, Urine Glucose (UA) Trace, Urine Ketones 1+, Urine Blood 3+, Urine Nitrate Negative, Urine Bilirubin Negative, Urine Urobilinogen 0.2, Ur Leukocyte Esterase Negative, Urine RBC Tntc, Urine WBC None, Ur Squamous Epith Cells None, Urine Bacteria None, Urine Mucus 2+ 01/21/22 21:23: WBC 7.6, RBC 4.91, Hgb 14.2, Hct 45.6, MCV 92.9, MCH 29.0, MCHC 31.2 L, RDW 14.4, Plt Count 216, MPV 9.0, Neut % (Auto) 78.4, Lymph % (Auto) 11.9, Moody % (Auto) 8.1, Eos % (Auto) 1.2, Baso % (Auto) 0.3, Neut # (Auto) 6.0, Lymph # (Auto) 0.9, Moody # (Auto) 0.6, Eos # (Auto) 0.1, Baso # (Auto) 0.0 01/21/22 21:23: Sodium 136, Potassium 5.1, Chloride 104, Carbon Dioxide 26, Anion Gap 11.1, BUN 19, Creatinine 0.60 L, Estimated Creat Clear 71, Estimated GFR 128, Est GFR ( Amer) 155, Glucose 103 H, Calcium 9.0, Total Bilirubin 0.8, AST 46, ALT 23, Alkaline Phosphatase 87, Total Protein 6.1 L, Albumin 3.5, Globulin 2.6, Albumin/Globulin Ratio 1.3 01/21/22 21:23: Lactate 1.3 01/21/22 22:06: VBG pH 7.41, VBG pCO2 32.4 L, VBG pO2 102.1 H, VBG HCO3 20.1 L, VBG Total CO2 21.1 L, VBG O2 Saturation 98.5 H, VBG Base Excess -4.5 L 01/21/22 22:35: POC Glucose 135 H 01/22/22 00:20: POC Glucose 163 H Result diagrams: 01/21/22 21:23 01/21/22 21:23 Orders (Tests/Meds): ED MEDICATIONS Generic Name Dose Route Start Last Admin Trade Name Freq PRN Reason Stop Dose Admin Lactated Ringer's 500 mls @ 999 mls/hr 01/21/22 22:30 12/27
[2022-01-21 22:17] LABS: VBG Base Excess -4.5 mmol/L (-2.4-2.3); VBG HCO3 20.1 mmol/L (23-30); VBG Oxygen Saturation 98.5 % (50-70); VBG PCO2 32.4 mmol/L (35-51); VBG PH 7.41 mmol/L (7.31-7.41); VBG PO2 102.1 mmol/L (28-40); VBG Total CO2 21.1 mmol/L (23-27)
[2022-01-21 22:18] LABS: Alanine Aminotransferase 23 U/L (12-78); Albumin Level 3.5 g/dl (3.5-5.0); Albumin/Globulin Ratio 1.3 (1.1-1.8); Alkaline Phosphatase 87 U/L (38-126); Anion Gap 11.1 mEq/L (5-15); Aspartate Amino Transferase 46 U/L (17-59); Bilirubin,Total 0.8 mg/dl (0.2-1.3); Blood Urea Nitrogen 19 mg/dl (9-20); Carbon Dioxide 26 mmol/L (22.0-30.0); Chloride 104 mmol/L (98-107); Creatinine Clearance Estimated 71 mL/min (50-200); Estimated Glomerular Filt Rate 128 ml/min (>60); GFR (African American) 155 ML/MIN (>60); Globulin 2.6 g/dL (1.3-3.2); Glucose 103 mg/dl (74-100); Lactic Acid 1.3 mmol/L (0.7-2.1); Potassium 5.1 mmoL/L (3.5-5.1); Sodium 136 mmol/L (136-145); Total Protein,Serum 6.1 g/dl (6.3-8.2)
--- NOTE | 2022-01-21 22:20 | PC.NURSE ---
Pt back from RAD
--- NOTE | 2022-01-21 22:24 | ECG_ITS ---
APPROVED REPORT Exam: Resting ECG HR:100 bpm ECG Measurements Heart Rate 100 AXES ID 188 P 37 QRSd 111 QRS -52 QT 362 T 76 QTc 419 Conclusion SINUS TACHYCARDIA WITH FREQUENT VENTRICULAR PREMATURE COMPLEXES LEFT AXIS DEVIATION [QRS AXIS < -30] PATTERN CONSISTENT WITH PULMONARY DISEASE LEFT VENTRICULAR HYPERTROPHY AND ST-T CHANGE [VOLTAGE CRITERIA PLUS ST/T ABNORMALITY] ABNORMAL ECG UNCONFIRMED REPORT Electronically signed by : Liam Calderon MD 01/22/2022 21:06:44
[2022-01-21 22:29] LABS: Basophils % 0.3 % (0.1-2.0); Eosinophils # 0.1 K/mm3 (0.0-0.4); Eosinophils % 1.2 % (0.1-12.0); Hematocrit 45.6 % (42.0-52.0); Hemoglobin 14.2 g/dL (14.1-18.0); Lymphocytes # 0.9 K/mm3 (0.7-4.5); Lymphocytes % 11.9 % (10-50); Mean Corpuscular HGB Conc 31.2 g/dL (31.8-35.4); Mean Corpuscular Volume 92.9 fl (80-94); Monocytes # 0.6 K/mm3 (0.1-1.0); Monocytes % 8.1 % (1.7-9.3); Neutrophils % 78.4 % (37.0-80.0); Platelet Count 216 K/mm3 (142-424); Red Blood Count 4.91 M/mm3 (4.60-6.20); Red Cell Distribution Width 14.4 % (11.5-17.5); White Blood Count 7.6 K/mm3 (4.8-10.8)
[2022-01-21 22:30] VITALS: BP 148/87; PULSE 55; O2SAT 96
--- NOTE | 2022-01-21 22:41 | PC.NURSE ---
FS 136 on repeat. Pt given OJ & PB & crackers
[2022-01-21 22:42] LABS: POC Glucose,Bedside 135 (70-110)
[2022-01-21 23:01] VITALS: BP 158/77; PULSE 100; O2SAT 97
[2022-01-22 00:01] VITALS: BP 156/90; PULSE 58; O2SAT 95
[2022-01-22 00:23] LABS: Microscopic, Urine URINE MICROSCOPIC (MICROSCOPIC)
[2022-01-22 00:26] LABS: POC Glucose,Bedside 163 (70-110)
[2022-01-22 00:30] VITALS: BP 139/87; PULSE 98; O2SAT 95
[2022-01-22 00:39] LABS: Appearance,Urine CLEAR (Clear); Bilirubin,Urine Negative (Negative); Blood, Urine 3+ (Negative); Color,Urine YELLOW (Yellow); Glucose,Urine (UA) TRACE (Negative); Ketones,Urine 1+ (Negative); Leukocyte Esterase,Urine Negative (Negative); Nitrate,Urine Negative (Negative); Protein,Urine Negative (Negative); Specific Gravity, Urine 1.025 (1.005-1.030); Urobilinogen,Urine 0.2 EU/dl (0.2)
[2022-01-22 01:00] VITALS: BP 124/68; PULSE 99; O2SAT 97
[2022-01-22 01:14] LABS: Mucus,Urine 2+ /lpf; RBC,Urine TNTC #/hpf (0-3)
[2022-01-22 01:30] VITALS: BP 130/87; PULSE 89; O2SAT 97
[2022-01-22 01:35] VITALS: BP 130/67; PULSE 80; RESP 19; TEMP 36.7; O2SAT 98
--- NOTE | 2022-01-22 01:45 | PC.NURSE ---
Attempted to call son Jeffery Chambers at [phone]. Pt is likely being discharged per md if the family is available to stay with him or follow up on him at home.
== END 2022-01-22 02:08 | disposition home or self-care (01) ==
PROVIDERS: Emergency Provider Emergency Medicine; PCP Pediatrics
DX: E11.649 Type 2 diabetes mellitus with hypoglycemia without coma; Z79.4 Long term (current) use of insulin; Z79.84 Long term (current) use of oral hypoglycemic drugs; I25.10 Atherosclerotic heart disease of native coronary artery without angina pectoris; I48.91 Unspecified atrial fibrillation; Z87.19 Personal history of other diseases of the digestive system; E78.5 Hyperlipidemia, unspecified; I10 Essential (primary) hypertension; I25.2 Old myocardial infarction; F41.9 Anxiety disorder, unspecified; I49.9 Cardiac arrhythmia, unspecified; N40.0 Benign prostatic hyperplasia without lower urinary tract symptoms
CPT/HCPCS: 70450; 80053; 81001; 82803; 82962; 83605; 85025; 93005; 96365; 99284

== ENCOUNTER 2022-01-22 12:28 | Emergency (ER) | payer MEDICARE, SELFPAY ==
[2022-01-22 12:28] VITALS: BP 140/86; PULSE 95; RESP 18; TEMP 36.7; O2SAT 95; BMI 29.5
--- NOTE | 2022-01-22 12:47 | PC.NURSE ---
YUMI SERRANO at
--- NOTE | 2022-01-22 12:55 | MR_ITS ---
PROCEDURE INFORMATION: Exam: MR Head Without Contrast Exam date and time: 01/22/2022 4:41 PM Age: 86 years old Clinical indication: Headache, fatigue. TECHNIQUE: Imaging protocol: Magnetic resonance imaging of the head without contrast. COMPARISON: CT HEAD/BRAIN WO CON 01/21/2022 10:11 PM FINDINGS: Brain: There is high signal abnormality in the periventricular white matter and centrum semiovale, best seen on the flair images. These changes are nonspecific but consistent with chronic small vessel ischemic disease which is common in older patients. Foci of gliosis, chronic infarcts, and/or demyelination cannot be excluded. There is moderate cerebral and cerebellar atrophy. There are chronic brainstem ischemic changes. Cerebral ventricles: Normal. No ventriculomegaly. Bones/joints: Unremarkable. Paranasal sinuses: Normal as visualized. No acute sinusitis. Mastoid air cells: Normal as visualized. No mastoid effusion. Orbital cavities: Unremarkable. Soft tissues: Unremarkable. IMPRESSION: 1. There is high signal abnormality in the periventricular white matter and centrum semiovale, best seen on the flair images. These changes are nonspecific but consistent with chronic small vessel ischemic disease which is common in older patients. Foci of gliosis, chronic infarcts, and/or demyelination cannot be excluded. No acute infarct is identified. 2. There is moderate cerebral and cerebellar atrophy. 3. There are chronic brainstem ischemic changes.
--- NOTE | 2022-01-22 12:59 | HMH.EDGENADL ---
ED Disposition Clinical Impression: Weakness of both lower extremities Disposition: Xfer Short-Term Hosp Condition on Discharge: Good Referrals: Jonathan Nichols [Primary Care Provider] - - Critical Care Critical Care Time: No Attestation: On 01/22/22, the high probability of a clinically significant, sudden or life threatening deterioration of the following system(s) required my full and direct attention, intervention and personal management. The time I documented below is in addition to time spent performing reported procedures but includes the following listed in this critical care notation. Medical Decision Making - Medical Records Medical records reviewed: Yes: I reviewed the patient's medical records. - Adi Inquiry Pt receiving controlled substance: No - Lab Data Lab Results 01/22/22 13:15: WBC 9.0, RBC 5.25, Hgb 15.5, Hct 48.1, MCV 91.6, MCH 29.4, MCHC 32.1, RDW 14.1, Plt Count 224, MPV 8.0, Neut % (Auto) 77.6, Lymph % (Auto) 9.6 L, Spink % (Auto) 9.3, Eos % (Auto) 1.8, Baso % (Auto) 1.6, Neut # (Auto) 7.0, Lymph # (Auto) 0.9, Spink # (Auto) 0.8, Eos # (Auto) 0.2, Baso # (Auto) 0.1 01/22/22 13:15: Sodium 137, Potassium 4.8, Chloride 102, Carbon Dioxide 30, Anion Gap 9.8, BUN 19, Creatinine 0.80 D, Estimated Creat Clear 71, Estimated GFR 92, Est GFR ( Amer) 111 D, Glucose 247 H D, Calcium 9.5, Total Bilirubin 0.8, AST 40, ALT 32 D, Alkaline Phosphatase 106, C-Reactive Protein 4.2 H, Total Protein 6.4, Albumin 3.9 D, Globulin 2.5, Albumin/Globulin Ratio 1.6 01/22/22 13:15: ESR 8 Result diagrams: 01/22/22 13:15 01/22/22 13:15 - Physician Consults Time: 14:16 (discusseed with dr Moya neurology [facility] accepts to neuro floor ) General Adult HPI - General Stated complaint: leg weakness Time Seen by Provider: 01/22/22 12:59 - History of Present Illness HPI narrative: svetlana leg weakness, unable to ambulate today 3 mo progressive weakness due to svetlana leg weakness sent by neurology for w/u already seen by spine r/o etiology Onset (ago): week(s) Radiation: non-radiation Severity: severe Consistency: constant Relieving factors: none Exacerbating factors: none Associated symptoms: denies other symptoms - Related Data Home Medications Medication Instructions Recorded Confirmed insulin detemir U-100 100 unit/mL 40 unit SQ HS ml 09/27/17 01/22/22 subcutaneous solution metformin 500 mg tablet 500 mg PO BID tab 10/18/19 01/22/22 lisinopriL [Lisinopril] 20 mg PO DAILY 07/31/21 01/22/22 Tamsulosin HCl 0.4 mg PO DAILY 01/21/22 01/22/22 Allergies Allergy/AdvReac Type Severity Reaction Status Date / Time No Known Allergies Allergy Verified 01/22/22 11:08 [facility] History - Hepatitis A Screen Attestation statement:: This patient has been screened for Hepatitis A risk factors. Medical History: Reports:: Anxiety, Arrhythmia, Atherosclerotic Heart Disease, Atrial Fibrillation, BPH, Congestive Heart Failure, Coronary Artery Disease, Diabetes Mellitus Type 2, Gastrointestinal Bleed, Hyperlipidemia, Hypertension, Myocardial Infarction Denies:: Cancer, Diabetes Mellitus Type 1, Internal Pacemaker, MRSA, Seizures Other Medical History: Reports: Arthritis, Blood Transfusion Reaction, Cataracts Comment: TOÑO-untreated Laterality Cases: Bilateral: Arthroscopy Knee, Arthroscopy Shoulder, Other Other Surgeries: Yes: No Previous Surgery, Angiogram, Angioplasty, Cardiac Catheterization, Cardiac Surgery, Cholecystectomy, Colonoscopy, Coronary Stent, EGD, Other. No: Pacemaker Amputation: No Fractures: Yes Comment: Loop recorder - Social History Smoking Status: Never smoker Alcohol Intake: current Alcohol Intake Frequency:: holidays/special occasions only Substance Use Type: denies use Occupational Status: retired Housing: house Household Members: none - Psychiatric History Pschychiatric History:: Reports:: Anxiety Family Hx:: Cancer ROS Obtained: Yes All systems reviewed & no additional complaint
[2022-01-22 13:00] VITALS: BMI 29.5
--- NOTE | 2022-01-22 13:03 | PC.NURSE ---
Addendum entered by Zandra Aaron RN 01/22/22 13:04: spoke with Carissa, waiting weapons electrical engineering officer back Original Note: contacting care management for approval for MRI
--- NOTE | 2022-01-22 13:17 | PC.NURSE ---
per Carissa in care management states she recommends CTs prior to MRI on pt. Notified ER
[2022-01-22 13:27] LABS: Basophils # 0.1 K/mm3 (0-0.2); Basophils % 1.6 % (0.1-2.0); Eosinophils # 0.2 K/mm3 (0.0-0.4); Eosinophils % 1.8 % (0.1-12.0); Hematocrit 48.1 % (42.0-52.0); Hemoglobin 15.5 g/dL (14.1-18.0); Lymphocytes # 0.9 K/mm3 (0.7-4.5); Lymphocytes % 9.6 % (10-50); Mean Corpuscular HGB Conc 32.1 g/dL (31.8-35.4); Mean Corpuscular Hemoglobin 29.4 pg (27.0-31.2); Mean Corpuscular Volume 91.6 fl (80-94); Monocytes # 0.8 K/mm3 (0.1-1.0); Monocytes % 9.3 % (1.7-9.3); Neutrophils % 77.6 % (37.0-80.0); Platelet Count 224 K/mm3 (142-424); Red Blood Count 5.25 M/mm3 (4.60-6.20); Red Cell Distribution Width 14.1 % (11.5-17.5)
[2022-01-22 13:29] LABS: Chloride 102 mmol/L (98-107); Potassium 4.8 mmoL/L (3.5-5.1); Sodium 137 mmol/L (136-145)
[2022-01-22 13:31] VITALS: BP 130/86; PULSE 69; O2SAT 96
[2022-01-22 13:32] LABS: Alanine Aminotransferase 32 U/L (12-78); Albumin Level 3.9 g/dl (3.5-5.0); Albumin/Globulin Ratio 1.6 (1.1-1.8); Alkaline Phosphatase 106 U/L (38-126); Anion Gap 9.8 mEq/L (5-15); Aspartate Amino Transferase 40 U/L (17-59); Bilirubin,Total 0.8 mg/dl (0.2-1.3); Blood Urea Nitrogen 19 mg/dl (9-20); Calcium 9.5 mg/dl (8.4-10.2); Carbon Dioxide 30 mmol/L (22.0-30.0); Creatinine Clearance Estimated 71 mL/min (50-200); Estimated Glomerular Filt Rate 92 ml/min (>60); GFR (African American) 111 ML/MIN (>60); Globulin 2.5 g/dL (1.3-3.2); Glucose 247 mg/dl (74-100); Total Protein,Serum 6.4 g/dl (6.3-8.2)
[2022-01-22 13:38] LABS: C-Reactive Protein 4.2 mg/L (0-4)
--- NOTE | 2022-01-22 13:41 | PC.NURSE ---
Contacting MDs at this time for YUMI SERRANO
--- NOTE | 2022-01-22 13:48 | PC.NURSE ---
Awaiting a call back from [facility] Neurologist to call back and speak with ER
[2022-01-22 13:57] LABS: Erythrocyte Sedimentation Rate 8 mm/hr (0-20)
[2022-01-22 14:00] VITALS: BP 145/88
--- NOTE | 2022-01-22 14:08 | PC.NURSE ---
YUMI SERRANO speaking with MD neurologist for patient consult at this time
[2022-01-22 14:31] VITALS: BP 144/76; PULSE 98; O2SAT 98
[2022-01-22 14:53] LABS: Coronavirus 19, PCR Not Detected (NotDetected); Influenza A, PCR Not Detected (NotDetected); Influenza B, PCR Not Detected (NotDetected)
--- NOTE | 2022-01-22 14:53 | PC.NURSE ---
per ER MD pt is on waiting list on [facility] at this time, [facility] requests that we call them back after covid swab is resulted
--- NOTE | 2022-01-22 15:08 | PC.NURSE ---
YUMI SERRANO on phone with Carissa in care management regarding approval of MRI
--- NOTE | 2022-01-22 15:10 | PC.NURSE ---
ER reports Carissa in care management stated it was up to him if patient needed MRI or not; Magaly in Radiology is aware that we are doing MRI scan
--- NOTE | 2022-01-22 15:20 | PC.NURSE ---
updated pt on POC, MRI should be down soon to transport him for tests, is on a waiting list currently at . Pt verbalized understanding, no needs or concerns voiced at this time.
--- NOTE | 2022-01-22 15:36 | PC.NURSE ---
pt to MRI at this time via wheelchair per radiology staff
--- NOTE | 2022-01-22 17:15 | PC.NURSE ---
pt returned from MRI
--- NOTE | 2022-01-22 17:33 | PC.NURSE ---
Pt to bathroom with staff assist
--- NOTE | 2022-01-22 17:47 | PC.NURSE ---
Assisted pt back to bed via w/c. Pt had a large BM.
--- NOTE | 2022-01-22 17:49 | PC.NURSE ---
Requesting dinner tray for pt
--- NOTE | 2022-01-22 17:52 | PC.NURSE ---
BENJI called back with bed assignment for pt. attempted to call report and receiving nurse was busy. staff took number and will have her call back
--- NOTE | 2022-01-22 18:37 | PC.NURSE ---
[facility] here at [facility] to transport patient to [facility]
[2022-01-22 18:44] VITALS: BP 132/70; PULSE 94; RESP 20; TEMP 36.7; O2SAT 99
== END 2022-01-22 18:46 | disposition short-term general hospital (02) ==
PROVIDERS: Emergency Provider Emergency Medicine; PCP Pediatrics
DX: R53.1 Weakness (principal); Z79.84 Long term (current) use of oral hypoglycemic drugs; Z79.4 Long term (current) use of insulin; Z79.899 Other long term (current) drug therapy; I25.10 Atherosclerotic heart disease of native coronary artery without angina pectoris; I48.91 Unspecified atrial fibrillation; E11.9 Type 2 diabetes mellitus without complications; I11.0 Hypertensive heart disease with heart failure; E78.5 Hyperlipidemia, unspecified; I50.9 Heart failure, unspecified; I25.2 Old myocardial infarction; Z87.19 Personal history of other diseases of the digestive system
CPT/HCPCS: 70551; 80053; 85025; 85651; 86140; 99284; C9803; U0003; U0005